=== PATIENT | male | born 1945 | race Caucasian/White ===

== ENCOUNTER 2022-04-06 08:29 | Outpatient (REF) | payer MEDICARE, SELFPAY ==
[2022-04-06 08:47] LABS: MANUAL DIFF FLAG NO
[2022-04-06 08:58] LABS: Basophils Percent Auto 0.5 % (0-2); Eosinophils Absolute Auto 0.3 X10*3/uL (0.0-0.4); Eosinophils Percent Auto 4.5 % (0-4); Hematocrit 38.8 % (42.0-52.0); Hemoglobin 13.5 g/dl (14.0-18.0); Imm Gran Abs Auto 0.04 X10*3/uL (0.00-0.03); Imm Gran Pct Auto 0.6 % (0.0-0.4); Lymphocytes Absolute Auto 1.2 X10*3/uL (1.2-4.9); Lymphocytes Percent Auto 20.1 % (20-40); Mean Corpuscular HGB Conc 34.8 g/dl (31.0-36.0); Mean Corpuscular Hemoglobin 28.8 pg (27.0-33.0); Mean Corpuscular Volume 82.7 fL (80.0-98.0); Mean Platelet Volume 9.2 fL (9.4-12.4); Monocytes Absolute Auto 0.6 X10*3/uL (0.1-1.2); Monocytes Percent Auto 9.2 % (2-11); Neutrophils Percent Auto 65.1 % (45-73); Platelet Count 301 X10*3/uL (160-400); Red Blood Count 4.69 X10*6/uL (4.60-5.80); Red Cell Distribution Width 12.5 % (11.0-16.0); White Blood Count 6.2 X10*3/uL (4.8-10.8)
[2022-04-06 09:22] LABS: Alanine Aminotransferase 13 U/L (0-40); Albumin Level 3.9 g/dL (3.5-5.0); Alkaline Phosphatase 85 U/L (39-117); Anion Gap 15 (12-20); Aspartate Amino Transferase 11 U/L (5-37); Bilirubin Total 0.5 mg/dL (0.0-1.0); Blood Urea Nitrogen 28 mg/dL (9-16); Calcium 9.4 mg/dL (8.4-10.2); Carbon Dioxide 25 mmol/L (22-29); Chloride 104 mmol/L (96-108); Cholesterol 170 mg/dL; Estimated Glomerular Filt Rate 39; Glucose Random 323 mg/dL (60-115); HDL Cholesterol 28 mg/dL; LDL Cholesterol Calculated 82 mg/dl; Potassium 5.9 mmol/L (3.3-5.1); Sodium 138 mmol/L (135-145); Total Protein 7.3 g/dL (6.5-8.0); Triglycerides 301 mg/dL
[2022-04-06 09:42] LABS: Thyroid Stimulating Hormone 2.57 uIU/mL (0.32-4.0)
[2022-04-06 09:53] LABS: Folate 4.9 ng/mL (> or = 4.0); Vitamin B12 316 pg/mL (200-900)
== END 2022-04-06 08:30 | disposition home or self-care (01) ==
LOC: HO.LAB 08:29
PROVIDERS: PCP Internal Medicine; Visit Provider Internal Medicine
DX: E11.65 Type 2 diabetes mellitus with hyperglycemia (principal); E78.00 Pure hypercholesterolemia, unspecified; E87.5 Hyperkalemia
CPT/HCPCS: 36415; 80053; 80061; 82607; 82746; 84439; 84443; 85025

== ENCOUNTER 2022-04-07 16:20 | Outpatient (REF) | payer MEDICARE, SELFPAY ==
[2022-04-07 17:30] LABS: Creatinine Urine 66.04 mg/dL
[2022-04-07 17:32] LABS: Creatinine Urine 65.97 mg/dL; Microalbum/Creatinine Ratio Ur 37.8 ug/mg cr
== END 2022-04-07 16:21 | disposition home or self-care (01) ==
LOC: HO.LNP 16:20
PROVIDERS: Visit Provider Internal Medicine
DX: E11.65 Type 2 diabetes mellitus with hyperglycemia (principal)
CPT/HCPCS: 82043

== ENCOUNTER → 2022-04-14 12:59 | Outpatient (BNVA) | payer MEDICARE, SELFPAY | PROVIDERS: PCP Internal Medicine; Visit Provider Internal Medicine Endocrinology, Diabetes & Metabolism | DX: E11.65 Type 2 diabetes mellitus with hyperglycemia (principal) | CPT/HCPCS: 82947; 83036; 99202 ==

== ENCOUNTER 2022-04-21 14:56 | Outpatient (REF) | payer MEDICARE, SELFPAY ==
[2022-04-21 15:36] LABS: Anion Gap 13 (12-20); Blood Urea Nitrogen 32 mg/dL (9-16); Calcium 9.9 mg/dL (8.4-10.2); Carbon Dioxide 27 mmol/L (22-29); Chloride 103 mmol/L (96-108); Estimated Glomerular Filt Rate 40; Glucose Random 191 mg/dL (60-115); Potassium 4.7 mmol/L (3.3-5.1); Sodium 138 mmol/L (135-145)
== END 2022-04-21 14:57 | disposition home or self-care (01) ==
LOC: HO.LAB 14:56
PROVIDERS: PCP Internal Medicine; Visit Provider Internal Medicine
DX: E87.5 Hyperkalemia (principal)
CPT/HCPCS: 36415; 80048

== ENCOUNTER → 2022-05-05 10:49 | Outpatient (BNVA) | payer MEDICARE, SELFPAY | PROVIDERS: PCP Internal Medicine; Visit Provider Registered Nurse Diabetes Educator | DX: E11.65 Type 2 diabetes mellitus with hyperglycemia (principal) | CPT/HCPCS: 99211 ==

== ENCOUNTER → 2022-06-16 10:28 | Outpatient (BNVA) | payer MEDICARE, SELFPAY | PROVIDERS: PCP Internal Medicine; Visit Provider Dietitian, Registered | DX: E11.65 Type 2 diabetes mellitus with hyperglycemia (principal); Z71.3 Dietary counseling and surveillance | CPT/HCPCS: 97802 ==

== ENCOUNTER → 2022-07-21 15:55 | Outpatient (BNVA) | payer MEDICARE, SELFPAY | PROVIDERS: PCP Internal Medicine; Visit Provider Internal Medicine Endocrinology, Diabetes & Metabolism | DX: E11.65 Type 2 diabetes mellitus with hyperglycemia (principal); Z79.4 Long term (current) use of insulin | CPT/HCPCS: 82947; 83036; 99212 ==

== ENCOUNTER → 2022-10-01 09:56 | Outpatient (BNVA) | payer MEDICARE, SELFPAY | PROVIDERS: PCP Internal Medicine; Visit Provider Dietitian, Registered | DX: E11.65 Type 2 diabetes mellitus with hyperglycemia (principal); E11.22 Type 2 diabetes mellitus with diabetic chronic kidney disease; N18.9 Chronic kidney disease, unspecified | CPT/HCPCS: 97803 ==

== ENCOUNTER → 2022-11-10 15:07 | Outpatient (BNVA) | payer MEDICARE, SELFPAY | PROVIDERS: PCP Internal Medicine; Visit Provider Internal Medicine Endocrinology, Diabetes & Metabolism | DX: E11.65 Type 2 diabetes mellitus with hyperglycemia (principal) | CPT/HCPCS: 82947; 83036; 99212 ==

== ENCOUNTER 2023-04-21 07:56 | Outpatient (AMB) | payer MEDICARE, SELFPAY ==
[2023-04-21 07:58] VITALS: BP 114/52; PULSE 80; BMI 37.4
--- NOTE | 2023-04-21 07:58 | MHC.OFFVIS ---
Intake Vital Signs 04/21/23 07:58 Height 5 ft 10 in Weight 260 lb 5.855 oz BMI 37.4 BP 114/52 L Blood Pressure Location Lt brachial Position Sitting Pulse 80 Pulse Source Pulse Oximeter Intake Visit Reasons: f/u Type 2 DM/CONFIRM Intake Note: Patient present today to follow up on Type 2 Diabetes Mellitus. Patient receives DME supplies through: Last Diabetic Eye exam: November 06, 2022 Last Podiatry Visit: 04/13/2023 Random Glucose: 268mg/dl HgA1C: 9.4% Visual Design Lead Required: No Accompanied by: Self / Same As Patient Allergies metformin Adverse Reaction (Severe, Verified 04/21/23 08:04) Diarrhea Medication List - Last Reconciled 04/21/23 by Kalen Hernandez MD flash glucose scanning reader ([employer] Oscar 2 [place]) As directed checked the blood sugar 3 times a day, patient is on 4 shots a day of insulin flash glucose sensor (FreeStyle Oscar 2 Sensor kit) As directed check the blood sugars 4 times a day, patient is on insulin and is on for shots today furosemide 20 mg PO DAILY insulin aspart U-100 (Novolog FlexPen U-100 Insulin aspart) 1 sliding scale dose subcut TID insulin glargine (Lantus Solostar U-100 Insulin) 40 units (0.4 mL) subcut QPM losartan 100 mg PO DAILY 90 days lovastatin 20 mg PO DAILY 90 days HPI HPI Comments History of Present Illness Details 77 YO M who is seen in consultation for T2DM at the request of PCP. Initially diagnosed with T2DM in 2003 . Was initially started on treatment with metformin . Had diarrhea Current regimen 40 units Lantus Novolog <150 0 units 151-200 4-12 units Never took Trulicity . download of Oscar shows average glucose to be 237 with GMI of 9% 13 % range with 53% hyperglycemic and 34 % very hyperglycemic and no hypoglycemia. Pattern shows persistent hyperglycemia throughout the day with increased post-breakfast and post-lunch hyperglycemia Reports low sugars rare . Family history of T2DM in Father Type 2 DM . Brother had Type 2 DM Has eyes checked yearly, last eye exam last wk , Has retinopathy.Laser surgery in R eye but has both eyes Denies neuropathy, l, Does not sees podiatry. Has nephropathy, on TIFFANY/ARB. . Has HLD, on statin. Denies CAD. Had diabetes education.[facility] Medical History (Updated 10/01/22 @ 10:[address], LDN) Hypercholesterolemia Hypertension Type 2 diabetes mellitus with hyperglycemia Surgical History Hx of cataract surgery Family History Mother Ovarian cancer Father Diabetes Brother No problems noted. Brother Diabetes Sister No problems noted. Daughter No problems noted. Social History Housing: Other (Staying with brother) Alcohol intake: current Patient Tobacco Use Status: Former Tobacco user Tobacco use type: Cigarette Years Smoked: quit 1979 e-Cigarette/Vaping Use: Never Used Second Hand Smoke Exposure: No Current occupational status: retired Cognitive needs: No Hearing needs: No Vision needs: Yes Physical Exam Vital Signs: Last Vital Signs Pulse 80 04/21/23 07:58 BP 114/52 L 04/21/23 07:58 BMI result Body Mass Index 37.4 Absence of Cushingoid features. Absence of acromegalic features. Neck exam reveals nl size thyroid about 15 gms. No thyroid nodules palpable. No carotid bruits present. Lungs CTA. Heart S1 S2, Reg R/R. No M/R/ G. Skin exam reveals absence of vitiligo or acanthosis nigricans. Abdominal exam reveals Soft NT/ND with NA BS. No organomegaly present. Neck Other: . Extrem Other: Visual exam of foot performed. No ulcerations or open lesions. No onchomycosis, no callouses.Pulses 2 + distally Sensation intact to monofilament exam. Vibratory sensation sensed is decreased with 128 Hz tuning fork. There is onchymosis in several toenails on both LE. There is 2+ edema around both the ankles Results AMB Hemoglobin A1c AMB Hemoglobin A1c 9.4 % Last Edit by Nidia Nogueira on 04/21/23 08:23 Results Reviewed Results Reviewed: 04/21/23 08:11 Glucose, Whole Blood Routine Laboratory Last Values Glucose (Clinic) 268 mg/dL (60-115) H 04/21/23 08:11 Hgb A1c (Clinic) 9.4 % (4.0-6.0) H 04/21/23 08:13 Assessment & Plan Assessment & Plan (1) Type 2 diabetes mellitus with hyperglycemia: Code(s): E11.65 - Type 2 diabetes mellitus with hyperglycemia Plan: This is a 77-year-old white male with a history of type 2 diabetes in the setting of CKD stage 3 being managed with basal-bolus insulin with glycemic control and known microvascular complications namely CKD and retinopathy. Plan is to have the patient start the Trulicity 0.75 mg samples and titrate as tolerated. Patient agreed to try Trulicity. . Will also have patient follow up with public health educator. Will recheck basic metabolic panel, lipid profile microalbumin to creatinine ratio. If GFR is stable, will initiate Farxiga 10 mg q.d. for additional glycemic control and renal protection in future . Once again, went over the correlation of poor glycemic control to development of progression complications from diabetes Orders: Orders Basic Metabolic Panel Today E11.65 - Type 2 diabetes mellitus with hyperglycemia Lipid Panel Today E11.65 - Type 2 diabetes mellitus with hyperglycemia Microalbumin, Random (w Creat) Today E11.65 - Type 2 diabetes mellitus with hyperglycemia AMB Hemoglobin A1c Today E11.65 - Type 2 diabetes mellitus with hyperglycemia Coding Level of Care Code Est Pt Level 4 (99966) Diagnoses Type 2 diabetes mellitus with hyperglycemia E11.65
[2023-04-21 08:15] LABS: Glucose, Whole Blood 268 mg/dL (60-115)
== END 2023-04-21 08:34 | disposition home or self-care (01) ==
PROVIDERS: PCP Internal Medicine; Visit Provider Internal Medicine Endocrinology, Diabetes & Metabolism
DX: E11.65 Type 2 diabetes mellitus with hyperglycemia (principal)
CPT/HCPCS: 99214

== ENCOUNTER → 2023-04-21 07:56 | Outpatient (BNVA) | payer MEDICARE, SELFPAY | PROVIDERS: Visit Provider Internal Medicine Endocrinology, Diabetes & Metabolism | DX: E11.65 Type 2 diabetes mellitus with hyperglycemia (principal); E11.22 Type 2 diabetes mellitus with diabetic chronic kidney disease; N18.30 Chronic kidney disease, stage 3 unspecified; E11.319 Type 2 diabetes mellitus with unspecified diabetic retinopathy without macular edema; Z79.4 Long term (current) use of insulin | CPT/HCPCS: 82947; 83036; 99212 ==

== ENCOUNTER 2023-05-04 08:46 | Outpatient (AMB) | payer MEDICARE, SELFPAY ==
--- NOTE | 2023-05-04 09:06 | A.OFFPC_ITS ---
Vital Signs 05/04/23 09:07 Height 5 ft 10 in Weight 255 lb BMI 36.6 BP 130/62 Blood Pressure Location Lt brachial Position Sitting Pulse 57 Pulse Source Pulse Oximeter Pulse Oximetry (%) 97 Oxygen Delivery Method Room Air Intake Visit Reasons: PE Allergies metformin Adverse Reaction (Severe, Verified 05/04/23 09:08) Diarrhea Medication List - Last Reconciled 05/04/23 by Brandt Vickers MD dulaglutide (Trulicity) 0.75 mg subcut QWEEK flash glucose scanning reader ([employer] Oscar 2 [place]) As directed checked the blood sugar 3 times a day, patient is on 4 shots a day of insulin flash glucose sensor (FreeStyle Oscar 2 Sensor kit) As directed check the blood sugars 4 times a day, patient is on insulin and is on for shots today furosemide 20 mg PO DAILY insulin aspart U-100 (Novolog FlexPen U-100 Insulin aspart) 1 sliding scale dose subcut TID insulin glargine (Lantus Solostar U-100 Insulin) 40 units subcut QPM losartan 100 mg PO DAILY 90 days lovastatin 20 mg PO DAILY 90 days Tobacco use date assessed: 05/04/23 Fall risk assessment: 1 Fall in past year Last assessed Fall Risk: 05/04/23 Dental Screening Dental Screen Date: 05/04/23 Did you have a dental visit in the last 12 months?: No Did you have a dental problem in the last 6 months where you did not have access to dental care?: No Was dental information given to patient?: No HPI PE HPI Details 77-year-old obese male with uncontrolled diabetes mellitus hypercholesterolemia hypertension chronic kidney disease coming in for physical exam. Last seen in July 2022 patient is here for physical exam. Patient has met with endocrinology never started the Trulicity and was advised to start and if renal function is stable additional medication Farxiga. Patient also has met with Nephrology diagnosis of chronic kidney disease 3B diabetes/hypertension nephropathy Lasix 20 mg once a day advised for LDL to be less than 70. Patient also has seen Ophthalmology August 2022 stable proliferative diabetic retinopathy right eye left eye has active proliferative diabetic retinopathy with recent vitreous hemorrhage had intravitreal Avastin seeing Dr. Stephens [facility] Medical History (Updated 05/04/23 @ 09:42 by Brandt Vickers MD) Hypercholesterolemia Hypertension Type 2 diabetes mellitus with hyperglycemia Surgical History Hx of cataract surgery Family History (Updated 05/04/23 @ 09:09 by Taylor Castro CMA) Mother Ovarian cancer Father Diabetes Brother No problems noted. Brother Diabetes Sister No problems noted. Daughter No problems noted. Social History (Updated 05/04/23 @ 09:29 by Brandt Vickers MD) Housing: Other (Staying with brother) Alcohol intake: current Patient Tobacco Use Status: Former Tobacco user Tobacco use type: Cigarette Years Smoked: quit 1979 e-Cigarette/Vaping Use: Never Used Second Hand Smoke Exposure: No Current occupational status: retired Cognitive needs: No Hearing needs: No Vision needs: Yes Questionnaire PHQ-9 Over the last 2 weeks, how often have you been bothered by any of the following problems? 1. Little interest or pleasure in doing things: several days 2. Feeling down, depressed, or hopeless: not at all 3. Trouble falling or staying asleep, or sleeping too much: not at all 4. Feeling tired or having little energy: not at all 5. Poor appetite or overeating: not at all 6. Feeling bad about yourself - or that you are a failure or have let yourself or your family down: not at all 7. Trouble concentrating on things, such as reading the newspaper or watching television: not at all 8. Moving or speaking so slowly that other people could have noticed. Or the opposite - being so fidgety or restless that you have been moving around a lot more than usual: not at all 9. Thoughts that you would be better off or of hurting yourself in some way: not at all Total score: 1 Depression Screening Interpretation: Negative Source: Developed by Drs. Kalen Laguerre, Meg Charles, Alfonso Gan and colleagues, with an educational nadia from [employer]. Thrive Questionnaire Date Thrive assessed: 05/04/23 I am a: Patient What is your living situation today?: I have a steady place to live Within the past 12 months, did the food you bought not last and you didn't have the money to get more?: Never true Within the past 12 months, did you worry whether your food would run out before you got money to buy more?: Never true Do you have trouble paying for medicines?: No Do you have trouble getting transportation to medical appointments?: No Do you have trouble paying your heating and electricity bill?: No Do you have trouble taking care of your child, family member or friend?: No Do you have trouble with day-to-day activities such as bathing, preparing meals, shopping, managing finances, etc.?: No Are you currently unemployed and looking for a job?: No Are you interested in more education?: No Currently or been in a relationship where the following occur: no concerns reported AUDIT C Alcohol Use Questionnaire (AUDIT-C) 1. How often do you have a drink containing alcohol?: Monthly or less 2. How many drinks containing alcohol do you have on a typical day when you are drinking?: 1 or 2 3. How often do you have six or more drinks on one occasion?: Never Total Score: 1 PAZ-7 AMB Questionnaire PAZ-7 Date PAZ - 7 assessed: 05/04/23 Feeling nervous, anxious, or on edge: 0 = Not at all Not being able to stop or control worryin = Not at all Worrying too much about different things: 0 = Not at all Trouble relaxin = Not at all Being so restless that it is hard to sit still: 0 = Not at all Becoming easily annoyed or irritable: 0 = Not at all Feeling afraid as if something awful might happen: 0 = Not at all Total PAZ-7 score (0-4 normal; 5-9 mild; 10-14 moderate; 15-21 severe): 0 Source: Developed by Drs. Kalen Laguerre, Meg Charles, Alfonso Gan and colleagues, with an educational nadia from [employer]. Review of Systems Const Denies poor appetite and Denies weakness Eyes Denies no additional complaints ENT Reports Normal hearing present, Denies dizziness, Denies nasal congestion, Denies tinnitus and Denies sore throat Card Denies chest pain, Denies syncope, Denies rapid heart rate and Denies dyspnea Resp Denies cough and Denies dyspnea GI Denies change in stool character, Reports constipation, Denies diarrhea, Denies nausea and Denies vomiting Denies dysuria and Denies urinary frequency Neuro Reports Normal hearing present, Denies confusion, Denies dizziness, Denies syncope and Denies weakness Psych Denies confusion Physical exam (Primary Care) Vital Signs: Last Vital Signs Pulse 57 05/04/23 09:07 BP 130/62 05/04/23 09:07 Pulse Ox 97 05/04/23 09:07 Oxygen Delivery Method Room Air 05/04/23 09:07 Next steps: decline rectal exam , decline taking off shoes and pants BMI result Body Mass Index 36.6 Tobacco/Smoking Status: Tobacco use Status Tobacco use date assessed 05/04/23 05/04/23 09:15 Patient Tobacco Use Status Former Tobacco user 05/04/23 09:15 Tobacco use type Cigarette 05/04/23 09:15 e-Cigarette/Vaping Use Never Used 05/04/23 09:15 PHQ-9: PHQ-9 Score PHQ-9: Total score 1 05/04/23 09:15 Depression Screening Interpretation: Negative Thrive Assessment: Date of Thrive Assessment Date Thrive assessed 05/04/23 05/04/23 09:15 Currently or been in a relationship where the following occur: no concerns reported Const General: No confusion Orientation/consciousness: No confusion HENMT Other: impacted cerumen bilateral Head: Yes normocephalic Ears: external ears normal Face and sinus: Yes normal facial exam Mouth: moist mucous membranes Throat: Yes tonsils normal Eyes Other: R eye opaque corneal lens Conjunctivae: conjunctivae normal Pupils: Equal, round and reactive pupils present and Pupil accommodation reflex normal Direct Ophthalmoscopy: normal light reflex Neck Neck: No lymphadenopathy Thyroid: Thyroid normal Chest Chest palpation & inspection: normal inspection of the chest Resp Effort & Inspection: normal respiratory effort and no audible wheezes Auscultation: clear to auscultation bilaterally, no crackles, no wheezes and lung sounds not diminished Cardio Rate: regular rate Rhythm: regular rhythm Peripheral pulses: radial pulses present and dorsalis pedis present GI Palpation (GI): no masses Auscultation: normal bowel sounds and normoactive bowel sounds Rectal Exam - Male: Yes deferred Other: decline exam Skin General skin exam: no rashes or lesions noted Rashes: no rashes Neuro General: No confusion Cranial nerves: Yes Equal, round and reactive pupils present and Yes Normal hearing present Cognition (Neuro): normal cognition Gait exam (Neuro): Normal gait present Motor exam (neuro): 5/5 motor strength present throughout Deep tendon reflexes (DTR's): Right brachioradialis reflex intensity grade: 2+, Left brachioradialis reflex intensity grade: 2+, Right patellar reflex intensity grade: 2+ and Left patellar reflex intensity grade: 2+ Extrem Other: 2 + edema bilateral General: Yes edema Assessment and Plan Assessment & Plan (1) Annual physical exam: Code(s): Z00.00 - Encounter for general adult medical examination without abnormal findings (2) Type 2 diabetes mellitus with hyperglycemia: Code(s): E11.65 - Type 2 diabetes mellitus with hyperglycemia Plan: Decrease the amount of carbohydrate intake, pasta, bread, rice and potatoes are all sugar and that is aside from all the sweet stuff, remember that fruits are good but they are Sweet also. Hemoglobin A1c goal of less than 7.0 patient is being followed up by Endocrinology started on Chad and following with [facility] (3) Hypercholesterolemia: Code(s): E78.00 - Pure hypercholesterolemia, unspecified Plan: Avoid fried foods, chicken skin, eggs, butter margarine, pastries and meat. Be it pork or beef they have a lot of cholesterol LDL goal of less than 70 and triglyceride of less than 150 patient is on lovastatin 20 mg once a day (4) Hypertension: Code(s): I10 - Essential (primary) hypertension Plan: Continue with blood pressure medication. Decrease salt intake and exercise patient is on losartan 100 mg once a day (5) Obesity (BMI 30-39.9): Code(s): E66.9 - Obesity, unspecified Plan: Diet and exercise (6) CKD (chronic kidney disease): Comment: Stage IIIB nephrology Code(s): N18.9 - Chronic kidney disease, unspecified Plan: Patient follows up with Nephrology avoid NSAIDs keep diabetes under control (7) Colonoscopy refused: Code(s): Z53.20 - Procedure and treatment not carried out because of patient's decision for unspecified reasons (8) Proliferative retinopathy due to DM: Comment: Dr. Stephens left active proliferative, right stable proliferative retinopathy 08/2022 Code(s): E11.3599 - Type 2 diabetes mellitus with proliferative diabetic retinopathy without macular edema, unspecified eye Plan: Patient follows up with Ophthalmology (9) GERD (gastroesophageal reflux disease): Code(s): K21.9 - Gastro-esophageal reflux disease without esophagitis (10) Impacted cerumen of both ears: Code(s): H61.23 - Impacted cerumen, bilateral Orders: Orders Thyroid Stimulating Hormone Today E11.65 - Type 2 diabetes mellitus with hyperglycemia Microalbumin, Random (w Creat) Today E11.65 - Type 2 diabetes mellitus with hyperglycemia Creatinine Urine Today E11.65 - Type 2 diabetes mellitus with hyperglycemia Complete Blood Count Auto Diff Today E11.65 - Type 2 diabetes mellitus with hyperglycemia Comprehensive Met. Panel Today E11.65 - Type 2 diabetes mellitus with hyperglycemia Free T4 (Free Thyroxine) Today E11.65 - Type 2 diabetes mellitus with hyperglycemia Lipid Panel Today E11.65 - Type 2 diabetes mellitus with hyperglycemia, E78.00 - Pure hypercholesterolemia, unspecified Vitamin B12 and Folate Today E11.65 - Type 2 diabetes mellitus with hyperglycemia Coding Level of Care Code Est Pt Prev Care >65y(65600) Diagnoses Annual physical exam Z00.00 Type 2 diabetes mellitus with hyperglycemia E11.65 Hypercholesterolemia E78.00 Hypertension I10 Obesity (BMI 30-39.9) E66.9 CKD (chronic kidney disease) N18.9 Colonoscopy refused Z53.20 Proliferative retinopathy due to DM E11.3599 GERD (gastroesophageal reflux disease) K21.9 Impacted cerumen of both ears H61.23
[2023-05-04 09:07] VITALS: BP 130/62; PULSE 57; O2SAT 97; BMI 36.6
== END 2023-05-04 09:51 | disposition home or self-care (01) ==
PROVIDERS: Visit Provider Internal Medicine
DX: Z00.00 Encounter for general adult medical examination without abnormal findings (principal); I12.9 Hypertensive chronic kidney disease with stage 1 through stage 4 chronic kidney disease, or unspecified chronic kidney disease; E11.65 Type 2 diabetes mellitus with hyperglycemia; N18.9 Chronic kidney disease, unspecified; E11.3599 Type 2 diabetes mellitus with proliferative diabetic retinopathy without macular edema, unspecified eye; K21.9 Gastro-esophageal reflux disease without esophagitis; E78.00 Pure hypercholesterolemia, unspecified; E66.9 Obesity, unspecified; Z53.20 Procedure and treatment not carried out because of patient's decision for unspecified reasons; H61.23 Impacted cerumen, bilateral
CPT/HCPCS: 99397

== ENCOUNTER 2023-07-30 09:10 | Outpatient (REF) | payer MEDICARE, SELFPAY ==
[2023-07-30 09:32] LABS: MANUAL DIFF FLAG NO
[2023-07-30 10:00] LABS: Basophils Percent Auto 0.5 % (0-2); Eosinophils Absolute Auto 0.2 X10*3/uL (0.0-0.4); Eosinophils Percent Auto 3.3 % (0-4); Hematocrit 37.9 % (42.0-52.0); Hemoglobin 13.3 g/dl (14.0-18.0); Imm Gran Abs Auto 0.07 X10*3/uL (0.00-0.03); Imm Gran Pct Auto 0.9 % (0.0-0.4); Lymphocytes Absolute Auto 1.7 X10*3/uL (1.2-4.9); Lymphocytes Percent Auto 23.5 % (20-40); Mean Corpuscular HGB Conc 35.1 g/dl (31.0-36.0); Mean Corpuscular Hemoglobin 29.9 pg (27.0-33.0); Mean Corpuscular Volume 85.2 fL (80.0-98.0); Mean Platelet Volume 9.7 fL (9.4-12.4); Monocytes Absolute Auto 0.8 X10*3/uL (0.1-1.2); Monocytes Percent Auto 11.1 % (2-11); Neutrophils Absolute Auto 4.5 x10*3/uL (2.0-8.3); Neutrophils Percent Auto 60.7 % (45-73); Platelet Count 310 X10*3/uL (160-400); Red Blood Count 4.45 X10*6/uL (4.60-5.80); Red Cell Distribution Width 12.7 % (11.0-16.0); White Blood Count 7.4 X10*3/uL (4.8-10.8)
[2023-07-30 10:55] LABS: Alanine Aminotransferase 15 U/L (0-40); Albumin Level 3.9 g/dL (3.5-5.0); Alkaline Phosphatase 68 U/L (39-117); Anion Gap 14 (12-20); Aspartate Amino Transferase 16 U/L (5-37); Bilirubin Total 0.5 mg/dL (0.0-1.0); Blood Urea Nitrogen 35 mg/dL (9-16); Calcium 9.9 mg/dL (8.4-10.2); Carbon Dioxide 26 mmol/L (22-29); Chloride 107 mmol/L (96-108); Cholesterol 149 mg/dL (<200); Estimated Glomerular Filt Rate 37; Glucose Random 212 mg/dL (60-115); HDL Cholesterol 27 mg/dL (>40); LDL Cholesterol Calculated 77 mg/dL (<100); Potassium 5.6 mmol/L (3.3-5.1); Sodium 141 mmol/L (135-145); Total Protein 7.8 g/dL (6.5-8.0); Triglycerides 226 mg/dL (<150)
[2023-07-30 11:20] LABS: Folate 3.8 ng/mL (> or = 4.0); Vitamin B12 387 pg/mL (200-900)
[2023-07-30 11:27] LABS: Free T4 (Free Thyroxine) 0.82 ng/dL (0.71-1.85)
[2023-07-30 11:42] LABS: Creatinine Urine 107.96 mg/dL; Microalbum/Creatinine Ratio Ur 42.6 ug/mg cr (<30)
== END 2023-07-30 09:11 | disposition home or self-care (01) ==
LOC: HO.LAB 09:10
PROVIDERS: PCP Internal Medicine; Visit Provider Internal Medicine Endocrinology, Diabetes & Metabolism
DX: E11.65 Type 2 diabetes mellitus with hyperglycemia (principal); E78.00 Pure hypercholesterolemia, unspecified
CPT/HCPCS: 36415; 80053; 80061; 82043; 82570; 82607; 82746; 84439; 84443; 85025

== ENCOUNTER 2023-08-04 09:13 | Outpatient (AMB) | payer MEDICARE, SELFPAY ==
--- NOTE | 2023-08-04 09:32 | MHC.OFFVIS ---
Intake Vital Signs 08/04/23 09:33 Height 5 ft 10 in Weight 263 lb 3.711 oz BMI 37.8 BP 136/66 Blood Pressure Location Lt brachial Position Sitting Pulse 59 Pulse Source Pulse Oximeter Intake Visit Reasons: f/u Type 2 DM-CONFIRMED Intake Note: Patient presents today to follow up on DMT2. Last Diabetic Eye exam: 07/2023 Last Podiatry Visit: 06/2023 Random Glucose: 238 mg/dl HgA1C:9.5% Computed Tomography Technician Required: No Accompanied by: Self / Same As Patient Allergies metformin Adverse Reaction (Severe, Verified 08/04/23 09:39) Diarrhea HPI HPI Comments History of Present Illness Details 78 YO M who is seen in consultation for T2DM at the request of PCP. Initially diagnosed with T2DM in 2003 . Was initially started on treatment with metformin . Had diarrhea Current regimen 40 units Lantus Novolog <150 0 units 151-200 4-12 units Took Trulicity but could not afford it . download of Oscar shows average glucose to be 241 with GMI of 9.1% 17 % range with 41% hyperglycemic and 42 % very hyperglycemic and no hypoglycemia. Pattern shows persistent hyperglycemia throughout the day with increased post-breakfast and post-dinner hyperglycemia. Trend is downward overnight Reports low sugars rare . Family history of T2DM in Father Type 2 DM . Brother had Type 2 DM Has eyes checked yearly, last eye exam 2 wks ago , Has retinopathy.Laser surgery in R eye but has both eyes Denies neuropathy, l, Does not sees podiatry. Has nephropathy, on TIFFANY/ARB. . Has HLD, on statin. Denies CAD. Had diabetes education.Not recently [facility] Medical History (Updated 05/04/23 @ 09:42 by Brandt Vickers MD) Hypercholesterolemia Hypertension Type 2 diabetes mellitus with hyperglycemia Surgical History Hx of cataract surgery Family History Mother Ovarian cancer Father Diabetes Brother No problems noted. Brother Diabetes Sister No problems noted. Daughter No problems noted. Social History Housing: Other (Staying with brother) Alcohol intake: current Patient Tobacco Use Status: Former Tobacco user Tobacco use type: Cigarette Years Smoked: quit 1979 e-Cigarette/Vaping Use: Never Used Second Hand Smoke Exposure: No Current occupational status: retired Cognitive needs: No Hearing needs: No Vision needs: Yes Physical Exam Vital Signs: Last Vital Signs Pulse 59 08/04/23 09:33 BP 136/66 08/04/23 09:33 BMI result Body Mass Index 37.8 Absence of Cushingoid features. Absence of acromegalic features. Neck exam reveals nl size thyroid about 15 gms. No thyroid nodules palpable. No carotid bruits present. Lungs CTA. Heart S1 S2, Reg R/R. No M/R/ G. Skin exam reveals absence of vitiligo or acanthosis nigricans. Abdominal exam reveals Soft NT/ND with NA BS. No organomegaly present. Neck Other: . Extrem Other: Visual exam of foot performed. No ulcerations or open lesions. No onchomycosis, no callouses.Pulses 2 + distally Sensation intact to monofilament exam. Vibratory sensation sensed is decreased with 128 Hz tuning fork. There is onchymosis in several toenails on both LE. There is 2+ edema around both the ankles Results Reviewed Results Reviewed: Laboratory Last Values Glucose (Clinic) 238 mg/dL (60-115) H 08/04/23 09:41 Assessment & Plan Assessment & Plan (1) Type 2 diabetes mellitus with hyperglycemia: Code(s): E11.65 - Type 2 diabetes mellitus with hyperglycemia Plan: This is a 77-year-old white male with a history of type 2 diabetes in the setting of CKD stage 3 being managed with basal-bolus insulin with poor glycemic control and known microvascular complications namely CKD and retinopathy. Plan is to have the patient have patient follow up with certified breastfeeding educator. Patient is not sure of the scale NovoLog and cannot adjust at this appointment. When he meets with the educator, we could then adjust the NovoLog scale. Will also try to reinitiate Trulicity and try to get financial assistance from [employer]. If GFR is stable, will initiate Farxiga 10 mg q.d. for additional glycemic control and renal protection in future . Once again, went over the correlation of poor glycemic control to development of progression complications from diabetes Medications: New dulaglutide (Trulicity) 0.75 mg (0.5 mL) subcut QWEEK 2 mL 4RF Coding Level of Care Code Est Pt Level 4 (50539) Diagnoses Type 2 diabetes mellitus with hyperglycemia E11.65
[2023-08-04 09:33] VITALS: BP 136/66; PULSE 59; BMI 37.8
[2023-08-04 09:45] LABS: Glucose, Whole Blood 238 mg/dL (60-115)
== END 2023-08-04 10:18 | disposition home or self-care (01) ==
PROVIDERS: PCP Internal Medicine; Visit Provider Internal Medicine Endocrinology, Diabetes & Metabolism
DX: E11.65 Type 2 diabetes mellitus with hyperglycemia (principal)
CPT/HCPCS: 99214

== ENCOUNTER → 2023-08-04 09:13 | Outpatient (BNVA) | payer MEDICARE, SELFPAY | PROVIDERS: PCP Internal Medicine; Visit Provider Internal Medicine Endocrinology, Diabetes & Metabolism | DX: E11.65 Type 2 diabetes mellitus with hyperglycemia (principal) | CPT/HCPCS: 82947; 83036; 99212 ==

== ENCOUNTER 2023-08-25 08:52 | Outpatient (AMB) | payer MEDICARE, SELFPAY ==
--- NOTE | 2023-08-25 09:37 | MHC.AMDMED ---
Intake Intake Visit Reasons: f/u Type 2 DM Quality Assurance Technician Required: No Accompanied by: Self / Same As Patient Allergies metformin Adverse Reaction (Severe, Verified 08/04/23 09:39) Diarrhea HPI Comprehensive Diabetes Asmnt Most Recent Diabetes Results: Microalb/Creat Ratio 42.6 ug/mg cr (<30) H 07/30/23 Cholesterol 149 mg/dL (<200) 07/30/23 HDL Cholesterol 27 mg/dL (>40) L 07/30/23 Triglycerides 226 mg/dL (<150) H 07/30/23 Creatinine 1.78 mg/dL (0.5-1.4) H 07/30/23 Blood Urea Nitrogen 35 mg/dL (9-16) H 07/30/23 Sodium 141 mmol/L (135-145) 07/30/23 Potassium 5.6 mmol/L (3.3-5.1) H 07/30/23 Chloride 107 mmol/L (96-108) 07/30/23 Carbon Dioxide 26 mmol/L (22-29) 07/30/23 Calcium 9.9 mg/dL (8.4-10.2) 07/30/23 AST 16 U/L (5-37) 07/30/23 ALT 15 U/L (0-40) 07/30/23 Total Protein 7.8 g/dL (6.5-8.0) 07/30/23 Albumin 3.9 g/dL (3.5-5.0) 07/30/23 [facility] Medical History (Updated 05/04/23 @ 09:42 by Brandt Vickers MD) Hypercholesterolemia Hypertension Type 2 diabetes mellitus with hyperglycemia Surgical History Hx of cataract surgery Family History Mother Ovarian cancer Father Diabetes Brother No problems noted. Brother Diabetes Sister No problems noted. Daughter No problems noted. Social History Housing: Other (Staying with brother) Alcohol intake: current Patient Tobacco Use Status: Former Tobacco user Tobacco use type: Cigarette Years Smoked: quit 1979 e-Cigarette/Vaping Use: Never Used Second Hand Smoke Exposure: No Current occupational status: retired Cognitive needs: No Hearing needs: No Vision needs: Yes Assessment & Plan Assessment & Plan (1) Type 2 diabetes mellitus with hyperglycemia: Code(s): E11.65 - Type 2 diabetes mellitus with hyperglycemia Plan: Learning objectives: The patient was provided with verbal and written education on the following topics as outlined below. Assess patient education level/literacy/barriers Patient questions/concerns, patient's last A1c in July 2023 9.5%. Patient uses Oscar 2 to monitor glucose Patient above target 72% At target 28% Below target 0% Average glucose for the past 2 weeks 211 mg/dL Patient has restarted Trulicity 0.75 mg, however reports that will not be able to continue due to high co-pay. Message sent to nurse to find out if [facility] is now accepting new applications for 2023. Patient reports he also takes Lantus daily, however he changes dose based on what evening glucose level is said he takes anywhere from 30-40 units. after review of glucose data it does appear that patient trend down overnight. Discussed with patient the importance of taking consistent dose of Lantus. Patient is also on Humalog sliding scale. Patient did not bring copy of sliding scale to today's visit. Patient is experiencing hyperglycemia throughout most of the day. The patient met all learning objectives and was able to verbalize understanding and provide teach back of education topics discussed . The patient was provided with the opportunity to ask questions and all questions were answered. Topics covered in today?s session included: Medications (If applicable) Name of medication? Dosing/administration instructions? Mechanism of action? Potential side effects? Potential adverse reaction and appropriate treatment? Review onset, peak, duration Assess for concerns re: insurance coverage, cost, barriers to compliance Insulin/Injectables (If applicable) Storage/care of insulin?? Injection sites? Site rotation? Onset, peak, duration Drawing up insulin? Injecting insulin/other injectables? Sharps disposal Continuous blood glucose monitoring (if applicable) Hypoglycemia and Hyperglycemia Signs and symptoms? Causes?? Treatment? Preventing hypoglycemia? When to seek medical attention Blood glucose targets and how you feel when your blood glucose is in and out of your target ranges. Monitoring and knowing your A1C. What can make blood glucose go up and down and preventing high and low blood glucose. Review of blood sugar targets in expected goal range and outside of expected goal range. Problem solving and preventing hyper/hypoglycemia. Sick day management of diabetes. Using blood sugar results in decision making process in managing diabetes. ?Patient was receptive to information provided and participated in the discussion. Asked?appropriate questions and demonstrated good understanding of the topics discussed.? ? Educational Materials: The patient was provided with the following written educational materials: Target Goal handout Patient Response to instructions: Comprehension of Instructions: fair Readiness to make changes:? Pre contemplation How confident they feel about making changes: fair Patient Instructions: Pump certified adaptive physical educator in 2 weeks Bring copy of sliding scale to visit If patient can apply to [facility] we will request prescription for higher dose of Trulicity Coding Level of Care Code Est Pt Level 1 (78254) Diagnoses Type 2 diabetes mellitus with hyperglycemia E11.65
== END 2023-08-25 09:39 | disposition home or self-care (01) ==
PROVIDERS: PCP Internal Medicine; Visit Provider Registered Nurse Diabetes Educator
DX: E11.65 Type 2 diabetes mellitus with hyperglycemia (principal)

== ENCOUNTER → 2023-08-25 08:52 | Outpatient (BNVA) | payer MEDICARE, SELFPAY | PROVIDERS: PCP Internal Medicine; Visit Provider Registered Nurse Diabetes Educator | DX: E11.65 Type 2 diabetes mellitus with hyperglycemia (principal); Z79.4 Long term (current) use of insulin | CPT/HCPCS: 99211 ==

== ENCOUNTER 2023-09-14 09:05 | Outpatient (AMB) | payer MEDICARE, SELFPAY ==
--- NOTE | 2023-09-14 09:44 | MHC.AMDMED ---
Intake Intake Visit Reasons: 60 min Hand Clerical Verifier Required: No Accompanied by: Self / Same As Patient Allergies metformin Adverse Reaction (Severe, Verified 08/04/23 09:39) Diarrhea HPI Comprehensive Diabetes Asmnt Most Recent Diabetes Results: Microalb/Creat Ratio 42.6 ug/mg cr (<30) H 07/30/23 Cholesterol 149 mg/dL (<200) 07/30/23 HDL Cholesterol 27 mg/dL (>40) L 07/30/23 Triglycerides 226 mg/dL (<150) H 07/30/23 Creatinine 1.78 mg/dL (0.5-1.4) H 07/30/23 Blood Urea Nitrogen 35 mg/dL (9-16) H 07/30/23 Sodium 141 mmol/L (135-145) 07/30/23 Potassium 5.6 mmol/L (3.3-5.1) H 07/30/23 Chloride 107 mmol/L (96-108) 07/30/23 Carbon Dioxide 26 mmol/L (22-29) 07/30/23 Calcium 9.9 mg/dL (8.4-10.2) 07/30/23 AST 16 U/L (5-37) 07/30/23 ALT 15 U/L (0-40) 07/30/23 Total Protein 7.8 g/dL (6.5-8.0) 07/30/23 Albumin 3.9 g/dL (3.5-5.0) 07/30/23 [facility] Medical History (Updated 05/04/23 @ 09:42 by Brandt Vickers MD) Hypercholesterolemia Hypertension Type 2 diabetes mellitus with hyperglycemia Surgical History Hx of cataract surgery Family History Mother Ovarian cancer Father Diabetes Brother No problems noted. Brother Diabetes Sister No problems noted. Daughter No problems noted. Social History Housing: Other (Staying with brother) Alcohol intake: current Patient Tobacco Use Status: Former Tobacco user Tobacco use type: Cigarette Years Smoked: quit 1979 e-Cigarette/Vaping Use: Never Used Second Hand Smoke Exposure: No Current occupational status: retired Cognitive needs: No Hearing needs: No Vision needs: Yes Assessment & Plan Assessment & Plan (1) Type 2 diabetes mellitus with hyperglycemia: Code(s): E11.65 - Type 2 diabetes mellitus with hyperglycemia Plan: Personal Continuous Glucose Monitor: Patients CGM information reviewed Reviewed patient's sensor data: Hypoglycemia: ? 0% Hyperglycemia:? 80% Time in Range:? 20% Average glucose for the last 2 weeks?230 mg/dL Patient reports he currently frequent leave forgets to take NovoLog prior to meals Reviewed how to interpret trend arrows Patient able to insert sensor independently at home without issue.? Learning objectives: The patient was provided with verbal and written education on the following topics as outlined below. The patient met all learning objectives and was able to verbalize understanding and provide teach back of education topics discussed . The patient was provided with the opportunity to ask questions and all questions were answered. Topics covered in today?s session included: Insulin/Injectables (If applicable) Storage/care of insulin?? Injection sites? Site rotation? Onset, peak, duration Drawing up insulin? Injecting insulin/other injectables? Sharps disposal Continuous blood glucose monitoring (if applicable) Assess for concerns re: insurance coverage, cost, barriers to compliance Patient reports he is unable to afford co-pay for Trulicity so he is no longer taking. Encourage patient to get kidney function labs completed before next visit with Dr. Hernandez to discuss alternative medications Blood glucose targets and how you feel when your blood glucose is in and out of your target ranges. Monitoring and knowing your A1C. What can make blood glucose go up and down and preventing high and low blood glucose. Review of blood sugar targets in expected goal range and outside of expected goal range. Problem solving and preventing hyper/hypoglycemia. ?Patient was receptive to information provided and participated in the discussion. Asked?appropriate questions and demonstrated good understanding of the topics discussed.? ? Patient's current NovoLog sliding scale: 150-to 200 mg/dL take 4 units 201 to 250 mg/dL take 8 units 251 to 300 mg/dL take 12 units 301 to 400 mg/dL take 16 units Smart Goal Assessment:? Patient brought sliding scale to today's visit Pt met goal more than 100% New Smart Goal: Patient will take NovoLog 15 minutes before meals Patient Response to instructions: Comprehension of Instructions: fair Readiness to make changes:? contemplation How confident they feel about making changes:fair Patient Instructions: Take NovoLog 15 minutes prior to meals Complete kidney function labs before next visit with Dr. Hernandez in October 2023 Follow-up with Diabetes Education nurse in 3 months Coding Level of Care Code Est Pt Level 1 (01700) Diagnoses Type 2 diabetes mellitus with hyperglycemia E11.65
== END 2023-09-14 09:46 | disposition home or self-care (01) ==
PROVIDERS: PCP Internal Medicine; Visit Provider Registered Nurse Diabetes Educator
DX: E11.65 Type 2 diabetes mellitus with hyperglycemia (principal)

== ENCOUNTER → 2023-09-14 09:05 | Outpatient (BNVA) | payer MEDICARE, SELFPAY | PROVIDERS: PCP Internal Medicine; Visit Provider Registered Nurse Diabetes Educator | DX: E11.65 Type 2 diabetes mellitus with hyperglycemia (principal) | CPT/HCPCS: 99211 ==

== ENCOUNTER 2023-11-03 09:58 | Outpatient (REF) | payer MEDICARE, SELFPAY ==
[2023-11-03 12:38] LABS: Creatinine Urine 97.07 mg/dL; Microalbum/Creatinine Ratio Ur 39.1 ug/mg cr (<30)
[2023-11-03 12:49] LABS: Anion Gap 12 (12-20); Blood Urea Nitrogen 35 mg/dL (9-16); Calcium 9.6 mg/dL (8.4-10.2); Carbon Dioxide 25 mmol/L (22-29); Chloride 108 mmol/L (96-108); Cholesterol 155 mg/dL (<200); Estimated Glomerular Filt Rate 36; Glucose Random 145 mg/dL (60-115); HDL Cholesterol 26 mg/dL (>40); LDL Cholesterol Calculated 89 mg/dL (<100); Potassium 5.3 mmol/L (3.3-5.1); Sodium 140 mmol/L (135-145); Triglycerides 203 mg/dL (<150)
== END 2023-11-03 09:59 | disposition home or self-care (01) ==
LOC: HO.LAB 09:58
PROVIDERS: Absent Provider Internal Medicine; PCP Internal Medicine; Visit Provider Internal Medicine Endocrinology, Diabetes & Metabolism
DX: E11.65 Type 2 diabetes mellitus with hyperglycemia (principal)
CPT/HCPCS: 36415; 80048; 80061; 82043; 82570

== ENCOUNTER 2023-11-16 08:47 | Outpatient (AMB) | payer MEDICARE, SELFPAY ==
--- NOTE | 2023-11-16 08:49 | MHC.OFFVIS ---
Intake Vital Signs 11/16/23 08:50 Height 5 ft 10 in Weight 261 lb 3.964 oz BMI 37.5 BP 110/46 L Blood Pressure Location Rt brachial Position Sitting Pulse 59 Pulse Source Pulse Oximeter Intake Visit Reasons: f/u Type 2 DM Intake Note: Patient present today to follow up on Type 2 Diabetes Mellitus. Last Diabetic Eye exam: 10/2023 [facility] Random Glucose: 181 mg/dl HgA1C: 9.9% Agricultural Equipment Sales Engineer Required: No Accompanied by: Self / Same As Patient Allergies metformin Adverse Reaction (Severe, Verified 11/16/23 08:53) Diarrhea HPI HPI Comments History of Present Illness Details 78 YO M who is seen in consultation for T2DM at the request of PCP. Initially diagnosed with T2DM in 2003 . Was initially started on treatment with metformin . Had diarrhea Current regimen 40 units Lantus Novolog <150 4 units 151-200 8 units 251-300 12 Took Trulicity but could not afford it . download of Oscar shows average glucose to be 249 with GMI of 9.3% 21 % range with 31% hyperglycemic and 48 % very hyperglycemic and no hypoglycemia. Pattern shows persistent hyperglycemia throughout the day with increased post-breakfast . Trend is downward overnight Reports low sugars rare . Family history of T2DM in Father Type 2 DM . Brother had Type 2 DM Has eyes checked yearly, last eye exam 3 wks ago , Has retinopathy.Laser surgery in R eye but has both eyes Denies neuropathy, l, Does not sees podiatry. Has nephropathy, on TIFFANY/ARB. . Has HLD, on statin. Denies CAD. Had diabetes education.Not recently . Saw nephrology few days ago [facility] Medical History (Updated 05/04/23 @ 09:42 by Brandt Vickers MD) Hypercholesterolemia Hypertension Type 2 diabetes mellitus with hyperglycemia Surgical History Hx of cataract surgery Family History Mother Ovarian cancer Father Diabetes Brother No problems noted. Brother Diabetes Sister No problems noted. Daughter No problems noted. Social History Housing: Other (Staying with brother) Alcohol intake: current Patient Tobacco Use Status: Former Tobacco user Tobacco use type: Cigarette Years Smoked: quit 1979 e-Cigarette/Vaping Use: Never Used Second Hand Smoke Exposure: No Current occupational status: retired Cognitive needs: No Hearing needs: No Vision needs: Yes Physical Exam Vital Signs: Last Vital Signs Pulse 59 11/16/23 08:50 BP 110/46 L 11/16/23 08:50 BMI result Body Mass Index 37.5 Absence of Cushingoid features. Absence of acromegalic features. Neck exam reveals nl size thyroid about 15 gms. No thyroid nodules palpable. No carotid bruits present. Lungs CTA. Heart S1 S2, Reg R/R. No M/R/ G. Skin exam reveals absence of vitiligo or acanthosis nigricans. Abdominal exam reveals Soft NT/ND with NA BS. No organomegaly present. Neck Other: . Extrem Other: Visual exam of foot performed. No ulcerations or open lesions. No onchomycosis, no callouses.Pulses 2 + distally Sensation intact to monofilament exam. Vibratory sensation sensed is decreased with 128 Hz tuning fork. There is onchymosis in several toenails on both LE. There is 2+ edema around both the ankles Results AMB Hemoglobin A1c AMB Hemoglobin A1c 9.9 % Last Edit by STACI Thompson on 11/16/23 09:21 Results Reviewed Results Reviewed: Laboratory Last Values Glucose (Clinic) 181 mg/dL (60-115) H 11/16/23 08:59 Hgb A1c (Clinic) 9.9 % (4.0-6.0) H 11/16/23 09:02 Assessment & Plan Assessment & Plan (1) Type 2 diabetes mellitus with hyperglycemia: Code(s): E11.65 - Type 2 diabetes mellitus with hyperglycemia Plan: This is a 77-year-old white male with a history of type 2 diabetes in the setting of CKD stage 3 being managed with basal-bolus insulin with poor glycemic control and known microvascular complications namely CKD and retinopathy. Plan is to increase the Lantus to 50 units . Will also increase the Novolog pre-breakfast to 81-150 6 units, 151-200 10 units and >200 14 units . Patient should follow-up with the nurse informatics educator. Patient might benefit from an SGLT 2 inhibitor for renal protection but will defer this to Nephrology follow-up. Would like to use a G LP 1 agonist but patient is not able to afford this Orders: Orders AMB Hemoglobin A1c Today E11.65 - Type 2 diabetes mellitus with hyperglycemia, Z13.9 - Encounter for screening, unspecified Coding Level of Care Code Est Pt Level 4 (29879) Diagnoses Type 2 diabetes mellitus with hyperglycemia E11.65
[2023-11-16 08:50] VITALS: BP 110/46; PULSE 59; BMI 37.5
[2023-11-16 09:03] LABS: Glucose, Whole Blood 181 mg/dL (60-115)
== END 2023-11-16 09:16 | disposition home or self-care (01) ==
PROVIDERS: PCP Internal Medicine; Visit Provider Internal Medicine Endocrinology, Diabetes & Metabolism
DX: Z13.9 Encounter for screening, unspecified (principal); E11.65 Type 2 diabetes mellitus with hyperglycemia
CPT/HCPCS: 99214

== ENCOUNTER → 2023-11-16 08:47 | Outpatient (BNVA) | payer MEDICARE, SELFPAY | PROVIDERS: PCP Internal Medicine; Visit Provider Internal Medicine Endocrinology, Diabetes & Metabolism | DX: E11.65 Type 2 diabetes mellitus with hyperglycemia (principal); E78.5 Hyperlipidemia, unspecified; Z79.4 Long term (current) use of insulin; Z79.899 Other long term (current) drug therapy | CPT/HCPCS: 82947; 83036; 99212 ==

== ENCOUNTER 2024-04-04 09:53 | Outpatient (AMB) | payer MEDICARE, SELFPAY ==
--- NOTE | 2024-04-04 10:03 | A.OFFVIS_ITS ---
Vital Signs 04/04/24 10:04 Height 5 ft 10 in Weight 262 lb 5.601 oz BMI 37.6 BP 112/68 Blood Pressure Location Rt brachial Position Sitting Pulse 60 Pulse Source Pulse Oximeter Intake Visit Reasons: T2DM/CONFIRMED Intake Note: Patient presents today to re-establish treatment for Type 2 Diabetes Mellitus: Last Diabetic eye exam was on: DUE Last Podiatry exam was on: Jayce Grey Washer, 03/17/2024 Most recent HbA1c: 9.7%, 04/04/2024 Random Glucose- 230mg/dL, Today Gaming Manager Required: No Accompanied by: Self / Same As Patient Allergies metformin Adverse Reaction (Severe, Verified 04/04/24 10:11) Diarrhea HPI Comments Details: This is a 78 year old male with a pmhx of Type II D with proliferative retinopathy, HLD, HTN, CKD stage IIIb and obesity presenting for diabetic management. He was last seen by Dr. Hernandez 11/16/2023. I reviewed today's CGM download: CGM in use: 89 % of the time Blood glucose in target range (70-180) 19% of the time Blood glucose high (181-250) 34% of the time Blood glucose very high (>250) 47% of the time Blood glucose low (55-69) 0% of the time Blood glucose very low (less than 55) 0% of the time Hemoglobin a1c 9.7% today. Current medication regimen: Lantus 40 units at bedtime and NovoLog sliding scale: 150-to 200 mg/dL take 4 units 201 to 250 mg/dL take 8 units 251 to 300 mg/dL take 12 units 301 to 400 mg/dL take 16 units Barriers to Treatment: financial barrier to treatment. 2 boxes of lantus pens monthly is $105. Same cost for aspart. Due to cost he reverted to prior insulin dosages rather than continuing increased dosages recommended by Dr. Hernandez. He could not afford co-pay with [facility]. Patient is legally blind and reports difficulty reading labels which limits his ability to manage his diet. Lives alone. Diet: Breakfast-Neil david breakfast bowl with cheese with sausage and eggs. Lunch-sometimes nothing, sometimes a sandwich. Dinner-frozen meals, includes a protein most of the time Snacks/desserts: no snacks, has ice cream twice per week if that Hypoglycemia symptoms: none Hyperglycemia symptoms: none Eye exam: UTD and receives intravitreal injections every 8 weeks Podiatry visit: 03/17/2024 Microvascular complications: neuropathy, nephropathy, retinopathy Macrovascular complications: No known. Hypertension: treated with losartan 100 mg. He is also on furosemide 20 mg. He is followed by Nephrology in [place]. Hyperlipidemia: treated with lovastatin 20 mg. LDL at goal <100. ROS: Constitutional: No unexplained weight loss, fever, chills, fatigue or night sweats. Eyes: No vision changes, blurry vision, double vision, eye pain, eye redness, eye discharge. ENT: No hearing loss, sneezing, congestion, runny nose or sore throat. Respiratory: No shortness of breath, cough or sputum production. Cardiovascular: No chest pain, chest pressure or chest discomfort. No palpitations or pedal edema. Gastrointestinal: No anorexia, nausea, vomiting or diarrhea. No abdominal pain or blood in stool. Genitourinary: No dysuria, hematuria, urinary frequency. Neurologic: No headache, dizziness, syncope, unilateral weakness, ataxia, numbness or tingling in the extremities. Musculoskeletal: No muscle pain, back pain, joint pain or swelling. Hematologic/Lymphatics: No bleeding or bruising. No painful lymph nodes. Skin: No rash or itching. Endocrine: No cold or heat intolerance. No polyuria or polydipsia. Psychiatric: No depression or anxiety. No SI/HI. Physical exam: Constitutional: Alert, in no distress. Neck: Supple, Full range of motion. No lymphadenopathy. No palpable thyroid masses. Respiratory: Clear to auscultation. Cardiovascular: S1 S2 regular. No murmurs. Feet: No ulcerations or open lesions. Pulses 2 +. Sensation intact to monofilament exam. Vibratory sensation sensed is decreased bilaterally. There is onchymosis in several toenails. [facility] Medical History (Updated 04/04/24 @ 16:56 by ANTONIETTA Rodas) CKD stage 3b, GFR 30-44 ml/min Hypercholesterolemia Hypertension Type 2 diabetes mellitus with hyperglycemia Surgical History Hx of cataract surgery Family History Mother Ovarian cancer Father Diabetes Brother No problems noted. Brother Diabetes Sister No problems noted. Daughter No problems noted. Social History Housing: Other Alcohol intake: current Patient Tobacco Use Status: Former Tobacco user Tobacco use type: Cigarette Years Smoked: quit 1979 e-Cigarette/Vaping Use: Never Used Second Hand Smoke Exposure: No Current occupational status: retired Cognitive needs: No Hearing needs: No Vision needs: Yes Physical Exam Vital Signs: Last Vital Signs Pulse 60 04/04/24 10:04 BP 112/68 04/04/24 10:04 BMI result Body Mass Index 37.6 Results AMB Hemoglobin A1c AMB Hemoglobin A1c 9.7 % Last Edit by STACI Webb on 04/04/24 10:20 Results Reviewed Results Reviewed: Laboratory Last Values Glucose (Clinic) 230 mg/dL (60-115) H 04/04/24 10:10 Hgb A1c (Clinic) 9.7 % (4.0-6.0) H 04/04/24 10:13 Laboratory Tests 11/03/23 11/03/23 11/16/23 10:10 10:24 09:02 Creatinine 1.82 H Estimated GFR 36 Glucose (Clinic) Hgb A1c (Clinic) 9.9 H Triglycerides 203 H Cholesterol 155 LDL Cholesterol, Calc 89 HDL Cholesterol 26 L Microalb/Creat Ratio 39.1 H 04/04/24 04/04/24 10:10 10:13 Creatinine Estimated GFR Glucose (Clinic) 230 H Hgb A1c (Clinic) 9.7 H Triglycerides Cholesterol LDL Cholesterol, Calc HDL Cholesterol Microalb/Creat Ratio Assessment & Plan Assessment & Plan (1) Type 2 diabetes mellitus with hyperglycemia: Code(s): E11.65 - Type 2 diabetes mellitus with hyperglycemia Category: Medical Qualifiers: Diabetes mellitus intermodal dispatcher insulin use: with intermodal dispatcher use Qualified Code(s): E11.65 - Type 2 diabetes mellitus with hyperglycemia; Z79.4 - [facility] (current) use of insulin (2) CKD stage 3b, GFR 30-44 ml/min: Code(s): N18.32 - Chronic kidney disease, stage 3b Category: Medical (3) Proliferative retinopathy due to DM: Code(s): E11.3599 - Type 2 diabetes mellitus with proliferative diabetic retinopathy without macular edema, unspecified eye Category: Medical Qualifiers: Diabetes mellitus type: type 2 Proliferative retinopathy type: stable Laterality: bilateral Qualified Code(s): E11.3553 - Type 2 diabetes mellitus with stable proliferative diabetic retinopathy, bilateral Plan In summary this is a 78-year-old male with type 2 diabetes with poor control AC control. Financial barriers are significant. I am going to follow up with his insurance/pharmacy regarding his [id number] cost for Lantus and aspart. He is being charged 70 dollars for his 2nd box of Lantus and for aspart which is above the cap in [place] from my understanding. He has CCA so does not qualify for many of the prescription savings cards unfortunately. Will check creatinine. Consider addition of SGLT2 but cost may be prohibitive. Hypertension is well controlled. Unwilling to increase insulin at present due to cost. Followed by Nephrology for CKD 3B. I gave him information for the [facility] where he resides to see if there are additional food resources he would qualify for in that area. I also recommended he check with his insurance regarding coverage for a MINE SAFETY DIRECTOR due to legal blindness which is interfering with his ability to make healthy food choices. He declined referral back to asthma educator and dietitian. Follow-up in 3 months for diabetes. Orders: Orders AMB Hemoglobin A1c Today E11.65 - Type 2 diabetes mellitus with hyperglycemia Creatinine Today N18.9 - Chronic kidney disease, unspecified Patient Instructions: [facility] To check for other meal resources in [place] Coding Level of Care Code Est Pt Level 4 (05304) Complex EM visit Add On G2211 Diagnoses Type 2 diabetes mellitus with hyperglycemia, with long-term current use of insulin E11.65; Z79.4 Diabetes mellitus care home insulin use: with intermodal dispatcher use CKD stage 3b, GFR 30-44 ml/min N18.32 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 associated with type 2 diabetes mellitus E11.3553 Diabetes mellitus type: type 2 Proliferative retinopathy type: stable Laterality: bilateral
[2024-04-04 10:04] VITALS: BP 112/68; PULSE 60; BMI 37.6
[2024-04-04 10:16] LABS: Glucose, Whole Blood 230 mg/dL (60-115)
== END 2024-04-04 11:00 | disposition home or self-care (01) ==
PROVIDERS: PCP Internal Medicine; Visit Provider Physician Assistant Medical
DX: E11.65 Type 2 diabetes mellitus with hyperglycemia (principal); Z79.4 Long term (current) use of insulin; N18.32 Chronic kidney disease, stage 3b; E11.3553 Type 2 diabetes mellitus with stable proliferative diabetic retinopathy, bilateral
CPT/HCPCS: 99214; G2211

== ENCOUNTER → 2024-04-04 09:53 | Outpatient (BNVA) | payer MEDICARE, SELFPAY | PROVIDERS: PCP Internal Medicine; Visit Provider Physician Assistant Medical | DX: E11.65 Type 2 diabetes mellitus with hyperglycemia (principal); E11.3553 Type 2 diabetes mellitus with stable proliferative diabetic retinopathy, bilateral; N18.32 Chronic kidney disease, stage 3b; Z79.4 Long term (current) use of insulin; Z59.7 Insufficient social insurance and welfare support | CPT/HCPCS: 82947; 83036; 99212 ==

== ENCOUNTER 2024-07-07 09:56 | Outpatient (AMB) | payer MEDICARE, SELFPAY ==
--- NOTE | 2024-07-07 09:58 | A.OFFVIS_ITS ---
Vital Signs 07/07/24 10:07 Height 5 ft 10 in Weight 265 lb 6.985 oz BMI 38.1 BP 124/54 L Blood Pressure Location Lt brachial Position Sitting Pulse 54 Pulse Source Pulse Oximeter Intake Visit Reasons: T2DM Intake Note: Patient present today to follow up on Type 2 Diabetes Mellitus. Last Diabetic Eye exam: 03/17/2024 Last Podiatry Visit: 06/23/2024 Random Glucose: 196 mg/dl HgA1C: 10.9% 07/07/24 Teacher Visually Impaired Required: No Accompanied by: Self / Same As Patient Allergies metformin Adverse Reaction (Severe, Verified 07/07/24 10:07) Diarrhea Medication List - Last Reconciled 07/07/24 by ANTONIETTA Rodas flash glucose scanning reader ([employer] Oscar 2 [place]) As directed checked the blood sugar 3 times a day, patient is on 4 shots a day of insulin flash glucose sensor (FreeStyle Oscar 2 Sensor kit) As directed check the blood sugars 4 times a day, patient is on insulin and is on for shots today folic acid 1 mg PO DAILY furosemide 20 mg PO DAILY insulin aspart U-100 (Novolog FlexPen U-100 Insulin aspart) 4 - 14 units (0.04 - 0.14 mL) subcut TID insulin glargine (Lantus Solostar U-100 Insulin) 48 units subcut QPM losartan 100 mg PO DAILY 90 days lovastatin 20 mg PO DAILY 90 days HPI Comments Details: This is a 78 year old male with a pmhx of Type II D with proliferative retinopathy, HLD, HTN, CKD stage IIIb and obesity presenting for diabetic management. CGM download: CGM active 89% Average glucose 232 G CO 8.9% Glucose variability 30.9% Hyperglycemia 74% Target range 26% Hypoglycemia 0%. Hyperglycemia increases after he has breakfast and persists the rest of the day with spikes after meals. Hemoglobin a1c 10.9% today. Current medication regimen: Lantus 40 units at bedtime and NovoLog. Metformin discontinued due to diarrhea. [facility] Compliance: He is not sure how much NovoLog he has administering before meals. He is not keeping track. He is not following a sliding scale. Patient says he does administer at 5-10 minutes before his meals. Barriers to Treatment: Patient is legally blind and has financial constraints. Hypoglycemia symptoms: rare, 3 within the past few months. Treated with [employer] candy. Hyperglycemia symptoms: polydipsia He is exercising up and down his stairs daily. Eye exam: UTD and receives intravitreal injections every 8 weeks Podiatry visit: 03/17/2024 Microvascular complications: neuropathy, nephropathy (Dr. Harris), retinopathy Macrovascular complications: No known. Hypertension: treated with losartan 100 mg. He is also on furosemide 20 mg. Hyperlipidemia: treated with lovastatin 20 mg. LDL at goal <100. ROS: Constitutional: No fevers or chills. Eyes: No vision changes, blurry vision, double vision Respiratory: No shortness of breath Cardiovascular: No chest pain Gastrointestinal: No anorexia, nausea, vomiting or diarrhea. No abdominal pain Skin: No rash Endocrine: No cold or heat intolerance. No polyuria Physical exam: Constitutional: Alert, in no distress. Neck: Supple, Full range of motion. No lymphadenopathy. No palpable thyroid masses. Respiratory: Clear to auscultation. Cardiovascular: S1 S2 regular. No murmurs. [facility] Medical History (Updated 04/04/24 @ 16:56 by ANTONIETTA Rodas) CKD stage 3b, GFR 30-44 ml/min Hypercholesterolemia Hypertension Type 2 diabetes mellitus with hyperglycemia Surgical History Hx of cataract surgery Family History Mother Ovarian cancer Father Diabetes Brother No problems noted. Brother Diabetes Sister No problems noted. Daughter No problems noted. Social History Housing: Other Alcohol intake: current Patient Tobacco Use Status: Former Tobacco user Tobacco use type: Cigarette Years Smoked: quit 1979 e-Cigarette/Vaping Use: Never Used Second Hand Smoke Exposure: No Current occupational status: retired Cognitive needs: No Hearing needs: No Vision needs: Yes Physical Exam Vital Signs: Last Vital Signs Pulse 54 07/07/24 10:07 BP 124/54 L 07/07/24 10:07 BMI result Body Mass Index 38.1 Results AMB Hemoglobin A1c AMB Hemoglobin A1c 10.9 % Last Edit by STACI Palma on 07/07/24 10:22 Results Reviewed Results Reviewed: Laboratory Last Values Glucose (Clinic) 196 mg/dL (60-115) H 07/07/24 10:13 Assessment & Plan Assessment & Plan (1) Type 2 diabetes mellitus with hyperglycemia: Code(s): E11.65 - Type 2 diabetes mellitus with hyperglycemia Category: Medical Qualifiers: Diabetes mellitus terminal clerk insulin use: with fdc use Qualified Code(s): E11.65 - Type 2 diabetes mellitus with hyperglycemia; Z79.4 - retirement (current) use of insulin (2) CKD stage 3b, GFR 30-44 ml/min: Code(s): N18.32 - Chronic kidney disease, stage 3b Category: Medical (3) Proliferative retinopathy due to DM: Code(s): E11.3599 - Type 2 diabetes mellitus with proliferative diabetic retinopathy without macular edema, unspecified eye Category: Medical Qualifiers: Diabetes mellitus type: type 2 Proliferative retinopathy type: stable Laterality: bilateral Qualified Code(s): E11.3553 - Type 2 diabetes mellitus with stable proliferative diabetic retinopathy, bilateral Plan In summary this is a 79-year-old male with uncontrolled type 2 diabetes. Increase Lantus to 48 units nightly. Patient asked to keep a log of how much NovoLog he is administering before meals so that I can make adjustments further to his regimen. He would like to try Ozempic because he has done some research on it, and he is meeting with someone to help with his medical insurance coverage next week. Denies contraindications to this. We reviewed adverse events and side effects including worsening of retinopathy. He is followed closely by Ophthalmology and his retinal specialist. We reviewed treatment of hypo and hyperglycemia. Glucose tablets sent to pharmacy. Patient declines referral to hat body inspector and dietitian. Follow-up in 4 weeks for diabetes. Orders: Orders AMB Hemoglobin A1c Today E11.65 - Type 2 diabetes mellitus with hyperglycemia, Z79.4 - continuous churn buttermaker (current) use of insulin Medications: New semaglutide (Ozempic) for 4 weeks 0.25 mg (0.368 mL) subcut QWEEK 3 mL 0RF glucose (Dex4 Glucose) until symptoms of low blood sugar are controlled 16 grams (4 x 4 gram) PO Q15M PRN 10 tabs 3RF hypoglycemia Patient Instructions: Increase Lantus from 40 to 48 units in the evening. I want you to start tracking how much Novolog you take before meals. Start Ozempic 0.25 mg weekly. This will require a prior authorization. Coding Level of Care Code Est Pt Level 4 (82329) Complex EM visit Add On G2211 Diagnoses Type 2 diabetes mellitus with hyperglycemia, with long-term current use of insulin E11.65; Z79.4 Diabetes mellitus terminal clerk insulin use: with terminal clerk use CKD stage 3b, GFR 30-44 ml/min N18.32 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 associated with type 2 diabetes mellitus E11.3553 Diabetes mellitus type: type 2 Proliferative retinopathy type: stable Laterality: bilateral
[2024-07-07 10:07] VITALS: BP 124/54; PULSE 54; BMI 38.1
[2024-07-07 10:17] LABS: Glucose, Whole Blood 196 mg/dL (60-115)
== END 2024-07-07 10:42 | disposition home or self-care (01) ==
PROVIDERS: PCP Internal Medicine; Visit Provider Physician Assistant Medical
DX: E11.65 Type 2 diabetes mellitus with hyperglycemia (principal); Z79.4 Long term (current) use of insulin; N18.32 Chronic kidney disease, stage 3b; E11.3553 Type 2 diabetes mellitus with stable proliferative diabetic retinopathy, bilateral

== ENCOUNTER → 2024-07-07 09:56 | Outpatient (BNVA) | payer MEDICARE, SELFPAY | PROVIDERS: PCP Internal Medicine; Visit Provider Physician Assistant Medical | DX: E11.65 Type 2 diabetes mellitus with hyperglycemia (principal); E11.22 Type 2 diabetes mellitus with diabetic chronic kidney disease; N18.32 Chronic kidney disease, stage 3b; E11.3553 Type 2 diabetes mellitus with stable proliferative diabetic retinopathy, bilateral; Z79.4 Long term (current) use of insulin | CPT/HCPCS: 82947; 83036; 99212 ==

== ENCOUNTER 2024-07-11 08:51 | Outpatient (AMB) | payer MEDICARE, SELFPAY ==
[2024-07-11 08:57] VITALS: BP 132/58; PULSE 59; O2SAT 97; BMI 38.3
--- NOTE | 2024-07-11 08:57 | MHC.PC.OV ---
Vital Signs 07/11/24 08:57 Height 5 ft 10 in Weight 267 lb 3.204 oz BMI 38.3 BP 132/58 L Blood Pressure Location Lt brachial Position Sitting Pulse 59 Pulse Source Pulse Oximeter Pulse Oximetry (%) 97 Oxygen Delivery Method Room Air Intake Visit Reasons: annual exam Allergies metformin Adverse Reaction (Severe, Verified 07/11/24 09:10) Diarrhea Medication List - Last Reconciled 07/11/24 by Keysha Lincoln PA-C flash glucose scanning reader ([employer] Oscar 2 [place]) As directed checked the blood sugar 3 times a day, patient is on 4 shots a day of insulin flash glucose sensor (FreeStyle Oscar 2 Sensor kit) As directed check the blood sugars 4 times a day, patient is on insulin and is on for shots today folic acid 1 mg PO DAILY furosemide 20 mg PO DAILY glucose (Dex4 Glucose) 16 grams (4 x 4 gram) PO Q15M PRN insulin aspart U-100 (Novolog FlexPen U-100 Insulin aspart) 4 - 14 units (0.04 - 0.14 mL) subcut TID insulin glargine (Lantus Solostar U-100 Insulin) 48 units subcut QPM losartan 100 mg PO DAILY 90 days lovastatin 20 mg PO DAILY 90 days semaglutide (Ozempic) 0.25 mg (0.368 mL) subcut QWEEK Tobacco use date assessed: 07/11/24 Fall risk assessment: No Falls in past year Last assessed Fall Risk: 07/11/24 Dental Screening Dental Screen Date: 07/11/24 Did you have a dental visit in the last 12 months?: No Did you have a dental problem in the last 6 months where you did not have access to dental care?: No HPI annual exam HPI Details 79-year-old obese male with uncontrolled diabetes mellitus hypercholesterolemia hypertension chronic kidney disease coming in for physical exam last seen by Dr. Vickers 05/04/2023. In review of the notes, patient was [place] [facility] [place] 07/07/2024 advised to increase Lantus to 40 units nightly and started on Ozempic. Patient states he has not picked up the Ozempic yet and we will have us 1st dose today. He has been following with eye doctor and veterinary dentist. He saw the veterinary dentist last week. He has never had a colonoscopy and declines colonoscopy at this time. He does have chronic lower extremity edema and takes furosemide but is unsure who is prescribing this for him. [facility] Medical History CKD stage 3b, GFR 30-44 ml/min Hypercholesterolemia Hypertension Type 2 diabetes mellitus with hyperglycemia Surgical History Hx of cataract surgery Family History Mother Ovarian cancer Father Diabetes Brother No problems noted. Brother Diabetes Sister No problems noted. Daughter No problems noted. Social History Housing: Other Alcohol intake: current Patient Tobacco Use Status: Former Tobacco user Tobacco use type: Cigarette Years Smoked: quit 1979 e-Cigarette/Vaping Use: Never Used Second Hand Smoke Exposure: No Current occupational status: retired Cognitive needs: No Hearing needs: No Vision needs: Yes Questionnaire PHQ-9 Over the last 2 weeks, how often have you been bothered by any of the following problems? 1. Little interest or pleasure in doing things: not at all 2. Feeling down, depressed, or hopeless: not at all 3. Trouble falling or staying asleep, or sleeping too much: not at all 4. Feeling tired or having little energy: not at all 5. Poor appetite or overeating: not at all 6. Feeling bad about yourself - or that you are a failure or have let yourself or your family down: not at all 7. Trouble concentrating on things, such as reading the newspaper or watching television: not at all 8. Moving or speaking so slowly that other people could have noticed. Or the opposite - being so fidgety or restless that you have been moving around a lot more than usual: not at all 9. Thoughts that you would be better off or of hurting yourself in some way: not at all Total score: 0 Depression Screening Interpretation: Negative Depression Screening Done: Yes 03273 - PHQ-9 Billing: Yes Source: Developed by Drs. Kalen Laguerre, Meg Charles, Alfonso Gan and colleagues, with an educational nadia from [employer]. Thrive Questionnaire Date Thrive assessed: 07/11/24 I am a: Patient What is your living situation today?: I have a steady place to live Within the past 12 months, did the food you bought not last and you didn't have the money to get more?: Never true Within the past 12 months, did you worry whether your food would run out before you got money to buy more?: I choose not to answer this question Do you have trouble paying for medicines?: No Do you have trouble getting transportation to medical appointments?: No Do you have trouble paying your heating and electricity bill?: No Do you have trouble taking care of your child, family member or friend?: No Do you have trouble with day-to-day activities such as bathing, preparing meals, shopping, managing finances, etc.?: No Are you currently unemployed and looking for a job?: I choose not to answer this question Are you interested in more education?: No Please select the resources that you would like help with: None Currently or been in a relationship where the following occur: I choose not to answer THRIVE Score: 0 AUDIT C Alcohol Use Questionnaire (AUDIT-C) 1. How often do you have a drink containing alcohol?: Never 3. How often do you have six or more drinks on one occasion?: Never Total Score: 0 PAZ-7 AMB Questionnaire PAZ-7 Date PAZ - 7 assessed: 07/11/24 Feeling nervous, anxious, or on edge: 0 = Not at all Not being able to stop or control worryin = Not at all Worrying too much about different things: 0 = Not at all Trouble relaxin = Not at all Being so restless that it is hard to sit still: 0 = Not at all Becoming easily annoyed or irritable: 0 = Not at all Feeling afraid as if something awful might happen: 0 = Not at all Total PAZ-7 score (0-4 normal; 5-9 mild; 10-14 moderate; 15-21 severe): 0 Source: Developed by Drs. Kalen Laguerre, Meg Charles, Alfonso Gan and colleagues, with an educational nadia from [employer]. PAZ-7 Assessment Billing PAZ-7 Assessment Tool: PAZ-7 Assessment 77521 Review of Systems Const Denies body aches, Denies fatigue, Denies fever(s), Denies frequent falls, Denies headache(s) and Denies weakness Eyes Reports no additional complaints and Denies change in vision ENT Denies dysphagia, Denies dizziness, Denies facial pain, Denies headache(s), Denies nasal congestion and Denies odynophagia Card Denies chest pain, Denies syncope, Denies irregular heart rhythm, Denies leg edema, Denies lightheadedness and Denies dyspnea Resp Denies cough and Denies dyspnea GI Denies constipation, Denies dysphagia, Denies dyspepsia, Denies diarrhea, Denies nausea, Denies odynophagia and Denies vomiting Denies dysuria, Denies urinary frequency, Denies urinary hesitancy and Denies urinary urgency Musc Denies back pain and Denies myalgias Skin/Breast Reports system reviewed and no additional complaints, except as documented Neuro Denies dizziness, Denies syncope, Denies frequent falls, Denies headache(s) and Denies weakness Psych Details: occasional depression Reports no additional complaints Endo Denies fatigue Physical exam (Primary Care) Vital Signs: Last Vital Signs Pulse 59 07/11/24 08:57 BP 132/58 L 07/11/24 08:57 Pulse Ox 97 07/11/24 08:57 Oxygen Delivery Method Room Air 07/11/24 08:57 BMI result Body Mass Index 38.3 Tobacco/Smoking Status: Tobacco use Status Tobacco use date assessed 07/11/24 07/11/24 08:58 Patient Tobacco Use Status Former Tobacco user 07/11/24 08:58 Tobacco use type Cigarette 07/11/24 08:58 e-Cigarette/Vaping Use Never Used 07/11/24 08:58 PHQ-9: PHQ-9 Score PHQ-9: Total score 0 07/11/24 09:35 Depression Screening Interpretation: Negative Thrive Assessment: Date of Thrive Assessment Date Thrive assessed 07/11/24 07/11/24 08:58 Currently or been in a relationship where the following occur: I choose not to answer Const General: cooperative, healthy appearing, comfortable and no acute distress Orientation/consciousness: patient oriented x3 HENMT Head: Yes normocephalic Ears: hearing grossly normal bilaterally, external ears normal, TM's normal bilaterally and EAC's normal General nose exam: Normal external nose present Face and sinus: Yes normal facial exam and Yes sinuses nontender Mouth: Normal oral and palatal mucosa present and tongue normal Throat: Yes posterior oropharynx normal Eyes General: appearance normal, both eyes and all related structures Conjunctivae: conjunctivae normal Pupils: Equal, round and reactive pupils present EOM: EOMs intact bilaterally and No Nystagmus present Neck Neck: Yes normal visual inspection, Yes full ROM and Yes no lymphadenopathy Chest Chest palpation & inspection: normal inspection of the chest Resp Effort & Inspection: normal respiratory effort Auscultation: clear to auscultation bilaterally, no crackles, no rales, no rhonchi, no wheezes and breath sounds present Cardio Rate: regular rate Rhythm: regular rhythm Peripheral pulses: radial pulses present and dorsalis pedis present GI Inspection: Yes normal to inspection and No Abdominal wall edema Palpation (GI): Soft to palpation, not firm and nontender Auscultation: normal bowel sounds Rectal Exam - Male: Yes deferred General: Yes no CVA tenderness Back/Spine/Pelvis Back: no CVA tenderness Skin General skin exam: no rashes or lesions noted Neuro General: patient oriented x3 Cranial nerves: Yes Equal, round and reactive pupils present, Yes Midline tongue present, Yes Ability to bilaterally elevate shoulders present and No Nystagmus present Gait exam (Neuro): Normal gait present Extrem Other: No erythema, warmth or swelling of bilateral lower extremities General: Yes normal to inspection, Yes full ROM, No no pedal edema and Yes edema (Bilateral 1+) Psych Speech and movement: Normal speech and movement present Affect: normal affect Insight: Good insight present (Psych) Judgement: Good judgement present (Psych) Office Procedures Flu Questionnaire Does the patient have a severe egg allergy?: No Does the patient have severe life threatening allergies?: No Does the patient have a fever or illness today?: No Has the patient ever had Guillain-[place] Syndrome?: No Has the patient ever had any past reaction to a flu shot?: No Immunizations Fluarix Triv [id number] (PF) 45 mcg (15 mcg x 3)/0.5 mL IM syringe Performing Provider: Keysha Lincoln PA-C [place] [facility] Administered by: STACI De Oliveira on 07/11/24 09:35 Dose Route Admin Location Dispensed Lot Number Expiration Date [facility] Director International 0.5 mL IM Left Deltoid 0.5 mL [id number] 02/19/25 [id number] [employer] VIS Given Date VIS Provided VIS Publication Date 07/11/24 Single Vaccine 21 Eligibility Eligibility Date Funding Source Not VFC Eligible 07/11/24 Private Coding Level of Care Code Est Pt Prev Care >65y(01370) Diagnoses CKD stage 3b, GFR 30-44 ml/min N18.32 GERD (gastroesophageal reflux disease) K21.9 Annual physical exam Z00.00 Type 2 diabetes mellitus with hyperglycemia, with long-term current use of insulin E11.65; Z79.4 Diabetes mellitus continuous churn buttermaker insulin use: with long-term use Hypercholesterolemia E78.00 Hypertension I10 Obesity (BMI 30-39.9) E66.9 Hypersomnia G47.10 Additional Codes PAZ-7 Assessment Billing - PAZ-7 Assessment Tool: PAZ-7 Assessment 79728 ([id number]) PHQ-9 - 24338 - PHQ-9 Billing: Yes ([id number]) Assessment & Plan Assessment & Plan (1) CKD stage 3b, GFR 30-44 ml/min: Code(s): N18.32 - Chronic kidney disease, stage 3b Category: Medical Plan: Continue to avoid kidney irritants and stay well hydrated. Continue to monitor kidney funtion on labs. (2) GERD (gastroesophageal reflux disease): Code(s): K21.9 - Gastro-esophageal reflux disease without esophagitis Category: Medical Plan: Avoid trigger foods such as citrus, tomato products, soda, caffeine, spicy foods and other foods that may be irritating to your stomach. Avoid laying flat 3-4 hours after eating and elevate the head of the bed 30 degrees to prevent acid from moving into the esophagus. (3) Annual physical exam: Code(s): Z00.00 - Encounter for general adult medical examination without abnormal findings Category: Medical Plan: Patient is up-to-date on all recommended vaccinations for his age. He declines colonoscopy screening and discussed the importance of the screening and risk for not performing the screening. Patient understands the risks and continues to decline. Ordered for updated blood work and we will follow up in 3 months to review blood work. (4) Type 2 diabetes mellitus with hyperglycemia: Code(s): E11.65 - Type 2 diabetes mellitus with hyperglycemia Category: Medical Qualifiers: Diabetes mellitus continuous churn buttermaker insulin use: with continuous churn buttermaker use Qualified Code(s): E11.65 - Type 2 diabetes mellitus with hyperglycemia; Z79.4 - intermediate frame tender (current) use of insulin Plan: Decrease the amount of carbohydrates such as pasta, bread, rice, and potatoes and limit the amount of sweets. Although fruits are generally healthy they should be eaten in moderation as they are still high in sugar. Hemoglobin A1c goal of less than 7%. Following with endocrinology and recently started on Ozempic. (5) Hypercholesterolemia: Code(s): E78.00 - Pure hypercholesterolemia, unspecified Category: Medical Plan: Avoid foods that are high in cholesterol such as red meat, fried foods, eggs and baked goods. Triglyceride goal of less than 150 and LDL goal of less than 100. Continue on lovastatin 20 mg (6) Hypertension: Code(s): I10 - Essential (primary) hypertension Category: Medical Plan: Continue on current blood pressure medication. Avoid salt intake and encourage healthy diet and regular exercise. (7) Obesity (BMI 30-39.9): Code(s): E66.9 - Obesity, unspecified Category: Medical Plan: Healthy diet and regular exercise is encouraged. (8) Hypersomnia: Code(s): G47.10 - Hypersomnia, unspecified Category: Medical Plan: Patient is declining sleep study at this time. We will order for testosterone labs. Plan This note was constructed using voice recognition software. While every effort has been made to ensure accuracy and mechanical engineering intern, still areas may have been included sometimes these areas may affect the content or meeting of the given symptoms. Total time spent caring for the patient today was thirty minutes. This includes time spent before the visit reviewing the chart, time spent during the visit, and time spent after the visit and documentation. Orders: Orders Complete Blood Count Auto Diff Today Z00.00 - Encounter for general adult medical examination without abnormal findings Lipid Panel Today Z00.00 - Encounter for general adult medical examination without abnormal findings Free T4 (Free Thyroxine) Today Z00.00 - Encounter for general adult medical examination without abnormal findings TSH reflex Free T4 Today Z00.00 - Encounter for general adult medical examination without abnormal findings Vitamin D 25-OH (D2 and D3) Today Z00.00 - Encounter for general adult medical examination without abnormal findings Testosterone, Free/Total Today G47.10 - Hypersomnia, unspecified Influenza [id number] Immunization Today Z23 - Encounter for immunization Comprehensive Met. Panel Today Z00.00 - Encounter for general adult medical examination without abnormal findings Vitamin B12 and Folate Today Z00.00 - Encounter for general adult medical examination without abnormal findings Microalbumin, Random (w Creat) Today E11.9 - Type 2 diabetes mellitus without complications
== END 2024-07-11 09:37 | disposition home or self-care (01) ==
PROVIDERS: PCP Internal Medicine
DX: Z00.00 Encounter for general adult medical examination without abnormal findings (principal); I12.9 Hypertensive chronic kidney disease with stage 1 through stage 4 chronic kidney disease, or unspecified chronic kidney disease; N18.32 Chronic kidney disease, stage 3b; E11.65 Type 2 diabetes mellitus with hyperglycemia; Z79.4 Long term (current) use of insulin; K21.9 Gastro-esophageal reflux disease without esophagitis; E78.00 Pure hypercholesterolemia, unspecified; E66.9 Obesity, unspecified; G47.10 Hypersomnia, unspecified

== ENCOUNTER → 2024-07-11 08:51 | Outpatient (BNVA) | payer MEDICARE, SELFPAY | PROVIDERS: PCP Internal Medicine | DX: Z00.00 Encounter for general adult medical examination without abnormal findings (principal); Z23 Encounter for immunization; I12.9 Hypertensive chronic kidney disease with stage 1 through stage 4 chronic kidney disease, or unspecified chronic kidney disease; E11.22 Type 2 diabetes mellitus with diabetic chronic kidney disease; N18.32 Chronic kidney disease, stage 3b; K21.9 Gastro-esophageal reflux disease without esophagitis; E11.65 Type 2 diabetes mellitus with hyperglycemia; Z79.4 Long term (current) use of insulin; E78.00 Pure hypercholesterolemia, unspecified; E66.9 Obesity, unspecified; Z68.38 Body mass index [BMI] 38.0-38.9, adult; G47.10 Hypersomnia, unspecified; Z71.3 Dietary counseling and surveillance | CPT/HCPCS: 90471; 90656; 96127; 99397 ==

== ENCOUNTER 2024-08-11 08:14 | Outpatient (AMB) | payer MEDICARE, SELFPAY ==
--- OUTSIDE RECORDS SUMMARY | 2024-08-11 08:17 | XMS_ITS ---
Author Organization [facility] enrique [place] Address [address] [place] [address] Care Team Providers Care Fabric Separator Operator Name Role Phone Brandt Vickers Primary Care Provider Jamel Lundy Unavailable [phone] Allergies Allergen (clinical drug ingredient) Drug/Non Drug Allergy documented on EMR Reaction Allergy Type Onset Date Status metformin Metformin hallucinations Drug Allergy Ac tive REASON FOR VISIT At Risk Footcare, Skin problem(s) Medications Medication SIG (Take, Route, Frequency, Duration) Notes Start Date End Date Status Ammonium Lactate 12 % 1 application Exte rnally Twice a day for 30 days Active Lovastatin 20 MG 1 tablet with the ev ening meal Orally Once a day for 30 day(s) Active NovoLOG 100 UNIT/ML as directed Injection Active Losartan Potassium 100 MG 1 tablet Orall y Once a day for 30 day(s) Active Extra Depth Orthopedic Shoes (1 Pair) with Customized Heat Molded Multidensity Innersoles (3 Pair) as directed Dx: NIDDM/Polyneuropathy (E11.42), Hammertoe Foot Deformity (M20.41,M20.42), Preulcerative Skin Lesion(s) (L85.1 10/15/2023 Active Furosemide 20 MG Oral for 30 A ctive Lantus 100 UNIT/ML as directed Subcutaneous Active Social History Tobacco Use: Social History Observation Description Date Details (start date - stop date) Never Smoker NA - NA Tobacco Use/Smoking Question Answer Notes Are you a: nonsmoker Additional Findings: Tobacco Non-User Current no n-smoker Alcohol Screen Question Answer Notes Did you have a drink containing alcohol in the p ast year? No Points 0 Interpretation Negative Tobacco use other than smoking: Question Answer Notes Are you an other tobacco user? No Vital Signs Height 5 ft 10.5 in in 03/17/2024 Weight 237 lbs 03/17/2024 BMI 33.52 kg/m2 03/17/2024 Blood pressure systolic 122 mm Hg 03/17/20 24 Blood pressure diastolic 60 mm Hg 024 Procedures Procedure Date Ordered Date Performed Result Body Sit e 96984-SKFPDDX NAIL, 6 OR MORE 03/17/2024 N/A 17532-UNWE SKIN LESIONS, OVER 4 03/17/2024 N/A Encounters Encounter Location Date Provider Diagnosis [facility] [place] [address] [place] [address] 03/17/2024 Jamel Briseno Type 2 diabetes mellitus with diabetic polyneuropathy E11.42 ; Tinea unguium B35.1 and Xerosis of skin L85.3 Assessments Encounter Date Diagnosis (ICD Code) Assessment Notes Treatment Notes Treatment Clinical Notes Section Notes 03/17/2024 Type 2 diabetes mellitus with diabetic polyneuropathy (ICD-10 - E11.42) 03/17/2024 Tinea unguium (ICD-10 - B35.1) 03/17/2024 Xerosis of skin (ICD-10 - L85.3) Plan Of Treatment Medication Medication Name Sig Start Date Stop Date Notes Ammonium Lactate 12 % 1 application Exte rnally Twice a day for 30 days Pending Test Test Name Order Date 28659-NATQTUA NAIL, 6 OR MORE 03/17/2024 62542-DFEG SKIN LESIONS, OVER 4 03/17/20 24 Next Appt Details Follow Up: 3 Months, Reason: Provider Name:Jamel Briseno , 09/22/2024 09:15:00 AM, [address] [place], [address], Procedure Notes * Category Sub-Category Detail Notes Debride Nail 6-10 Nail debridement Nail debridem ent performed extensively to reduce/remove overall nail length, girth, thickness, subungual debris, and necrotic tissue, by manual and electrical means through the use of a nail nipper and/or dremel, to more viable healthy nail plate or bed tissue 1-5. Silver nitrate used for any petechial bleeding as necessary. Patient chooses, no pharmaceutical tx (04748) Keratoma Treatment Parring or Cutting o f Benign Hyperkeratotic Lesion(s) 50695 ( >4 Lesions) - The Benign hyperkeratotic lesions, as described above were pared, and/or cut utilizing a sterile #15 blade, tissue nippers, and/or dremel Progress Notes * Sammy GHOSHDOB:1945 ([age] yo M)Acc No.[id number]:03/17/2024 Progress Note Patient:?Sammy Ghosh Provider:?Jamel Briseno DPM :1945???Age:78 Y???Sex:Male Hemal e:03/17/2024 Address: [address] [id number] Pcp:Brandt Vickers Subjective: * Chief Complaints: * ???At Risk FootcareSkin prob sulma(s) * HPI: ???At Risk footcare:?Pt States Last PCP Visit:?Date?12/27/2023 ???Skin problems:?Nature:?dryness , scaling.?Location:?B/L .?Duration:?several days.?Course:?worse.? * ROS:?General/Constitutional:?Nausea?denies.?Vomiting?denies.?Hunger Thirst?denies.?Loss appetite?denies.?Chills?denies.?Fatigue?denies.?Fever?denies.?Night Sweats?denies.?Unexplained weight loss?denies.?Unexplained weight gain?denies.?HEENTM:?Dentures?admits.?Dizziness?denies.?Glasses/contacts?denies.?Retinopathy?ad mits.?Blurred/double vision?denies.?TMJ?denies.?Discharge/drainage?denies.?Implants?denies.?Sore throat?denies.?Dental implants?denies.?Hard of hearing ?admits.?Difficulty chewing/swallowing/speaking?denies.?Nose bleeds?denies.?Sore mouth?denies.?Respiratory:?On Oxygen?denies.?Pneumonia/pleurisy?denies.?Bronchitis?denies.?Emphysema?denies.?C oughing?denies.?Cough blood?denies.?Shortness of breath?denies.?Wheezing?denies.?Cardiovascular:?Pacemaker?denies.?MVP?denies.?WPW?denies.?CHF?denies.?Heart attack?denies.?Septal defect?denies.?Rapid beat?denies.?Chest pain ?denies.?Atrial Fib.?denies.?Murmur/Palpitations?denies.?Gastrointestinal:?Hemorrhoids?denies.?Stomach/Abdominal pain?denies.?Dark blood stool?denies.?Irritable bowel ?denies.?Constipation?denies.?Diarrhea?denies.?Hematology:?Swelling?admits.?Clots?denies.?Varicose Veins?admits.?Bruising?denies.?Bleeding problem?denies.?Genitourinary:?Blood urine?denies.?Frequent/Painfu/urination/bladder control?denies.?Kidney stones?denies.?Infection (UTI)?denies.?Nephropathy?denies.?sex trans dis (STD)?denies.?Prostate?denies.?Musculoskeletal:?Hammertoes?admits.?Bunions?denies.?Back Pain?denies.?Muscle Cramps/ Resting?admits.?Muscle cramps / walking?denies.?Generalized aches and pains?denies.?Weakness?denies.?Integ.:?Bae?denies.?Scars?denies.?Corns/calluses?admits.?Ingrown nails?admits.?Painful nails?denies.?Open Sores?denies.?Rashes?denies.?Neurologic:?Difficulty sleeping?denies.?Brain disorder?denies.?Numbness?admits.?Balance trouble?admits.?Confusion?denies.?Fainting/blackouts?denies.?Tingling?admits.?Tr emors?denies.? * Medical History:? * Surgical History:?cataract s urgery L eye Lazer 06/2022 * Hospitalization/Major Diagno stic Procedure:?Denies Past Hospitalization * Family History:?Mother: dece ased, diagnosed with Other malignant neoplasm of unspecified site.?Father: , diagnosed with Diabetic - NIDDM.?Siblings: diagnosed with Diabetic - NIDDM.? * Social History:?Tobacco Use:?Tobacco Use/Smoking?Are you a:?nonsmoker ?Additional Findings: Tobacco Non-User?Current non-smoker ?Tobacco use other than smoking?Are you an other tobacco user??No ???Drugs/Alcohol:?Drugs?Have you used drugs other than those for medical reasons in the past 12 months??No ?Alcohol Screen?Did you have a drink containing alcohol in the past year??No ?Points?0 ?Interpretation?Negative ???Miscellaneous:?Caffeine: yes, frequency:, 1 cups per day. ?Children: yes, 1. ?Exercise: yes, walking, occasional/ Vision Problem. ?Marital status: single. ?Occupation: Retired-Multiple Jobs Works [employer]. * Medications:?TakingFurosemid e 20 MG Tablet Oral Lantus 100 UNIT/ML Solution as directed Subcutaneous Losartan Potassium 100 MG Tablet 1 tablet Orally Once a dayLovastatin 20 MG Tablet 1 tablet with the evening meal Orally Once a dayNovoLOG 100 UNIT/ML Solution as directed Injection Extra Depth Orthopedic Shoes (1 Pair) with Customized Heat Molded Multidensity Innersoles (3 Pair) as directed Dx: NIDDM/Polyneuropathy (E11.42), Hammertoe Foot Deformity (M20.41,M20.42), Preulcerative Skin Lesion(s) (L85.1Medication List reviewed and reconciled with the patientTaking Furosemide 20 MG Tablet Oral Taking Lantus 100 UNIT/ML Solution as directed Subcutaneous Taking Losartan Potassium 100 MG Tablet 1 tablet Orally Once a dayTaking Lovastatin 20 MG Tablet 1 tablet with the evening meal Orally Once a dayTaking NovoLOG 100 UNIT/ML Solution as directed Injection Taking Extra Depth Orthopedic Shoes (1 Pair) with Customized Heat Molded Multidensity Innersoles (3 Pair) as directed Dx: NIDDM/Polyneuropathy (E11.42), Hammertoe Foot Deformity (M20.41,M20.42), Preulcerative Skin Lesion(s) (L85.1Medication List reviewed and reconciled with the patient * Allergies:?Metformin: halluc inations - Allergyyes[Allergies Verified] Objective: * Vitals:?Ht: 5 ft 10.5 in, Wt :237, BMI:33.52, Shoe size:11, BP:122/60 mm Hg, BS:206. * ???Past Orders: ???Lab:HEMOGLOBIN A1C (GLYCO HEMOGLOBIN) (Order Date - 08/04/2022) (Collection Date - 04/21/2022) ? Value Reference Range ?HEMOGLOBIN A1C (HH) 7.0 * Examination: ???Neurological: ?SENSORY:? Neurological exam demonstrates, reduced light touch sensation, reduced sharp/dull pin prick discrimination , at Forefoot, B/L, 5.07 monofilament test performed at plantar aspects of 5 varied sites per foot shows sensation, reduced , at Forefoot, B/L.?Nails: ?NAILS are:?Elongated, overgrown, dystrophic, lytic, greater than 3mm thick, discolored and friable with crumbly malodorous subungual debris, 1-5 B/L.?Dermatologic: ?SKIN FINDINGS:?Skin exam reveals Keratotic lesion(s) located at, Medial, IPJ, TA, Medial, IPJ, T5, SUB MTH (s), 1, B/L , SUB MTH (s), 2, B/L , SUB MTH (s), 5, B/L , Heel(s), B/L , Skin shows sign(s) of, dryness, scaling, in a stocking fashion, no fissure(s) present, B/L.? Assessment: * Assessment: 1.?Type 2 diabetes mellitus with diabetic polyneuropathy - E11.42 (Primary)?2.?Tinea unguium - B35.1?3.?Xerosis of skin - L85.3, Acute problem, Uncomplicated (3),Rx Management (4)? Plan: * Treatment: 2.?Xerosis of skin? Start Ammonium Lactate Cream, 12 %, 1 application, Externally, Twice a day, 30 days, 60, Refills 2.?? * Procedures:?Debride Nail 6-10:?Nail debridement?Nail debridement performed extensively to reduce/remove overall nail length, girth, thickness, subungual debris, and necrotic tissue, by manual and electrical means through the use of a nail nipper and/or dremel, to more viable healthy nail plate or bed tissue 1-5. Silver nitrate used for any petechial bleeding as necessary. Patient chooses, no pharmaceutical tx (70787).?Keratoma Treatment:?Parring or Cutting of Benign Hyperkeratotic Lesion(s)?63642 ( >4 Lesions) - The Benign hyperkeratotic lesions, as described above were pared, and/or cut utilizing a sterile #15 blade, tissue nippers, and/or dremel.? * Procedure Codes:?27207 DEBRI DE NAIL, 6 OR MORE, Modifiers: XS 22519 TRIM SKIN LESIONS, OVER 4, Modifiers: XS * Preventive Medicine:? ??Counseling:?Discussion:?-13: Office or other outpatient visit for the evaluation and management of an established patient, which required a medically appropriate history and/or examination and LOW level of DECISION MAKING for: 1 STABLE ACUTE UNCOMPLICATED PROBLEM, 2 OR MORE MINOR PROBLEMS, OR 1 STABLE CHRONIC PROBLEM, THAT POSE(S) A LOW RISK FOR MORBIDITY/MORTALITY. The visit on the day of the encounter encompassed interpreting the data and educating the patient as to the nature of their condition, treatment options available according to their individual PMH, meds, allergies, and overall health/living conditions, as well as any potential risks or complications that may occur from a failure to adhere to, and participate in, the recommended course of therapy. The discussion included a complete verbal, and/or written explanation of the examination results, any x-rays taken, the proposed diagnosis, and outline of the treatment plan. A schedule for future care needs was also explained. The patient verbalized an understanding of the instructions at this time and agreed to be an active participant in their treatment. If the patient should think of any questions or concerns after the visit, I have encouraged the patient to call the office.?Xerosis:?The patient was counseled on the diagnosis, potential etiologies, and treatment options for their skin condition. We discussed the risks and benefits of each option from performing no treatment, to utilizing OTC topical skin creams/ointments, to utilizing prescription topical creams/ointments, to utilizing customized compounded topical medications and use of nocturnal occlusion with any/all previously detailed therapies. We discussed the advantages and disadvantages of each possible treatment and importance for adherence to all the recommended therapies for optimum success and avoid potential complications such as open sore/infection/possible hospitalization. We discussed the potential effectiveness of each topical preparation as well as each ones possible side effects and/or patient medication interactions. Patient questions re: use, dosage, successful outcomes, and application consistency were reviewed and the patient verbalized that all answers were clearly understood. The patient has decided to apply Rx skin creams to their feet save the interspaces while paying special attention to the heels. Such was sent to their pharmacy at the time of visit.? * Follow Up:?3 Months * Images: * Sign off status: Completed Addendum: * ? true * Provider:?Jamel Briseno DPM Date:?2023 Generated for Natty hdz/Faxing/eTransmitting on:?08/11/2024 08:16 AM EST History and Physical Notes * HPI (History of Present Illness) Category Sub-Category Detail Notes Category Not es Skin problems Nature: dryness , scaling Location: B/L Duration: several days Course: worse At Risk footcare Pt States Last PCP Visit: Date: 4 Examination Category Sub-Category Detail Notes Category Not es Neurological SENSORY: Neurological exa m demonstrates, reduced light touch sensation, reduced sharp/dull pin prick discrimination , at Forefoot, B/L, 5.07 monofilament test performed at plantar aspects of 5 varied sites per foot shows sensation, reduced , at Forefoot, B/L Dermatologic SKIN FINDINGS: Skin exam reveal s Keratotic lesion(s) located at, Medial, IPJ, TA, Medial, IPJ, T5, SUB MTH (s), 1, B/L , SUB MTH (s), 2, B/L , SUB MTH (s), 5, B/L , Heel(s), B/L , Skin shows sign(s) of, dryness, scaling, in a stocking fashion, no fissure(s) present, B/L Nails NAILS are: Elongated, overg rown, dystrophic, lytic, greater than 3mm thick, discolored and friable with crumbly malodorous subungual debris, 1-5 B/L
--- OUTSIDE RECORDS SUMMARY | 2024-08-11 08:17 | XMS_ITS ---
Author Organization [facility] Address [address] [place] [address] Care Team Providers Care Wire Preparation Machine Tender Name Role Phone Brandt Vickers Primary Care Provider Jamel Lundy Unavailable [phone] Encounters Encounter Location Date Provider Diagnosis [address] [address] 12/31/2023 Jamel Briseno Plan Of Treatment Next Appt Details Provider Name:Jamel Briseno , 09/22/2024 09:15:00 AM, [address] [place], [address], Progress Notes * Sammy GHOSHDOB:1945 ([age] yo M)Acc No.[id number]:12/31/2023 Progress Note Patient:?Sammy GHOSH Provider:?Jamel Briseno DPM :1945???Age:78 Y???Sex:Male Hemal e:12/31/2023 Address[address] [id number] Pcp:Brandt Vickers Subjective: * Chief Complaints: * ??? * Medical History:? Objective: * Vitals:? Assessment: Plan: * Treatment: * Images: * The named appointment provid er may or may not be the originator of this progress note, and it is not deemed complete until electronically signed by the appointment provider. Sign off status: Pending * Provider:?Jamel Briseno DPM Date:?2023 Generated for Printi ng/Gisele/Annikaitting on:?08/11/2024 08:16 AM EST
--- OUTSIDE RECORDS SUMMARY | 2024-08-11 08:17 | XMS_ITS | Patient Health Record ---
Author Organization [facility] [place] Address [address] [facility] [place] [address] Care Team Providers Care Food Specialist Name Role Phone Brandt Vickers Primary Care Provider Jamel Lundy Unavailable [phone] Allergies Allergen (clinical drug ingredient) Drug/Non Drug Allergy documented on EMR Reaction Allergy Type Onset Date Status metformin Metformin hallucinations Drug Allergy Ac tive Reason For Referral No Information Medications Medication SIG (Take, Route, Frequency, Duration) Notes Start Date End Date Status Ammonium Lactate 12 % 1 application Exte rnally Twice a day for 30 days Active Lovastatin 20 MG 1 tablet with the ev ening meal Orally Once a day for 30 day(s) Active Losartan Potassium 100 MG 1 tablet Orall y Once a day for 30 day(s) Active Extra Depth Orthopedic Shoes (1 Pair) with Customized Heat Molded Multidensity Innersoles (3 Pair) as directed Dx: NIDDM/Polyneuropathy (E11.42), Hammertoe Foot Deformity (M20.41,M20.42), Preulcerative Skin Lesion(s) (L85.1 10/15/2023 Active NovoLOG 100 UNIT/ML as directed Injection Active Lantus 100 UNIT/ML as directed Subcutaneous Active Furosemide 20 MG Oral for 30 A ctive Immunizations Vaccine Route Administration Date Status Comme nts COVID-19 Moderna Vaccine Unknown 03/23/2022 Administered 2020 Unsure Dates Influenza Unknown 05/25/2022 Administered Social History Tobacco Use: Social History Observation [...] Are you an other tobacco user? No Problems Problem Type SNOMED Code ICD Code Onset Dates Problem Status W/U Status Risk Notes Problem Acquired hammer toe of right foot (5246307889160788 ) Other hammer toe(s) (acquired), right foot (M20.41) Active confirmed Problem Acquired hammer toe of left foot (2406435852065229 ) Other hammer toe(s) (acquired), left foot (M20.42) Active confirmed Problem Polyneuropathy due to type 2 diabetes mellitus (056066634) Type 2 diabetes mellitus with diabetic polyneuropathy (E11.42) Active confirmed Vital Signs Blood pressure diastolic 60 mm Hg 06/23/2024 Height 5 ft 10.5 in in 06/23/2024 Blood pressure systolic 122 mm Hg 06/23/2024 Weight 237 lbs 06/23/2024 BMI 33.52 kg/m2 06/23/2024 Procedures Procedure Date Ordered Date Performed Result Body Sit e 94043-VQZVLEH NAIL, 6 OR MORE 10/15/2023 N/A 96459-LCQR SKIN LESIONS, OVER 4 10/15/2023 N/A 42818-SBIEBQQ NAIL, 6 OR MORE 03/17/2024 N/A 95989-PLIW SKIN LESIONS, OVER 4 03/17/2024 N/A 03262-WVSRUVR NAIL, 6 OR MORE 06/23/2024 N/A 04911-IVQU SKIN LESIONS, OVER 4 06/23/2024 N/A Encounters Encounter Location Date Provider Diagnosis [facility] [address] [address] 10/15/2023 Jamel Briseno Type 2 diabetes mellitus with diabetic polyneuropathy E11.42 ; Onychomycosis B35.1 ; Other hammer toe(s) (acquired), right foot M20.41 and Other hammer toe(s) (acquired), left foot M20.[facility] [address] 03/17/2024 Jamel Briseno Type 2 diabetes mellitus with diabetic polyneuropathy E11.42 ; Tinea unguium B35.1 and Xerosis of skin L85.[address] [address] 06/23/2024 Jamel Briseno Type 2 diabetes mellitus with diabetic polyneuropathy E11.42 ; Tinea unguium B35.1 and Xerosis of skin L85.3 [facility] [address] [facility] [address] [place] [address] 09/07/2023 Jamel Briseno [address] [address] 12/30/2023 Jamel Briseno Assessments Encounter Date Diagnosis (ICD Code) Assessment Notes Treatment Notes Treatment Clinical Notes Section Notes 10/15/2023 Type 2 diabetes mellitus with diabetic polyneuropathy (ICD-10 - E11.42) 10/15/2023 Onychomycosis (ICD-10 - B35.1) 03/17/2024 Type 2 diabetes mellitus with diabetic polyneuropathy (ICD-10 - E11.42) 03/17/2024 Tinea unguium (ICD-10 - B35.1) 06/23/2024 Type 2 diabetes mellitus with diabetic polyneuropathy (ICD-10 - E11.42) 06/23/2024 Tinea unguium (ICD-10 - B35.1) 06/23/2024 Xerosis of skin (ICD-10 - L85.3) 10/15/2023 Other hammer toe(s) (acquired), right foot (ICD-10 - M20.41) Patient Educated with: DIABETIC FOOT CARE INSTRUCTIONS. pdf (DIABETIC FOOT CARE INSTRUCTIONS. pdf) 03/17/2024 Xerosis of skin (ICD-10 - L85.3) 10/15/2023 Other hammer toe(s) (acquired), left foot (ICD-10 - M20.42) Plan Of Treatment Pending Test Test Name Order Date 93173-OBQDLHE NAIL, 6 OR MORE 05/05/2022 48812-ANCRRGQ NAIL, 6 OR MORE 08/04/2022 07498-LQLRXWW NAIL, 6 OR MORE 12/22/2022 85072-IATRYOG NAIL, 6 OR MORE 03/30/2023 12477-ZYFICMR NAIL, 6 OR MORE 10/15/2023 56801-MZAUWUK NAIL, 6 OR MORE 03/17/2024 75303-WTMMYWP NAIL, 6 OR MORE 06/23/2024 32648-Wzdqxplr Plate 05/05/2022 19625-RMVT SKIN LESIONS, OVER 4 05/05/20 56103-CGNB SKIN LESIONS, OVER 4 08/04/20 70322-LFLA SKIN LESIONS, OVER 4 03/30/20 08862-RMAZ SKIN LESIONS, OVER 4 12/23/19 29162-PJCX SKIN LESIONS, OVER 4 06/23/20 12747-LBHE SKIN LESIONS, OVER 4 03/17/20 24 69963-HBEB SKIN LESIONS, OVER 4 10/15/19 Next Appt Details Provider Name:Jamel Briseno , 09/22/2024 09:15:00 AM, [address] [place] [address], [address], Insurance Providers Payer Name Payer Address Payer Phone Subscriber Number Group Number Insured Name Patient Relationship to Insured Coverage Start Date Coverage End Date [facility] [employer] Claims [address] [place] [id number] Sammy Ghosh Self - patient is the insured Medical (General) History Medical History History ICD Code Cataracts covid-19 type II diabetes Glaucoma High blood pressure Kidney disease Numbness Measles Chicken pox Retinopathy CAD Surgical History Surgery Date(Month/Year) cataract surgery L eye Lazer 06/2022
--- NOTE | 2024-08-11 08:19 | MHC.OFFVIS ---
Vital Signs 08/11/24 08:29 Height 5 ft 10 in Weight 266 lb 15.677 oz BMI 38.3 BP 130/68 Blood Pressure Location Lt brachial Position Sitting Pulse 59 Pulse Source Pulse Oximeter Intake Visit Reasons: T2DM/LVM Intake Note: Patient present today to follow up on Type 2 Diabetes Mellitus. Last Diabetic Eye exam: 03/17/24 Last Podiatry Visit: 06/23/24 Random Glucose: 285 mg/dl HgA1C: 10.9% 07/07/24 Bd Special Education Teacher Required: No Accompanied by: Self / Same As Patient Allergies metformin Adverse Reaction (Severe, Verified 08/11/24 08:29) Diarrhea HPI Comments Details: This is a 78 year old male with a pmhx of Type II D with proliferative retinopathy, HLD, HTN, CKD stage IIIb and obesity presenting for diabetic management. Reviewed CGM download CGM active 90% Average glucose 282 GMI and 10.1% Glucose variability 27% 10% target range 90% hypoglycemia 0% hypoglycemia Hyperglycemia increases after he has breakfast and persists the rest of the day with spikes after meals. Data shows worsening hyperglycemia despite addition of Ozempic and increasing Lantus by 8 units since his last visit so we had a conversation about this today. Patient is not sure how much NovoLog he has administering before meals. Patient says he also does not know how much Lantus he is taking due to his poor vision. He tried administering Ozempic once with a family member, and he does not think they injected it correctly. Patient says he can read pill bottles if he uses a magnifying glass. He sees Dr. Harris. Last visit notes indicates they were thinking of adding Farxiga, but the patient did not want to add additional medications due to financial constraints. Patient also tells me today his social security was just cut by 100 dollars. His [id number] is investigating this issue. Hemoglobin a1c 10.9% 07/07/24. Current medication regimen: Lantus 48 units at bedtime, Ozempic 0.25 mg weekly and NovoLog. Metformin discontinued due to diarrhea. Co-pay was too high with [employer]. Barriers to Treatment: Patient is legally blind and has financial constraints. Hypoglycemia symptoms: None Hyperglycemia symptoms: polydipsia He is exercising up and down his stairs daily. Eye exam: UTD and receives intravitreal injections every 8 weeks Podiatry visit: 06/25/2024. Microvascular complications: neuropathy, nephropathy (Dr. Harris), retinopathy Macrovascular complications: No known. Hypertension: treated with losartan 100 mg. He is also on furosemide 20 mg. Hyperlipidemia: treated with lovastatin 20 mg. LDL at goal <100. Patient reports he had blood work done at an external labs and [place] a few days ago, and the results are pending. ROS: Constitutional: No fevers or chills. Respiratory: No shortness of breath Cardiovascular: No chest pain Gastrointestinal: No anorexia, nausea, vomiting or diarrhea. No abdominal pain Skin: No open wounds Endocrine: No cold or heat intolerance. No polyuria Physical exam: Constitutional: Alert, in no distress. Neck: Supple, Full range of motion. No lymphadenopathy. No palpable thyroid masses. Respiratory: Clear to auscultation. Cardiovascular: S1 S2 regular. No murmurs. Feet: Dry skin bilaterally. No open wounds. Onychomycosis present. [facility] Medical History CKD stage 3b, GFR 30-44 ml/min Hypercholesterolemia Hypertension Type 2 diabetes mellitus with hyperglycemia Surgical History Hx of cataract surgery Family History Mother Ovarian cancer Father Diabetes Brother No problems noted. Brother Diabetes Sister No problems noted. Daughter No problems noted. Social History Housing: Other Alcohol intake: current Patient Tobacco Use Status: Former Tobacco user Tobacco use type: Cigarette Years Smoked: quit 1979 e-Cigarette/Vaping Use: Never Used Second Hand Smoke Exposure: No Current occupational status: retired Cognitive needs: No Hearing needs: No Vision needs: Yes Physical Exam Vital Signs: Last Vital Signs Pulse 59 08/11/24 08:29 BP 130/68 08/11/24 08:29 BMI result Body Mass Index 38.3 Results Reviewed Results Reviewed: Laboratory Last Values Glucose (Clinic) 285 mg/dL (60-115) H 08/11/24 08:34 Assessment & Plan Assessment & Plan (1) Type 2 diabetes mellitus with hyperglycemia: Code(s): E11.65 - Type 2 diabetes mellitus with hyperglycemia Category: Medical Qualifiers: Diabetes mellitus nursing home insulin use: with nursing home use Qualified Code(s): E11.65 - Type 2 diabetes mellitus with hyperglycemia; Z79.4 - [facility] (current) use of insulin (2) CKD stage 3b, GFR 30-44 ml/min: Code(s): N18.32 - Chronic kidney disease, stage 3b Category: Medical (3) Proliferative retinopathy due to DM: Code(s): E11.3599 - Type 2 diabetes mellitus with proliferative diabetic retinopathy without macular edema, unspecified eye Category: Medical Qualifiers: Diabetes mellitus type: type 2 Proliferative retinopathy type: stable Laterality: bilateral Qualified Code(s): E11.3553 - Type 2 diabetes mellitus with stable proliferative diabetic retinopathy, bilateral Plan In summary this is a 79-year-old male with uncontrolled type 2 diabetes with noncompliance secondary to legal blindness. He lives alone. He has a daughter, but patient says she is busy with the life of her own and can not assist him. [facility] to [facility] for [facility]. Explained to patient it is unsafe to continue on this way, and he needs [facility] to administer medications. Advised patient to hold off on further administration of Ozempic until [facility] is in place. We will adjust medications once [facility] is in place as I can not advised patient to increase medications further without knowing how much he is taking. We discussed addition of SGLT2, but patient says he does not want to add additional medications until the issue with social security is figured out due to his financial constraints. Discussed Actos, but he has concerned about the potential side effects including weight gain. We reviewed treatment of hypo and hyperglycemia. He has glucose tablets. Patient declines referral to clinical systems educator and dietitian. Follow-up in 4 weeks for diabetes. Orders: Referrals [facility]osp[facility] Referral E11.3553 - Type 2 diabetes mellitus with stable proliferative diabetic retinopathy, bilateral, E11.65 - Type 2 diabetes mellitus with hyperglycemia, H54.8 - Legal blindness, as defined in [place], Z79.4 - termite exterminator helper (current) use of insulin Coding Level of Care Code Est Pt Level 5 (15136) Complex EM visit Add On G2211 Diagnoses Type 2 diabetes mellitus with hyperglycemia, with long-term current use of insulin E11.65; Z79.4 Diabetes mellitus nursing home insulin use: with nursing home use CKD stage 3b, GFR 30-44 ml/min N18.32 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 associated with type 2 diabetes mellitus E11.3553 Diabetes mellitus type: type 2 Proliferative retinopathy type: stable Laterality: bilateral Time Spent (min) 45 Comment Direct patient care and completing documentation and employee placement specialist note
[2024-08-11 08:29] VITALS: BP 130/68; PULSE 59; BMI 38.3
[2024-08-11 08:39] LABS: Glucose, Whole Blood 285 mg/dL (60-115)
== END 2024-08-11 09:18 | disposition home or self-care (01) ==
PROVIDERS: PCP Internal Medicine; Visit Provider Physician Assistant Medical
DX: E11.65 Type 2 diabetes mellitus with hyperglycemia (principal); Z79.4 Long term (current) use of insulin; N18.32 Chronic kidney disease, stage 3b; E11.3553 Type 2 diabetes mellitus with stable proliferative diabetic retinopathy, bilateral

== ENCOUNTER → 2024-08-11 08:14 | Outpatient (BNVA) | payer MEDICARE, SELFPAY | PROVIDERS: PCP Internal Medicine; Visit Provider Physician Assistant Medical | DX: E11.65 Type 2 diabetes mellitus with hyperglycemia (principal); E78.5 Hyperlipidemia, unspecified; E11.3553 Type 2 diabetes mellitus with stable proliferative diabetic retinopathy, bilateral; E11.22 Type 2 diabetes mellitus with diabetic chronic kidney disease; I12.9 Hypertensive chronic kidney disease with stage 1 through stage 4 chronic kidney disease, or unspecified chronic kidney disease; N18.32 Chronic kidney disease, stage 3b; E66.9 Obesity, unspecified; H54.8 Legal blindness, as defined in USA; Z68.38 Body mass index [BMI] 38.0-38.9, adult; Z79.4 Long term (current) use of insulin | CPT/HCPCS: 82947; 99212 ==

== ENCOUNTER 2024-09-12 08:21 | Outpatient (AMB) | payer MEDICARE, SELFPAY ==
--- NOTE | 2024-09-12 08:22 | A.OFFVIS_ITS ---
Vital Signs 09/12/24 08:26 Height 5 ft 10 in Weight 261 lb 0.437 oz BMI 37.4 BP 100/54 L Blood Pressure Location Rt brachial Position Sitting Pulse 65 Pulse Source Pulse Oximeter Intake Visit Reasons: Type II diabetes Intake Note: Patient present today to follow up on Type 2 Diabetes Mellitus. Last Diabetic Eye exam: 03/17/2024 Last Podiatry Visit: 06/23/2024 Random Glucose: 184 mg/dl HgA1C: 10.9% 07/07/2024 Human Service Coordinator Required: No Accompanied by: Self / Same As Patient Allergies metformin Adverse Reaction (Severe, Verified 09/12/24 08:26) Diarrhea HPI Comments Details: This is a 78 year old male with a pmhx of Type II D with proliferative retinopathy, HLD, HTN, CKD stage IIIb and obesity presenting for diabetic management. Oscar 2 download reviewed dated August 24 through 09/06/2024 CGM active 80% Average glucose 296 GMI 9.4% Glucose variability 25% Very high 71% High 22% Target range 7% Low 0% Pattern of hyperglycemia throughout 24 hours. Hemoglobin a1c 10.9% 07/07/24. He has had insurance difficulties. His sister is working on getting him onto [employer]. He has not been able to get his Oscar 2 sensor due to insurance. New glucometer supplies were sent to the pharmacy last week after I spoke to Luly from [facility]. Patient says another nurse is coming to the house today, but they have not been there regularly yet to administer medications. He did not receive Ozempic yet due to insurance changes. [facility] is also setting up a web content & social media manager for him. He sees Dr. Harris. Last visit notes indicates they were thinking of adding Farxiga, but the patient did not want to add additional medications due to financial constraints. [facility] [place] [facility]. We are requesting the results. Current medication regimen: Lantus 48 units at bedtime, Ozempic 0.25 mg weekly and NovoLog. Luly was provided a sliding scale for Novolog before meals: If blood sugars under 100 they will not inject NovoLog. 100-149 inject 4 units 150-199 8 units 200-249 10 units 250-299 12 units 300-349 14 units 350-399 16 units >400 call office and administer 18 units Metformin discontinued due to diarrhea. Co-pay was too high with [facility]. Barriers to Treatment: Patient is legally blind and has financial constraints. Hypoglycemia symptoms: None Hyperglycemia symptoms: polydipsia He is exercising up and down his stairs daily. Eye exam: UTD and receives intravitreal injections every 8 weeks Podiatry visit: 06/25/2024. Microvascular complications: neuropathy, nephropathy (Dr. Harris), retinopathy Macrovascular complications: No known. Hypertension: treated with losartan 100 mg. He is also on furosemide 20 mg. His blood pressure is soft today, but he denies dizziness or syncope. We will recheck this at his next visit. Hyperlipidemia: treated with lovastatin 20 mg. LDL at goal <100. Patient reports he had blood work done at an external labs and [place] a few days ago, and the results are pending. ROS: Constitutional: No fevers or chills. Respiratory: No shortness of breath Cardiovascular: No chest pain Gastrointestinal: No anorexia, nausea, vomiting or diarrhea. No abdominal pain Skin: No open wounds Endocrine: No cold or heat intolerance. No polyuria Physical exam: Constitutional: Alert, in no distress. Neck: Supple, Full range of motion. No lymphadenopathy. No palpable thyroid masses. Respiratory: Clear to auscultation. Cardiovascular: S1 S2 regular. No murmurs. [facility] Medical History (Updated 09/05/24 @ 13:17 by ANTONIETTA Rodas) 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 Brother Diabetes Sister No problems noted. Daughter No problems noted. Social History Housing: Other Alcohol intake: current Patient Tobacco Use Status: Former Tobacco user Tobacco use type: Cigarette Years Smoked: quit 1979 e-Cigarette/Vaping Use: Never Used Second Hand Smoke Exposure: No Current occupational status: retired Cognitive needs: No Hearing needs: No Vision needs: Yes Physical Exam Vital Signs: Last Vital Signs Pulse 65 01/21/25 08:26 BP 100/54 L 09/12/24 08:26 BMI result Body Mass Index 37.4 Results Reviewed Results Reviewed: Laboratory Last Values Glucose (Clinic) 184 mg/dL (60-115) H 09/12/24 08:33 Laboratory Tests 11/03/23 11/03/23 11/16/23 10:10 10:24 09:02 Creatinine 1.82 H Estimated GFR 36 Glucose (Clinic) Hgb A1c (Clinic) 9.9 H Triglycerides 203 H Cholesterol 155 LDL Cholesterol, Calc 89 HDL Cholesterol 26 L Microalb/Creat Ratio 39.1 H 04/04/24 04/04/24 10:10 10:13 Creatinine Estimated GFR Glucose (Clinic) 230 H Hgb A1c (Clinic) 9.7 H Triglycerides Cholesterol LDL Cholesterol, Calc HDL Cholesterol Microalb/Creat Ratio Assessment & Plan Assessment & Plan (1) Type 2 diabetes mellitus with hyperglycemia: Code(s): E11.65 - Type 2 diabetes mellitus with hyperglycemia Category: Medical Qualifiers: Diabetes mellitus regional intermodal truck driver insulin use: with fci use Qualified Code(s): E11.65 - Type 2 diabetes mellitus with hyperglycemia; Z79.4 - termite helper (current) use of insulin (2) CKD stage 3b, GFR 30-44 ml/min: Code(s): N18.32 - Chronic kidney disease, stage 3b Category: Medical (3) Proliferative retinopathy due to DM: Code(s): E11.3599 - Type 2 diabetes mellitus with proliferative diabetic retinopathy without macular edema, unspecified eye Category: Medical Qualifiers: Diabetes mellitus type: type 2 Laterality: bilateral Proliferative retinopathy type: stable Qualified Code(s): E11.3553 - Type 2 diabetes mellitus with stable proliferative diabetic retinopathy, bilateral Plan In summary this is a 79-year-old male with uncontrolled type 2 diabetes with noncompliance secondary to legal blindness and financial barriers. He lives alone. We will contact [facility] to confirm how often they will be able to assist patient with medication administration. When we spoke last week the plan was to have [facility] there twice daily. They also agreed to start his Ozempic. If patient in his administering his medications he needs to use his magnifiers to do this properly. Medications were not adjusted today since [facility] is not in place yet to administer and patient has not been administering insulin as prescribed. Inject Novolog three times daily 5-10 minutes before meals. If blood sugar is under 100 do not inject any NovoLog. Blood sugar 100-149 inject 4 units Blood sugar 150-199 inject 8 units Blood sugar 200-249 inject 10 units Blood sugar 250-299 inject 12 units Blood sugar 300-349 inject 14 units Blood sugar 350-399 inject 16 units Blood sugar >400 call office and administer 18 units Continue Lantus 48 units every evening. Visiting nurse will start administration of Ozempic 0.25 mg once weekly. We reviewed treatment of hypo and hyperglycemia. He has glucose tablets. Patient declines referral to chemical educator and dietitian. Follow-up in 4 weeks for diabetes. Patient Instructions: Inject Novolog three times daily 5-10 minutes before meals. If blood sugar is under 100 do not inject any NovoLog. Blood sugar 100-149 inject 4 units Blood sugar 150-199 inject 8 units Blood sugar 200-249 inject 10 units Blood sugar 250-299 inject 12 units Blood sugar 300-349 inject 14 units Blood sugar 350-399 inject 16 units Blood sugar >400 call office and administer 18 units Continue Lantus 48 units every evening. Visiting nurse will start Ozempic 0.25 mg once weekly. Coding Level of Care Code Est Pt Level 5 (18762) Complex EM visit Add On G2211 Diagnoses Type 2 diabetes mellitus with hyperglycemia, with long-term current use of insulin E11.65; Z79.4 Diabetes mellitus fci insulin use: with regional intermodal truck driver use CKD stage 3b, GFR 30-44 ml/min N18.32 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 associated with type 2 diabetes mellitus E11.3553 Diabetes mellitus type: type 2 Laterality: bilateral Proliferative retinopathy type: stable Time Spent (min) 45 Comment Direct patient care, care coordination, completing documentation
[2024-09-12 08:26] VITALS: BP 100/54; PULSE 65; BMI 37.4
[2024-09-12 08:37] LABS: Glucose, Whole Blood 184 mg/dL (60-115)
== END 2024-09-12 09:09 | disposition home or self-care (01) ==
PROVIDERS: PCP Internal Medicine; Visit Provider Physician Assistant Medical
DX: E11.65 Type 2 diabetes mellitus with hyperglycemia (principal); Z79.4 Long term (current) use of insulin; N18.32 Chronic kidney disease, stage 3b; E11.3553 Type 2 diabetes mellitus with stable proliferative diabetic retinopathy, bilateral

== ENCOUNTER → 2024-09-12 08:21 | Outpatient (BNVA) | payer MEDICARE, SELFPAY | PROVIDERS: PCP Internal Medicine; Visit Provider Physician Assistant Medical | DX: E11.65 Type 2 diabetes mellitus with hyperglycemia (principal); E11.3553 Type 2 diabetes mellitus with stable proliferative diabetic retinopathy, bilateral; E11.22 Type 2 diabetes mellitus with diabetic chronic kidney disease; N18.32 Chronic kidney disease, stage 3b; Z79.4 Long term (current) use of insulin | CPT/HCPCS: 82947; 99212 ==

== ENCOUNTER 2024-10-10 08:22 | Outpatient (AMB) | payer MEDICARE, SELFPAY ==
--- NOTE | 2024-10-10 08:24 | A.OFFVIS_ITS ---
Vital Signs 10/10/24 08:28 Height 5 ft 10 in Weight 257 lb 0.944 oz BMI 36.9 BP 136/60 Blood Pressure Location Lt brachial Position Sitting Pulse 71 Pulse Source Pulse Oximeter Pulse Oximetry (%) 94 Oxygen Delivery Method Room Air Intake Visit Reasons: T2DM Intake Note: Patient present today to follow up on Type 2 Diabetes Mellitus. Last Diabetic Eye exam: 03/17/2024 Last Podiatry Visit: 09/22/2024 Random Glucose: 339 mg/dl HgA1C: 12.0% 10/10/2024 Filters Assembler Required: No Accompanied by: Self / Same As Patient Allergies metformin Adverse Reaction (Severe, Verified 10/10/24 08:28) Diarrhea Medication List - Last Reconciled 10/10/24 by ANTONIETTA Rodas alcohol swabs (Alcohol Pads) 1 pad topical QID blood sugar diagnostic ([employer] Verio test strips) Use as directed to check blood glucose 3 times daily. blood-glucose meter ([employer] Verio Flex Meter) Use as directed to check blood glucose 3 times daily for Type II diabetes mellitus. flash glucose scanning reader ([facility] Oscar 2 [place]) As directed checked the blood sugar 3 times a day, patient is on 4 shots a day of insulin flash glucose sensor ([employer]Style Oscar 2 Sensor kit) As directed check the blood sugars 4 times a day folic acid 1 mg PO DAILY furosemide 20 mg PO DAILY glucose (Dex4 Glucose) 16 grams (4 x 4 gram) PO Q15M PRN insulin aspart U-100 (Novolog FlexPen U-100 Insulin aspart) 4 - 14 units (0.04 - 0.14 mL) subcut TID insulin glargine (Lantus Solostar U-100 Insulin) 58 units subcut QPM lancets ([employer] PubTouch Delica Plus Lancet) Use as directed to check blood glucose 3 times daily losartan 100 mg PO DAILY 90 days lovastatin 20 mg PO DAILY 90 days semaglutide (Ozempic) 0.25 mg (0.368 mL) subcut QWEEK HPI Comments Details: This is a 79 year old male with a pmhx of Type II D with proliferative retinopathy, HLD, HTN, CKD stage IIIb and obesity presenting for diabetic management. Oscar 2 download reviewed CGM active 89% Average glucose 260 Glucose management indicator 9.5% Glucose variability 27.9% Very high 51% down from 71% High 36% up from 22% Target 13% up from 7% Low 0% There is hyperglycemia throughout the 24 hour period with postprandial spikes. Hemoglobin A1c today is 12%. Hemoglobin a1c 10.9% 07/07/24. His insurance difficulties have recently been resolved. We set up VNA services and they were getting him a psychiatric social worker. Patient will be due to see Dr. Harris. Referral placed note Nephrology today. Patient [facility]. Today requested the results again. Current medication regimen: Lantus 50 units at bedtime, Ozempic 0.25 mg weekly and NovoLog. If blood sugars under 100 no NovoLog 100-149 inject 4 units 150-199 8 units 200-249 10 units 250-299 12 units 300-349 14 units 350-399 16 units >400 call office and administer 18 units Metformin discontinued due to diarrhea. Co-pay was too high with [employer]. Barriers to Treatment: Patient is legally blind and has financial constraints. Hypoglycemia symptoms: None. He keeps orange juice and glucose tablets on hand to treat hypoglycemia. Hyperglycemia symptoms: polydipsia He is exercising up and down his stairs daily. Eye exam: UTD and receives intravitreal injections every 8 weeks Podiatry visit: 09/11/2024. [facility]. Microvascular complications: neuropathy, nephropathy (Dr. Harris), retinopathy Macrovascular complications: No known. Hypertension: treated with losartan 100 mg. He is also on furosemide 20 mg. Systolic BP was mildly elevated today, but this fluctuates. Hyperlipidemia: treated with lovastatin 20 mg. LDL at goal <100. ROS: Constitutional: No fevers or chills. Respiratory: No shortness of breath Cardiovascular: No chest pain Gastrointestinal: No anorexia, nausea, vomiting or diarrhea. No abdominal pain Skin: No open wounds Endocrine: No cold or heat intolerance. No polyuria Physical exam: Constitutional: Alert, in no distress. Neck: Supple, Full range of motion. No lymphadenopathy. No palpable thyroid masses. Respiratory: Clear to auscultation. Cardiovascular: S1 S2 regular. No murmurs. [facility] Medical History (Updated 09/05/24 @ 13:17 by ANTONIETTA Rodas) 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 Brother Diabetes Sister No problems noted. Daughter No problems noted. Social History Housing: Other Alcohol intake: current Patient Tobacco Use Status: Former Tobacco user Tobacco use type: Cigarette Years Smoked: quit 1979 e-Cigarette/Vaping Use: Never Used Second Hand Smoke Exposure: No Current occupational status: retired Cognitive needs: No Hearing needs: No Vision needs: Yes Physical Exam Vital Signs: Last Vital Signs Pulse 71 10/10/24 08:28 BP 136/60 10/10/24 08:28 Pulse Ox 94 10/10/24 08:28 Oxygen Delivery Method Room Air 10/10/24 08:28 BMI result Body Mass Index 36.9 Results AMB Hemoglobin A1c AMB Hemoglobin A1c 12.0 % Last Edit by STACI Palma on 0 10/10/24 08:47 Results Reviewed Results Reviewed: Laboratory Last Values Glucose (Clinic) 339 mg/dL (60-115) H 10/10/24 08:33 Laboratory Tests 11/03/23 11/03/23 11/16/23 10:10 10:24 09:02 Creatinine 1.82 H Estimated GFR 36 Glucose (Clinic) Hgb A1c (Clinic) 9.9 H Triglycerides 203 H Cholesterol 155 LDL Cholesterol, Calc 89 HDL Cholesterol 26 L Microalb/Creat Ratio 39.1 H 04/04/24 04/04/24 10:10 10:13 Creatinine Estimated GFR Glucose (Clinic) 230 H Hgb A1c (Clinic) 9.7 H Triglycerides Cholesterol LDL Cholesterol, Calc HDL Cholesterol Microalb/Creat Ratio Assessment & Plan Assessment & Plan (1) Type 2 diabetes mellitus with hyperglycemia: Code(s): E11.65 - Type 2 diabetes mellitus with hyperglycemia Category: Medical Qualifiers: Diabetes mellitus group home insulin use: with group home use Qualified Code(s): E11.65 - Type 2 diabetes mellitus with hyperglycemia; Z79.4 - long term (current) use of insulin (2) CKD stage 3b, GFR 30-44 ml/min: Code(s): N18.32 - Chronic kidney disease, stage 3b Category: Medical (3) Proliferative retinopathy due to DM: Code(s): E11.3599 - Type 2 diabetes mellitus with proliferative diabetic retinopathy without macular edema, unspecified eye Category: Medical Qualifiers: Diabetes mellitus type: type 2 Proliferative retinopathy type: stable Laterality: bilateral Qualified Code(s): E11.3553 - Type 2 diabetes mellitus with stable proliferative diabetic retinopathy, bilateral Plan In summary this is a 79-year-old male with uncontrolled type 2 diabetes with noncompliance secondary to legal blindness and financial barriers. His hemoglobin A1c is quite high, but CGM data is shows 20% decrease in glucose greater than 250 since his last visit. Compliance has improved. Patient reports he is using magnifiers now to administer medications. Increase Lantus from 50 units to 58 units daily. Increase Novolog sliding scale: 100-149 inject 4 units 150-199 8 units 200-249 12 units 250-299 14 units 300-349 16 units 350-399 18 units >400 call office and administer 20 units I called the pharmacy, and Ozempic is approved. Increase to 0.5 mg weekly. I enlarged medication instructions and printed them for the patient. We reviewed treatment of hypo and hyperglycemia. He has glucose tablets. Patient declines referral to clinical systems educator and dietitian. Follow-up in 4 weeks for diabetes. Orders: Orders AMB Hemoglobin A1c Today E11.3553 - Type 2 diabetes mellitus with stable p roliferative diabetic retinopathy, bilateral Referrals Nephrology Referral N18.32 - Chronic kidney disease, stage 3b Medications: New semaglutide (Ozempic) 0.5 mg (0.736 mL) subcut QWEEK 3 mL 0RF insulin glargine (Lantus Solostar U-100 Insulin) 58 units (0.58 mL) subcut QPM 15 mL 5RF Changed From insulin aspart U-100 (Novolog FlexPen U-100 Insulin aspart) per sliding scale 4 - 14 units (0.04 - 0.14 mL) subcut TID 45 mL 5RF To insulin aspart U-100 (Novolog FlexPen U-100 Insulin aspart) administered subcutaneously 10 minutes before meals per sliding scale 4 - 20 units (0.04 - 0.2 mL) subcut TID 45 mL 5RF Discontinued semaglutide (Ozempic) Discontinued Reason: Doctor's Order 0.25 mg (0.368 mL) subcut QWEEK 3 mL 0RF Coding Level of Care Code Est Pt Level 4 (76328) Complex EM visit Add On G2211 Diagnoses Type 2 diabetes mellitus with hyperglycemia, with long-term current use of insulin E11.65; Z79.4 Diabetes mellitus group home insulin use: with group home use CKD stage 3b, GFR 30-44 ml/min N18.32 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 associated with type 2 diabetes mellitus E11.3553 Diabetes mellitus type: type 2 Proliferative retinopathy type: stable Laterality: bilateral
[2024-10-10 08:28] VITALS: BP 136/60; PULSE 71; O2SAT 94; BMI 36.9
--- OUTSIDE RECORDS SUMMARY | 2024-10-10 08:36 | XMS_ITS | Patient Health Record ---
[facility] Address [address] [place] [address] Care Team Providers Care Distribution System Operator Name Role Phone Brandt Vickers Primary Care Provider Jamel Lundy Unavailable [phone] Allergies Allergen (clinical drug ingredient) Drug/Non Drug Allergy documented on EMR Reaction Allergy Type Onset Date Status metformin Metformin hallucinations Drug Allergy Ac tive Results Component Value Reference Range Notes HEMOGLOBIN A1C (GLYCOHEMOGLO BIN) Reviewed date:09/22/2024 09:33:41 AM Interpretation: Performing Lab: Notes/Report: HEMOGLOBIN A1C % (HH) 7.2 Reason For Referral No Information Medications Medication SIG (Take, Route, Frequency, Duration) Notes Start Date End Date Status Ammonium Lactate 12 % 1 application Exte rnally Twice a day for 30 days Active Extra Depth Orthopedic Shoes (1 Pair) with Customized Heat Molded Multidensity Innersoles (3 Pair) as directed Dx: NIDDM/Polyneuropathy (E11.42), Hammertoe Foot Deformity (M20.41,M20.42), Preulcerative Skin Lesion(s) (L85.1 10/15/2023 Active NovoLOG 100 UNIT/ML as directed Injection Active Lovastatin 20 MG 1 tablet with the ev ening meal Orally Once a day for 30 day(s) Active Losartan Potassium 100 MG 1 tablet Orall y Once a day for 30 day(s) Active Lantus 100 UNIT/ML as directed Subcutaneous Active Furosemide 20 MG Oral for 30 A ctive Ozempic Active Immunizations Vaccine Route Administration Date Status Comme nts COVID-19 Moderna Vaccine Unknown 03/23/2022 Administered 2020 Unsure Dates Influenza Unknown 05/25/2022 Administered Social History Tobacco Use: Social History Observation Description Date Details (start date - stop date) Never Smoker NA - NA Tobacco use other than smoking: Question Answer Notes Are you an other tobacco user? No Tobacco Control (Standard) Question Answer Notes Tobacco use: Nonsmoker Additional Findings: Tobacco non-user Current no nsmoker AUDIT-C (Standard) Question Answer Notes Did you have a drink containing alcohol in the p ast year? No Points 0 Interpretation Negative Problems Problem Type SNOMED Code ICD Code Onset Dates Problem Status W/U Status Risk Notes Problem Acquired hammer toe of right foot (9370184099216024 ) Other hammer toe(s) (acquired), right foot (M20.41) Active confirmed Problem Acquired hammer toe of left foot ([id number] ) Other hammer toe(s) (acquired), left foot (M20.42) Active confirmed Problem Polyneuropathy due to type 2 diabetes mellitus (146133948) Type 2 diabetes mellitus with diabetic polyneuropathy (E11.42) Active confirmed Vital Signs Blood pressure diastolic 60 mm Hg 09/22/2024 Height 5 ft 10.5 in in 09/22/2024 Blood pressure systolic 120 mm Hg 09/22/2024 Weight 237 lbs 09/22/2024 BMI 33.52 kg/m2 09/22/2024 Procedures Procedure Date Ordered Date Performed Result Body Sit e 93721-LYEHAYQ NAIL, 6 OR MORE 10/15/2023 N/A 86215-OINV SKIN LESIONS, OVER 4 10/15/2023 N/A 27052-KECQWQB NAIL, 6 OR MORE 03/17/2024 N/A 49735-WQMV SKIN LESIONS, OVER 4 03/17/2024 N/A 56702-GEISWUK NAIL, 6 OR MORE 06/23/2024 N/A 54420-IISW SKIN LESIONS, OVER 4 06/23/2024 N/A 43378-HXRSVDN NAIL, 6 OR MORE 09/22/2024 N/A 33164-YFFW SKIN LESIONS, OVER 4 09/22/2024 N/A Encounters Encounter Location Date Provider Diagnosis [facility] [place] [address] [place] [address] 10/15/2023 Jamel Briseno Type 2 diabetes mellitus with diabetic polyneuropathy E11.42 ; Onychomycosis B35.1 ; Other hammer toe(s) (acquired), right foot M20.41 and Other hammer toe(s) (acquired), left foot M20.[address] [address] 03/17/2024 Jamel Briseno Type 2 diabetes mellitus with diabetic polyneuropathy E11.42 ; Tinea unguium B35.1 and Xerosis of skin L85.[address] [address] 06/23/2024 Jamel Briseno Type 2 diabetes mellitus with diabetic polyneuropathy E11.42 ; Tinea unguium B35.1 and Xerosis of skin L85.[address] [address] 09/22/2024 Jamel Briseno Type 2 diabetes mellitus with diabetic polyneuropathy E11.42 ; Tinea unguium B35.1 ; Other hammer toe(s) (acquired), right foot M20.41 and Other hammer toe(s) (acquired), left foot M20.[address] [address] 12/30/2023 Jamel Briseno [address] [address] 09/22/2024 Jamel Briseno Assessments Encounter Date Diagnosis (ICD [...] E11.42) 06/23/2024 Tinea unguium (ICD-10 - B35.1) 09/22/2024 Type 2 diabetes mellitus with diabetic polyneuropathy (ICD-10 - E11.42) 09/22/2024 Tinea unguium (ICD-10 - B35.1) 06/23/2024 Xerosis of skin (ICD-10 - L85.3) 09/22/2024 Other hammer toe(s) (acquired), right foot (ICD-10 - M20.41) Patient Educated with: DIABETIC FOOT CARE INSTRUCTIONS. pdf (DIABETIC FOOT CARE INSTRUCTIONS. pdf) 10/15/2023 Other hammer toe(s) (acquired), right foot (ICD-10 - M20.41) Patient Educated with: DIABETIC FOOT CARE INSTRUCTIONS. pdf (DIABETIC FOOT CARE INSTRUCTIONS. pdf) 09/22/2024 Other hammer toe(s) (acquired), left foot (ICD-10 - M20.42) 03/17/2024 Xerosis of skin (ICD-10 - L85.3) 10/15/2023 Other hammer toe(s) (acquired), left foot (ICD-10 - M20.42) Plan Of Treatment Pending Test Test Name Order Date 73644-EMERVHZ NAIL, 6 OR MORE 05/05/2022 38381-JAAESMJ NAIL, 6 OR MORE 08/04/2022 05062-MBYDEKV NAIL, 6 OR MORE 12/22/2022 46978-PFFDLYT NAIL, 6 OR MORE 03/30/2023 86657-WENUBID NAIL, 6 OR MORE 10/15/2023 73701-HLWUITH NAIL, 6 OR MORE 03/17/2024 99278-XSWPWIK NAIL, 6 OR MORE 06/23/2024 30200-XLPRHBZ NAIL, 6 OR MORE 09/22/2024 55044-Tqxnwdom Plate 05/05/2022 31824-WSFL SKIN LESIONS, OVER 4 05/05/20 22 73152-LANA SKIN LESIONS, OVER 4 08/04/20 22 26392-BTAQ SKIN LESIONS, OVER 4 03/30/20 23 79149-JNWU SKIN LESIONS, OVER 4 12/23/19 23 43317-YKPU SKIN LESIONS, OVER 4 09/22/19 25 81870-YLBV SKIN LESIONS, OVER 4 06/23/20 24 42206-ZYEK SKIN LESIONS, OVER 4 03/17/20 24 97655-PDXK SKIN LESIONS, OVER 4 10/15/19 24 Next Appt Details Provider Name:Jamel Briseno , 12/26/2024 09:00:00 AM, [address] [facility], [place], [address], Insurance Providers Payer Name Payer Address Payer Phone Subscriber Number Group Number Insured Name Patient Relationship to Insured Coverage Start Date Coverage End Date Medicare National [employer] [address] [place] [address] [id number] Sammy Ghosh Self - patient is the insured 2 Medical (General) History Medical History History ICD Code Cataracts covid-19 type II diabetes Glaucoma High blood pressure Kidney disease Numbness Measles Chicken pox Retinopathy CAD Surgical History Surgery Date(Month/Year) cataract surgery L eye [place] 06/2022
--- OUTSIDE RECORDS SUMMARY | 2024-10-10 08:36 | XMS_ITS ---
Author Organization [facility] en[place] Address [address] [place] [address] Care Team Providers Care Shift Leader Name Role Phone Brandt Vickers Primary Care Provider Jamel Lundy Unavailable [phone] Allergies Allergen (clinical drug ingredient) Drug/Non Drug Allergy documented on EMR Reaction Allergy Type Onset Date Status metformin Metformin hallucinations Drug Allergy Ac tive REASON FOR VISIT At Risk Footcare, Toe Irritation Medications Medication SIG (Take, Route, Frequency, Duration) [...] Once a day for 30 day(s) Active Ozempic Active Losartan Potassium 100 MG 1 tablet Orall y Once a day for 30 day(s) Active Lantus 100 UNIT/ML as directed Subcutaneous Active Furosemide 20 MG Oral for 30 A ctive Social History Tobacco Use: Social History Observation [...] ast year? No Points 0 Interpretation Negative Vital Signs Height 5 ft 10.5 in in 09/22/2024 Weight 237 lbs 09/22/2024 BMI 33.52 kg/m2 09/22/2024 Blood pressure systolic 120 mm Hg 09/22/19 Blood pressure diastolic 60 mm Hg 025 Procedures Procedure Date Ordered Date Performed Result Body Sit e 17882-YHKVDOU NAIL, 6 OR MORE 09/22/2024 N/A 87767-MOJV SKIN LESIONS, OVER 4 09/22/2024 N/A Encounters Encounter Location Date Provider Diagnosis [facility] [place] [address] [place] [address] 09/22/2024 Jamel Briseno Type 2 diabetes mellitus with diabetic polyneuropathy E11.42 ; Tinea unguium B35.1 ; Other hammer toe(s) (acquired), right foot M20.41 and Other hammer toe(s) (acquired), left foot M20.42 Assessments Encounter Date Diagnosis (ICD Code) Assessment Notes Treatment Notes Treatment Clinical Notes Section Notes 09/22/2024 Type 2 diabetes mellitus with diabetic polyneuropathy (ICD-10 - E11.42) 09/22/2024 Tinea unguium (ICD-10 - B35.1) 09/22/2024 Other hammer toe(s) (acquired), right foot (ICD-10 - M20.41) Patient Educated with: DIABETIC FOOT CARE INSTRUCTIONS. pdf (DIABETIC FOOT CARE INSTRUCTIONS. pdf) 09/22/2024 Other hammer toe(s) (acquired), left foot (ICD-10 - M20.42) Plan Of Treatment Treatment Notes Assessment Notes Other hammer toe(s) (acquired), right fo ot Patient Educated with: DIABETIC FOOT CARE INSTRUCTIONS.pdf (DIABETIC FOOT CARE INSTRUCTIONS.pdf) Pending Test Test Name Order Date [id number] NAIL, 6 OR MORE 09/22/2024 17095-GNTG SKIN LESIONS, OVER 4 09/22/19 25 Next Appt Details Follow Up: prn, Reason: Provider Name:Jamel Briseno , 12/26/2024 09:00:00 AM, [address] [place], [address], Procedure Notes * Category Sub-Category Detail Notes Debride Nail 6-10 Nail debridement Due to the cl inical pathology outlined in the exam findings, performance of this nail treatment is medically necessary as its management by an unskilled/untrained nonprofessional would put this patients foot and overall health at risk. Therefore, debridement to affected nail(s), as described in exam ( TA, T1, T2, T3, T4, T5, T6, T7, T8, T9 ), was performed exclusively by the physician of record to reduce/remove overall nail length, girth, thickness, subungual debris, and necrotic tissue, by manual and/or electrical means through the use of a nail nipper and/or dremel-type grinder machine setter, to a more viable healthy nail plate or bed tissue 6-10 nails in total. Silver nitrate was used for any petechial bleeding as necessary. Definitive antifungal treatment options, both pharmaceutical and surgical, have been reviewed and discussed with the patient. The patient solely prefers the use of intermittent/as needed professional debridement services for their nail condition and understands the need for additional periodic treatments to maintain effectiveness in symptomatic relief - 69783 Keratoma Treatment Parring or Cutting o f Benign Hyperkeratotic Lesion(s) (-57) More than 4 Lesions - Due to the at risk nature of the patients medical condition as documented in the exam findings, performance of this keratoderma treatment is medically necessary as its management by an unskilled/untrained nonprofessional would put this patients foot and overall health at risk. Therefore, the benign hyperkeratotic lesions, ( 10 ) in total, locations as stated and described in the exam ( Medial, IPJ, TA, Medial, IPJ, T5, SUB MTH (s), 1, B/L , SUB MTH (s), 2, B/L , SUB MTH (s), 5, B/L , Plantar, Heel(s), B/L ), were pared, and/or cut utilizing a sterile 15 blade, tissue nippers, and/or power dremel instrumentation by the physician of record - 19826 Progress Notes * Sammy GHOSH EDOB:1945 (79 yo M)Acc No.[id number]:09/22/2024 Progress Note Patient:?Sammy GHOSH E Provider:?Jamel Briseno DPM :1945???Age:79 Y???Sex:Male Hemal e:09/22/2024 Address:[address] [id number] Pcp:Brandt Vickers Subjective: * Chief Complaints: * ???At Risk FootcareToe Irrit ation * HPI: ???At Risk footcare:?Pt States Last PCP Visit:?Date?08/10/2024 ???Toe pain:?Location:?B/L feet.?Duration:?several years.?Aggravated by:?shoes, any pressure.?Treatments:?change in shoes.? * ROS:?General/Constitutional:?Nausea?denies.?Vomiting?denies.?Hunger Thirst?denies.?Loss appetite?denies.?Chills?denies.?Fatigue?denies.?Fever?denies.?Night Sweats?denies.?Unexplained weight loss?denies.?Unexplained weight gain?denies.?HEENTM:?Dentures?admits.?Dizziness?denies.?Glasses/contacts?denies.?Retinopathy?adm its.?Blurred/double vision?denies.?TMJ?denies.?Discharge/drainage?denies.?Implants?denies.?Sore throat?denies.?Dental implants?denies.?Hard of hearing ?admits.?Difficulty chewing/swallowing/speaking?denies.?Nose bleeds?denies.?Sore mouth?denies.?Respiratory:?On O xygen?denies.?Pneumonia/pleurisy?denies.?Bronchitis?denies.?Emphysema?denies.?Co ughing?denies.?Cough blood?denies.?Shortness of breath?denies.?Wheezing?denies.?Cardiovascular:?Pacemaker?denies.?MVP?denies.?WPW?denies.?CHF?denies.?Heart attack?denies.?Septal defect?denies.?Rapid beat?denies.?Chest pain ?denies.?Atrial Fib.?denies.?Murmur/Palpitations?denies.?Gastrointestinal:?Hemorrhoids?denies.?Stomach/Abdominal pain?denies.?Dark blood stool?denies.?Irritable bowel ?denies.?Constipation?denies.?Diarrhea?denies.?Hematology:?Swelling?admits.?Clots?denies.?Varicose Veins?admits.?Bruising?denies.?Bleeding problem?denies.?Genitourinary:?Blood urine?denies.?Frequent/Painfu/urination/bladder control?denies.?Kidney stones?denies.?Infection (UTI)?denies.?Nephropathy?denies.?sex trans dis (STD)?denies.?Prostate?denies.?Musculoskeletal:?Hammertoes?admits.?Bunions?denies.?Back Pain?denies.?Muscle Cramps/ Resting?admits.?Muscle cramps / walking?denies.?Generalized aches and pains?denies.?Weakness?denies.?Integ.:?Bae?denies.?Scars?denies.?Corns/calluses?admits.?Ingrown nails?admits.?Painful nails?denies.?Open Sores?denies.?Rashes?denies.?Neurologic:?Difficulty sleeping?denies.?Brain disorder?denies.?Numbness?admits.?Balance t rouble?admits.?Confusion?denies.?Fainting/blackouts?denies.?Tingling?admits.?Aiden mors?denies.? * Medical History:? * Surgical History:?cataract s urgery L eye Luz Maria 06/2022 * Hospitalization/Major Diagno stic Procedure:?Denies Past Hospitalization * Family History:?Mother: dece ased, diagnosed with Other malignant neoplasm of unspecified site.?Father: , diagnosed with Diabetic - NIDDM.?Siblings: diagnosed with Diabetic - NIDDM.? * Social History:?Tobacco Use:?Tobacco use other than smoking?Are you an other tobacco user??No ?Tobacco Control (Standard)?Tobacco use:?Nonsmoker ?Additional Findings: Tobacco non-user?Current nonsmoker ???Drugs/Alcohol:?Drugs?Have you used drugs other than those for medical reasons in the past 12 months??No ???Miscellaneous:?Caffeine: yes, frequency:, 1 cups per day. ?Children: yes, 1. ?Exercise: yes, walking, occasional/ Vision Problem. ?Marital status: single. ?Occupation: Retired-Multiple Jobs Works [employer]. ???Drug/Alcohol:?AUDIT-C (Standard)?Did you have a drink containing alcohol in the past year??No ?Points?0 ?Interpretation?Negative * Medications:?TakingOzempic F urosemide 20 MG Tablet Oral Lantus 100 UNIT/ML Solution as directed Subcutaneous Losartan Potassium 100 MG Tablet 1 tablet Orally Once a day Lovastatin 20 MG Tablet 1 tablet with the evening meal Orally Once a day NovoLOG 100 UNIT/ML Solution as directed Injection Extra Depth Orthopedic Shoes (1 Pair) with Customized Heat Molded Multidensity Innersoles (3 Pair) as directed Dx: NIDDM/Polyneuropathy (E11.42), Hammertoe Foot Deformity (M20.41,M20.42), Preulcerative Skin Lesion(s) (L85.1 Ammonium Lactate 12 % Cream 1 application Externally Twice a day Medication List reviewed and reconciled with the patientTaking Ozempic Taking Furosemide 20 MG Tablet Oral Taking Lantus 100 UNIT/ML Solution as directed Subcutaneous Taking Losartan Potassium 100 MG Tablet 1 tablet Orally Once a day Taking Lovastatin 20 MG Tablet 1 tablet with the evening meal Orally Once a day Taking NovoLOG 100 UNIT/ML Solution as directed Injection Taking Extra Depth Orthopedic Shoes (1 Pair) with Customized Heat Molded Multidensity Innersoles (3 Pair) as directed Dx: NIDDM/Polyneuropathy (E11.42), Hammertoe Foot Deformity (M20.41,M20.42), Preulcerative Skin Lesion(s) (L85.1 Taking Ammonium Lactate 12 % Cream 1 application Externally Twice a day Medication List reviewed and reconciled with the patient * Allergies:?Metformin: halluc inations - Allergyyes[Allergies Verified] Objective: * Vitals:?Ht: 5 ft 10.5 in, Wt :237, BMI: 33.52, Shoe size:11, BP:120/60mm Hg, BS:143, Wt-k.5 kg. * ???Past Orders: Lab:HEMOGLOBIN A1C (GLYCOHEM OGLOBIN) * Collection Date 06/28/2024 04/21/2022 Collection Time 09:33 AM Order Date 06/28/2024 08/04/2022 HEMOGLOBIN A1C % (HH) 7.2 NR HEMOGLOBIN A1C (HH) NR 7.0 * Examination: ???Ophthalmology Referral: ?DIABETES EYE EXAM?Neurological: ?SENSORY:? Neurological exam demonstrates, reduced light touch sensation, reduced sharp/dull pin prick discrimination , at Forefoot, B/L, 5.07 monofilament test performed at plantar aspects of 5 varied sites per foot shows sensation, reduced , at Forefoot, B/L.?Nails: ?NAILS are:?Elongated, overgrown, dystrophic, lytic, greater than 3mm thick, discolored and friable with crumbly malodorous subungual debris, TA, T1, T2, T3, T4, T5, T6, T7, T8, T9.?Dermatologic: ?SKIN FINDINGS:?Skin exam reveals Keratotic lesion(s) located at, Medial, IPJ, TA, Medial, IPJ, T5, SUB MTH (s), 1, B/L , SUB MTH (s), 2, B/L , SUB MTH (s), 5, B/L , Plantar, Heel(s), B/L.?Vascular: ?DP PULSES (B):? 0/4, LEFT, 1/4, RIGHT.?PT PULSES (B):? 0/4, B/L.?CAPILLARY FILL TIME:? delayed, all digits, B/L.?TROPHIC CONDITION-TEXTURE/ELASTICITY/TURGOR/HAIR GROWTH (B):? decreased, B/L.?TEMPERTURE GRADIENT (C):? decreased, cool to cool, proximal to distal, B/L.?PIGMENTATION:?mottled, B/L.?EDEMA (C):? 2/4, non-pitting, without aching pain, B/L, Leg(s), Ankle(s), Feet.?CLAUDICATION (C):?denies, B/L.?REST PAIN:?denies, B/L.?VARICOSITIES:? present, moderate, nonpainful, B/L.?Orthopedic: ?MUSCLE STRENGTH:?5/5 all groups in a symmetrical fashion, B/L.?DIGITAL DEFORMITIES:?Digital contracture, PIPJ, 2-5 B/L, incompl-reducible to push-up test, no over, nor underlapping,?there is?evidence of shoe producing skin irritation.?FOOTWEAR:?worn, non-supportive, shoe gear properties exacerbate patient's foot/toe deformity.?General Examination: ?GENERAL APPEARANCE:?Reveals a pleasant, alert, well nourished, well- developed, well hydrated individual, who demonstrates proper attention to hygiene/body habitus, and is in no acute distress, Pt serves as own historian for office visit today , Reveals a pleasant, alert, well nourished, well-developed, well hydrated individual, who demonstrates proper attention to hygiene/body habitus, and is in no acute distress, Pt serves as own historian for office visit today.?ORIENTED:?person, place, and time , person, place, and time.?FOOT EXAM:?Footwear Evaluation? Assessment: * Assessment: 1.?Type 2 diabetes mellitus with diabetic polyneuropathy - E11.42 (Primary)???2.?Tinea unguium - B35.1???3.?Other hammer toe(s) (acquired), right foot - M20.41???Specify :Chronic problem, Stable (1=3,2=4)???4.?Other hammer toe(s) (acquired), left foot - M20.42???Specify :Chronic problem, Stable (1=3,2=4)??? Plan: * Treatment: 2.?Other hammer toe(s) (acqu ired), right foot? Notes: Patient Educated with: DIABETIC FOOT CARE INSTRUCTIONS.pdf (DIABETIC FOOT CARE INSTRUCTIONS.pdf)?? * Procedures:?Debride Nail 6-10:?Nail debridement?Due to the clinical pathology outlined in the exam findings, performance of this nail treatment is medically necessary as its management by an unskilled/untrained nonprofessional would put this patients foot and overall health at risk. Therefore, debridement to affected nail(s), as described in exam ( TA, T1, T2, T3, T4, T5, T6, T7, T8, T9 ), was performed exclusively by the physician of record to reduce/remove overall nail length, girth, thickness, subungual debris, and necrotic tissue, by manual and/or electrical means through the use of a nail nipper and/or dremel-type grinder machine setter, to a more viable healthy nail plate or bed tissue 6- 10 nails in total. Silver nitrate was used for any petechial bleeding as necessary. Definitive antifungal treatment options, both pharmaceutical and surgical, have been reviewed and discussed with the patient. The patient solely prefers the use of intermittent/as needed professional debridement services for their nail condition and understands the need for additional periodic treatments to maintain effectiveness in symptomatic relief - 80232.?Keratoma Treatment:?Parring or Cutting of Benign Hyperkeratotic Lesion(s)?(-57) More than 4 Lesions - Due to the at risk nature of the patients medical condition as documented in the exam findings, performance of this keratoderma treatment is medically necessary as its management by an unskilled/untrained nonprofessional would put this patients foot and overall health at risk. Therefore, the benign hyperkeratotic lesions, ( 10 ) in total, locations as stated and described in the exam (?Medial,?IPJ,?TA,?Medial,?IPJ,?T5,?SUB MTH (s),?1,?B/L?,?SUB MTH (s),?2,?B/L?,?SUB MTH (s),?5,?B/L?,?Plantar,?Heel(s),?B/L?), were pared, and/or cut utilizing a sterile 15 blade, tissue nippers, and/or power dremel instrumentation by the physician of record - [id number].? * Procedure Codes:?56913 DEBRI DE NAIL, 6 OR MORE, Modifiers: XS 85833 TRIM SKIN LESIONS, OVER 4, Modifiers: XS * Preventive Medicine:? ??Counseling:?Discussion:?-14: Office or other outpatient visit for the evaluation and management of an established patient, which required a medically appropriate history and/or examination and MODERATE level of DECISION MAKING for: 1 OR MORE CHRONIC PROBLEM(S) THATS WORSENING, 2 STABLE CHRONIC PROBLEMS, A NEWLY DIAGNOSED PROBLEM WITH UNCERTAIN PROGNOSIS, AN ACUTE COMPLICATED INJURY WITH MULTIPLE TREATMENT OPTIONS, OR AN ACUTE PROBLEM WITH ACCOMPANYING SYSTEMIC SYMPTOMS, THAT POSE(S) A MODERATE RISK OF MORBIDITY. THIS CONDITION MAY ALSO INCLUDE RX DRUG MANAGEMENT, OR A DECISON FOR MINOR SURGERY. The visit on the day of the [...] have encouraged the patient to call the office.?Digital Surgery:?Digital surgery was discussed with the patient, We elected to try conservative treatment at the present time, due to the patients medical history and increased asssociated post-operative risks.?Digital Treatment:?HT- I explained to the patient the possible etiologies of Hammertoes, including genetics/foot type/shoegear/activity level/exercise routine and the risks/benefits of all the different treatment options for their pain including: No treatment at all, Rest, Ice, New/supportive/wider/deeper Shoegear, Digital Padding/Strapping/Taping/Bracing/Gel protective sleeves, Foot/Ankle AFO Bracing, Stretching exercises, Deep Tissue Massage, Arch support/shoe inserts with splay metatarsal padding, and Custom orthoses. I insisted that any digital devices be removed daily and not worn overnight for safety. The patient is to carefully examine the toes daily for any skin irritation while using any splinting or padding device. The advantages and disadvantages of each option were discussed and the patients questions re: shoegear, padding, custom vs prefabricated inserts, activity level, and consistency in home treatment regimens for optimal success were answered to their verbally confirmed satisfaction.?Shoe Gear Counseling:?SHOE Rx - The patient was counseled in great detail on their muscoloskeletal foot and toe deformities which coincided with the dermatological presentations visualized on exam. We discussed how their deformities put the integrity of their feet at risk for potential pedal complications which makes the accomidative diabetic shoes and cutomizable inserts medically necessary. We discussed the different shoe and insert treatment types and options, as well as the important advantages for adhering to regularly wearing these accomidative devices daily. The patient was made aware of the fact that a failure to abide by these recommedations may be deleterious to their foot health as they are able to prevent many pedal complications such as skin irritation, skin ulceration, infection, and even loss of toe/foot/leg/or life. Time was also spent with the patient dispensing and discussing proper diabetic footcare techniques including daily skin moisturization, daily foot inspection for any interruption in skin integrity including open lesions, or sign of infection such as redness/malodor/drainage/swelling. Also discussed and recommended were procedures regarding daily shoe inspection for the presence of internal foreign bodies as well as any visualized irregular shoe or insert wear. Patient questions re: shoes, inserts, and self foot inspections were answered to their satisfaction as the patient verbally confirmed a full understanding of the above information, Patient DEFERS recommended Extra Depth Orthopedic pressure-accommodative shoes against medical advice.? ??Screening/Special Tests:?Fall Risk?Screening:?No falls in the past year ?FALLS: Screening for Future Fall Risk?Have you had any falls with injury in the past year??No * Follow Up:?prn * Images: * Sign off status: Completed true * Provider:?Jamel Briseno DPM Date:?2024 Generated for Natty hdz/Gisele/Jh on:?10/10/2024 08:36 AM EST History and Physical Notes * HPI (History of Present Illness) Category Sub-Category Detail Notes Category Not es Toe pain Location: B/L feet Duration: several years Aggravated by: shoes, any pressure Treatments: change in shoes At Risk footcare Pt States Last PCP [...] , SUB MTH (s), 5, B/L , Plantar, Heel(s), B/L Orthopedic FOOTWEAR: worn, non-suppor tive, shoe gear properties exacerbate patient's foot/toe deformity DIGITAL DEFORMITIES: Digital contracture , PIPJ, 2-5 B/L, incompl-reducible to push-up test, no over, nor underlapping, there is evidence of shoe producing skin irritation MUSCLE STRENGTH: 5/5 all groups in a symmetrical fashion, B/L General Examination GENERAL APPEARANCE: Reveals a pleasant, alert, well nourished, well-developed, well hydrated individual, who demonstrates proper attention to hygiene/body habitus, and is in no acute distress, Pt serves as own historian for office visit today , Reveals a pleasant, alert, well nourished, well-developed, well hydrated individual, who demonstrates proper attention to hygiene/body habitus, and is in no acute distress, Pt serves as own historian for office visit today FOOT EXAM: Lower Extremity Neurological Exa m performed:: Yes Date Visual exam of foot performed:: Yes Date: 09/22/2024 ORIENTED: person, place, and t geraldine , person, place, and time Footwear Evaluation Footwear Evaluation performe d:: Yes Ophthalmology Referral DIABETES EYE EXAM Procedure Perform ed:: Yes ?Date of Exam Performed: 07/24/2024 Retinal Screening Performed:: Yes Findings of Diabetic Eye Exam:: retinopa thy Vascular DP PULSES (B): 0/4, LEFT, 1/4, RIGHT PT PULSES (B): 0/4, B/L CAPILLARY FILL TIME: delayed, all digits , B/L TEMPERTURE GRADIENT (C): decreased, cool to cool, proximal to distal, B/L TROPHIC CONDITION-TEXTURE/ELASTICITY/TURGOR/HAIR GROWTH (B): decreased, B/L EDEMA (C): 2/4, non-pitting, wi thout aching pain, B/L, Leg(s), Ankle(s), Feet VARICOSITIES: present, moderate, n onpainful, B/L CLAUDICATION (C): denies, B/L REST PAIN: denies, B/L PIGMENTATION: mottled, B/L Nails NAILS are: Elongated, overg rown, dystrophic, lytic, greater than 3mm thick, discolored and friable with crumbly malodorous subungual debris, TA, T1, T2, T3, T4, T5, T6, T7, T8, T9
--- OUTSIDE RECORDS SUMMARY | 2024-10-10 08:36 | XMS_ITS | Encounter Summary ---
Author Organization [facility] Address [address] [facility] [address] [place] [address] Phone Care Team Providers Care Special Procedures Technologist Name Role Phone Brandt Vickers MD Primary Care Provider [phone] Reason for Visit * Reason Comments Med Refill Encounter Details Date Type Department Care Team (Late Contact Info) Description 10/09/2024 Refill [facility] [address] [place] [phone] Nathan Fuentes MD [facility] [address] Social History Tobacco Use Types Packs/Day Years Used Date Smoking Tobacco: Never Smokeless Tobacco: Never Alcohol Use Standard Drinks/Week Comments Never 0 (1 standard drink = 0.6 oz pur e alcohol) Sex and Gender Information Value Date Recorded Sex Assigned at Not on file Legal Sex Male 7:56 AM EDT Gender Identity Not on file Sexual Orientation Not on file documented as of this encounter Plan of Treatment Upcoming Encounters Date Type Department Care Team (Late Contact Info) Description 10/13/2024 Orders Only [facility] [address] [place] [phone] Manuel Harris MD [address] [facility] [address] [place] [address] Stage 3b chronic kidney disease (HCC); Type 2 diabetes mellitus with diabetic chronic kidney disease (HCC); Renal osteodystrophy; Essential (primary) hypertension 01/04/2025 2:15 PM EDT Office Visit [facility] [address] [address] Manuel Harris MD [address] [address] documented as of this encounter Visit Diagnoses Not on filedocumented in this encounter Care Teams Special Procedures Technologist Relationship Specialty Start Date End Date Brandt Vickers MD [facility] [id number] [place], [place] PCP - General Internal Medicine 04/16/22 documented as of this encounter
--- OUTSIDE RECORDS SUMMARY | 2024-10-10 08:36 | XMS_ITS | Clinical Summary ---
Author Organization [facility] Facility Address [address] [place] [address], [place] [address] Care Team Providers Care Laboratory Worker Name Role Phone Brandt Vickers MD Primary Care Provider [phone] Allergies Active Allergy Reactions Criticality Noted Date Comments Metformin Other (see comments) 11/11/2023 Medications lovastatin (MEVACOR) 20 MG tablet Take 20 mg by mouth 1 (one) time each day 04/21/20 22 Active losartan (COZAAR) 100 MG tablet Take 100 mg by mouth 1 (one) time each day 04/21/20 22 Active Lantus SoloStar 100 UNIT/ML injection 34-40 units 06/16/20 22 Active insulin aspart (NovoLOG) 100 UNIT/ML patient supplied pump Inject under the skin continuously Active Dulaglutide (TRULICITY SC) Inject under the skin Active furosemide (LASIX) 20 MG tablet TAKE 1 TABLET (20 MG TOTAL) BY MOUTH ONE TIME EACH DAY 90 tablet 1 10/09/19 25 Active furosemide (LASIX) 20 MG tablet TAKE 1 TABLET (20 MG TOTAL) BY MOUTH ONE TIME EACH DAY 90 tablet 1 05/08/20 24 025 Discontinued Active Problems Problem Noted Date Diagnosed Date Type 2 diabetes mellitus without complication Essential (primary) hypertension 07/09/2022 Hypercholesterolemia 07/09/2022 Stage 3a chronic kidney disease 07/09/2022 Stage 3b chronic kidney disease 07/09/2022 Type 2 diabetes mellitus wit h diabetic chronic kidney disease 07/09/2022 Renal osteodystrophy 07/09/2022 Encounters Date Type Department Care Team Description 10/09/2024 Refill [facility] [address] [place] [address] Nathan Fuentes MD from Last 3 Months Social History Tobacco Use Types Packs/Day Years Used Date Smoking Tobacco: Never Smokeless Tobacco: Never Tobacco Cessation:Counseling Given: Not Answered Alcohol Use Standard Drinks/Week Comments Never 0 (1 standard drink = 0.6 oz pur e alcohol) Sex and Gender Information Value Date Recorded Sex Assigned at Not on file Legal Sex Male 7:56 AM EDT Gender Identity Not on file Sexual Orientation Not on file Last Filed Vital Signs Vital Sign Reading Time Taken Comments Blood Pressure 122/65 11/11/2023 2:22 PM EDT Pulse 58 11/11/2023 2:22 PM EDT Temperature - - Respiratory Rate - - Oxygen Saturation 98% 11/11/2023 2:22 PM EDT Inhaled Oxygen Concentration - - Weight 117 kg (258 lb 12.8 oz) 11/11/2023 2:22 P M EDT Height - - Body Mass Index - - Plan of Treatment Upcoming Encounters Date Type Department Care Team (Late st Contact Info) Description 10/13/2024 Orders Only [facility] [address] [place] [address] Manuel Harris MD [address] [place] [phone] Stage 3b chronic kidney disease (HCC); Type 2 diabetes mellitus with diabetic chronic kidney disease (HCC); Renal osteodystrophy; Essential (primary) hypertension 01/04/2025 2:15 PM EDT Office Visit [facility] [address] [place] [address] Manuel Harris MD [address] [address] Health Maintenance Due Date Last Done Comments Pneumococcal Vaccine: 65+ Ye ars (1 of 2 - PCV) 1951 Diabetes: Hemoglobin A1C 07/09/2022 Diabetes: Ophthalmology Exam 07/09/2022 Diabetes: Pedal Pulse Checked 07/09/2022 Diabetes: Sensory Foot Exam 07/09/2022 Diabetes: Visual Foot Exam 07/09/2022 Influenza Vaccine (#1) 2024 06/02/2022 Hepatitis B Vaccine Aged Out No longe r eligible based on patient's age to complete this topic Insurance [facility] ([id number]) [facility] ([id number]) Care Teams Laboratory Worker Relationship Specialty Start Date End Date Brandt Vickers MD [facility] [id number] [place] REDDY PCP - General Internal Medicine 04/16/22
--- OUTSIDE RECORDS SUMMARY | 2024-10-10 08:37 | XMS_ITS ---
Author Organization [facility] Address [address] [place] [address] Care Team Providers Care Physician Assistant Psychiatry Name Role Phone Brandt Vickers Primary Care Provider Jamel Lundy Unavailable [phone] Allergies Allergen (clinical drug ingredient) Drug/Non Drug [...] Signs Height 5 ft 10.5 in in 06/23/2024 Weight 237 lbs 06/23/2024 BMI 33.52 kg/m2 06/23/2024 Blood pressure systolic 122 mm Hg 06/23/20 24 Blood pressure diastolic 60 mm Hg 024 Procedures Procedure Date Ordered Date Performed Result Body Sit e 29045-QUGOTKN NAIL, 6 OR MORE 06/23/2024 N/A 75291-NRIA SKIN LESIONS, OVER 4 06/23/2024 N/A Encounters Encounter Location Date Provider Diagnosis [facility] [address] [place] [address] 06/23/2024 Jamel Briseno Type 2 diabetes mellitus with diabetic polyneuropathy E11.42 ; Tinea unguium B35.1 and Xerosis of skin L85.3 Assessments Encounter Date Diagnosis (ICD Code) Assessment Notes Treatment Notes Treatment Clinical Notes Section Notes 06/23/2024 Type 2 diabetes mellitus with diabetic polyneuropathy (ICD-10 - E11.42) 06/23/2024 Tinea unguium (ICD-10 - B35.1) 06/23/2024 Xerosis of skin (ICD-10 - L85.3) Plan Of Treatment Pending Test Test Name Order Date 86290-BGPOFUD NAIL, 6 OR MORE 06/23/2024 63512-KCVM SKIN LESIONS, OVER 4 06/23/20 24 Next Appt Details Follow Up: 3 Months, Reason: Provider Name:Jamel Briseno , 12/26/2024 09:00:00 AM, [address] [place] [address], [phone], Procedure Notes * Category Sub-Category Detail Notes Debride Nail 6-10 Nail debridement Performance o f this nail treatment by a nonprofessional would put this patients foot and overall health at risk. Therefore, nail debridement was performed extensively to reduce/remove overall nail length, girth, thickness, subungual debris, and necrotic tissue, by manual and/or electrical means through the use of a nail nipper and/or dremel-type pulp grinder feeder, to a more viable healthy nail plate or bed tissue 6-10. Silver nitrate used for any petechial bleeding as necessary. Definitive antifungal treatment options have been reviewed and discussed with the patient. The patient chooses, no pharmaceutical tx - 52290 Keratoma Treatment Parring or Cutting o f Benign Hyperkeratotic Lesion(s) (-57) More than 4 Lesions - The Benign hyperkeratotic lesions, as described above were pared, and/or cut utilizing a sterile 15 blade, tissue nippers, and/or dremel - 43772 Progress Notes * Sammy GHOSHDOB:1945 ([age] yo M)Acc No.[id number]:06/23/2024 Progress Note Patient:?Sammy Ghosh Provider:?Jamel Briseno DPM :1945???Age:79 Y???Sex:Male Hemal e:06/23/2024 [address] [facility] Pcp:Brandt Vickers Subjective: * Chief Complaints: * ???At Risk FootcareSkin prob sulma(s) * HPI: ???At Risk footcare:?Pt States Last PCP Visit:?Date?12/27/2023 ???Skin problems:?Nature:?dryness , scaling.?Location:?B/L .?Treatments:?medication ( AM Lactin ) , admits nonadherence to recommended application - no reason given.? * ROS:?General/Constitutional:?Nausea?denies.?Vomiting?denies.?Hunger Thirst?denies.?Loss appetite?denies.?Chills?denies.?Fatigue?denies.?Fever?denies.?Night Sweats?denies.?Unexplained weight loss?denies.?Unexplained [...] ?Marital status: single. ?Occupation: Retired-Multiple Jobs Works [employer]. * Medications:?TakingFurosemid e 20 MG Tablet [...] Hammertoe Foot Deformity (M20.41,M20.42), Preulcerative Skin Lesion(s) (L85.1Ammonium Lactate 12 % Cream 1 application Externally Twice a dayMedication List reviewed and reconciled with the patientTaking [...] Hammertoe Foot Deformity (M20.41,M20.42), Preulcerative Skin Lesion(s) (L85.1Taking Ammonium Lactate 12 % Cream 1 application Externally Twice a dayMedication List reviewed and reconciled with the patient * Allergies:?Metformin: halluc inations - Allergyyes[Allergies Verified] Objective: * Vitals:?Ht: 5 ft 10.5 in, Wt :237, BMI: 33.52, Shoe size:11, BP:122/60 mm Hg, BS:188, Wt-k.5 kg. * ???Past Orders: ???Lab:HEMOGLOBIN A1C (GLYCO HEMOGLOBIN) [...] 5, B/L , Heel(s), B/L , Skin STILL, shows sign(s) of, dryness, scaling, in a stocking fashion, no fissure(s) present, B/L.? Assessment: * Assessment: 1.?Type 2 diabetes mellitus with diabetic polyneuropathy - E11.42 (Primary)?2.?Tinea unguium - B35.1?3.?Xerosis of skin - L85.3, Acute problem, Uncomplicated (3),Rx Management (4),Response to treatment - Unchanged,Nonadherent to recommendations? Plan: * Treatment: * Procedures:?Debride Nail 6-10:?Nail debridement?Performance of this nail treatment by a nonprofessional would put this patients foot and overall health at risk. Therefore, nail debridement was performed extensively to reduce/remove overall nail length, girth, thickness, subungual debris, and necrotic tissue, by manual and/or electrical means through the use of a nail nipper and/or dremel-type pulp grinder feeder, to a more viable healthy nail plate or bed tissue 6-10. Silver nitrate used for any petechial bleeding as necessary. Definitive antifungal treatment options have been reviewed and discussed with the patient. The patient chooses, no pharmaceutical tx - 44673.?Keratoma Treatment:?Parring or Cutting of Benign Hyperkeratotic Lesion(s)?(-57) More than 4 Lesions - The Benign hyperkeratotic lesions, as described above were pared, and/or cut utilizing a sterile 15 blade, tissue nippers, and/or dremel - 12350.? * Procedure Codes:?05609 DEBRI DE NAIL, 6 OR MORE, Modifiers: XS 43582 TRIM SKIN LESIONS, OVER 4, Modifiers: XS [...] patient to call the office.?Xerosis:?The patient was again counseled on the diagnosis, potential etiologies, and [...] interspaces while paying special attention to the heels.? * Follow Up:?3 Months * Images: * Sign off status: Completed true * Provider:?Jamel Briseno DPM Date:?2023 Generated for Natty hdz/Gisele/Jh on:?10/10/2024 08:36 AM EST History and Physical Notes * HPI (History of Present Illness) Category Sub-Category Detail Notes Category Not es Skin problems Nature: dryness , scaling Location: B/L Treatments: medication ( AM Lact in ) , admits nonadherence to recommended application - no reason given At Risk footcare Pt States Last PCP [...] 5, B/L , Heel(s), B/L , Skin STILL, shows sign(s) of, dryness, scaling, in a stocking fashion, no fissure(s) present, B/L Nails NAILS are: Elongated, overg rown, dystrophic, lytic, greater than 3mm thick, discolored and friable with crumbly malodorous subungual debris, 1-5 B/L
--- OUTSIDE RECORDS SUMMARY | 2024-10-10 08:37 | XMS_ITS ---
Author Organization [facility] Address [address] [facility] [place] [address] Care Team Providers Care Metal Door Assembler Name Role Phone Brandt Vickers Primary Care Provider Jamel Lundy [phone] REASON FOR VISIT Insurance Encounters Encounter Location Date Provider Diagnosis [address] [address] 09/22/2024 Jamel Briseno Plan Of Treatment Next Appt Details Provider Name:Jamel Briseno , 12/26/2024 09:00:00 AM, [address] [place], [address], Progress Notes * Sammy GHOSH EDOB:1945 (79 yo M)Acc No.[id number]:09/22/2024 Patient:?Sammy GHOSH :1945???Age:79 Y???Sex:Male Address:[address] [place], [address] * true * Date:? Generated for Printi ng/Faxing/eTransmitting on:?10/10/2024 08:36 AM EST
[2024-10-10 08:38] LABS: Glucose, Whole Blood 339 mg/dL (60-115)
== END 2024-10-10 09:06 | disposition home or self-care (01) ==
PROVIDERS: PCP Internal Medicine; Visit Provider Physician Assistant Medical
DX: E11.65 Type 2 diabetes mellitus with hyperglycemia (principal); Z79.4 Long term (current) use of insulin; N18.32 Chronic kidney disease, stage 3b; E11.3553 Type 2 diabetes mellitus with stable proliferative diabetic retinopathy, bilateral

== ENCOUNTER → 2024-10-10 08:22 | Outpatient (BNVA) | payer MEDICARE, SELFPAY | PROVIDERS: PCP Internal Medicine; Visit Provider Physician Assistant Medical | DX: E11.65 Type 2 diabetes mellitus with hyperglycemia (principal); E11.22 Type 2 diabetes mellitus with diabetic chronic kidney disease; E11.3553 Type 2 diabetes mellitus with stable proliferative diabetic retinopathy, bilateral; E78.5 Hyperlipidemia, unspecified; N18.32 Chronic kidney disease, stage 3b; E66.9 Obesity, unspecified; Z68.36 Body mass index [BMI] 36.0-36.9, adult; Z79.4 Long term (current) use of insulin | CPT/HCPCS: 82947; 83036; 99212 ==

== ENCOUNTER 2024-10-27 08:18 | Outpatient (AMB) | payer MEDICARE, SELFPAY ==
--- NOTE | 2024-10-27 08:22 | A.OFFPC_ITS ---
Vital Signs 10/27/24 08:24 Height 5 ft 10 in Weight 256 lb 2.834 oz BMI 36.8 BP 130/72 Blood Pressure Location Lt brachial Position Sitting Pulse 74 Pulse Source Pulse Oximeter Temp 97.3 F Temp Source Temporal Artery Scan Pulse Oximetry (%) 99 Oxygen Delivery Method Room Air Intake Visit Reasons: Follow up on bloodwork, HTN Intake Note: Patient is here to follow up on Lab result, HTN. Auto Radiator Specialist Required: No Invoice Classification Clerk: Not Required per policy Accompanied by: Self / Same As Patient Allergies metformin Adverse Reaction (Severe, Verified 10/27/24 08:23) Diarrhea Medication List - Last Reconciled 10/27/24 by Keysha Lincoln PA-C alcohol swabs (Alcohol Pads) 1 pad topical QID blood sugar diagnostic (MomentCamuch Verio test strips) Use as directed to check blood glucose 3 times daily. blood-glucose meter (MomentCamuch Verio Flex Meter) Use as directed to check blood glucose 3 times daily for Type II diabetes mellitus. flash glucose scanning reader (GamarStyle Oscar 2 [place]) As directed checked the blood sugar 3 times a day, patient is on 4 shots a day of insulin flash glucose sensor (FreeStyle Oscar 2 Sensor kit) As directed check the blood sugars 4 times a day folic acid 1 mg PO DAILY furosemide 20 mg PO DAILY glucose (Dex4 Glucose) 16 grams (4 x 4 gram) PO Q15M PRN insulin aspart U-100 (Novolog FlexPen U-100 Insulin aspart) 4 - 20 units (0.04 - 0.2 mL) subcut TID insulin glargine (Lantus Solostar U-100 Insulin) 58 units (0.58 mL) subcut QPM lancets (MomentCamuch Delica Plus Lancet) Use as directed to check blood glucose 3 times daily losartan 100 mg PO DAILY 90 days lovastatin 20 mg PO DAILY 90 days semaglutide (Ozempic) 0.5 mg (0.736 mL) subcut QWEEK Tobacco use date assessed: 10/27/24 Fall risk assessment: No Falls in past year Last assessed Fall Risk: 10/27/24 Dental Screening Dental Screen Date: 10/27/24 Did you have a dental visit in the last 12 months?: No Did you have a dental problem in the last 6 months where you did not have access to dental care?: No Was dental information given to patient?: No HPI Follow up on bloodwork, HTN HPI Details 79-year-old obese male with uncontrolled diabetes mellitus hypercholesterolemia hypertension chronic kidney disease coming in for follow up last seen 06/2024. In review of the notes, patient was seen by endocrinology 09/2024 his Lantus was increased, Novolog was increased, Ozempic was increased and advised to follow up in 4 weeks. Patient tells us today he had labs [place] He had a phone call from my provider prescribing some kind of powdery substance to treat high potassium. He believes the call was initiated from our office however it was not seen in the reports and we do not have the lab results. [facility] Medical History 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 Brother Diabetes Sister No problems noted. Daughter No problems noted. Social History Housing: Other Alcohol intake: current Patient Tobacco Use Status: Former Tobacco user Tobacco use type: Cigarette Years Smoked: quit 1979 e-Cigarette/Vaping Use: Never Used Second Hand Smoke Exposure: Yes service: No Current occupational status: retired Cognitive needs: No Hearing needs: No Vision needs: Yes Questionnaire PHQ-9 Over the last 2 weeks, how often have you been bothered by any of the following problems? 1. Little interest or pleasure in doing things: not at all 2. Feeling down, depressed, or hopeless: not at all 3. Trouble falling or staying asleep, or sleeping too much: not at all 4. Feeling tired or having little energy: not at all 5. Poor appetite or overeating: not at all 6. Feeling bad about yourself - or that you are a failure or have let yourself or your family down: not at all 7. Trouble concentrating on things, such as reading the newspaper or watching television: not at all 8. Moving or speaking so slowly that other people could have noticed. Or the opposite - being so fidgety or restless that you have been moving around a lot more than usual: not at all 9. Thoughts that you would be better off or of hurting yourself in some way: not at all Total score: 0 Depression Screening Interpretation: Negative Depression Screening Done: Yes Source: Developed by Drs. Kalen Laguerre, Meg Charles, Alfonso Gan and colleagues, with an educational nadia from [employer]. Thrive Questionnaire Date Thrive assessed: 10/27/24 AUDIT C Alcohol Use Questionnaire (AUDIT-C) 1. How often do you have a drink containing alcohol?: Never Total Score: 0 PAZ-7 AMB Questionnaire PAZ-7 Date PAZ - 7 assessed: 10/27/24 Feeling nervous, anxious, or on edge: 0 = Not at all Not being able to stop or control worryin = Not at all Worrying too much about different things: 0 = Not at all Trouble relaxin = Not at all Being so restless that it is hard to sit still: 0 = Not at all Becoming easily annoyed or irritable: 0 = Not at all Feeling afraid as if something awful might happen: 0 = Not at all Total PAZ-7 score (0-4 normal; 5-9 mild; 10-14 moderate; 15-21 severe): 0 Source: Developed by Drs. Kalen Laguerre, Meg Charles, Alfonso Gan and colleagues, with an educational nadia from [employer]. Review of Systems Const Denies body aches, Denies chills, Denies fever(s), Denies headache(s) and Denies poor appetite Eyes Reports no additional complaints ENT Denies dizziness and Denies headache(s) Card Denies chest pain, Denies lightheadedness and Denies dyspnea Resp Denies cough and Denies dyspnea GI Denies abdominal pain, Denies constipation, Denies diarrhea, Denies nausea and Denies vomiting Reports no additional complaints Musc Reports no additional complaints and Denies abnormal gait Skin/Breast Reports system reviewed and no additional complaints, except as documented Neuro Denies abnormal gait, Denies dizziness and Denies headache(s) Psych Reports no additional complaints Physical exam (Primary Care) Vital Signs: Last Vital Signs Temp 97.3 F 10/27/24 08:24 Pulse 74 10/27/24 08:24 BP 130/72 10/27/24 08:24 Pulse Ox 99 10/27/24 08:24 Oxygen Delivery Method Room Air 10/27/24 08:24 BMI result Body Mass Index 36.8 Tobacco/Smoking Status: Tobacco use Status Tobacco use date assessed 10/27/24 10/27/24 08:31 Patient Tobacco Use Status Former Tobacco user 10/27/24 08:31 Tobacco use type Cigarette 10/27/24 08:31 e-Cigarette/Vaping Use Never Used 10/27/24 08:31 PHQ-9: PHQ-9 Score PHQ-9: Total score 0 10/27/24 08:31 Depression Screening Interpretation: Negative Thrive Assessment: Date of Thrive Assessment Date Thrive assessed 10/27/24 10/27/24 08:31 Const General: cooperative, healthy appearing, comfortable and no acute distress Orientation/consciousness: patient oriented x3 HENMT Head: Yes normocephalic Ears: hearing grossly normal bilaterally General nose exam: Normal external nose present Eyes General: appearance normal, both eyes and all related structures Conjunctivae: conjunctivae normal Neck Neck: Yes full ROM and Yes no lymphadenopathy Resp Effort & Inspection: normal respiratory effort Auscultation: clear to auscultation bilaterally, no crackles, no rales, no rhonchi and no wheezes Cardio Rate: regular rate Rhythm: regular rhythm Skin General skin exam: no rashes or lesions noted Neuro General: patient oriented x3 Gait exam (Neuro): Normal gait present Extrem General: Yes normal to inspection, Yes full ROM and No edema Psych Affect: normal affect Attitude: cooperative Insight: Good insight present (Psych) Judgement: Good judgement present (Psych) Coding Level of Care Code Est Pt Level 3 (15413) Diagnoses Insulin dependent type 2 diabetes mellitus E11.9; Z79.4 CKD stage 3b, GFR 30-44 ml/min N18.32 GERD (gastroesophageal reflux disease) K21.9 Hyperkalemia E87.5 Hypertension I10 Obesity (BMI 30-39.9) E66.9 Assessment & Plan Assessment & Plan (1) Insulin dependent type 2 diabetes mellitus: Code(s): E11.9 - Type 2 diabetes mellitus without complications; Z79.4 - custodial (current) use of insulin Category: Medical Plan: Decrease the amount of carbohydrates such as pasta, bread, rice, and potatoes and limit the amount of sweets. Although fruits are generally healthy they should be eaten in moderation as they are still high in sugar. Hemoglobin A1c goal of of less than 7%. Currently following with endocrinology. (2) CKD stage 3b, GFR 30-44 ml/min: Code(s): N18.32 - Chronic kidney disease, stage 3b Category: Medical Plan: Continue to monitor kidney function and follow with paint laboratory technician (3) GERD (gastroesophageal reflux disease): Code(s): K21.9 - Gastro-esophageal reflux disease without esophagitis Category: Medical Plan: Avoid trigger foods such as citrus, tomato products, soda, caffeine, spicy foods and other foods that may be irritating to your stomach. Avoid laying flat 3-4 hours after eating and elevate the head of the bed 30 degrees to prevent acid from moving into the esophagus. (4) Hyperkalemia: Code(s): E87.5 - Hyperkalemia Category: Medical Plan: Patient was told he has high potassium and was given a powdery substance to reduce the potassium. He initially believed it was from our office however I do not see any record of the lab results, medication or conversation that was had. Plan to request results from [facility] in [place]. (5) Hypertension: Code(s): I10 - Essential (primary) hypertension Category: Medical Plan: Continue on current blood pressure medication. Avoid salt intake and encourage healthy diet and regular exercise. (6) Obesity (BMI 30-39.9): Code(s): E66.9 - Obesity, unspecified Category: Medical Plan: Healthy diet and regular exercise is encouraged. Plan This note was constructed using voice recognition software. While every effort has been made to ensure accuracy and pyrometer temperature regulator, still areas may have been included sometimes these areas may affect the content or meeting of the given symptoms. Total time spent caring for the patient today was 20 minutes. This includes time spent before the visit reviewing the chart, time spent during the visit, and time spent after the visit and documentation.
[2024-10-27 08:24] VITALS: BP 130/72; PULSE 74; TEMP 36.3; O2SAT 99; BMI 36.8
--- OUTSIDE RECORDS SUMMARY | 2024-10-27 08:43 | XMS_ITS ---
Author Organization [facility] enrique [place] Address [address] [facility] [place] [address] Care Team Providers Care Real Estate Services Coordinator Name Role Phone Brandt Vickers Primary Care Provider Jamel Lundy Unavailable [phone] Allergies Allergen (clinical drug ingredient) Drug/Non Drug [...] Ordered Date Performed Result Body Sit e 61100-HDPWHVM NAIL, 6 OR MORE 09/22/2024 N/A [id number] SKIN LESIONS, OVER 4 09/22/2024 N/A Encounters Encounter Location Date Provider Diagnosis [facility] [address] [place] [address] 09/22/2024 Jamel Briseno Type 2 diabetes mellitus [...] INSTRUCTIONS.pdf) Pending Test Test Name Order Date [id number] NAIL, 6 OR MORE 09/22/2024 [id number] SKIN LESIONS, OVER 4 09/22/19 25 Next Appt Details Follow Up: prn, Reason: Provider Name:Jamel Briseno , 12/26/2024 09:00:00 AM, [address] [place], [address], Procedure Notes * Category Sub-Category Detail Notes [...] use of a nail nipper and/or dremel-type tool and cutter grinder, to a more viable healthy nail plate [...] to maintain effectiveness in symptomatic relief - 21949 Keratoma Treatment Parring or Cutting o f [...] instrumentation by the physician of record - 09320 Progress Notes * Sammy GHOSH EDOB:1945 (79 yo M)Acc No.[id number]:09/22/2024 Progress Note Patient:?Sammy GHOSH E Provider:?Jamel Briseno DPM :1945???Age:79 Y???Sex:Male Hemal e:09/22/2024 Address:[id number] Pcp:Brandt Vickers Subjective: * Chief Complaints: * [...] ?Marital status: single. ?Occupation: Retired-Multiple Jobs Works [employer]. ???Drug/Alcohol:?AUDIT-C (Standard)?Did you have a drink [...] 7.0 * Examination: ???Ophthalmology Referral: ?DIABETES EYE EXAM?Procedure Performed:?Yes ?Date of Exam Performed?07/24/2024 ?Retinal Screening Performed:?Yes ?Findings of Diabetic Eye Exam:?retinopathy?Neurological: ?SENSORY:? Neurological exam demonstrates, reduced light touch [...] and time , person, place, and time.?FOOT EXAM:?Lower Extremity Neurological Exam performed:?Yes Date ?Visual exam of foot performed:?Yes ?Date?09/22/2024 ?Footwear Evaluation?Footwear Evaluation performed:?Yes??? Assessment: * Assessment: 1.?Type 2 diabetes mellitus [...] use of a nail nipper and/or dremel-type tool and cutter grinder, to a more viable healthy nail plate [...] to maintain effectiveness in symptomatic relief - 88910.?Keratoma Treatment:?Parring or Cutting of Benign Hyperkeratotic Lesion(s)?(-57) [...] instrumentation by the physician of record - 64798.? * Procedure Codes:?27681 DEBRI DE NAIL, 6 OR MORE, Modifiers: XS 10506 TRIM SKIN LESIONS, OVER 4, Modifiers: XS [...] Briseno DPM Date:?2024 Generated for Natty hdz/Gisele/Jh on:?10/27/2024 08:43 AM EST History and Physical Notes * HPI (History of Present Illness) Category Sub-Category Detail Notes Category Not es Toe pain Location: B/L feet Duration: several years Aggravated by: shoes, any pressure Treatments: change in shoes At Risk footcare Pt States Last PCP Visit: Date: Examination Category Sub-Category Detail Notes Category Not [...]
--- OUTSIDE RECORDS SUMMARY | 2024-10-27 08:43 | XMS_ITS | Clinical Summary ---
Author Organization [facility] Address [address] [place] [address], [place] [address] Care Team Providers Care Laborer High Density Press Name Role Phone Brandt Vickers MD Primary Care Provider [phone] Allergies Active Allergy Reactions Criticality Noted Date Comments Metformin Other (see comments) 11/11/2023 Medications lovastatin (MEVACOR) 20 MG tablet Take 20 mg by mouth 1 (one) time each day Active losartan (COZAAR) 100 MG tablet Take 50 mg by mouth 1 (one) time each day Active Lantus SoloStar 100 UNIT/ML injection 34-40 units Active insulin aspart (NovoLOG) 100 UNIT/ML patient supplied pump Inject under the skin continuously Active Dulaglutide (TRULICITY SC) Inject under the skin Active furosemide (LASIX) 20 MG tablet TAKE 1 TABLET (20 MG TOTAL) BY MOUTH ONE TIME EACH DAY 90 tablet 1 Active Sodium Zirconium Cyclosilicate 10 g pack Take 1 Package by mouth 1 (one) time each day for 3 days 3 each 025 2024 Active furosemide (LASIX) 20 MG tablet TAKE 1 TABLET (20 MG TOTAL) BY MOUTH ONE TIME EACH DAY 90 tablet 1 024 2024 Discontinued Active Problems Problem Noted Date Diagnosed Date Type 2 diabetes mellitus without complication Essential (primary) hypertension 07/09/2022 Hypercholesterolemia 07/09/2022 Stage 3a chronic kidney disease 07/09/2022 Stage 3b chronic kidney disease 07/09/2022 Type 2 diabetes mellitus wit h diabetic chronic kidney disease 07/09/2022 Renal osteodystrophy 07/09/2022 Encounters Date Type Department Care Team Description 10/24/2024 Telephone [facility] [address] [address] Otoniel Giron MD 10/13/2024 Orders Only [facility] [address] [phone] Manuel Harris MD Stage 3b chronic kidney disease (HCC); Type 2 diabetes mellitus with diabetic chronic kidney disease (HCC); Renal osteodystrophy; Essential (primary) hypertension 10/09/2024 Refill [facility] [address] [phone] Nathan Fuentes MD from Last 3 Months [...] Care Team (Late st Contact Info) Description 01/04/2025 2:15 PM EDT Office Visit [facility] [address] [place] [address] Manuel Harris MD [address] [address] Health Maintenance Due Date Last [...] on patient's age to complete this topic Procedures Procedure Name Priority Date/Time Associated Diagnosis Comments MAGNESIUM Routine 10/23/2024 11:07 AM EST Stage 3b chronic kidney disease (HCC) Type 2 diabetes mellitus with diabetic chronic kidney disease (HCC) Renal osteodystrophy Essential (primary) hypertension CBC Routine 10/23/2024 11:07 AM EST Stage 3b chronic kidney disease (HCC) Type 2 diabetes mellitus with diabetic chronic kidney disease (HCC) Renal osteodystrophy Essential (primary) hypertension VITAMIN D 25 HYDROXY Routine 10/23/2024 11:07 AM EST Stage 3b chronic kidney disease (HCC) Type 2 diabetes mellitus with diabetic chronic kidney disease (HCC) Renal osteodystrophy Essential (primary) hypertension PROTEIN / CREATININE RATIO, URINE Routine 10/23/2024 11:07 AM EST Stage 3b chronic kidney disease (HCC) Type 2 diabetes mellitus with diabetic chronic kidney disease (HCC) Renal osteodystrophy Essential (primary) hypertension URINE ALBUMIN / CREATININE RATIO Routine 10/23/2024 11:07 AM EST Stage 3b chronic kidney disease (HCC) Type 2 diabetes mellitus with diabetic chronic kidney disease (HCC) Renal osteodystrophy Essential (primary) hypertension URINALYSIS WITH MICROSCOPIC Routine 10/23/2024 11:07 AM EST Stage 3b chronic kidney disease (HCC) Type 2 diabetes mellitus with diabetic chronic kidney disease (HCC) Renal osteodystrophy Essential (primary) hypertension RENAL FUNCTION PANEL Routine 10/23/2024 11:07 AM EST Stage 3b chronic kidney disease (HCC) Type 2 diabetes mellitus with diabetic chronic kidney disease (HCC) Renal osteodystrophy Essential (primary) hypertension PTH, INTACT Routine 10/23/2024 11:07 AM EST Stage 3b chronic kidney disease (HCC) Type 2 diabetes mellitus with diabetic chronic kidney disease (HCC) Renal osteodystrophy Essential (primary) hypertension MICROSCOPIC EXAMINATION - DO NOT USE Routine 10/23/2024 11:07 AM EST from Last 3 Months Results * Microscopic Examination (10/23/2024 11:07 AM EST) WBC, Urine None seen 0 - 5 /hpf [facility] RBC, Urine None seen 0 - 2 /hpf [facility] Squamous Epithelial, Urine None seen 0 - 10 /hpf [facility] Casts None seen None seen /lpf [facility] Bacteria, Urine None seen None seen/Few [facility] 10/23/2024 11:0 7 AM EST 10/23/2024 us Manuel Harris MD LAB MICROBIOLOGY - GENERAL OR DERABLES Final Result [facility] [address] [place] [address] * Protein, Total, Random Urine w/Creatinine (Protein/Creat Ratio) (10/23/2024 11:07 AM EST) Creatinine, Ur 186.4 Not Estab. mg/dL [facility] Protein, Ur 22.9 Not Estab. mg/dL [facility] Urine Protein/Creatin ine Ratio 123 0 - 200 mg/g creat [facility] Urine (Urine, Clean Catch) 10/23/2024 11:07 AM EST 10/23/2024 us Manuel Harris MD LAB URINE ORDERABLES Final Re sult Performing Organization Address [facility] de Phone Number [facility] [place] [address] [place] [address] * (ABNORMAL) Urine Albumin / Creatinine Ratio (10/23/2024 11:07 AM EST) Albumin, Urine 66.1 Not Estab. ug/mL [facility] Albumin/Creatin ine Ratio 35(H) 0 - 29 mg/g creat [facility] Comment: ? Normal: ?0 - ??29 ? Moderately increased: 30 - 300 ? Severely increased: ? >300 Urine (Urine, Clean Catch) 10/23/2024 11:07 AM EST 10/23/2024 Manuel Harris MD LAB URINE ORDERABLES Final Re sult Performing Organization Address [facility] de Phone Number [facility] [place] [address] [place] [address] * Vitamin D 25 Hydroxy (10/23/2024 11:07 AM EST) Vitamin D, 25-OH, Total 32.9 30.0 - 100.0 ng/mL [facility] Comment: Vitamin D deficiency has been defined by the [place] of Medicine and an Endocrine Society practice guideline as a level of serum 25-OH vitamin D less than 20 ng/mL (1,2). The Endocrine Society went on to further define vitamin D insufficiency as a level between 21 and 29 ng/mL (2). 1. IOM ([place] of Medicine). 2010. Dietary reference ?? intakes for calcium and D. [place]: The ?? National Academies Press. 2. Molina MF, Brenda NC, Charly SIDDIQUI, et al. ?? Evaluation, treatment, and prevention of vitamin D ?? deficiency: an Endocrine Society clinical practice ?? guideline. JCEM. 2010; 96(7):1911-30. Blood (Blood, Venous) 10/23/2024 11:07 AM EST 10/23/2024 us Manuel Harris MD LAB BLOOD ORDERABLES Final Re sult [facility] [address] [place] [address] * (ABNORMAL) Urinalysis with microscopic (10/23/2024 11:07 AM EST) Specific [place], Urine 1.019 1.005 - 1.030 [facility] pH Urine 5.5 5.0 - 7.5 [facility] [phone] Color, Urine Yellow Yellow [facility] Appearance Urine Clear Clear [facility] [phone] WBC Esterase Urine Negative Negative [facility] Protein, Ur 1+(A) Negative/Tra ce [facility] Glucose, Ur 1+(A) Negative [facility] Ketones, Urine Negative Negative [facility] Blood Urine Negative Negative [facility] Bilirubin Urine Negative Negative [facility] Urobilinogen Urine 0.2 0.2 - 1.0 mg/dL [facility] Nitrite, Urine Negative Negative [facility] Microscopic Examination See below: [facility] Comment:Microscopic was maximino cated and was performed. Urine (Urine, Clean Catch) 10/23/2024 11:07 AM EST 10/23/2024 Manuel Harris MD LAB URINE ORDERABLES Final Re sult Performing Organization Address City/[facility]/ZIP Co de Phone Number [facility] [address] [place] [address] * CBC (10/23/2024 11:07 AM EST) WBC 6.6 3.4 - 10.8 x10E3/uL [facility] RBC 4.65 4.14 - 5.80 x10E6/uL [facility] Hemoglobin 13.8 13.0 - 17.7 g/dL [facility] Hematocrit 41.1 37.5 - 51.0 % [facility] MCV 88 79 - 97 fL [facility] MCH 29.7 26.6 - 33.0 pg [facility] MCHC 33.6 31.5 - 35.7 g/dL [facility] RDW 13.8 11.6 - 15.4 % [facility] Platelets 341 150 - 450 x10E3/uL [facility] Blood (Blood, Venous) 10/23/2024 11:07 AM EST 10/23/2024 Manuel Harris MD LAB BLOOD ORDERABLES Final Re sult Performing Organization Address City/[facility]/ZIP Co de Phone Number [facility] [address] [place] [address] * PTH, Intact (10/23/2024 11:07 AM EST) Pathologist [facility] PTH 38 15 - 65 pg/mL [facility] Blood (Blood, Venous) 10/23/2024 11:07 AM EST 10/23/2024 Manuel Harris MD LAB BLOOD ORDERABLES Final Re sult Performing Organization Address City/[facility]/ZIP Co de Phone Number [facility] [address] [place] [address] * (ABNORMAL) Magnesium (10/23/2024 11:07 AM EST) [facility] Magnesium 2.4(H) 1.6 - 2.3 mg/dL [facility] Blood (Blood, Venous) 10/23/2024 11:07 AM EST 10/23/2024 Manuel Harris MD LAB BLOOD ORDERABLES Final Re sult Performing Organization Address City/[facility]/ZIP Co de Phone Number [facility] [address] [place] [address] * (ABNORMAL) Renal Function Panel (10/23/2024 11:07 AM EST) Pathologist [facility] Glucose 218(H) 70 - 99 mg/dL [facility] BUN 32(H) 8 - 27 mg/dL [facility] Creatinine 1.96(H) 0.76 - 1.27 mg/dL [facility] eGFR CKD-EPI CR 2020 35(L) >59 mL/min/1.7 3 [facility] BUN/Creatinine Ratio 16 10 - 24 [facility] Sodium 138 134 - 144 mmol/L [facility] Potassium 6.0(H) 3.5 - 5.2 mmol/L [facility] Chloride 102 96 - 106 mmol/L [facility] Bicarbonate (CO2) 21 20 - 29 mmol/L [facility] Calcium 9.8 8.6 - 10.2 mg/dL [facility] Albumin 4.3 3.8 - 4.8 g/dL [facility] Phosphorus 3.4 2.8 - 4.1 mg/dL [facility] Blood (Blood, Venous) 10/23/2024 11:07 AM EST 10/23/2024 Manuel Harris MD LAB BLOOD ORDERABLES Final Re sult [facility] [address] [place] [address] from Last 3 Months Insurance [facility] ([id number]) [facility] ([id number]) [place] [id number] Care Teams Laborer High Density Press Relationship Specialty Start Date End Date Brandt Vickers MD [address] [place], [place] PCP - General Internal Medicine 04/16/22
--- OUTSIDE RECORDS SUMMARY | 2024-10-27 08:43 | XMS_ITS | Encounter Summary ---
Author Organization [facility] Address [address] [facility] [address] [place] [address] Phone Care Team Providers Care Automobile Salesman Name Role Phone Brandt Vickers MD Primary Care Provider [phone] Encounter Details Date Type Department Care Team (Late st Contact Info) Description 10/13/2024 Orders Only [facility] [address] [phone] Manuel Harris MD [address] [address] Stage 3b chronic kidney disease (HCC); Type 2 diabetes mellitus with diabetic chronic kidney disease (HCC); Renal osteodystrophy; Essential (primary) hypertension Social History Tobacco Use Types Packs/Day Years [...] Office Visit [facility] [address] [place] [phone] Manuel Harris MD [address] [address] documented as of this encounter Procedures Procedure Name Priority Date/Time Associated Diagnosis Comments MICROSCOPIC EXAMINATION - DO NOT USE Routine 10/23/2024 11:07 AM EST PROTEIN / CREATININE RATIO, URINE Routine 10/23/2024 [...] disease (HCC) Renal osteodystrophy Essential (primary) hypertension MAGNESIUM Routine 10/23/2024 11:07 AM EST Stage 3b chronic kidney disease (HCC) Type 2 diabetes mellitus with diabetic chronic kidney disease (HCC) Renal osteodystrophy Essential (primary) hypertension RENAL FUNCTION PANEL Routine 10/23/2024 11:07 AM EST Stage 3b chronic kidney disease (HCC) Type 2 diabetes mellitus with diabetic chronic kidney disease (HCC) Renal osteodystrophy Essential (primary) hypertension documented in this encounter Results * Microscopic Examination (10/23/2024 11:07 AM EST) WBC, Urine None seen 0 - 5 /hpf [facility] RBC, Urine None seen 0 - 2 /hpf [facility] Squamous Epithelial, Urine None seen 0 - 10 /hpf [facility] Casts None seen None seen /lpf [facility] Bacteria, Urine None seen None seen/Few [facility] 10/23/2024 11:0 7 AM EST 10/23/2024 Manuel Harris MD LAB MICROBIOLOGY - GENERAL OR DERABLES Final Result Performing Organization Address City/[facility]/ZIP Co de Phone Number [facility] [address] [place] [address] * (ABNORMAL) Magnesium (10/23/2024 11:07 AM EST) Magnesium 2.4(H) 1.6 - 2.3 mg/dL [facility] Blood (Blood, Venous) 10/23/2024 11:07 AM EST 10/23/2024 Manuel Harris MD LAB BLOOD ORDERABLES Final Re sult [facility] [address] [place] [address] * CBC (10/23/2024 11:07 AM EST) WBC 6.6 3.4 - 10.8 x10E3/uL [facility] RBC 4.65 4.14 - 5.80 x10E6/uL [facility] Hemoglobin 13.8 13.0 - 17.7 g/dL [facility] Hematocrit 41.1 37.5 - 51.0 % [facility] MCV 88 79 - 97 fL [facility] MCH 29.7 26.6 - 33.0 pg [facility] MCHC 33.6 31.5 - 35.7 g/dL [facility] RDW 13.8 11.6 - 15.4 % [facility] Platelets 341 150 - 450 x10E3/uL [facility] Blood (Blood, Venous) 10/23/2024 11:07 AM EST 10/23/2024 Manuel Harris MD LAB BLOOD ORDERABLES Final Re sult [facility] [address] [place] [address] * Vitamin D 25 Hydroxy (10/23/2024 11:07 AM EST) Vitamin D, 25-OH, Total 32.9 30.0 - 100.0 ng/mL [facility] Comment: Vitamin D deficiency has been defined by the [place] of Medicine and an Endocrine Society practice guideline as a level of serum 25-OH vitamin D less than 20 ng/mL (1,2). The Endocrine Society went on to further define vitamin D insufficiency as a level between 21 and 29 ng/mL (2). 1. IOM ([place] of Medicine). 2010. Dietary reference ?? intakes for calcium and D. [place]: The ?? National AcademSIZESEEKER Press. 2. Molina MF, Brenda REA, Charly SIDDIQUI, et al. ?? Evaluation, treatment, and prevention of vitamin D ?? deficiency: an Endocrine Society clinical practice ?? guideline. JCEM. 2011 Home; 96(7):1911-30. Blood (Blood, Venous) 10/23/2024 11:07 AM EST 10/23/2024 Manuel Harris MD LAB BLOOD ORDERABLES Final Re sult Performing Organization Address [facility]/ZIP Co de Phone Number [facility] [address] [place] [address] * Protein, Total, Random Urine w/Creatinine (Protein/Creat Ratio) (10/23/2024 11:07 AM EST) Creatinine, Ur 186.4 Not Estab. mg/dL [facility] Protein, Ur 22.9 Not Estab. mg/dL [facility] Urine Protein/Creatin ine Ratio 123 0 - 200 mg/g creat [facility] Urine (Urine, Clean Catch) 10/23/2024 11:07 AM EST 10/23/2024 Manuel Harris MD LAB URINE ORDERABLES Final Re sult Performing Organization Address City/[facility]/ZIP Co de Phone Number [facility] [address] [place] [address] * (ABNORMAL) Urine Albumin / Creatinine Ratio (10/23/2024 11:07 AM EST) Albumin, Urine 66.1 Not Estab. ug/mL [facility] Albumin/Creatin ine Ratio 35(H) 0 - 29 mg/g creat [facility] Comment: ? Normal: ?0 - ??29 ? Moderately increased: 30 - 300 ? Severely increased: ? >300 Urine (Urine, Clean Catch) 10/23/2024 11:07 AM EST 10/23/2024 Manuel Harris MD LAB URINE ORDERABLES Final Re sult [facility] [address] [place] [address] * (ABNORMAL) Urinalysis with microscopic (10/23/2024 11:07 AM EST) Specific [place], Urine 1.019 1.005 - 1.030 [facility] pH Urine 5.5 5.0 - 7.5 [facility] Color, Urine Yellow Yellow [facility] Appearance Urine Clear Clear [facility] WBC Esterase Urine Negative Negative [facility] Protein, Ur 1+(A) Negative/Tra ce [facility] Glucose, Ur 1+(A) Negative [facility] Ketones, Urine Negative Negative [facility] Blood Urine Negative Negative [facility] [phone] Bilirubin Urine Negative Negative [facility] Urobilinogen Urine 0.2 0.2 - 1.0 mg/dL [facility] Nitrite, Urine Negative Negative [facility] Microscopic Examination See below: [facility] Comment:Microscopic was maximino cated and was performed. Urine (Urine, Clean Catch) 10/23/2024 11:07 AM EST 10/23/2024 Manuel Harris MD LAB URINE ORDERABLES Final Re sult [facility] [address] [place] [address] * (ABNORMAL) Renal Function Panel (10/23/2024 11:07 AM EST) Glucose 218(H) 70 - 99 mg/dL [facility] BUN 32(H) 8 - 27 mg/dL [facility] Creatinine 1.96(H) 0.76 - 1.27 mg/dL [facility] eGFR CKD-EPI CR 2020 35(L) >59 mL/min/1.7 3 [facility] BUN/Creatinine Ratio 16 10 - 24 [facility] Sodium 138 134 - 144 mmol/L [facility] Potassium 6.0(H) 3.5 - 5.2 mmol/L [facility] Chloride 102 96 - 106 mmol/L [facility] Bicarbonate (CO2) 21 20 - 29 mmol/L [facility] Calcium 9.8 8.6 - 10.2 mg/dL [facility] Albumin 4.3 3.8 - 4.8 g/dL [facility] Phosphorus 3.4 2.8 - 4.1 mg/dL [facility] Blood (Blood, Venous) 10/23/2024 11:07 AM EST 10/23/2024 Manuel Harris MD LAB BLOOD ORDERABLES Final Re sult [facility] [address] [place] [address] * PTH, Intact (10/23/2024 11:07 AM EST) PTH 38 15 - 65 pg/mL [facility] Blood (Blood, Venous) 10/23/2024 11:07 AM EST 10/23/2024 us Manuel Harris MD LAB BLOOD ORDERABLES Final Re sult [facility] [address] [place] [phone] documented in this encounter Visit Diagnoses Diagnosis Stage 3b chronic kidney disease (HCC) Type 2 diabetes mellitus with diabetic chronic kidney disease (HCC) Renal osteodystrophy Essential (primary) hypertension documented in this encounter Care Teams Automobile Salesman Relationship Specialty Start Date End Date Brandt Vickers MD [facility] [address] [place] PCP - General Internal Medicine 04/16/22 documented as of this encounter
--- OUTSIDE RECORDS SUMMARY | 2024-10-27 08:44 | XMS_ITS ---
Author Organization [facility] Address [address] [facility] [place] [address] Care Team Providers Care Handle And Vent Machine Operator Name Role Phone Brandt Vickers Primary Care Provider Jamel Lundy Unavailable [phone] Allergies Allergen (clinical drug ingredient) Drug/Non Drug [...] Ordered Date Performed Result Body Sit e 78270-GINMWRW NAIL, 6 OR MORE 06/23/2024 N/A 17489-NMFU SKIN LESIONS, OVER 4 06/23/2024 N/A Encounters Encounter Location Date Provider Diagnosis [facility] [place] [address] [place] [address] 06/23/2024 Jamel Briseno Type 2 diabetes mellitus [...] Treatment Pending Test Test Name Order Date 81966-XPDIPVJ NAIL, 6 OR MORE 06/23/2024 84915-FEUO SKIN LESIONS, OVER 4 06/23/20 24 Next Appt Details Follow Up: 3 Months, Reason: Provider Name:Jamel Briseno , 12/26/2024 09:00:00 AM, [address] [place] [address], [address], Procedure Notes * Category Sub-Category Detail Notes [...] of a nail nipper and/or dremel-type grinder operator tool, to a more viable healthy nail plate or bed tissue 6-10. Silver nitrate used for any petechial bleeding as necessary. Definitive antifungal treatment options have been reviewed and discussed with the patient. The patient chooses, no pharmaceutical tx - 30028 Keratoma Treatment Parring or Cutting o f Benign Hyperkeratotic Lesion(s) (-57) More than 4 Lesions - The Benign hyperkeratotic lesions, as described above were pared, and/or cut utilizing a sterile 15 blade, tissue nippers, and/or dremel - 00108 Progress Notes * Sammy GHOSHDOB:1945 ([age] yo M)Acc No.[id number]:06/23/2024 Progress Note Patient:?Sammy Ghosh Provider:?Jamel Briseno DPM :1945???Age:79 Y???Sex:Male Hemal e:06/23/2024 [id number] Pcp:Brandt Vickers Subjective: * Chief Complaints: * [...] ?Marital status: single. ?Occupation: Retired-Multiple Jobs Works [employer]. * Medications:?TakingFurosemid e 20 MG Tablet [...] of a nail nipper and/or dremel-type grinder operator tool, to a more viable healthy nail plate or bed tissue 6-10. Silver nitrate used for any petechial bleeding as necessary. Definitive antifungal treatment options have been reviewed and discussed with the patient. The patient chooses, no pharmaceutical tx - 19473.?Keratoma Treatment:?Parring or Cutting of Benign Hyperkeratotic Lesion(s)?(-57) More than 4 Lesions - The Benign hyperkeratotic lesions, as described above were pared, and/or cut utilizing a sterile 15 blade, tissue nippers, and/or dremel - 66538.? * Procedure Codes:?21874 DEBRI DE NAIL, 6 OR MORE, Modifiers: XS 64895 TRIM SKIN LESIONS, OVER 4, Modifiers: XS [...] Briseno DPM Date:?2023 Generated for Natty hdz/Gisele/Jh on:?10/27/2024 08:43 AM [...]
--- OUTSIDE RECORDS SUMMARY | 2024-10-27 08:44 | XMS_ITS | Encounter Summary ---
Author Organization [facility] Address [address] [facility] [address] [place] [address] Phone Care Team Providers Care Certified Orthotist/Pedorthist Name Role Phone Brandt Vickers MD Primary Care Provider [phone] Reason for Visit * Reason Comments Med Refill Encounter Details Date Type Department Care Team (Late Contact Info) Description 10/09/2024 Refill [facility] [address] [place] [address] Nathan Fuentes MD [address] [address] Social History Tobacco Use Types [...] Department Care Team (Late Contact Info) Description 01/04/2025 2:15 PM EDT Office Visit [facility] [address] [place] [address] Manuel Harris MD [address] [address] documented as of this encounter Visit Diagnoses Not on filedocumented in this encounter Care Teams Certified Orthotist/Pedorthist Relationship Specialty Start Date End Date Brandt Vickers MD [facility] [place] [address] [place] PCP - General Internal Medicine 04/16/22 documented as of this encounter
--- OUTSIDE RECORDS SUMMARY | 2024-10-27 08:44 | XMS_ITS ---
Author Organization [facility] Address [address] [facility] [place] [address] Care Team Providers Care Spa Attendant Name Role Phone Brandt Vickers Primary Care Provider Jamel Lundy [phone] REASON FOR VISIT Insurance Encounters Encounter Location Date Provider Diagnosis [address] [address] 09/22/2024 Jamel Briseno Plan Of Treatment Next Appt Details Provider Name:Jamel Briseno , 12/26/2024 09:00:00 AM, [address] [place], [address], Progress Notes * Sammy GHOSH EDOB:1945 (79 yo M)Acc No.[id number]:09/22/2024 Patient:?Sammy GHOSH :1945???Age:79 Y???Sex:Male Address:[address] [place], [address] * true * Date:? Generated for Printi ng/Falailag/eTransmitting on:?10/27/2024 08:44 AM EST
--- OUTSIDE RECORDS SUMMARY | 2024-10-27 08:44 | XMS_ITS | Patient Health Record ---
Author Organization [facility] Address [address] [place] [address] Care Team Providers Care Mirror Installer Name Role Phone Brandt Vickers Primary Care Provider Jamel Lundy Unavailable [phone] Allergies Allergen (clinical drug ingredient) Drug/Non Drug [...] Problem Acquired hammer toe of right foot (0078150206611831 ) Other hammer toe(s) (acquired), right foot (M20.41) Active confirmed Problem Acquired hammer toe of left foot (0021019758211890 ) Other hammer toe(s) (acquired), left foot (M20.42) Active confirmed Problem Polyneuropathy due to type 2 diabetes mellitus (463414950) Type 2 diabetes mellitus with diabetic polyneuropathy (E11.42) Active confirmed Vital Signs Blood pressure diastolic 60 mm Hg 09/22/2024 Height 5 ft 10.5 in in 09/22/2024 Blood pressure systolic 120 mm Hg 09/22/2024 Weight 237 lbs 09/22/2024 BMI 33.52 kg/m2 09/22/2024 Procedures Procedure Date Ordered Date Performed Result Body Sit e 25241-ISFRZIM NAIL, 6 OR MORE 03/17/2024 N/A 06028-JRKE SKIN LESIONS, OVER 4 03/17/2024 N/A 47532-BPMLRYE NAIL, 6 OR MORE 06/23/2024 N/A 24029-CYCM SKIN LESIONS, OVER 4 06/23/2024 N/A 26126-UBYOGYH NAIL, 6 OR MORE 09/22/2024 N/A 10863-JZGE SKIN LESIONS, OVER 4 09/22/2024 N/A Encounters Encounter Location Date Provider Diagnosis [facility] [address] [address] 03/17/2024 Jamel Briseno Type 2 diabetes mellitus with diabetic polyneuropathy E11.42 ; Tinea unguium B35.1 and Xerosis of skin L85.[address] [facility] [address] 06/23/2024 Jamel Briseno Type 2 diabetes mellitus with diabetic polyneuropathy E11.42 ; Tinea unguium B35.1 and Xerosis of skin L85.[address] [address] 09/22/2024 Jamel Briseno Type 2 diabetes mellitus with diabetic polyneuropathy E11.42 ; Tinea unguium B35.1 ; Other hammer toe(s) (acquired), right foot M20.41 and Other hammer toe(s) (acquired), left foot M20.[address] [address] 12/30/2023 Jamel Briseno [address] [address] 09/22/2024 Jamel Briseno Assessments Encounter Date Diagnosis [...] Treatment Pending Test Test Name Order Date 40248-NGVXMCL NAIL, 6 OR MORE 05/05/2022 78993-FEHIYGK NAIL, 6 OR MORE 08/04/2022 91832-EXWLANW NAIL, 6 OR MORE 12/22/2022 64846-PRVMQMD NAIL, 6 OR MORE 03/30/2023 08700-JURCZIP NAIL, 6 OR MORE 10/15/2023 25949-GEBHLGR NAIL, 6 OR MORE 03/17/2024 69368-LMSGDEE NAIL, 6 OR MORE 06/23/2024 10560-EAVTXDV NAIL, 6 OR MORE 09/22/2024 58151-Fvoikntw Plate 05/05/2022 18146-TXPE SKIN LESIONS, OVER 4 05/05/20 22 20272-JWOB SKIN LESIONS, OVER 4 08/04/20 89785-EYWY SKIN LESIONS, OVER 4 03/30/20 23 31850-TGMB SKIN LESIONS, OVER 4 12/23/19 23 38181-LLUQ SKIN LESIONS, OVER 4 09/22/19 25 98047-ZXIM SKIN LESIONS, OVER 4 06/23/20 24 32476-NOAI SKIN LESIONS, OVER 4 03/17/20 24 42806-JBIZ SKIN LESIONS, OVER 4 10/15/19 24 Next Appt Details Provider Name:Jamel Briseno , 12/26/2024 09:00:00 AM, [address] [facility], [place], [address], Insurance Providers Payer Name Payer Address Payer Phone Subscriber Number Group Number Insured Name Patient Relationship to Insured Coverage Start Date Coverage End Date Medicare National Govt Sv[employer] [address] [place] [address] [id number] Sammy Ghosh Self - patient is the insured 2 Medical (General) History Medical History History ICD Code Cataracts covid-19 type II diabetes Glaucoma High blood pressure Kidney disease Numbness Measles Chicken pox Retinopathy CAD Surgical History Surgery Date(Month/Year) cataract surgery L eye [facility] 06/2022
--- OUTSIDE RECORDS SUMMARY | 2024-10-27 08:44 | XMS_ITS | Encounter Summary ---
Author Organization [facility] Address [address] [address] Phone Care Team Providers Care Door Opener Name Role Phone Brandt Vickers MD Primary Care Provider [phone] Encounter Details Date Type Department Care Team (Late Contact Info) Description 10/24/2024 Telephone [facility] [address] [address] Otoniel Giron MD [address] [address] Social History Tobacco Use Types [...] on file documented as of this encounter Miscellaneous Notes * Telephone Encounter - Otoniel Giron MD - 10/24/2024 9:31 AM EST K was 6.0 Asked pt to hold Losartan today and in Am and lower dose to 100 mg 1/2 tab daily Low K diet Lokelma 10 g daily x 3 days and repeat labs I spoke to pt and sent script documented in this encounter Plan of Treatment Upcoming Encounters Date Type Department Care Team (Late Contact Info) Description 01/04/2025 2:15 PM EDT [facility] [address] [place] [address] Manuel Harris MD [address] [address] Scheduled Orders Name Type Priority Associated Diagnoses Orde r Schedule Renal function panel Lab Routine Hyperkalemia Expected: 10/24/2024, Expires: 11/24/2025 documented as of this encounter Visit Diagnoses Diagnosis Hyperkalemia- Primary documented in this encounter Care Teams Door Opener Relationship Specialty Start Date End Date Po, MD Brandt [facility] [address] [place], [place] PCP - General Internal Medicine 04/16/22 documented as of this encounter
== END 2024-10-27 09:09 | disposition home or self-care (01) ==
PROVIDERS: PCP Internal Medicine
DX: E11.9 Type 2 diabetes mellitus without complications (principal); Z79.4 Long term (current) use of insulin; N18.32 Chronic kidney disease, stage 3b; K21.9 Gastro-esophageal reflux disease without esophagitis; E87.5 Hyperkalemia; I10 Essential (primary) hypertension; E66.9 Obesity, unspecified

== ENCOUNTER → 2024-10-27 08:18 | Outpatient (BNVA) | payer MEDICARE, SELFPAY | PROVIDERS: PCP Internal Medicine | DX: I12.9 Hypertensive chronic kidney disease with stage 1 through stage 4 chronic kidney disease, or unspecified chronic kidney disease (principal); E11.22 Type 2 diabetes mellitus with diabetic chronic kidney disease; N18.32 Chronic kidney disease, stage 3b; K21.9 Gastro-esophageal reflux disease without esophagitis; E87.5 Hyperkalemia; E66.9 Obesity, unspecified; Z68.36 Body mass index [BMI] 36.0-36.9, adult; Z79.4 Long term (current) use of insulin; Z71.3 Dietary counseling and surveillance | CPT/HCPCS: 99212 ==

== ENCOUNTER 2024-11-07 08:20 | Outpatient (AMB) | payer MEDICARE, SELFPAY ==
--- NOTE | 2024-11-07 08:22 | A.OFFVIS_ITS ---
Vital Signs 11/07/24 08:25 11/07/24 08:43 Height 5 ft 10 in Weight 255 lb 11.779 oz BMI 36.7 BP 124/54 L Blood Pressure Location Lt brachial Position Sitting Pulse 55 57 Pulse Source Pulse Oximeter Pulse Oximetry (%) 97 Oxygen Delivery Method Room Air Intake Visit Reasons: Type II diabetes Intake Note: Patient present today to follow up on Type 2 Diabetes Mellitus. Last Diabetic Eye exam: 03/17/2024 Last Podiatry Visit: 09/22/2024 Random Glucose: 187 mg/dl HgA1C: 12.0% 10/10/2024 Merchandising Assistant Required: No Accompanied by: Self / Same As Patient Allergies metformin Adverse Reaction (Severe, Verified 11/07/24 08:25) Diarrhea Medication List - Last Reconciled 11/07/24 by ANTONIETTA Rodas alcohol swabs (Alcohol Pads) 1 pad topical QID blood sugar diagnostic ([employer] Verio test strips) Use as directed to check blood glucose 3 times daily. blood-glucose meter ([employer] Verio Flex Meter) Use as directed to check blood glucose 3 times daily for Type II diabetes mellitus. flash glucose scanning reader ([employer] Oscar 2 [place]) As directed checked the blood sugar 3 times a day, patient is on 4 shots a day of insulin flash glucose sensor (FreeStyle Oscar 2 Sensor kit) As directed check the blood sugars 4 times a day folic acid 1 mg PO DAILY furosemide 20 mg PO DAILY glucose (Dex4 Glucose) 16 grams (4 x 4 gram) PO Q15M PRN insulin aspart U-100 (Novolog FlexPen U-100 Insulin aspart) 4 - 22 units subcut TID insulin glargine (Lantus Solostar U-100 Insulin) 62 units subcut QPM lancets (OVIATouch Delica Plus Lancet) Use as directed to check blood glucose 3 times daily losartan 100 mg PO DAILY 90 days lovastatin 20 mg PO DAILY 90 days semaglutide (Ozempic) 1 mg (0.75 mL) subcut QWEEK HPI Comments Details: This is a 79 year old male with a pmhx of Type II D with proliferative retinopathy, HLD, HTN, CKD stage IIIb and obesity presenting for diabetic management. Reviewed Oscar 2 download CGM active 85% Average glucose 245 down from 260 G UT 9.2% down from 9.5% Glucose variability 28.8% Very high 49% down from 51% High 30% down from 36% Target range 21% up from 13% 0% hypoglycemia. He has a pattern of hyperglycemia late morning, afternoon, evening and overnight. Hemoglobin A1c 10/10/24 is 12%. Hemoglobin a1c 10.9% 07/07/24. The patient says he has an upcoming appointment with Dr. Harris. Patient says he was contacted by someone after he had lab work done at [facility] in [facility] who told him his potassium was elevated and put him on a powder drank for 3 days to lower it. He does not know who directed him to do this. There is no documentation in the chart or potassium result recently. He denies chest pain, dizziness and palpitations. Current medication regimen: Lantus 58 units at bedtime, Ozempic 0.5 mg weekly and NovoLog. If blood sugars under 100 no NovoLog 100-149 inject 4 units 150-199 8 units 200-249 12 units 250-299 14 units 300-349 16 units 350-399 18 units >400 call office and administer 20 units Past medications: Metformin discontinued due to diarrhea. Co-pay was too high with [employer]. Barriers to Treatment: Patient is legally blind and has financial constraints. Hypoglycemia symptoms: None. He keeps orange juice and glucose tablets on hand to treat hypoglycemia. Hyperglycemia symptoms: polydipsia He is exercising up and down his stairs daily. Eye exam: UTD and receives intravitreal injections every 8 weeks Podiatry visit: 09/11/2024. [facility]. Microvascular complications: neuropathy, nephropathy (Dr. Harris), retinopathy Macrovascular complications: No known. Hypertension: treated with losartan 100 mg. He is also on furosemide 20 mg. Hyperlipidemia: treated with lovastatin 20 mg. LDL at goal <100. ROS: Constitutional: No fevers or chills. Respiratory: No shortness of breath Cardiovascular: No chest pain, palpitations or lower extremity edema. Gastrointestinal: No anorexia, nausea, vomiting or diarrhea. No abdominal pain Skin: No open wounds Endocrine: No cold or heat intolerance. No polyuria Physical exam: Constitutional: Alert, in no distress. Neck: Supple, Full range of motion. No lymphadenopathy. No palpable thyroid masses. Respiratory: Clear to auscultation. Cardiovascular: S1 S2 regular. No murmurs. Extremities: Warm and well perfused. No edema. [facility] Medical History (Updated 11/07/24 @ 09:03 by ANTONIETTA Rodas) Hyperkalemia 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 Brother Diabetes Sister No problems noted. Daughter No problems noted. Social History Housing: Other Alcohol intake: current Patient Tobacco Use Status: Former Tobacco user Tobacco use type: Cigarette Years Smoked: quit 1979 e-Cigarette/Vaping Use: Never Used Second Hand Smoke Exposure: Yes service: No Current occupational status: retired Cognitive needs: No Hearing needs: No Vision needs: Yes Physical Exam Vital Signs: BMI result Body Mass Index 36.7 Results Reviewed Results Reviewed: Laboratory Tests 11/03/23 11/03/23 11/16/23 10:10 10:24 09:02 Creatinine 1.82 H Estimated GFR 36 Glucose (Clinic) Hgb A1c (Clinic) 9.9 H Triglycerides 203 H Cholesterol 155 LDL Cholesterol, Calc 89 HDL Cholesterol 26 L Microalb/Creat Ratio 39.1 H 04/04/24 04/04/24 10:10 10:13 Creatinine Estimated GFR Glucose (Clinic) 230 H Hgb A1c (Clinic) 9.7 H Triglycerides Cholesterol LDL Cholesterol, Calc HDL Cholesterol Microalb/Creat Ratio Assessment & Plan Assessment & Plan (1) Type 2 diabetes mellitus with hyperglycemia: Code(s): E11.65 - Type 2 diabetes mellitus with hyperglycemia Category: Medical Qualifiers: Diabetes mellitus keno terminal operator insulin use: with custodial use Qualified Code(s): E11.65 - Type 2 diabetes mellitus with hyperglycemia; Z79.4 - termination clerk (current) use of insulin (2) CKD stage 3b, GFR 30-44 ml/min: Code(s): N18.32 - Chronic kidney disease, stage 3b Category: Medical (3) Proliferative retinopathy due to DM: Code(s): E11.3599 - Type 2 diabetes mellitus with proliferative diabetic retinopathy with out macular edema, unspecified eye Category: Medical Qualifiers: Diabetes mellitus type: type 2 Proliferative retinopathy type: stable Laterality: bilateral Qualified Code(s): E11.3553 - Type 2 diabetes mellitus with stable proliferative diabetic retinopathy, bilateral (4) Hyperkalemia: Code(s): E87.5 - Hyperkalemia Category: Medical Plan In summary this is a 79-year-old male with uncontrolled type 2 diabetes with improved compliance and slowly improving glycemic control. Patient is using magnifiers now to administer medications. Adjusted medications as follows: Novolog sliding scale: 100-149 inject 4 units 150-199 10 units 200-249 14 units 250-299 16 units 300-349 18 units 350-399 20 units >400 call office and administer 22 units Increase Ozempic to 1 mg weekly Increase Lantus to 62 units daily I enlarged medication instructions and printed them for the patient. We reviewed treatment of hypo and hyperglycemia. He has glucose tablets. Patient declines referral to sales service coordinator and dietitian. Follow up with Dr. Harris as planned. We will contact his pharmacy today to see who prescribed the medication to lower potassium. Patient agreed to go to the lab today. We will repeat potassium with additional labs. Follow-up in 4 weeks for diabetes. Orders: Orders Aspartate Amino Transferase Today E11.9 - Type 2 diabetes mellitus without complications, Z79.4 - termination clerk (current) use of insulin Platelet Count Today E11.9 - Type 2 diabetes mellitus without complications, Z79.4 - termination clerk (current) use of insulin Lipid Panel Today E11.9 - Type 2 diabetes mellitus without complications, E78.5 - Hyperlipidemia, unspecified, Z79.4 - termination clerk (current) use of insulin Vitamin B12 Today E11.9 - Type 2 diabetes mellitus without complications, Z79.4 - termination clerk (current) use of insulin, Z91.89 - Other specified personal risk factors, not elsewhere classified TSH reflex Free T4 Today E11.9 - Type 2 diabetes mellitus without complications, Z79.4 - termination clerk (current) use of insulin Microalbumin, Random (w Creat) Today E11.9 - Type 2 diabetes mellitus without complications, Z79.4 - FPC (current) use of insulin Creatinine Today E11.9 - Type 2 diabetes mellitus without complications, Z79.4 - FPC (current) use of insulin Alanine Aminotransferase Today E11.9 - Type 2 diabetes mellitus without complications, R79.89 - Other specified abnormal findings of blood chemistry, Z79.4 - FPC (current) use of insulin Potassium Today E87.5 - Hyperkalemia Medications: New semaglutide (Ozempic) Replaces semaglutide 0.5 mg weekly. 1 mg (0.75 mL) subcut QWEEK 3 mL 3RF Changed From insulin aspart U-100 (Novolog FlexPen U-100 Insulin aspart) administered subcutaneously 10 minutes before meals per sliding scale 4 - 20 units (0.04 - 0.2 mL) subcut TID 45 mL 5RF To insulin aspart U-100 (Novolog FlexPen U-100 Insulin aspart) administered subcutaneously 10 minutes before meals per sliding scale 4 - 22 units subcut TID From insulin glargine (Lantus Solostar U-100 Insulin) 58 units (0.58 mL) subcut QPM 15 mL 5RF To insulin glargine (Lantus Solostar U-100 Insulin) 62 units subcut QPM Discontinued semaglutide (Ozempic) Discontinued Reason: Doctor's Order 0.5 mg (0.736 mL) subcut QWEEK 3 mL 0RF Patient Instructions: Novolog sliding scale: 100-149 inject 4 units 150-199 10 units 200-249 14 units 250-299 16 units 300-349 18 units 350-399 20 units >400 call office and administer 22 units Increase Ozempic to 1 mg weekly Increase Lantus to 62 units daily Coding Level of Care Code Est Pt Level 4 (36497) Complex EM visit Add On G2211 Diagnoses Type 2 diabetes mellitus with hyperglycemia, with long-term current use of insulin E11.65; Z79.4 Diabetes mellitus custodial insulin use: with keno terminal operator use CKD stage 3b, GFR 30-44 ml/min N18.32 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 associated with type 2 diabetes mellitus E11.3553 Diabetes mellitus type: type 2 Proliferative retinopathy type: stable Laterality: bilateral Hyperkalemia E87.5
[2024-11-07 08:25] VITALS: BP 124/54; PULSE 55; O2SAT 97; BMI 36.7
--- OUTSIDE RECORDS SUMMARY | 2024-11-07 08:32 | XMS_ITS | Encounter Summary ---
Author Organization [facility] Address [address] [address] Phone Care Team Providers Care Media Planner / Buyer Name Role Phone Brandt Vickers MD Primary Care Provider [phone] Encounter Details Date Type Department Care Team (Late Contact Info) Description 10/24/2024 Telephone [facility] [address] [address] Otoniel Giron MD [address] [address] Social History Tobacco Use Types [...] Visit [facility] [address] [place] [address] Manuel Harris MD [address] [address] Scheduled Orders Name Type Priority Associated Diagnoses Orde r Schedule Renal function panel Lab Routine Hyperkalemia Expected: 10/24/2024, Expires: 11/24/2025 documented as of this encounter Visit Diagnoses Diagnosis Hyperkalemia- Primary documented in this encounter Care Teams Media Planner / Buyer Relationship Specialty Start Date End Date Po, MD Brandt [facility] [address] [place], [place] PCP - General Internal Medicine 04/16/22 documented as of this encounter
--- OUTSIDE RECORDS SUMMARY | 2024-11-07 08:32 | XMS_ITS | Clinical Summary ---
Author Organization [facility] Facility Address [address] [place] [address], [place] [address] Care Team Providers Care Cartridge Belt Puncher Name Role Phone Brandt Vickers MD Primary Care Provider [phone] Allergies Active Allergy Reactions Criticality Noted Date [...] ONE TIME EACH DAY 90 tablet 1 025 Active furosemide (LASIX) 20 MG tablet TAKE 1 TABLET (20 MG TOTAL) BY MOUTH ONE TIME EACH DAY 90 tablet 1 024 2024 Discontinued Sodium Zirconium Cyclosilicate 10 g pack Take 1 Package by mouth 1 (one) time each day for 3 days 3 each 025 2024 Active Problems Problem Noted Date Diagnosed Date Type 2 diabetes mellitus without complication Essential (primary) hypertension 07/09/2022 Hypercholesterolemia 07/09/2022 Stage 3a chronic kidney disease 07/09/2022 Stage 3b chronic kidney disease 07/09/2022 Type 2 diabetes mellitus wit h diabetic chronic kidney disease 07/09/2022 Renal osteodystrophy 07/09/2022 Encounters Date Type Department Care Team Description 10/24/2024 Telephone [facility] [address] [address] Otoniel Giron MD 10/13/2024 Orders Only [facility] [address] [phone] Manuel Harris MD Stage 3b chronic kidney disease (HCC); Type 2 diabetes mellitus with diabetic chronic kidney disease (HCC); Renal osteodystrophy; Essential (primary) hypertension 10/09/2024 Refill [facility] [address] [address] Nathan Fuentes MD from Last [...] Office Visit [facility] [address] [place] [address] Manuel Harris MD [address] [address] Health Maintenance Due Date Last [...] None seen 0 - 5 /hpf [facility] RBC, Urine None seen 0 - 2 /hpf [facility] Squamous Epithelial, Urine None seen 0 - 10 /hpf [facility] Casts None seen None seen /lpf [facility] Bacteria, Urine None seen None seen/Few [facility] 10/23/2024 11:0 7 AM EST 10/23/2024 us Manuel Harris MD LAB MICROBIOLOGY - GENERAL OR DERABLES Final Result [facility] [address] [place] [address] * Protein, Total, Random Urine w/Creatinine (Protein/Creat Ratio) (10/23/2024 11:07 AM EST) Creatinine, Ur 186.4 Not Estab. mg/dL [facility] Protein, Ur 22.9 Not Estab. mg/dL [facility] Urine Protein/Creatin ine Ratio 123 0 - 200 mg/g creat [facility] Urine (Urine, Clean Catch) 10/23/2024 11:07 AM EST 10/23/2024 us Manuel Harris MD LAB URINE ORDERABLES Final Re sult Performing Organization Address [facility] Co de Phone Number [facility] [place] [address] [place] [address] * (ABNORMAL) Urine Albumin / Creatinine Ratio (10/23/2024 11:07 AM EST) Albumin, Urine 66.1 Not Estab. ug/mL [facility] Albumin/Creatin ine Ratio 35(H) 0 - 29 mg/g creat [facility] Comment: ? Normal: ?0 - ??29 ? Moderately increased: 30 - 300 ? Severely increased: ? >300 Urine (Urine, Clean Catch) 10/23/2024 11:07 AM EST 10/23/2024 Manuel Harris MD LAB URINE ORDERABLES Final Re sult Performing Organization Address [facility] de Phone Number [facility] [place] [place] [address] * Vitamin D 25 Hydroxy (10/23/2024 11:07 AM EST) Vitamin D, 25-OH, Total 32.9 30.0 - 100.0 ng/mL [facility] Comment: Vitamin D deficiency has been defined by the [place] of [employer] and an Endocrine Society practice guideline as a level of serum 25-OH vitamin D less than 20 ng/mL (1,2). The Endocrine Society went on to further define vitamin D insufficiency as a level between 21 and 29 ng/mL (2). 1. IOM ([place] of Medicine). 2010. Dietary reference ?? intakes [...] BLOOD ORDERABLES Final Re sult [facility] [address] [place] [address] * (ABNORMAL) Urinalysis with microscopic (10/23/2024 11:07 AM EST) Specific [place], Urine 1.019 1.005 - 1.030 [facility] pH Urine 5.5 5.0 - 7.5 [facility] Color, Urine Yellow Yellow [facility] Appearance Urine Clear Clear [facility] [place] [phone] WBC Esterase Urine Negative Negative [facility] Protein, Ur 1+(A) Negative/Tra ce [facility] Glucose, Ur 1+(A) Negative [facility] [phone] Ketones, Urine Negative Negative [facility] Blood Urine Negative Negative [facility] Bilirubin Urine Negative Negative [facility] Urobilinogen Urine 0.2 0.2 - 1.0 mg/dL [facility] Nitrite, Urine Negative Negative [facility] Microscopic Examination See below: [facility] [phone] Comment:Microscopic was maximino cated and was performed. Urine (Urine, Clean Catch) 10/23/2024 11:07 AM EST 10/23/2024 Manuel Harris MD LAB URINE ORDERABLES Final Re sult Performing Organization Address City/[facility]/ZIP Co de Phone Number [facility] [address] [place] [address] * CBC (10/23/2024 11:07 AM EST) WBC 6.6 3.4 - 10.8 x10E3/uL [facility] RBC 4.65 4.14 - 5.80 x10E6/uL [facility] Hemoglobin 13.8 13.0 - 17.7 g/dL [facility] Hematocrit 41.1 37.5 - 51.0 % [facility] MCV 88 79 - 97 fL [facility] MCH 29.7 26.6 - 33.0 pg [facility] MCHC 33.6 31.5 - 35.7 g/dL [facility] RDW 13.8 11.6 - 15.4 % [facility] Platelets 341 150 - 450 x10E3/uL [facility] Blood (Blood, Venous) 10/23/2024 11:07 AM EST 10/23/2024 Manuel Harris MD LAB BLOOD ORDERABLES Final Re sult Performing Organization Address City/[facility]/ZIP Co de Phone Number [facility] [address] [place] [address] * PTH, Intact (10/23/2024 11:07 AM EST) Pathologist [facility] PTH 38 15 - 65 pg/mL [facility] Blood (Blood, Venous) 10/23/2024 11:07 AM EST 10/23/2024 Manuel Harris MD LAB BLOOD ORDERABLES Final Re sult Performing Organization Address City/[facility]/ZIP Co de Phone Number [facility] [address] [place] [address] * (ABNORMAL) Magnesium (10/23/2024 11:07 AM EST) Pathologist [facility] Magnesium 2.4(H) 1.6 - 2.3 mg/dL [facility] Blood (Blood, Venous) 10/23/2024 11:07 AM EST 10/23/2024 Manuel Harris MD LAB BLOOD ORDERABLES Final Re sult Performing Organization Address [facility] de Phone Number [facility] [address] [place] [address] * (ABNORMAL) Renal Function Panel (10/23/2024 11:07 AM EST) Pathologist [facility] Glucose 218(H) 70 - 99 mg/dL [facility] BUN 32(H) 8 - 27 mg/dL [facility] Creatinine 1.96(H) 0.76 - 1.27 mg/dL [facility] eGFR CKD-EPI CR 2020 35(L) >59 mL/min/1.7 3 [facility] BUN/Creatinine Ratio 16 10 - 24 [facility] Sodium 138 134 - 144 mmol/L [facility] Potassium 6.0(H) 3.5 - 5.2 mmol/L [facility] Chloride 102 96 - 106 mmol/L [facility] Bicarbonate (CO2) 21 20 - 29 mmol/L [facility] Calcium 9.8 8.6 - 10.2 mg/dL [facility] Albumin 4.3 3.8 - 4.8 g/dL [facility] Phosphorus 3.4 2.8 - 4.1 mg/dL [facility] Blood (Blood, Venous) 10/23/2024 11:07 AM EST 10/23/2024 Manuel Harris MD LAB BLOOD ORDERABLES Final Re sult [facility] [address] [place] [address] from Last 3 Months Insurance [facility] ([id number]) [facility] ([id number]) [place] [phone] Care Teams Cartridge Belt Puncher Relationship Specialty Start Date End Date Brandt Vickers MD [facility] [address] [place], [place] PCP - General Internal Medicine 04/16/22
--- OUTSIDE RECORDS SUMMARY | 2024-11-07 08:32 | XMS_ITS ---
Author Organization [facility] [place] Address [address] [place] [address] Care Team Providers Care Polygraph Technician Name Role Phone Brandt Vickers Primary Care Provider Jamel Lundy Unavailable [phone] Allergies Allergen (clinical drug ingredient) Drug/Non Drug [...] Ordered Date Performed Result Body Sit e 84520-NPIREZJ NAIL, 6 OR MORE 09/22/2024 N/A 19510-PFUY SKIN LESIONS, OVER 4 09/22/2024 N/A Encounters Encounter Location Date Provider Diagnosis [facility] [place] [address] [place] [address] 09/22/2024 Jamel Briseno Type 2 diabetes mellitus [...] INSTRUCTIONS.pdf) Pending Test Test Name Order Date 68137-KHILZER NAIL, 6 OR MORE 09/22/2024 72540-QDBO SKIN LESIONS, OVER 4 09/22/19 25 Next Appt Details Follow Up: prn, Reason: Provider Name:Jamel Briseno , 12/26/2024 09:00:00 AM, [address] [place], [address], Procedure Notes * Category Sub-Category Detail Notes [...] use of a nail nipper and/or dremel-type sample grinder, to a more viable healthy nail [...] to maintain effectiveness in symptomatic relief - 97923 Keratoma Treatment Parring or Cutting o f [...] instrumentation by the physician of record - 34791 Progress Notes * Sammy GHOSH EDOB:1945 (79 yo M)Acc No.[id number]:09/22/2024 Progress Note Patient:?Sammy GHOSH E Provider:?Jamel Briseno DPM :1945???Age:79 Y???Sex:Male Hemal e:09/22/2024 Address:[place] Pcp:Brandt Vickers Subjective: * Chief Complaints: * [...] ?Marital status: single. ?Occupation: Retired-Multiple Jobs Works [employer]. ???Drug/Alcohol:?AUDIT-C (Standard)?Did you have a drink [...] use of a nail nipper and/or dremel-type sample grinder, to a more viable healthy nail [...] to maintain effectiveness in symptomatic relief - 62846.?Keratoma Treatment:?Parring or Cutting of Benign Hyperkeratotic Lesion(s)?(-57) [...] instrumentation by the physician of record - 48281.? * Procedure Codes:?42984 DEBRI DE NAIL, 6 OR MORE, Modifiers: XS 65703 TRIM SKIN LESIONS, OVER 4, Modifiers: XS [...] Briseno DPM Date:?2024 Generated for Natty hdz/Gisele/Jh on:?11/07/2024 08:31 AM EDT History and Physical Notes * HPI (History [...]
--- OUTSIDE RECORDS SUMMARY | 2024-11-07 08:32 | XMS_ITS ---
Author Organization [facility] Address [address] [facility] [place] [address] Care Team Providers Care Manager Exchange Name Role Phone Brandt Vickers Primary Care Provider Jamel Lundy Unavailable [phone] Allergies Allergen (clinical drug ingredient) Drug/Non Drug [...] Ordered Date Performed Result Body Sit e 46419-CLUEUJW NAIL, 6 OR MORE 06/23/2024 N/A 60409-HRQP SKIN LESIONS, OVER 4 06/23/2024 N/A Encounters Encounter Location Date Provider Diagnosis [facility] [place] [address] [place] [address] 06/23/2024 Jamel Briseno Type 2 diabetes mellitus [...] Treatment Pending Test Test Name Order Date 54079-JBPLPHR NAIL, 6 OR MORE 06/23/2024 16443-GJYA SKIN LESIONS, OVER 4 06/23/20 24 Next Appt Details Follow Up: 3 Months, Reason: Provider Name:Jamel Briseno , 12/26/2024 09:00:00 AM, [address] [place] [address], [phone], Procedure Notes * Category Sub-Category Detail Notes [...] of a nail nipper and/or dremel-type tool grinder operator, to a more viable healthy nail plate or bed tissue 6-10. Silver nitrate used for any petechial bleeding as necessary. Definitive antifungal treatment options have been reviewed and discussed with the patient. The patient chooses, no pharmaceutical tx - 48413 Keratoma Treatment Parring or Cutting o f Benign Hyperkeratotic Lesion(s) (-57) More than 4 Lesions - The Benign hyperkeratotic lesions, as described above were pared, and/or cut utilizing a sterile 15 blade, tissue nippers, and/or dremel - 94515 Progress Notes * Sammy GHOSHDOB:1945 ([age] yo M)Acc No.[id number]:06/23/2024 Progress Note Patient:?Sammy Ghosh Provider:?Jamel Briseno DPM :1945???Age:79 Y???Sex:Male Hemal e:06/23/2024 [facility] Pcp:Brandt Vickers Subjective: * Chief Complaints: * [...] ?Marital status: single. ?Occupation: Retired-Multiple Jobs Works [employer]. * Medications:?TakingFurosemid e 20 MG Tablet [...] of a nail nipper and/or dremel-type tool grinder operator, to a more viable healthy nail plate or bed tissue 6-10. Silver nitrate used for any petechial bleeding as necessary. Definitive antifungal treatment options have been reviewed and discussed with the patient. The patient chooses, no pharmaceutical tx - 15960.?Keratoma Treatment:?Parring or Cutting of Benign Hyperkeratotic Lesion(s)?(-57) More than 4 Lesions - The Benign hyperkeratotic lesions, as described above were pared, and/or cut utilizing a sterile 15 blade, tissue nippers, and/or dremel - 67009.? * Procedure Codes:?30496 DEBRI DE NAIL, 6 OR MORE, Modifiers: XS 96575 TRIM SKIN LESIONS, OVER 4, Modifiers: XS [...] Briseno DPM Date:?2023 Generated for Natty hdz/Gisele/Jh on:?11/07/2024 08:32 AM EDT History and Physical Notes * [...]
--- OUTSIDE RECORDS SUMMARY | 2024-11-07 08:32 | XMS_ITS ---
Author Organization [facility] Address [address] [facility] [place] [address] Care Team Providers Care Engine Repairer Service Name Role Phone Brandt Vickers Primary Care Provider Jamel Lundy [phone] REASON FOR VISIT Insurance Encounters Encounter Location Date Provider Diagnosis [address] [address] 09/22/2024 Jamel Briseno Plan Of Treatment Next Appt Details Provider Name:Jamel Briseno , 12/26/2024 09:00:00 AM, [address] [place], [address], Progress Notes * Sammy GHOSH EDOB:1945 (79 yo M)Acc No.[id number]:09/22/2024 Patient:?Sammy GHOSH :1945???Age:79 Y???Sex:Male Address:[address] [place], [address] * true * Date:? Generated for Printi ng/Faxing/eTransmitting on:?11/07/2024 08:32 AM EDT
--- OUTSIDE RECORDS SUMMARY | 2024-11-07 08:32 | XMS_ITS | Encounter Summary ---
Author Organization [facility] Address [address] [facility] [address] [place] [address] Phone Care Team Providers Care Robotic Machine Operator Name Role Phone Brandt Vickers MD Primary Care Provider [phone] Reason for Visit * Reason Comments Med Refill Encounter Details Date Type Department Care Team (Late Contact Info) Description 10/09/2024 Refill [facility] [address] [place] [address] Nathan Fuentes MD [address] [address] Social History Tobacco Use Types [...] Visit [facility] [address] [place] [address] Manuel Harris MD [address] [address] documented as of this encounter Visit Diagnoses Not on filedocumented in this encounter Care Teams Robotic Machine Operator Relationship Specialty Start Date End Date Brandt Vickers MD [facility] [place] [address] [place] PCP - General Internal Medicine 04/16/22 documented as of this encounter
--- OUTSIDE RECORDS SUMMARY | 2024-11-07 08:32 | XMS_ITS | Patient Health Record ---
Author Organization [facility] Address [address] [facility] [place] [address] Care Team Providers Care Cover Maker Name Role Phone Brandt Vickers Primary Care Provider Jamel Lundy Unavailable [phone] Allergies Allergen (clinical drug ingredient) Drug/Non Drug [...] Problem Acquired hammer toe of right foot (1564605681638538 ) Other hammer toe(s) (acquired), right foot (M20.41) Active confirmed Problem Acquired hammer toe of left foot (4047191816905586 ) Other hammer toe(s) (acquired), left foot (M20.42) Active confirmed Problem Polyneuropathy due to type 2 diabetes mellitus (964834583) Type 2 diabetes mellitus with diabetic polyneuropathy (E11.42) Active confirmed Vital Signs Blood pressure diastolic 60 mm Hg 09/22/2024 Height 5 ft 10.5 in in 09/22/2024 Blood pressure systolic 120 mm Hg 09/22/2024 Weight 237 lbs 09/22/2024 BMI 33.52 kg/m2 09/22/2024 Procedures Procedure Date Ordered Date Performed Result Body Sit e 96049-XFYSBHN NAIL, 6 OR MORE 03/17/2024 N/A 08664-GJZZ SKIN LESIONS, OVER 4 03/17/2024 N/A 89030-NOBGKON NAIL, 6 OR MORE 06/23/2024 N/A 32285-NWXV SKIN LESIONS, OVER 4 06/23/2024 N/A 35809-SJGKOJH NAIL, 6 OR MORE 09/22/2024 N/A 23844-FRDH SKIN LESIONS, OVER 4 09/22/2024 N/A Encounters Encounter Location Date Provider Diagnosis [facility] [address] [address] 03/17/2024 aJmel Briseno Type 2 diabetes mellitus with diabetic polyneuropathy E11.42 ; Tinea unguium B35.1 and Xerosis of skin L85.[address] [facility] [address] 06/23/2024 Jamel Briseno Type 2 diabetes mellitus with diabetic polyneuropathy E11.42 ; Tinea unguium B35.1 and Xerosis of skin L85.[address] [address] 09/22/2024 Jamel Briseno Type 2 diabetes mellitus with diabetic polyneuropathy E11.42 ; Tinea unguium B35.1 ; Other hammer toe(s) (acquired), right foot M20.41 and Other hammer toe(s) (acquired), left foot M20.[address] [address] 12/30/2023 Jamel Briseno [address] [address] 09/22/2024 Jamel Briseno Assessments Encounter Date Diagnosis [...] Treatment Pending Test Test Name Order Date 79774-OEZRUBQ NAIL, 6 OR MORE 05/05/2022 50784-NXXLADH NAIL, 6 OR MORE 08/04/2022 95035-KEPBEBJ NAIL, 6 OR MORE 12/22/2022 33507-BXFDVNN NAIL, 6 OR MORE 03/30/2023 70081-YMCBUBR NAIL, 6 OR MORE 10/15/2023 83377-WRYFONN NAIL, 6 OR MORE 03/17/2024 08665-CUWGTHU NAIL, 6 OR MORE 06/23/2024 43228-JWUSUAP NAIL, 6 OR MORE 09/22/2024 21599-Knbcjjwx Plate 05/05/2022 98154-LXCO SKIN LESIONS, OVER 4 05/05/20 22 28038-MKUF SKIN LESIONS, OVER 4 08/04/20 35306-JFQL SKIN LESIONS, OVER 4 03/30/20 23 18241-ONXH SKIN LESIONS, OVER 4 12/23/19 23 55553-UBIG SKIN LESIONS, OVER 4 09/22/19 25 78650-NLXI SKIN LESIONS, OVER 4 06/23/20 24 15272-GPAS SKIN LESIONS, OVER 4 03/17/20 24 01218-WHVL SKIN LESIONS, OVER 4 10/15/19 24 Next Appt Details Provider Name:Jamel Briseno , 12/26/2024 09:00:00 AM, [address] [facility], [place], [address], Insurance Providers Payer Name Payer Address Payer Phone Subscriber Number Group Number Insured Name Patient Relationship to Insured Coverage Start Date Coverage End Date Medicare National [employer]t [employer] [address] [place] [address] [id number] Sammy Ghosh Self - patient is the insured 2 Medical (General) History Medical History History ICD Code Cataracts covid-19 type II diabetes Glaucoma High blood pressure Kidney disease Numbness Measles Chicken pox Retinopathy CAD Surgical History Surgery Date(Month/Year) cataract surgery L eye [place] 06/2022
--- OUTSIDE RECORDS SUMMARY | 2024-11-07 08:32 | XMS_ITS | Encounter Summary ---
Author Organization [facility] Address [address] [facility] [address] [place] [address] Phone Care Team Providers Care Mosaic Tile Maker Name Role Phone Brandt Vickers MD Primary Care Provider [phone] Encounter Details Date Type Department Care Team (Late st Contact Info) Description 10/13/2024 Orders Only [facility] [address] [phone] Manuel Harris MD [phone] [address] Stage 3b chronic kidney disease [...] [facility] [address] [place] [phone] Manuel Harris MD [address] [address] documented as of this encounter [...] None seen 0 - 5 /hpf [facility] RBC, Urine None seen 0 - 2 /hpf [facility] Squamous Epithelial, Urine None seen 0 - 10 /hpf [facility] Casts None seen None seen /lpf [facility] Bacteria, Urine None seen None seen/Few [facility] 10/23/2024 11:0 7 AM EST 10/23/2024 Manuel Harris MD LAB MICROBIOLOGY - GENERAL OR DERABLES Final Result Performing Organization Address City/[facility]/ZIP Co de Phone Number [facility] [address] [place] [address] * (ABNORMAL) Magnesium (10/23/2024 11:07 AM EST) Magnesium 2.4(H) 1.6 - 2.3 mg/dL [facility] Blood (Blood, Venous) 10/23/2024 11:07 AM EST 10/23/2024 Manuel Harris MD LAB BLOOD ORDERABLES Final Re sult [facility] [address] [place] [address] * CBC (10/23/2024 11:07 AM EST) WBC 6.6 3.4 - 10.8 x10E3/uL [facility] RBC 4.65 4.14 - 5.80 x10E6/uL [facility] Hemoglobin 13.8 13.0 - 17.7 g/dL [facility] Hematocrit 41.1 37.5 - 51.0 % [facility] MCV 88 79 - 97 fL [facility] MCH 29.7 26.6 - 33.0 pg [facility] MCHC 33.6 31.5 - 35.7 g/dL [facility] RDW 13.8 11.6 - 15.4 % [facility] Platelets 341 150 - 450 x10E3/uL [facility] Blood (Blood, Venous) 10/23/2024 11:07 AM EST 10/23/2024 Manuel Harris MD LAB BLOOD ORDERABLES Final Re sult [facility] [address] [place] [address] * Vitamin D 25 Hydroxy (10/23/2024 11:07 AM EST) Vitamin D, 25-OH, Total 32.9 30.0 - 100.0 ng/mL [facility] Comment: Vitamin D deficiency has been defined by the [employer] of [employer] and an Endocrine Society practice guideline as a level of serum 25-OH vitamin D less than 20 ng/mL (1,2). The Endocrine Society went on to further define vitamin D insufficiency as a level between 21 and 29 ng/mL (2). 1. IOM ([employer] of Medicine). 2010. Dietary reference ?? intakes for calcium and D. [place]: The ?? National AcademCoupang Press. 2. Molina MF, Brenda REA, Charly SIDDIQUI, et al. ?? Evaluation, treatment, and prevention of vitamin D ?? deficiency: an Endocrine Society clinical practice ?? guideline. JCEM. 2011 Home; 96(7):1911-30. Blood (Blood, Venous) 10/23/2024 11:07 AM EST 10/23/2024 Manuel Harris MD LAB BLOOD ORDERABLES Final Re sult Performing Organization Address [facility]/ZIP Co de Phone Number [facility] [address] [place] [address] * Protein, Total, Random Urine w/Creatinine (Protein/Creat Ratio) (10/23/2024 11:07 AM EST) Creatinine, Ur 186.4 Not Estab. mg/dL [facility] Protein, Ur 22.9 Not Estab. mg/dL [facility] Urine Protein/Creatin ine Ratio 123 0 - 200 mg/g creat [facility] Urine (Urine, Clean Catch) 10/23/2024 11:07 AM EST 10/23/2024 Manuel Harris MD LAB URINE ORDERABLES Final Re sult Performing Organization Address City/[facility]/ZIP Co de Phone Number [facility] [address] [place] [address] * (ABNORMAL) Urine Albumin / Creatinine Ratio (10/23/2024 11:07 AM EST) Albumin, Urine 66.1 Not Estab. ug/mL [facility] Albumin/Creatin ine Ratio 35(H) 0 - 29 mg/g creat [facility] Comment: ? Normal: ?0 - ??29 ? Moderately increased: 30 - 300 ? Severely increased: ? >300 Urine (Urine, Clean Catch) 10/23/2024 11:07 AM EST 10/23/2024 Manuel Harris MD LAB URINE ORDERABLES Final Re sult [facility] [address] [place] [address] * (ABNORMAL) Urinalysis with microscopic (10/23/2024 11:07 AM EST) Specific Eme[place], Urine 1.019 1.005 - 1.030 [facility] pH Urine 5.5 5.0 - 7.5 [facility] Color, Urine Yellow Yellow [facility] [phone] Appearance Urine Clear Clear [facility] WBC Esterase Urine Negative Negative [facility] Protein, Ur 1+(A) Negative/Tra ce [facility] [phone] Glucose, Ur 1+(A) Negative [facility] Ketones, Urine Negative Negative [facility] Blood Urine Negative Negative [facility] Bilirubin Urine Negative Negative [facility] Urobilinogen Urine 0.2 0.2 - 1.0 mg/dL [facility] Nitrite, Urine Negative Negative [facility] [phone] Microscopic Examination See below: [facility] [phone] Comment:Microscopic was maximino cated and was performed. Urine (Urine, Clean Catch) 10/23/2024 11:07 AM EST 10/23/2024 Manuel Harris MD LAB URINE ORDERABLES Final Re sult [facility] [address] [place] [address] * (ABNORMAL) Renal Function Panel (10/23/2024 11:07 AM EST) Glucose 218(H) 70 - 99 mg/dL [facility] BUN 32(H) 8 - 27 mg/dL [facility] Creatinine 1.96(H) 0.76 - 1.27 mg/dL [facility] eGFR CKD-EPI CR 2020 35(L) >59 mL/min/1.7 3 [facility] BUN/Creatinine Ratio 16 10 - 24 [facility] Sodium 138 134 - 144 mmol/L [facility] Potassium 6.0(H) 3.5 - 5.2 mmol/L [facility] Chloride 102 96 - 106 mmol/L [facility] Bicarbonate (CO2) 21 20 - 29 mmol/L [facility] Calcium 9.8 8.6 - 10.2 mg/dL [facility] Albumin 4.3 3.8 - 4.8 g/dL [facility] Phosphorus 3.4 2.8 - 4.1 mg/dL [facility] Blood (Blood, Venous) 10/23/2024 11:07 AM EST 10/23/2024 Manuel Harris MD LAB BLOOD ORDERABLES Final Re sult [facility] [address] [place] [address] * PTH, Intact (10/23/2024 11:07 AM EST) PTH 38 15 - 65 pg/mL [facility] Blood (Blood, Venous) 10/23/2024 11:07 AM EST 10/23/2024 us Manuel Harris MD LAB BLOOD ORDERABLES Final Re sult [facility] [address] [place] [phone] documented in this encounter Visit Diagnoses Diagnosis Stage 3b chronic kidney disease (HCC) 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
[2024-11-07 08:34] LABS: Glucose, Whole Blood 187 mg/dL (60-115)
[2024-11-07 08:43] VITALS: PULSE 57
== END 2024-11-07 09:00 | disposition home or self-care (01) ==
LOC: HO.ENCR 08:21
PROVIDERS: PCP Internal Medicine; Visit Provider Physician Assistant Medical
DX: E11.65 Type 2 diabetes mellitus with hyperglycemia (principal); Z79.4 Long term (current) use of insulin; N18.32 Chronic kidney disease, stage 3b; E11.3553 Type 2 diabetes mellitus with stable proliferative diabetic retinopathy, bilateral; E87.5 Hyperkalemia

== ENCOUNTER 2024-11-07 09:02 | Outpatient (REF) | payer MEDICARE, SELFPAY ==
[2024-11-07 10:24] LABS: Platelet Count 344 X10*3/uL (160-400)
[2024-11-07 10:41] LABS: Alanine Aminotransferase 13 U/L (0-40); Aspartate Amino Transferase 27 U/L (5-37); Cholesterol 152 mg/dL (<200); Estimated Glomerular Filt Rate 38; HDL Cholesterol 27 mg/dL (>40); LDL Cholesterol Calculated 54 mg/dL (<100); Triglycerides 355 mg/dL (<150)
[2024-11-07 10:47] LABS: Creatinine Urine 100.77 mg/dL; Microalbum/Creatinine Ratio Ur 32.7 ug/mg cr (<30)
[2024-11-07 11:00] LABS: Vitamin B12 457 pg/mL (200-900)
[2024-11-07 11:36] LABS: Free T4 (Free Thyroxine) 0.87 ng/dL (0.71-1.85)
== END 2024-11-07 09:03 | disposition home or self-care (01) ==
LOC: HO.10HDL 09:02
PROVIDERS: Visit Provider Physician Assistant Medical
DX: E11.22 Type 2 diabetes mellitus with diabetic chronic kidney disease (principal); N18.32 Chronic kidney disease, stage 3b; E11.65 Type 2 diabetes mellitus with hyperglycemia; E11.40 Type 2 diabetes mellitus with diabetic neuropathy, unspecified; E11.319 Type 2 diabetes mellitus with unspecified diabetic retinopathy without macular edema; R79.89 Other specified abnormal findings of blood chemistry; E78.5 Hyperlipidemia, unspecified; Z79.4 Long term (current) use of insulin; Z91.89 Other specified personal risk factors, not elsewhere classified; H54.8 Legal blindness, as defined in USA
CPT/HCPCS: 36415; 80061; 82043; 82565; 82570; 82607; 82947; 84439; 84443; 84450; 84460; 85049; 99212

== ENCOUNTER 2025-01-31 08:53 | Outpatient (AMB) | payer MEDICARE, MEDICAID, SELFPAY ==
--- NOTE | 2025-01-31 08:57 | A.OFFPC_ITS ---
Vital Signs 01/31/25 08:58 Height 5 ft 10 in Weight 249 lb 9.012 oz BMI 35.8 BP 140/62 H Blood Pressure Location Rt brachial Position Sitting Pulse 75 Pulse Source Pulse Oximeter Temp 97.3 F Temp Source Temporal Artery Scan Pulse Oximetry (%) 97 Oxygen Delivery Method Room Air Intake Visit Reasons: f/u HTN Intake Note: Patient is here to follow up on HTN. Swager Operator Required: No Marketing Operations Analyst: Not Required per policy Accompanied by: Self / Same As Patient Allergies metformin Adverse Reaction (Severe, Verified 01/31/25 08:57) Diarrhea ozempic Adverse Reaction (Intermediate, Uncoded 01/31/25 09:15) vomiting Medication List - Last Reconciled 01/31/25 by Brandt Vickers MD alcohol swabs (Alcohol Pads) 1 pad topical QID blood sugar diagnostic (Algal ScientificTouch Verio test strips) Use as directed to check blood glucose 3 times daily. blood-glucose meter ([facility] Verio Flex Meter) Use as directed to check blood glucose 3 times daily for Type II diabetes mellitus. flash glucose scanning reader (BiiCodeStyle Oscar 2 Kell) As directed checked the blood sugar 3 times a day, patient is on 4 shots a day of insulin flash glucose sensor (FreeStyle Oscar 2 Sensor kit) As directed check the blood sugars 4 times a day folic acid 1 mg PO DAILY furosemide 20 mg PO DAILY glucose (Dex4 Glucose) 16 grams (4 x 4 gram) PO Q15M PRN insulin aspart U-100 (Novolog FlexPen U-100 Insulin aspart) 4 - 22 units subcut TID insulin glargine (Lantus Solostar U-100 Insulin) 62 units subcut QPM lancets (Algal ScientificTouch Delica Plus Lancet) Use as directed to check blood glucose 3 times daily losartan 100 mg PO DAILY 90 days rosuvastatin 20 mg PO BEDTIME semaglutide (Ozempic) 0.5 mg subcut QWEEK Tobacco use date assessed: 01/31/25 Fall risk assessment: No Falls in past year Last assessed Fall Risk: 01/31/25 Dental Screening Dental Screen Date: 10/27/24 [facility] Medical History (Updated 01/31/25 @ 09:40 by Brandt Vickers MD) Hyperkalemia 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 Brother Diabetes Sister No problems noted. Daughter No problems noted. Social History Housing: Other Alcohol intake: current Patient Tobacco Use Status: Former Tobacco user Tobacco use type: Cigarette Years Smoked: quit 1979 e-Cigarette/Vaping Use: Never Used Second Hand Smoke Exposure: Yes service: No Current occupational status: retired Cognitive needs: No Hearing needs: No Vision needs: Yes Questionnaire PHQ-9 Over the last 2 weeks, how often have you been bothered by any of the following problems? 1. Little interest or pleasure in doing things: not at all 2. Feeling down, depressed, or hopeless: not at all 3. Trouble falling or staying asleep, or sleeping too much: not at all 4. Feeling tired or having little energy: not at all 5. Poor appetite or overeating: not at all 6. Feeling bad about yourself - or that you are a failure or have let yourself or your family down: not at all 7. Trouble concentrating on things, such as reading the newspaper or watching television: not at all 8. Moving or speaking so slowly that other people could have noticed. Or the op posite - being so fidgety or restless that you have been moving around a lot more than usual: not at all 9. Thoughts that you would be better off or of hurting yourself in some way: not at all Total score: 0 Depression Screening Interpretation: Negative Depression Screening Done: Yes Source: Developed by Drs. Kalen Laguerre, Meg Charles, Alfonso Gan and colleagues, with an educational nadia from [employer]. Thrive Questionnaire Date Thrive assessed: 10/27/24 I am a: Patient What is your living situation today?: I have a steady place to live Within the past 12 months, did the food you bought not last and you didn't have the money to get more?: Never true Within the past 12 months, did you worry whether your food would run out before you got money to buy more?: Never true Do you have trouble paying for medicines?: I choose not to answer this question Do you have trouble getting transportation to medical appointments?: No Do you have trouble paying your heating and electricity bill?: No Do you have trouble taking care of your child, family member or friend?: No Do you have trouble with day-to-day activities such as bathing, preparing meals, shopping, managing finances, etc.?: I choose not to answer this question Are you currently unemployed and looking for a job?: No Are you interested in more education?: No Please select the resources that you would like help with: None Currently or been in a relationship where the following occur: No concerns reported THRIVE Score: 0 AUDIT C Alcohol Use Questionnaire (AUDIT-C) 1. How often do you have a drink containing alcohol?: Never Total Score: 0 PAZ-7 AMB Questionnaire PAZ-7 Date PAZ - 7 assessed: 10/27/24 Feeling nervous, anxious, or on edge: 0 = Not at all Not being able to stop or control worryin = Not at all Worrying too much about different things: 0 = Not at all Trouble relaxin = Not at all Being so restless that it is hard to sit still: 0 = Not at all Becoming easily annoyed or irritable: 0 = Not at all Feeling afraid as if something awful might happen: 0 = Not at all Total PAZ-7 score (0-4 normal; 5-9 mild; 10-14 moderate; 15-21 severe): 0 Source: Developed by Drs. Kalen Laguerre, Meg Charles, Alfonso Gan and colleagues, with an educational nadia from [employer]. Physical exam (Primary Care) Vital Signs: Last Vital Signs Temp 97.3 F 01/31/25 08:58 Pulse 75 01/31/25 08:58 BP 140/62 H 01/31/25 08:58 Pulse Ox 97 01/31/25 08:58 Oxygen Delivery Method Room Air 01/31/25 08:58 BMI result Body Mass Index 35.8 Tobacco/Smoking Status: Tobacco use Status Tobacco use date assessed 01/31/25 01/31/25 09:06 Patient Tobacco Use Status Former Tobacco user 01/31/25 09:06 Tobacco use type Cigarette 01/31/25 09:06 e-Cigarette/Vaping Use Never Used 01/31/25 09:06 PHQ-9: PHQ-9 Score PHQ-9: Total score 0 01/31/25 09:24 Depression Screening Interpretation: Negative Thrive Assessment: Date of Thrive Assessment Date Thrive assessed 10/27/24 01/31/25 09:06 Currently or been in a relationship where the following occur: No concerns reported Const General: alert; No acute distress Eyes Conjunctivae: conjunctivae normal Resp Auscultation: clear to auscultation bilaterally Cardio Rate: regular rate Rhythm: regular rhythm GI Inspection: Yes normal to inspection Extrem General: Yes normal to inspection and No edema Results AMB Hemoglobin A1c AMB Hemoglobin A1c 10.7 % Last Edit by STACI Armstrong on 01/31/25 09:1 7 Results Reviewed Results Reviewed: Laboratory Last Values Hgb A1c (Clinic) 10.7 % (4.0-6.0) H 01/31/25 08:56 Coding Level of Care Code Est Pt Level 4 (60609) Complex EM visit Add On G2211 Diagnoses Insulin dependent type 2 diabetes mellitus E11.9; Z79.4 CKD stage 3b, GFR 30-44 ml/min N18.32 GERD (gastroesophageal reflux disease) K21.9 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 associated with type 2 diabetes mellitus E11.3553 Diabetes mellitus type: type 2 Laterality: bilateral Proliferative retinopathy type: stable Hypertension I10 Hypercholesterolemia E78.00 Obesity (BMI 30-39.9) E66.9 Urge incontinence N39.41 Assessment & Plan Assessment & Plan (1) Insulin dependent type 2 diabetes mellitus: Code(s): E11.9 - Type 2 diabetes mellitus without complications; Z79.4 - terminal worker (current) use of insulin Category: Medical Plan: And is being followed up by Endocrinology on insulin Lantus and sliding scale recommended Ozempic but not using (2) CKD stage 3b, GFR 30-44 ml/min: Code(s): N18.32 - Chronic kidney disease, stage 3b Category: Medical Plan: Continue to monitor chronic kidney disease by Nephrology avoid NSAIDs patient was advised to take SGLT2 (3) GERD (gastroesophageal reflux disease): Code(s): K21.9 - Gastro-esophageal reflux disease without esophagitis Category: Medical Plan: Avoid the foods that causes that usually spicy foods, tomato products, juices, coffee, soda and foods that your sensitive to. After eating do not lie down, allow 3-4 hours before in lie down. And keep the head of bed above 30 degrees to avoid the acid from going up. (4) Proliferative retinopathy due to DM: Code(s): E11.3599 - Type 2 diabetes mellitus with proliferative diabetic retinopathy without macular edema, unspecified eye Category: Medical Qualifiers: Diabetes mellitus type: type 2 Laterality: bilateral Proliferative retinopathy type: stable Qualified Code(s): E11.3553 - Type 2 diabetes mellitus with stable proliferative diabetic retinopathy, bilateral Plan: Continue to follow-up with ophthalmology (5) Hypertension: Code(s): I10 - Essential (primary) hypertension Category: Medical Plan: Continue with blood pressure medication. Decrease salt intake and exercise on losartan 100 mg once a day (6) Hypercholesterolemia: Code(s): E78.00 - Pure hypercholesterolemia, unspecified Category: Medical Plan: Avoid fried foods, chicken skin, eggs, butter margarine, pastries and meat. Be it pork or beef they have a lot of cholesterol LDL goal of less than 100 and triglyceride of less than 150 (7) Obesity (BMI 30-39.9): Code(s): E66.9 - Obesity, unspecified Category: Medical Plan: Diet and exercise (8) Urge incontinence: Code(s): N39.41 - Urge incontinence Category: Medical Plan History of Present Illness The patient is a 79-year-old male presenting for follow-up evaluation of diabetes mellitus and associated comorbidities. He reports a 6-pound weight loss, partly attributed to the use of Ozempic. The HbA1c remains elevated at 10.7, signaling poor glycemic control despite current interventions. There is ongoing management of chronic comorbidities including chronic kidney disease st age 5, hypertension, and hypercholesterolemia. He reviews GERD as noted symptoms related to certain dietary habits and medications, with episodes of emesis linked to Ozempic-induced slowed gastrointestinal motility. Dietary constraints exacerbate challenges in managing his triglycerides, with evidence of hypertriglyceridemia (355) despite good control of LDL at 54. The patient is under nephrology and endocrinology surveillance, highlighting stable renal function at chronic stage 3 with creatinine at 1.75. Hypothyroidism is suspected due to an elevated thyroid level of 5.3 noted on a recent lab test. Furthermore, he experiences GERD, nocturnal dysuria, and issues with urinary leakage. Health maintenance discussions have highlighted dietary management and physical activity to optimize health outcomes. Recommendations include SGLT2 inhibitors as an adjunct therapy for diabetes and potential benefit to cardiovascular and renal health. The patient remains cautious and is being monitored for thyroid function, underlining the need to reevaluate acid reflux management strategies. Health Maintenance - Discussion of target LDL cholesterol level: less than 100 mg/dL. - Goal for triglycerides: less than 150 mg/dL through dietary modifications and exercise recommendations. - Counseling on dietary management to alleviate GERD symptoms and improve lipid profile. - Reminded patient of importance of routine ophthalmology visits for diabetic retinopathy screening. - Discussed benefits of vaccinations, including shingles and influenza. - Discussed strategies to improve medication adherence and follow dietary modifications to manage triglyceride levels. - Reinforcement of monitoring thyroid levels following elevated result (5.3). Social History - Lives independently. - Prepares own meals, reports difficulty focusing on healthy diet due to visual impairment and lack of cooking assistance. - Relies on [facility] services but hasn't availed full benefits due to logistical challenges. - Reports occasional issues with balance; attributes this to age and presents a fall risk. Review of Systems - Gastrointestinal: Reports acid reflux, emesis associated with certain foods and experiences exacerbation with Ozempic. - Genitourinary: Reports urgency and urinary leakage. - Nutrition: Reports poor dietary habits influenced by difficulty preparing balanced meals. - Endocrine: Denies frequent episodes of hypoglycemia; acknowledges occasional lower blood sugar readings. Physical Exam Results - Labs: HbA1c 10.7, LDL 54, triglycerides 355, TSH 5.3, creatinine 1.75. Plan 1. 7 required careful consideration of metabolic interventions. Although an SGLT2 inhibitor, such as Jardiance or Farxiga, was recommended, patient's concerns led to planning deferral until endocrinology consultation. Current therapeutic modalities will remain, with emphasis on Ozempic to ensure maximal tolerance. For GERD management, omeprazole initiation and lifestyle alterations involving dietary habits and positional strategies are in place: Addressing dyslipidemia targeted triglyceride reduction through lifestyle changes, acknowledging controlled LDL levels. The comorbidities, including chronic kidney disease and hypertension, maintain consistent monitoring, while thyroid function aberrations prompt forthcoming reassessment. To delineate etiology in urinary symptoms, urological investigations including ultrasound and urinalysis are prepared. Reinforcing preventative guidelines focuses on dietary and lifestyle review with periodic specialist consultation and continued adherence to recomm ended vaccination protocols. Patient was informed and verbally consented to the use of an ambient scribe for clinic note documentation during this visit. Discussion Notes Today, I reviewed the elevated HbA1c and discussed the potential addition of an SGLT2 inhibitor alongside his current regimen of Ozempic for its multifaceted benefits on glycemic control, renal protection, and weight management. I addressed his concerns about side effects, emphasizing the evidence supporting its favorable profile and agreeing to collaborate with endocrinology for comprehensive evaluation. I provided guidance on managing GERD exacerbated by Ozempic, suggesting adequate dietary modifications and the use of omeprazole for symptom relief. I reiterated the importance of dietary control in managing hyperlipidemia, notably triglycerides, in consultation with his lipid panel results. In relation to his urinary symptoms, I arranged for an ultrasound to assess prostatic involvement. My dialogue extended to health maintenance measures: vaccination status, screening recommendations, and support for addressing challenges in meal preparation due to visual changes, extending the notion of possibly enlisting external supportive services. I underscored the need for maintaining scheduled follow-ups to adaptively refine treatment plans aligned with ongoing clinical developments. Patient Instructions - Continue your current diabetes medication regimen and monitor blood sugar levels regularly. - Start taking omeprazole once a day to help with acid reflux; avoid spicy and acidic foods, and elevate the head of your bed when sleeping. - Maintain a low-potassium diet as advised by nephrology. - Schedule the ultrasound for your urinary symptoms and continue monitoring kidney function. - Follow up with endocrinology regarding potential thyroid intervention and SGLT2 inhibitor initiation. - Engage with available [facility]-supported services for nutritional assistance. - Make sure to get routine blood work as recommended to monitor your thyroid and cholesterol. - Stay up to date with special appointment schedules, including ophthalmology and podiatry. - Seek help if you experience new or worsening symptoms. Orders: Orders Comprehensive Met. Panel 3 Months N18.32 - Chronic kidney disease, stage 3b Free T4 (Free Thyroxine) 3 Months N18.32 - Chronic kidney disease, stage 3b Thyroid Stimulating Hormone 3 Months N18.32 - Chronic kidney disease, stage 3b IRON PROFILE 3 Months N18.32 - Chronic kidney disease, stage 3b Hemoglobin A1c 3 Months N18.32 - Chronic kidney disease, stage 3b Vitamin B12 and Folate 3 Months N18.32 - Chronic kidney disease, stage 3b UA CC w/rflx Micro + Cult 3 Months N39.41 - Urge incontinence, R30.0 - Dysuria US bladder Today N39.41 - Urge incontinence AMB Hemoglobin A1c Today E11.65 - Type 2 diabetes mellitus with hyperglycemia, E11.9 - Type 2 diabetes mellitus without complications, Z79.4 - assisted (current) use of insulin Complete Blood Count Auto Diff 3 Months N18.32 - Chronic kidney disease, stage 3b Reticulocyte Count 3 Months N18.32 - Chronic kidney disease, stage 3b Ferritin 3 Months N18.32 - Chronic kidney disease, stage 3b Medications: New omeprazole 20 mg PO DAILY 30 caps 0RF K21.9 - Gastro-esophageal reflux disease without esophagitis pen needle, diabetic (1st Tier Unifine Pentips Plus) As directed inject 4 x a day 1,200 ea 3RF E11.9 - Type 2 diabetes mellitus without complications, Z79.4 - assisted (current) use of insulin Discontinued semaglutide (Ozempic) Replaces semaglutide 0.5 mg weekly. Discontinued Reason: Doctor's Order 1 mg (0.75 mL) subcut QWEEK 3 mL 3RF
[2025-01-31 08:58] VITALS: BP 140/62; PULSE 75; TEMP 36.3; O2SAT 97; BMI 35.8
--- OUTSIDE RECORDS SUMMARY | 2025-01-31 09:17 | XMS_ITS | Clinical Summary ---
Author Organization [facility] Address [address] [phone] Phone Care Team Providers Care Criminal Lawyer Name Role Phone Brandt Vickers MD Primary Care Provider [phone] Allergies Active Allergy Reactions Criticality Noted Date Comments Metformin Other (see comments) 11/11/2023 Medications lovastatin (MEVACOR) 20 MG tablet Take 20 mg by mouth 1 (one) time each day 2 Active losartan (COZAAR) 100 MG tablet Take 50 mg by mouth 1 (one) time each day 2 Active Lantus SoloStar 100 UNIT/ML injection 34-40 units 2 Active insulin aspart (NovoLOG) 100 UNIT/ML patient supplied pump Inject under the skin continuously Active Dulaglutide (TRULICITY SC) Inject under the skin Active furosemide (LASIX) 20 MG tablet TAKE 1 TABLET (20 MG TOTAL) BY MOUTH ONE TIME EACH DAY 90 tablet 1 5 Active Dapagliflozin Propanediol 10 MG tablet Take 10 mg by mouth 1 (one) time each day in the morning 90 tablet 1 5 04/05/20 25 Active Active Problems Problem Noted Date Diagnosed Date Type 2 diabetes mellitus without complication Essential (primary) hypertension 07/09/2022 Hypercholesterolemia 07/09/2022 Stage 3a chronic kidney disease 07/09/2022 Stage 3b chronic kidney disease 07/09/2022 Type 2 diabetes mellitus wit h diabetic chronic kidney disease 07/09/2022 Renal osteodystrophy 07/09/2022 Encounters Date Type Department Care Team Description 01/05/2025 Office Communication [facility] [address] [place] [phone] Manuel Harris MD 01/04/2025 2:15 PM EDT Office Visit [facility] [address] [phone] Manuel Harris MD Stage 3b chronic kidney disease (HCC) (Primary Dx); Type 2 diabetes mellitus with diabetic chronic kidney disease (HCC); Renal osteodystrophy; Hyperkalemia from Last 3 Months Social History Tobacco [...] Sign Reading Time Taken Comments Blood Pressure 140/72 01/04/2025 2:13 PM EDT Pulse 79 01/04/2025 2:13 PM EDT Temperature - - Respiratory Rate - - Oxygen Saturation 98% 01/04/2025 2:13 PM EDT Inhaled Oxygen Concentration - - Weight 115 kg (253 lb) 01/04/2025 2:13 PM EDT Height - - Body Mass Index - - Plan of Treatment Upcoming Encounters Date Type Department Care Team (Late st Contact Info) Description 05/10/2025 2:00 PM EDT Office Visit [facility] [address] [phone] Manuel Harris MD [address] [phone] Health Maintenance Due Date Last Done Comments Pneumococcal Vaccine: 50+ Ye ars (1 of 2 - PCV) 1964 Diabetes: Hemoglobin A1C 07/09/2022 Diabetes: Ophthalmology Exam 07/09/2022 Diabetes: Pedal Pulse Checked 07/09/2022 Diabetes: Sensory Foot Exam 07/09/2022 Diabetes: Visual Foot Exam 07/09/2022 Influenza Vaccine (Season Ended) 2025 06/02/20 Hepatitis B Vaccine Aged Out No longe r eligible based on patient's age to complete this topic Insurance Medicare [place] Care Teams Criminal Lawyer Relationship Specialty Start Date End Date Brandt Vickers MD [facility] [place] [address] [place] PCP - General Internal Medicine 04/16/22
== END 2025-01-31 09:47 | disposition home or self-care (01) ==
LOC: HO.HMCH 08:54
PROVIDERS: PCP Internal Medicine; Visit Provider Internal Medicine
DX: E11.3553 Type 2 diabetes mellitus with stable proliferative diabetic retinopathy, bilateral (principal); E11.65 Type 2 diabetes mellitus with hyperglycemia; Z79.4 Long term (current) use of insulin; N18.32 Chronic kidney disease, stage 3b; K21.9 Gastro-esophageal reflux disease without esophagitis; I10 Essential (primary) hypertension; E78.00 Pure hypercholesterolemia, unspecified; E66.9 Obesity, unspecified; N39.41 Urge incontinence

== ENCOUNTER → 2025-01-31 08:53 | Outpatient (BNVA) | payer MEDICARE, MEDICAID, SELFPAY | PROVIDERS: PCP Internal Medicine; Visit Provider Internal Medicine | DX: I12.9 Hypertensive chronic kidney disease with stage 1 through stage 4 chronic kidney disease, or unspecified chronic kidney disease (principal); E11.22 Type 2 diabetes mellitus with diabetic chronic kidney disease; N18.32 Chronic kidney disease, stage 3b; E11.3553 Type 2 diabetes mellitus with stable proliferative diabetic retinopathy, bilateral; E78.00 Pure hypercholesterolemia, unspecified; N39.41 Urge incontinence; E66.9 Obesity, unspecified; K21.9 Gastro-esophageal reflux disease without esophagitis; Z79.4 Long term (current) use of insulin | CPT/HCPCS: 83036; 99212 ==

== ENCOUNTER 2025-02-07 12:25 | Outpatient (REF) | payer MEDICARE, MEDICAID, SELFPAY ==
[2025-02-07 14:11] LABS: Alanine Aminotransferase 13 U/L (0-40); Alkaline Phosphatase 72 U/L (39-117); Anion Gap 12 (12-20); Aspartate Amino Transferase 14 U/L (5-37); Bilirubin Total 0.3 mg/dL (0.0-1.0); Blood Urea Nitrogen 36 mg/dL (9-16); Calcium 8.8 mg/dL (8.4-10.2); Carbon Dioxide 24 mmol/L (22-29); Chloride 106 mmol/L (96-108); Estimated Glomerular Filt Rate 37; Glucose Random 329 mg/dL (60-115); Potassium 4.8 mmol/L (3.3-5.1); Sodium 137 mmol/L (135-145); Total Protein 7.4 g/dL (6.5-8.0)
--- OUTSIDE RECORDS SUMMARY | 2025-02-07 14:17 | XMS_ITS | Clinical Summary ---
Author Organization [facility] Address [address] [phone] Phone Care Team Providers Care Fabric Designer Name Role Phone Brandt Vickers MD Primary Care Provider [phone] Allergies Active Allergy Reactions Criticality Noted Date [...] Office Communication [facility] [address] [place] [phone] Manuel Harris MD 01/04/2025 2:15 PM EDT Office Visit [facility] [address] [phone] Manuel Harris MD Stage 3b chronic kidney [...] Office Visit [facility] [address] [phone] Manuel Harris MD [address] [phone] Health Maintenance Due Date Last [...] topic Insurance Medicare [place] Care Teams Fabric Designer Relationship Specialty Start Date End Date Brandt Vickers MD [facility] [place] [address] [place] PCP - General Internal Medicine 04/16/22
== END 2025-02-07 12:26 | disposition home or self-care (01) ==
LOC: HO.LAB 12:25
PROVIDERS: PCP Internal Medicine; Visit Provider Internal Medicine
DX: E11.9 Type 2 diabetes mellitus without complications (principal); Z79.4 Long term (current) use of insulin
CPT/HCPCS: 36415; 80053

== ENCOUNTER 2025-02-16 09:21 | Outpatient (AMB) | payer MEDICARE, MEDICAID, SELFPAY ==
--- NOTE | 2025-02-16 09:23 | A.OFFVIS_ITS ---
Vital Signs 02/16/25 09:28 Height 5 ft 10 in Weight 252 lb 6.868 oz BMI 36.2 BP 122/62 Blood Pressure Location Lt brachial Position Sitting Pulse 60 Pulse Source Pulse Oximeter Pulse Oximetry (%) 98 Oxygen Delivery Method Room Air Intake Visit Reasons: DMT2 Follow-up Intake Note: Patient present today to follow up on Type 2 Diabetes Mellitus. Last Diabetic Eye exam: 03/17/2024 Last Podiatry Visit: 09/22/2024 Random Glucose: 159 mg/dl HgA1C: 10.7% 01/31/2025 Bright Cutter Required: No Accompanied by: Self / Same As Patient Allergies metformin Adverse Reaction (Severe, Verified 02/16/25 09:27) Diarrhea ozempic Adverse Reaction (Intermediate, Uncoded 02/16/25 09:27) vomiting HPI Comments Details: This is a 79 year old male with a pmhx of Type II diabetes with proliferative retinopathy, HLD, HTN, CKD stage IIIb and obesity presenting for diabetic management. Reviewed Active DSP 2 download High 84% Target 6% No hypoglycemia CGM active 59% Hyperglycemia throughout 24 hours which worsens during the day. Hemoglobin A1c 10.7% 01/31/2025 down from 12% 10/10/2024. Current medication regimen: Lantus 62 units at bedtime and NovoLog. If blood sugars under 100 no NovoLog 100-149 inject 4 units 150-199 8 units 200-249 12 units 250-299 14 units 300-349 16 units 350-399 18 units >400 call office and administer 20 units Past medications: Metformin discontinued due to diarrhea. Co-pay was too high with [employer] previously, but now he is on [employer]. Stopped Ozempic due to acid reflux, indigestion and then had vomiting. Barriers to Treatment: Patient is legally blind and has financial constraints. Hypoglycemia symptoms: None. He keeps orange juice and glucose tablets on hand to treat hypoglycemia. Hyperglycemia symptoms: polydipsia Eye exam: UTD and receives intravitreal injections every 8 weeks Podiatry visit: [facility]. Complications: neuropathy, nephropathy (Dr. Harris), retinopathy Hypertension: treated with losartan 100 mg. He is also on furosemide 20 mg. Hyperlipidemia: treated with lovastatin 20 mg. ROS: Constitutional: No fevers or chills. Respiratory: No shortness of breath Cardiovascular: No chest pain, palpitations or lower extremity edema. Gastrointestinal: No anorexia, nausea, vomiting or diarrhea. No abdominal pain Skin: No open wounds Endocrine: No cold or heat intolerance. No polyuria Physical exam: Constitutional: Alert, in no distress. Neck: Supple, Full range of motion. No lymphadenopathy. No palpable thyroid masses. Respiratory: Clear to auscultation. Cardiovascular: S1 S2 regular. No murmurs. Extremities: Warm and well perfused. No edema. [facility] Medical History (Updated 01/31/25 @ 09:40 by Brandt Vickers MD) Hyperkalemia 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 Brother Diabetes Sister No problems noted. Daughter No problems noted. Social History Housing: Other Alcohol intake: current Patient Tobacco Use Status: Former Tobacco user Tobacco use type: Cigarette Years Smoked: quit 1979 e-Cigarette/Vaping Use: Never Used Second Hand Smoke Exposure: Yes service: No Current occupational status: retired Cognitive needs: No Hearing needs: No Vision needs: Yes Physical Exam Vital Signs: Last Vital Signs Pulse 60 02/16/25 09:28 BP 122/62 02/16/25 09:28 Pulse Ox 98 02/16/25 09:28 Oxygen Delivery Method Room Air 02/16/25 09:28 BMI result Body Mass Index 36.2 Results Reviewed Results Reviewed: Laboratory Last Values Glucose (Clinic) 159 mg/dL (60-115) H 02/16/25 09:32 Laboratory Tests 11/03/23 11/03/23 11/07/24 10:10 10:24 09:05 Creatinine 1.82 H Estimated GFR 36 Hgb A1c (Clinic) AST ALT Triglycerides 203 H 355 H Cholesterol 155 152 LDL Cholesterol, Calc 89 54 HDL Cholesterol 26 L 27 L Urine Creatinine 97.07 Urine Microalbumin 38.0 Microalb/Creat Ratio 39.1 H 06/11/25 06/18/25 08:56 12:50 Creatinine 1.78 H Estimated GFR 37 Hgb A1c (Clinic) 10.7 H AST 14 ALT 13 Triglycerides Cholesterol LDL Cholesterol, Calc HDL Cholesterol Urine Creatinine Urine Microalbumin Microalb/Creat Ratio Assessment & Plan Assessment & Plan (1) Type 2 diabetes mellitus with hyperglycemia: Comment: [facility] Code(s): E11.65 - Type 2 diabetes mellitus with hyperglycemia Category: Medical Qualifiers: Diabetes mellitus group home insulin use: with longwall shearer operator use Qualified Code(s): E11.65 - Type 2 diabetes mellitus with hyperglycemia; Z79.4 - correction (current) use of insulin (2) CKD stage 3b, GFR 30-44 ml/min: Code(s): N18.32 - Chronic kidney disease, stage 3b Category: Medical (3) Proliferative retinopathy due to DM: Code(s): E11.3599 - Type 2 diabetes mellitus with proliferative diabetic retinopathy without macular edema, unspecified eye Category: Medical Qualifiers: Diabetes mellitus type: type 2 Proliferative retinopathy type: stable Laterality: bilateral Qualified Code(s): E11.3553 - Type 2 diabetes mellitus with stable proliferative diabetic retinopathy, bilateral Plan In summary this is a 79-year-old male with uncontrolled type 2 diabetes with complications. Patient is using magnifiers now to administer medications. Adjusted medications as follows: Stop Lantus 62 units and start Tresiba 66 units at bedtime. Start Trulicity 0.75 mg once weekly. Monitored for GI side effects. Novolog sliding scale If blood sugars under 100 no NovoLog 100-149 inject 4 units 150-199 8 units 200-249 12 units 250-299 14 units 300-349 16 units 350-399 18 units >400 call office and administer 20 units I enlarged medication instructions and printed them for the patient. We reviewed treatment of hypo and hyperglycemia. He has glucose tablets. Written instructions provided. Patient declines referral to certified adaptive physical educator and dietitian. Due to Oscar 2 being discontinued in the patient on basal bolus insulin regimen it is medically necessary to prescribed Oscar 3 plus. Follow-up in 4 weeks for diabetes. Medications: New blood-glucose,endodontist,cont (FreeStyle Oscar 3 [place]) Use daily to monitor blood glucose levels continuously. 1 ea 0RF Tresiba FlexTouch U-200 (insulin degludec) replaces Lantus 66 units (0.33 mL) subcut BEDTIME 9 mL 5RF NS blood-glucose sensor (FreeStyle Oscar 3 Plus Sensor device) Apply 1 new sensor every 15 days as directed to monitor blood glucose continuously. 2 ea 11RF dulaglutide (Trulicity) 0.75 mg (0.5 mL) subcut QWEEK 1 mL 1RF Discontinued flash glucose scanning reader (FreeStyle Oscar 2 [place]) Discontinued Reason: Doctor's Order As directed checked the blood sugar 3 times a day, patient is on 4 shots a day of insulin 1 ea 0RF E11.65 - Type 2 diabetes mellitus with hyperglycemia flash glucose sensor (FreeStyle Oscar 2 Sensor kit) Discontinued Reason: Doctor's Order As directed check the blood sugars 4 times a day 6 kits 11RF E11.65 - Type 2 diabetes mellitus with hyperglycemia Patient Instructions: Stop Lantus 62 units and start Tresiba 66 units at bedtime. Start Trulicity 0.75 mg once weekly. Novolog sliding scale If blood sugars under 100 no NovoLog 100-149 inject 4 units 150-199 8 units 200-249 12 units 250-299 14 units 300-349 16 units 350-399 18 units >400 call office and administer 20 units If you experience low blood sugar (under 70), treat this by eating a chewable fruit candy like skittles or jelly beans (about 8 pieces), 4 ounces (1/2 cup) of fruit juice (not diet), 1 tablespoon of honey or 4 glucose tablets. If your blood sugar is under 55, take double the amount of one of the above. Recheck your blood sugar in 15 minutes. Coding Level of Care Code Est Pt Level 4 (23901) Complex EM visit Add On G2211 Diagnoses Type 2 diabetes mellitus with hyperglycemia, with long-term current use of insulin E11.65; Z79.4 Diabetes mellitus longwall shearer operator insulin use: with longwall shearer operator use CKD stage 3b, GFR 30-44 ml/min N18.32 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 associated with type 2 diabetes mellitus E11.3553 Diabetes mellitus type: type 2 Proliferative retinopathy type: stable Laterality: bilateral
[2025-02-16 09:28] VITALS: BP 122/62; PULSE 60; O2SAT 98; BMI 36.2
[2025-02-16 09:36] LABS: Glucose, Whole Blood 159 mg/dL (60-115)
--- OUTSIDE RECORDS SUMMARY | 2025-02-16 09:43 | XMS_ITS | Clinical Summary ---
Author Organization [facility] Address [address] [phone] Phone Care Team Providers Care Pupil Personnel Services Director Name Role Phone Brandt Vickers MD Primary Care Provider [phone] Allergies Active Allergy Reactions Criticality Noted Date [...] Office Communication [facility] [address] [place] [phone] Manuel Harris MD 01/04/2025 2:15 PM EDT Office Visit [facility] [address] [phone] Manuel Harris MD Stage 3b chronic kidney [...] Office Visit [facility] [address] [phone] Manuel Harris MD [address] [phone] Health Maintenance Due Date Last [...] topic Insurance Medicare [place] Care Teams Pupil Personnel Services Director Relationship Specialty Start Date End Date Brandt Vickers MD [facility] MD [address] [place] PCP - General Internal Medicine 04/16/22
== END 2025-02-16 10:22 | disposition home or self-care (01) ==
LOC: HO.ENCR 09:22
PROVIDERS: PCP Internal Medicine; Visit Provider Physician Assistant Medical
DX: E11.65 Type 2 diabetes mellitus with hyperglycemia (principal); Z79.4 Long term (current) use of insulin; N18.32 Chronic kidney disease, stage 3b; E11.3553 Type 2 diabetes mellitus with stable proliferative diabetic retinopathy, bilateral

== ENCOUNTER → 2025-02-16 09:21 | Outpatient (BNVA) | payer MEDICARE, MEDICAID, SELFPAY | PROVIDERS: PCP Internal Medicine; Visit Provider Physician Assistant Medical | DX: E11.65 Type 2 diabetes mellitus with hyperglycemia (principal); E11.3553 Type 2 diabetes mellitus with stable proliferative diabetic retinopathy, bilateral; E11.22 Type 2 diabetes mellitus with diabetic chronic kidney disease; N18.32 Chronic kidney disease, stage 3b; Z79.4 Long term (current) use of insulin | CPT/HCPCS: 82947; 99212 ==

== ENCOUNTER 2025-03-12 11:13 | Outpatient (REF) | payer MEDICARE, MEDICAID, SELFPAY ==
--- OUTSIDE RECORDS SUMMARY | 2024-12-26 05:00 | XMS_ITS ---
Author Organization [facility] Address [address] [place] [address] Care Team Providers Care Middleware Solutions Architect Name Role Phone Brandt Vickers Primary Care Provider Jamel Lundy [phone] Allergies Allergen (clinical drug ingredient) Drug/Non Drug [...] Active Encounters Encounter Location Date Provider Diagnosis [facility] [address] [place] [address] 12/26/2024 Jamel Briseno Plan Of Treatment No Information Progress Notes * Sammy GHOSH EDOB:1945 (79 yo M)Acc No.[id number]:12/26/2024 Progress Note Patient: Sammy SWANSON Provider: Kwame Briseno DPM :1945 A ge:79 Y S ex:Male Date:12/26/2024 [facility] Pcp:Brandt Vickers Subjective: * Chief Complaints: * [...] DPM Date: 0 12/26/2024 Generated for Natty hdz/Gisele/Luisransmitting on: 0 03/12/2025 12:23 PM EDT
--- NOTE | ~2025-03-12 | US_ITS ---
CLINICAL HISTORY: N39.41 - Urge incontinence --- Additional Notes or Special Instructions: pre and post void US Urinary Bladder Comparison: None Findings: The urinary bladder is unremarkable. Prevoid volume: 202 mLPostvoid volume: 54 mL Ureteral jets are visualized bilaterally. The prostate gland measures 3.5 x 3.1 x 3.0 cm IMPRESSION: Mild postvoid residual within the urinary bladder. This document has been electronically signed by: Lilliana Solano MD on 03/13/2025 16:12:15
--- OUTSIDE RECORDS SUMMARY | 2025-03-12 12:23 | XMS_ITS | Clinical Summary ---
Author Organization [facility] Address [address] [address] Phone Care Team Providers Care Child Development Assistant Name Role Phone Brandt Vickers MD Primary Care Provider [phone] Allergies Active Allergy Reactions Criticality Noted Date [...] Office Communication [facility] [address] [place] [phone] Manuel Harris MD 01/04/2025 2:15 PM EDT Office Visit [facility] [address] [phone] Manuel Harris MD Stage 3b chronic kidney [...] Office Visit [facility] [address] [phone] Manuel Harris MD [address] [phone] Health Maintenance Due Date Last Done Comments Pneumococcal Vaccine: 50+ Ye ars (1 of 2 - PCV) 1964 Diabetes: Hemoglobin A1C 07/09/2022 Diabetes: Ophthalmology Exam 07/09/2022 Diabetes: Pedal Pulse Checked 07/09/2022 Diabetes: Sensory Foot Exam 07/09/2022 Diabetes: Visual Foot Exam 07/09/2022 Influenza Vaccine (#1) 2025 06/02/2022 Hepatitis B Vaccine Aged Out No longe r eligible based on patient's age to complete this topic Insurance Medicare [place] Care Teams Child Development Assistant Relationship Specialty Start Date End Date Brandt Vickers MD [facility] MS [address] [place] PCP - General Internal Medicine 04/16/22
--- OUTSIDE RECORDS SUMMARY | 2025-03-12 12:24 | XMS_ITS | Clinical Summary ---
Author Organization [facility] Address [address] [place] [address] Phone Care Team Providers Care Shaper Operator Name Role Phone Brandt Vickers MD Primary Care Provider [phone] Social History Tobacco Use Types Packs/Day Years Used Date Smoking Tobacco: Never Assessed Education Answer Date Recorded Are you interested in more education? Not on west e 12/19/2022 Are you concerned about learning? Not on file 12/19/2022 No 12/19/2022 No 12/19/2022 Digital Access Answer Date Recorded No 01/19/2023 No 01/19/2023 Reliable internet access at home? Not on file 01/19/2023 Device with a working camera? Not on file Sex and Gender Information Value Date Recorded Sex Assigned at Not on file Legal Sex Male 10:16 AM EDT Gender Identity Not on file Sexual Orientation Not on file Plan of Treatment Not on file Medical Devices Not on file Insurance [address] [address] [facility] MEDICARE REPLACEMENT [address] [address] [facility] MEDIC[facility] REPLACEMENT [address] [place] [address] [facility] MEDICARE REPLACEMENT [address] [place] [address] [facility] MEDICARE REPLACEMENT [address] [address] [facility] MEDICARE REPLACEMENT [address] [place] [address] [facility] P[facility] VALUE MEDICARE REPLACEMENT Care Teams Shaper Operator Relationship Specialty Start Date End Date Brandt Vickers MD [address] [place] [id number] PCP - General Internal Medicine 12/08/22 Additional Source Comments The information contained in this document represents components of the legal health record. It is not the complete legal health record.[facility]
== END 2025-03-12 11:14 | disposition home or self-care (01) ==
LOC: HO.HMGCX 11:13
PROVIDERS: PCP Internal Medicine; Visit Provider Internal Medicine
DX: N39.41 Urge incontinence (principal)
CPT/HCPCS: 76857

== ENCOUNTER → 2025-03-12 11:30 | Outpatient (BNV) | payer MEDICARE, MEDICAID, SELFPAY | PROVIDERS: PCP Internal Medicine; Visit Provider Radiology Diagnostic Radiology | DX: N39.41 Urge incontinence (principal) | CPT/HCPCS: 76857 ==

== ENCOUNTER 2025-03-20 08:20 | Outpatient (AMB) | payer MEDICARE, MEDICAID, SELFPAY ==
--- OUTSIDE RECORDS SUMMARY | 2024-12-26 05:00 | XMS_ITS ---
Author Organization [facility] Address [address] [place] [address] Care Team Providers Care Architectural Superintendent Name Role Phone Brandt Vickers Primary Care Provider Jamel Lundy [phone] Allergies Allergen (clinical drug ingredient) Drug/Non Drug [...] Active Encounters Encounter Location Date Provider Diagnosis [facility] [address] [place] [address] 12/26/2024 Jamel Briseno Plan Of Treatment No Information Progress Notes * Sammy GHOSH EDOB:1945 (79 yo M)Acc No.[id number]:12/26/2024 Progress Note Patient: Sammy SWANSON Provider: Kwame Briseno DPM :1945 A ge:79 Y S ex:Male Date:12/26/2024 [facility] Pcp:Brandt Vickers Subjective: * Chief Complaints: * [...] 0 12/26/2024 Generated for Natty hdz/Gisele/eTransmitting on: 0 03/20/2025 08:29 AM EDT
[2025-03-20 08:22] VITALS: BP 124/80; PULSE 65; O2SAT 96; BMI 36.1
--- NOTE | 2025-03-20 08:22 | A.OFFVIS_ITS ---
Vital Signs 03/20/25 08:22 Height 5 ft 10 in Weight 251 lb 5.231 oz BMI 36.1 BP 124/80 Blood Pressure Location Rt brachial Position Sitting Pulse 65 Pulse Source Pulse Oximeter Pulse Oximetry (%) 96 Oxygen Delivery Method Room Air Intake Visit Reasons: DMT2 Follow-up Intake Note: Patient present today to follow up on Type 2 Diabetes Mellitus. Last Diabetic Eye exam: Patient stated around January 30, 2025, has a coming up appt tomorrow. Last Podiatry Visit: 09/22/2024 Random Glucose: 358 mg/dL Most Recent HgA1C: 10.7% 01/31/2025 Configuration Specialist Required: No Accompanied by: Self / Same As Patient Allergies metformin Adverse Reaction (Severe, Verified 03/20/25 08:23) Diarrhea ozempic Adverse Reaction (Intermediate, Uncoded 03/20/25 08:23) vomiting Medication List - Last Reconciled 03/20/25 by ANTONIETTA Rodas alcohol swabs (Alcohol Pads) 1 pad topical QID blood sugar diagnostic (OneTouch Verio test strips) Use as directed to check bl ood glucose 3 times daily. blood-glucose meter (OneTouch Verio Flex Meter) Use as directed to check blood glucose 3 times daily for Type II diabetes mellitus. blood-glucose sensor (FreeStyle Oscar 3 Plus Sensor device) Apply 1 new sensor every 15 days as directed to monitor blood glucose continuously. blood-glucose,cosmetology educator,cont (FreeStyle Oscar 3 [place]) Use daily to monitor blood glucose levels continuously. dulaglutide (Trulicity) 1.5 mg (0.5 mL) subcut QWEEK folic acid 1 mg PO DAILY furosemide 20 mg PO DAILY glucose (Dex4 Glucose) 16 grams (4 x 4 gram) PO Q15M PRN insulin aspart U-100 (Novolog FlexPen U-100 Insulin aspart) 4 - 22 units subcut TID insulin degludec (Tresiba FlexTouch U-200 insulin) 72 units subcut BEDTIME lancets (OneTouch Delica Plus Lancet) Use as directed to check blood glucose 3 times daily losartan 100 mg PO DAILY 90 days omeprazole 20 mg PO DAILY pen needle, diabetic (1st Tier Unifine Pentips Plus) As directed inject 4 x a day rosuvastatin 20 mg PO BEDTIME HPI Comments Details: This is a 79 year old male with a pmhx of Type II diabetes with proliferative retinopathy, HLD, HTN, CKD stage IIIb and obesity presenting for diabetic management. Reviewed Oscar to data from March 07 to March 20 CGM active 77% Average glucose 285 GMI 10.1% Very high 64% High 27% Target range 9% Low 0% He has hyperglycemia throughout 24 hours. Hemoglobin A1c 10.7% 01/31/2025 down from 12% 10/10/2024. POC is high today. He had a piece of right toes and a dog handler or trainer before the appointment. He thinks he administered 12 units of NovoLog around 06:00 this morning. Eats a dog handler or trainer every day. Denies symptoms related to hyperglycemia. Current medication regimen: Trulicity 0.75 mg, Tresiba 66 units at bedtime and NovoLog. Denies side effects with the addition of Trulicity. If blood sugars under 100 no NovoLog 100-149 inject 4 units 150-199 8 units 200-249 12 units 250-299 14 units 300-349 16 units 350-399 18 units >400 call office and administer 20 units Past medications: Metformin discontinued due to diarrhea. Co-pay was too high with [employer] previously, but now he is on [employer]. Stopped Ozempic due to acid reflux, indigestion and then had vomiting. Lantus switch to Tresiba. Barriers to Treatment: Patient is legally blind and has financial constraints. Hypoglycemia symptoms: None. He keeps orange juice and glucose tablets on hand to treat hypoglycemia. Hyperglycemia symptoms: Polydipsia Eye exam: UTD and receives intravitreal injections every 8 weeks Podiatry visit: [facility]. Complications: neuropathy, nephropathy (Dr. Harris), retinopathy Hypertension: treated with losartan 100 mg. He is also on furosemide 20 mg. Hyperlipidemia: treated with lovastatin 20 mg. ROS: Constitutional: No fevers or chills. Respiratory: No shortness of breath Cardiovascular: No chest pain, palpitations or lower extremity edema. Gastrointestinal: No anorexia, nausea, vomiting or diarrhea. No abdominal pain Skin: No open wounds Endocrine: No cold or heat intolerance. No polyuria Physical exam: Constitutional: Alert, in no distress. Neck: Supple, Full range of motion. No lymphadenopathy. No palpable thyroid masses. Respiratory: Clear to auscultation. Cardiovascular: S1 S2 regular. No murmurs. Extremities: Warm and well perfused. No edema. [facility] Medical History Hyperkalemia 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 Brother Diabetes Sister No problems noted. Daughter No problems noted. Social History Housing: Other Alcohol intake: current Patient Tobacco Use Status: Former Tobacco user Tobacco use type: Cigarette Years Smoked: quit 1979 e-Cigarette/Vaping Use: Never Used Second Hand Smoke Exposure: Yes service: No Current occupational status: retired Cognitive needs: No Hearing needs: No Vision needs: Yes Physical Exam Vital Signs: Last Vital Signs Pulse 65 03/20/25 08:22 BP 124/80 03/20/25 08:22 Pulse Ox 96 03/20/25 08:22 Oxygen Delivery Method Room Air 03/20/25 08:22 BMI result Body Mass Index 36.1 Office Procedures Glucose Monitoring Details Details: See [facility] [address] - Glucose monitoring, continuous-physician I&R Procedure code (CPT) selection complete Results Reviewed Results Reviewed: Laboratory Tests 11/03/23 11/03/23 11/07/24 10:10 10:24 09:05 Creatinine 1.82 H Estimated GFR 36 Hgb A1c (Clinic) AST ALT Triglycerides 203 H 355 H Cholesterol 155 152 LDL Cholesterol, Calc 89 54 HDL Cholesterol 26 L 27 L Urine Creatinine 97.07 Urine Microalbumin 38.0 Microalb/Creat Ratio 39.1 H 01/31/25 02/07/25 08:56 12:50 Creatinine 1.78 H Estimated GFR 37 Hgb A1c (Clinic) 10.7 H AST 14 ALT 13 Triglycerides Cholesterol LDL Cholesterol, Calc HDL Cholesterol Urine Creatinine Urine Microalbumin Microalb/Creat Ratio Assessment & Plan Assessment & Plan (1) Type 2 diabetes mellitus with hyperglycemia: Comment: [facility] Code(s): E11.65 - Type 2 diabetes mellitus with hyperglycemia Category: Medical Qualifiers: Diabetes mellitus group home insulin use: with group home use Qualified Code(s): E11.65 - Type 2 diabetes mellitus with hyperglycemia; Z79.4 - terminal operator (current) use of insulin (2) CKD stage 3b, GFR 30-44 ml/min: Code(s): N18.32 - Chronic kidney disease, stage 3b Category: Medical (3) Proliferative retinopathy due to DM: Code(s): E11.3599 - Type 2 diabetes mellitus with proliferative diabetic retinopathy without macular edema, unspecified eye Category: Medical Qualifiers: Diabetes mellitus type: type 2 Laterality: bilateral Proliferative retinopathy type: stable Qualified Code(s): E11.3553 - Type 2 diabetes mellitus with stable proliferative diabetic retinopathy, bilateral Plan In summary this is a 79-year-old male with uncontrolled type 2 diabetes with complications. Patient is using magnifiers to administer medications. We reviewed a diabetic diet. Patient says he will stop having devil dogs. Recommended consult with in service educator and dietitian, but he declined. Adjusted medications as follows: Increase Tresiba to 72 units at bedtime. Increase Trulicity 1.5 mg once weekly. Monitor for GI side effects. Novolog sliding scale If blood sugars under 100 no NovoLog 100-149 inject 4 units 150-199 8 units 200-249 14 units 250-299 16 units 300-349 18 units 350-399 20 units >400 call office and administer 22 units I enlarged medication instructions and printed them for the patient. We reviewed treatment of hypo and hyperglycemia. He has glucose tablets. Due to Oscar 2 being discontinued in the patient on basal bolus insulin regimen it is medically necessary to advance to Oscar 3 plus. Message sent to process PA. Follow-up in 4 weeks for diabetes. Orders: Orders AMB Glucose Monitoring Today E11.9 - Type 2 diabetes mellitus without complications Medications: New dulaglutide (Trulicity) 1.5 mg (0.5 mL) subcut QWEEK 2 mL 1RF Changed From insulin degludec (Tresiba FlexTouch U-200 insulin) replaces Lantus 72 units subcut BEDTIME To insulin degludec (Tresiba FlexTouch U-200 insulin) replaces Lantus 72 units subcut BEDTIME Discontinued dulaglutide (Trulicity) Discontinued Reason: Doctor's Order 0.75 mg (0.5 mL) subcut QWEEK 1 mL 1RF Patient Instructions: Increase Tresiba to 72 units at bedtime. Increase Trulicity 1.5 mg once weekly. Monitored for GI side effects. Novolog sliding scale If blood sugars under 100 no NovoLog 100-149 inject 4 units 150-199 8 units 200-249 14 units 250-299 16 units 300-349 18 units 350-399 20 units >400 call office and administer 22 units Coding Level of Care Code Est Pt Level 4 (50882) Diagnoses Type 2 diabetes mellitus with hyperglycemia, with long-term current use of insulin E11.65; Z79.4 Diabetes mellitus group home insulin use: with group home use CKD stage 3b, GFR 30-44 ml/min N18.32 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 associated with type 2 diabetes mellitus E11.3553 Diabetes mellitus type: type 2 Laterality: bilateral Proliferative retinopathy type: stable CPT Codes Details - CPT: 71320 - Glucose monitoring, continuous-physician I&R ([id number])
--- OUTSIDE RECORDS SUMMARY | 2025-03-20 08:29 | XMS_ITS | Clinical Summary ---
Author Organization [facility] Address [address] [address] Phone Care Team Providers Care Pace Analyst Name Role Phone Brandt Vickers MD Primary Care Provider [phone] Allergies Active Allergy Reactions Criticality Noted Date [...] Office Communication [facility] [address] [place] [phone] Manuel Harris MD 01/04/2025 2:15 PM EDT [facility] Visit [facility] [address] [phone] Manuel Harris MD Stage 3b chronic kidney [...] [facility] Visit [facility] [address] [phone] Manuel Harris MD [address] [phone] Health Maintenance Due Date Last [...] topic Insurance Medicare [place] Care Teams Pace Analyst Relationship Specialty Start Date End Date Brandt Vickers MD [facility] [place] [address] [place] PCP - General Internal Medicine 04/16/22
--- OUTSIDE RECORDS SUMMARY | 2025-03-20 08:29 | XMS_ITS | Clinical Summary ---
Author Organization [facility] Address [address] [place] [address] Phone Care Team Providers Care Health Care Marketing Specialist Name Role Phone Brandt Vickers MD Primary Care Provider [phone] Social History Tobacco Use Types Packs/Day Years [...] on file Insurance [address] [place] [address] [facility] PREF [facility] MEDICARE REPLACEMENT [address] [place] [address] [facility] MEDICARE REPLACEMENT 9 [place] [address] [facility] VALUE MEDIC[facility] REPLACEMENT 9 [place] [address] [facility] MEDICARE REPLACEMENT 9 [place] [address] [facility] PREF VALUE MEDICARE REPLACEMENT 9 [place] [address] [facility] PREF VALUE MEDICARE REPLACEMENT Care Teams Health Care Marketing Specialist Relationship Specialty Start Date End Date Brandt Vickers MD [address] [place] [id number] PCP - General Internal Medicine 12/08/22 Additional Source Comments The information contained in this document represents components of the legal health record. It is not the complete legal health record.[facility]
[2025-03-20 08:34] LABS: Glucose, Whole Blood 358 mg/dL (60-115)
== END 2025-03-20 08:52 | disposition home or self-care (01) ==
PROVIDERS: PCP Internal Medicine; Visit Provider Physician Assistant Medical
DX: E11.65 Type 2 diabetes mellitus with hyperglycemia (principal); Z79.4 Long term (current) use of insulin; N18.32 Chronic kidney disease, stage 3b; E11.3553 Type 2 diabetes mellitus with stable proliferative diabetic retinopathy, bilateral

== ENCOUNTER → 2025-03-20 08:20 | Outpatient (BNVA) | payer MEDICARE, MEDICAID, SELFPAY | PROVIDERS: PCP Internal Medicine; Visit Provider Physician Assistant Medical | DX: E11.65 Type 2 diabetes mellitus with hyperglycemia (principal); E11.3553 Type 2 diabetes mellitus with stable proliferative diabetic retinopathy, bilateral; E11.22 Type 2 diabetes mellitus with diabetic chronic kidney disease; N18.32 Chronic kidney disease, stage 3b; E11.21 Type 2 diabetes mellitus with diabetic nephropathy; E11.40 Type 2 diabetes mellitus with diabetic neuropathy, unspecified; Z79.4 Long term (current) use of insulin | CPT/HCPCS: 82947; 99212 ==

== ENCOUNTER 2025-04-17 08:49 | Outpatient (AMB) | payer MEDICARE, MEDICAID, SELFPAY ==
--- OUTSIDE RECORDS SUMMARY | 2024-12-26 05:00 | XMS_ITS ---
Author Organization [facility] Address [address] [place] [address] Care Team Providers Care Founder / Ceo Name Role Phone Brandt Vickers Primary Care Provider Jamel Lundy [phone] Allergies Allergen (clinical drug ingredient) Drug/Non Drug Allergy documented on EMR Reaction Allergy Type Onset Date Status metformin Metformin hallucinations Drug Allergy Ac tive Medications Medication SIG (Take, Route, Frequency, Duration) Notes Start Date End Date Status Losartan Potassium 100 MG 1 tablet Orall y Once a day; Duration: 30 day(s) Active NovoLOG 100 UNIT/ML as directed Injection Active Lovastatin 20 MG 1 tablet with the ev ening meal Orally Once a day; Duration: 30 day(s) Active Extra Depth Orthopedic Shoes (1 Pair) with Customized Heat Molded Multidensity Innersoles (3 Pair) as directed Dx: NIDDM/Polyneuropathy (E11.42), Hammertoe Foot Deformity (M20.41,M20.42), Preulcerative Skin Lesion(s) (L85.1 10/15/2023 Active Ammonium Lactate 12 % 1 application Exte rnally Twice a day; Duration: 30 days Active Lantus 100 UNIT/ML as directed Subcutaneous Active Furosemide 20 MG Oral; Duration: 30 Active Ozempic Active Encounters Encounter Location Date Provider Diagnosis [facility] [address] [place] [address] 12/26/2024 Jamel Briseno Plan Of Treatment No Information Progress Notes * Sammy GHOSH EDOB:1945 (79 yo M)Acc No.[id number]:12/26/2024 Progress Note Patient: Sammy SWANSON Provider: Kwame Briseno DPM :1945 A ge:79 Y S ex:Male Date:12/26/2024 [facility] Pcp:Brandt Vickers Subjective: * Chief Complaints: * * Medical History: C ataracts, Covid-19, type II diabetes, Glaucoma, High blood pressure, Kidney disease, Numbness, Measles, Chicken pox, Retinopathy, CAD. * Medications: T aking Ozempic , Taking Furosemide 20 MG Tablet Oral , Taking Lantus 100 UNIT/ML Solution as directed Subcutaneous , Taking Losartan Potassium 100 MG Tablet 1 tablet Orally Once a day , Taking Lovastatin 20 MG Tablet 1 tablet with the evening meal Orally Once a day , Taking NovoLOG 100 UNIT/ML Solution as directed Injection , Taking Extra Depth Orthopedic Shoes (1 Pair) with Customized Heat Molded Multidensity Innersoles (3 Pair) as directed Dx: NIDDM/Polyneuropathy (E11.42), Hammertoe Foot Deformity (M20.41,M20.42), Preulcerative Skin Lesion(s) (L85.1 , Taking Ammonium Lactate 12 % Cream 1 application Externally Twice a day * Allergies: M etformin: hallucinations - Allergy. Objective: * Vitals: Assessment: Plan: * Treatment: * Images: * The named appointment provid er may or may not be the originator of this progress note, and it is not deemed complete until electronically signed by the appointment provider. Sign off status: Pending * Provider: Kwame Briseno DPM Date: 0 12/26/2024 Generated for Natty hdz/Gisele/Maikolsmitting on: 0 04/17/2025 09:07 AM EDT
--- NOTE | 2025-04-17 08:58 | A.OFFVIS_ITS ---
Vital Signs 04/17/25 09:02 Height 5 ft 10 in Weight 252 lb 10.396 oz BMI 36.2 BP 114/52 L Blood Pressure Location Lt brachial Position Sitting Pulse 51 Pulse Source Pulse Oximeter Pulse Oximetry (%) 99 Oxygen Delivery Method Room Air Intake Visit Reasons: DMT2 Follow-up Intake Note: Patient present today to follow up on Type 2 Diabetes Mellitus. Last Diabetic Eye exam: 03/21/2025, [facility] Last Podiatry Visit: 09/22/2024 Random Glucose: 166 mg/dL Most Recent HgA1C: 10.7% 01/31/2025 Biometric Technician Required: No Accompanied by: Self / Same As Patient Allergies metformin Adverse Reaction (Severe, Verified 04/17/25 09:02) Diarrhea ozempic Adverse Reaction (Intermediate, Uncoded 04/17/25 09:02) vomiting Medication List - Last Reconciled 04/17/25 by ANTONIETTA Rodas alcohol swabs (Alcohol Pads) 1 pad topical QID blood sugar diagnostic (HerokuTouch Verio test strips) Use as directed to check blood glucose 3 times daily. blood-glucose meter ([employer] Verio Flex Meter) Use as directed to check blood glucose 3 times daily for Type II diabetes mellitus. blood-glucose sensor (FreeStyle Oscar 3 Plus Sensor device) Apply 1 new sensor every 15 days as directed to monitor blood glucose continuously. blood-glucose,drafter detail,cont (FreeStyle Oscar 3 Hudson) Use daily to monitor blood glucose levels continuously. dulaglutide (Trulicity) 3 mg (0.5 mL) subcut QWEEK folic acid 1 mg PO DAILY furosemide 20 mg PO DAILY glucose (Dex4 Glucose) 16 grams (4 x 4 gram) PO Q15M PRN insulin aspart U-100 (Novolog FlexPen U-100 Insulin aspart) 6 - 24 units subcut TID insulin degludec (Tresiba FlexTouch U-200 insulin) 62 units subcut BEDTIME lancets (HerokuTouch Delica Plus Lancet) Use as directed to check blood glucose 3 times daily losartan 100 mg PO DAILY 90 days omeprazole 20 mg PO DAILY pen needle, diabetic (1st Tier Unifine Pentips Plus) As directed inject 4 x a day rosuvastatin 20 mg PO BEDTIME HPI Comments Details: This is a 79 year old male with a pmhx of Type II diabetes with proliferative retinopathy, HLD, HTN, CKD stage IIIb and obesity presenting for diabetic management. Reviewed Oscar 2 data (PA is being processed for the 3+) Average glucose 238 GMI 9% Very high 42% High 33% Target range 25% Hypoglycemia 0% The patient has hyperglycemia during the day with improvement in blood sugar readings overnight but still some hyperglycemia nocturnally. Hemoglobin A1c 10.7% 01/31/2025 down from 12% 10/10/2024. Current medication regimen: Tresiba 72 units at bedtime. (He reduced to 62 units because of low sugars overnight. One low was 54.) Trulicity 1.5 mg once weekly. Novolog sliding scale If blood sugars under 100 no NovoLog 100-149 inject 4 units 150-199 8 units 200-249 14 units 250-299 16 units 300-349 18 units 350-399 20 units >400 call office and administer 22 units Past medications: Metformin discontinued due to diarrhea. Stopped Ozempic due to acid reflux, indigestion and then had vomiting. Lantus switch to Tresiba. Barriers to Treatment: Patient is legally blind and has financial barriers. Hypoglycemia symptoms: Denies symptoms. He keeps orange juice and glucose tablets on hand to treat hypoglycemia. Hyperglycemia symptoms: Polydipsia Eye exam: UTD and receives intravitreal injections every 8 weeks Podiatry visit: [facility]. Complications: neuropathy, nephropathy (Dr. Harris), retinopathy Hypertension: treated with losartan 100 mg. He is also on furosemide 20 mg. Hyperlipidemia: treated with lovastatin 20 mg. ROS: Constitutional: No fevers or chills. Respiratory: No shortness of breath Cardiovascular: No chest pain, palpitations or lower extremity edema. Gastrointestinal: No anorexia, nausea, vomiting or diarrhea. No abdominal pain Skin: No open wounds Endocrine: No cold or heat intolerance. No polyuria Physical exam: Constitutional: Alert, in no distress. Neck: Supple, Full range of motion. No lymphadenopathy. No palpable thyroid masses. Respiratory: Clear to auscultation. Cardiovascular: S1 S2 regular. No murmurs. Extremities: Warm and well perfused. No edema. Feet: declined exam. [facility] Medical History Hyperkalemia 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 Brother Diabetes Sister No problems noted. Daughter No problems noted. Social History Housing: Other Alcohol intake: current Patient Tobacco Use Status: Former Tobacco user Tobacco use type: Cigarette Years Smoked: quit 1979 e-Cigarette/Vaping Use: Never Used Second Hand Smoke Exposure: Yes service: No Current occupational status: retired Cognitive needs: No Hearing needs: No Vision needs: Yes Physical Exam Vital Signs: Last Vital Signs Pulse 51 04/17/25 09:02 BP 114/52 L 04/17/25 09:02 Pulse Ox 99 04/17/25 09:02 Oxygen Delivery Method Room Air 04/17/25 09:02 BMI result Body Mass Index 36.2 Results Reviewed Results Reviewed: Laboratory Tests 11/03/23 11/03/23 11/07/24 10:10 10:24 09:05 Creatinine 1.82 H Estimated GFR 36 Hgb A1c (Clinic) AST ALT Triglycerides 203 H 355 H Cholesterol 155 152 LDL Cholesterol, Calc 89 54 HDL Cholesterol 26 L 27 L Urine Creatinine 97.07 Urine Microalbumin 38.0 Microalb/Creat Ratio 39.1 H 01/31/25 02/07/25 08:56 12:50 Creatinine 1.78 H Estimated GFR 37 Hgb A1c (Clinic) 10.7 H AST 14 ALT 13 Triglycerides Cholesterol LDL Cholesterol, Calc HDL Cholesterol Urine Creatinine Urine Microalbumin Microalb/Creat Ratio Assessment & Plan Assessment & Plan (1) Type 2 diabetes mellitus with hyperglycemia: Comment: [facility] Code(s): E11.65 - Type 2 diabetes mellitus with hyperglycemia Category: Medical Qualifiers: Diabetes mellitus prison insulin use: with prison use Qualified Code(s): E11.65 - Type 2 diabetes mellitus with hyperglycemia; Z79.4 - intermission coordinator (current) use of insulin (2) CKD stage 3b, GFR 30-44 ml/min: Code(s): N18.32 - Chronic kidney disease, stage 3b Category: Medical (3) Proliferative retinopathy due to DM: Code(s): E11.3599 - Type 2 diabetes mellitus with proliferative diabetic retinopathy without macular edema, unspecified eye Category: Medical Qualifiers: Diabetes mellitus type: type 2 Proliferative retinopathy type: stable Laterality: bilateral Qualified Code(s): E11.3553 - Type 2 diabetes mellitus with stable proliferative diabetic retinopathy, bilateral Plan In summary this is a 79-year-old male with uncontrolled type 2 diabetes with complications. Patient is using magnifiers to administer medications. We reviewed a diabetic diet. Recommended consult with certified adapted physical educator and dietitian, but he declined. Adjusted medications as follows: Continue Tresiba 62 units at bedtime. Increase Trulicity to 3 mg weekly. Novolog sliding scale If blood sugar is under 100 no NovoLog 100-149 inject 6 units 150-199 10 units 200-249 16 units 250-299 18 units 300-349 20 units 350-399 22 units >400 call office and administer 24 units I enlarged medication instructions and printed them for the patient. We reviewed treatment of hypo and hyperglycemia. He has glucose tablets. Due to Oscar 2 being discontinued in the patient on basal bolus insulin regimen he is being advanced to oscar 3 plus. He will finish his current prescription for Trulicity 1.5 (has 3 pens left) before increasing the dose. Follow-up in 8 weeks for Type II diabetes. Medications: New dulaglutide (Trulicity) 3 mg (0.5 mL) subcut QWEEK 2 mL 2RF Changed From insulin aspart U-100 (Novolog FlexPen U-100 Insulin aspart) administered subcutaneously 10 minutes before meals per sliding scale 4 - 22 units (0.04 - 0.22 mL) subcut TID 30 mL 5RF To insulin aspart U-100 (Novolog FlexPen U-100 Insulin aspart) administered subcutaneously 10 minutes before meals per sliding scale 6 - 24 units subcut TID Discontinued dulaglutide (Trulicity) Discontinued Reason: Doctor's Order 1.5 mg (0.5 mL) subcut QWEEK 2 mL 1RF Patient Instructions: Continue Tresiba 62 units at bedtime. Increase Trulicity to 3 mg weekly. Novolog sliding scale If blood sugars under 100 no NovoLog 100-149 inject 6 units 150-199 10 units 200-249 16 units 250-299 18 units 300-349 20 units 350-399 22 units >400 call office and administer 24 units Coding Level of Care Code Est Pt Level 4 (34690) Complex EM visit Add On G2211 Diagnoses Type 2 diabetes mellitus with hyperglycemia, with long-term current use of insulin E11.65; Z79.4 Diabetes mellitus termite treater insulin use: with prison use CKD stage 3b, GFR 30-44 ml/min N18.32 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 associated with type 2 diabetes mellitus E11.3553 Diabetes mellitus type: type 2 Proliferative retinopathy type: stable Laterality: bilateral
[2025-04-17 09:02] VITALS: BP 114/52; PULSE 51; O2SAT 99; BMI 36.2
--- OUTSIDE RECORDS SUMMARY | 2025-04-17 09:07 | XMS_ITS | Clinical Summary ---
Author Organization [facility] Address [address] [place] [address] Phone Care Team Providers Care Freight Hustler Name Role Phone Brandt Vickers MD Primary Care Provider [phone] Social History Tobacco Use Types Packs/Day Years [...] on file Insurance [address] [address] [facility] PREF [facility] MEDICARE REPLACEMENT [address] [address] [facility] VALUE MEDICARE REPLACEMENT [address] [address] [facility] VALUE MEDICARE REPLACEMENT [address] [place] [address] [facility] MEDICARE REPLACEMENT 9 [address] [address] [facility] PREF VALUE MEDICARE REPLACEMENT 9 [address] [address] [facility] PREF VALUE MEDICARE REPLACEMENT Care Teams Freight Hustler Relationship Specialty Start Date End Date Brandt Vickers MD [address] [place] [id number] PCP - General Internal Medicine 12/08/22 Additional Source Comments The information contained in this document represents components of the legal health record. It is not the complete legal health record.[facility]
--- OUTSIDE RECORDS SUMMARY | 2025-04-17 09:07 | XMS_ITS | Encounter Summary ---
Author Organization [facility] Address [address] [place] [address] Phone Care Team Providers Care Taper/Finisher Name Role Phone Pcp, Unknown Primary Care Provider Brandt Aragon MD Primary Care Provider [phone] Encounter Details Date Type Department Care Team (Late st Contact Info) Description 11/11/2022 Transcribe Orders Virtual Department [address] [place] [address] Manuel Harris MD [address] [place] [address] [address] [address] [email or web address] Stage 3b chronic kidney disease (CKD) (Primary Dx); Type 2 diabetes mellitus with diabetic chronic kidney disease, unspecified CKD stage, unspecified whether termite treater helper insulin use Social History Tobacco Use Types Packs/Day Years Used Date Smoking Tobacco: Never Assessed Sex and Gender Information Value Date Recorded Sex Assigned at Not on file Legal Sex Male 10:16 AM EDT Gender Identity Not on file Sexual Orientation Not on file documented as of this encounter Plan of Treatment Not on file documented as of this encounter Results * US Kidneys (12/08/2022 9:53 AM EDT) Anatomical Region Laterality Modality Abdomen, Kidney Ultrasound 12/08/2022 10:0 6 PM EDT Impressions 12/09/2022 7:06 AM EDT Nonobstructing right renal stones measuring up to 1.5 cm. No hydronephrosis. Narrative 12/09/2022 7:06 AM EDT US KIDNEYS TECHNIQUE: Kidney Ultrasound. COMPARISON: None FINDINGS: Right Kidney: Size: 12.5 cm Multiple nonobstructing right renal stones measuring up to 1.5 cm. No hydronephrosis. Left Kidney: Size: 11.3 cm Normal. No stones or hydronephrosis. Bladder: Normal. Procedure Note Sohan Tilley MD - 12/09/2022 US KIDNEYS TECHNIQUE: Kidney Ultrasound. COMPARISON: None FINDINGS: Right Kidney: Size: 12.5 cm Multiple nonobstructing right renal stones measuring up to 1.5 cm. Nohydronephrosis. Left Kidney: Size: 11.3 cm Normal. No stones or hydronephrosis. Bladder: Normal. IMPRESSION: Nonobstructing right renal stones measuring up to 1.5 cm. Nohydronephrosis. Manuel Harris MD [facility] US RENAL Final Result documented in this encounter Visit Diagnoses Diagnosis Stage 3b chronic kidney disease (CKD)- Primary Type 2 diabetes mellitus with diabetic chronic kidney disease, unspecified CKD stage, unspecified whether termite treater helper insulin use Stage 3b chronic kidney disease (CKD) Type 2 diabetes mellitus with diabetic chronic kidney disease, unspecified CKD stage, unspecified whether termite treater helper insulin use documented in this encounter Care Teams Taper/Finisher Relationship Specialty Start Date End Date Pcp, Unknown PCP - General 11/19/22 12/07/22 Brandt Vickers MD [address] [place] [phone] PCP - General Internal Medicine 12/08/22 documented as of this encounter Additional Source Comments The information contained in this document represents components of the legal health record. It is not the complete legal health record.[facility]
--- OUTSIDE RECORDS SUMMARY | 2025-04-17 09:07 | XMS_ITS | Patient Health Record ---
Author Organization [facility] Address [address] [facility] [place] [address] Care Team Providers Care Secretary Name Role Phone Brandt Vickers Primary Care Provider Jamel Lundy Unavailable [phone] Allergies Allergen (clinical drug ingredient) Drug/Non Drug [...] Once a day; Duration: 30 day(s) Active Lantus 100 UNIT/ML as directed Subcutaneous Active NovoLOG 100 UNIT/ML as directed Injection Active Lovastatin 20 MG 1 tablet with the ev ening meal Orally Once a day; Duration: 30 day(s) Active Furosemide 20 MG Oral; Duration: 30 Active Ozempic Active Extra Depth Orthopedic Shoes (1 Pair) with Customized Heat Molded Multidensity Innersoles (3 Pair) as directed Dx: NIDDM/Polyneuropathy (E11.42), Hammertoe Foot Deformity (M20.41,M20.42), Preulcerative Skin Lesion(s) (L85.1 10/15/2023 Active Ammonium Lactate 12 % 1 application Exte rnally Twice a day; Duration: 30 days Active Immunizations Vaccine Route Administration Date Status [...] Problem Acquired hammer toe of right foot ([id number] ) Other hammer toe(s) (acquired), right foot (M20.41) Active confirmed Problem Acquired hammer toe of left foot ([id number] ) Other hammer toe(s) (acquired), left foot (M20.42) Active confirmed Problem Polyneuropathy due to type 2 diabetes mellitus (849207798) Type 2 diabetes mellitus with diabetic polyneuropathy (E11.42) Active confirmed Vital Signs Blood pressure diastolic 60 mm Hg 09/22/2024 Height 5 ft 10.5 in in 09/22/2024 Blood pressure systolic 120 mm Hg 09/22/2024 Weight 237 lbs 09/22/2024 BMI 33.52 kg/m2 09/22/2024 Procedures Procedure Date Ordered Date Performed Result Body Sit e 93316-WQIYCIM NAIL, 6 OR MORE 06/23/2024 N/A 34730-XWLJ SKIN LESIONS, OVER 4 06/23/2024 N/A 14747-NJDJOSZ NAIL, 6 OR MORE 09/22/2024 N/A 99550-NSBF SKIN LESIONS, OVER 4 09/22/2024 N/A Encounters Encounter Location Date Provider Diagnosis [facility] [address] [address] 06/23/2024 Jamel Briseno Type 2 diabetes mellitus with diabetic polyneuropathy E11.42 ; Tinea unguium B35.1 and Xerosis of [facility] L85.[facility] [address] 09/22/2024 Jamel Briseno Type 2 diabetes mellitus with diabetic polyneuropathy E11.42 ; Tinea unguium B35.1 ; Other hammer toe(s) (acquired), right foot M20.41 and Other hammer toe(s) (acquired), left foot M20.42 [facility] [place] [address] [place] [address] 09/22/2024 Jamel Briseno Assessments Encounter Date Diagnosis [...] Treatment Pending Test Test Name Order Date 12685-SULPDRZ NAIL, 6 OR MORE 08/04/2022 56818-OSYBEIA NAIL, 6 OR MORE 12/22/2022 40328-USTWZLJ NAIL, 6 OR MORE 03/30/2023 70324-GTLYBPO NAIL, 6 OR MORE 10/15/2023 74888-ULMPMFI NAIL, 6 OR MORE 03/17/2024 76314-BXOIEXQ NAIL, 6 OR MORE 06/23/2024 32058-JOHBJSS NAIL, 6 OR MORE 09/22/2024 29900-NVZGKSG NAIL, 6 OR MORE 05/05/2022 22125-Ggpcypqu Plate 05/05/2022 21331-FCJQ SKIN LESIONS, OVER 4 05/05/20 22 71775-VOUM SKIN LESIONS, OVER 4 09/22/19 25 21197-WAJX SKIN LESIONS, OVER 4 06/23/20 24 58927-ZDDV SKIN LESIONS, OVER 4 03/17/20 24 31584-XEMV SKIN LESIONS, OVER 4 10/15/19 24 04453-RVGZ SKIN LESIONS, OVER 4 03/30/20 23 94812-NCJC SKIN LESIONS, OVER 4 12/23/19 23 64939-CARG SKIN LESIONS, OVER 4 08/04/20 22 Insurance Providers Payer Name Payer Address Payer Phone Subscriber Number Group Number Insured Name Patient Relationship to Insured Coverage Start Date Coverage End Date Medicare National [employer] [address] [place] [address] [id number] Sammy Ghosh Self - patient is the insured 2 Medical (General) History Medical History History ICD Code Cataracts covid-19 type II diabetes Glaucoma High blood pressure Kidney disease Numbness Measles Chicken pox Retinopathy CAD Surgical History Surgery Date(Month/Year) cataract surgery L eye [facility] 06/2022
--- OUTSIDE RECORDS SUMMARY | 2025-04-17 09:07 | XMS_ITS | Clinical Summary ---
Author Organization [facility] Address [address] [address] Phone Care Team Providers Care Dispute Resolution Specialist Name Role Phone Brandt Vickers MD Primary Care Provider [phone] Allergies Active Allergy Reactions Criticality Noted Date [...] in the morning 90 tablet 1 5 Active Active Problems Problem Noted Date Diagnosed Date Type 2 diabetes mellitus without complication Essential (primary) hypertension 07/09/2022 Hypercholesterolemia 07/09/2022 Stage 3a chronic kidney disease 07/09/2022 Stage 3b chronic kidney disease 07/09/2022 Type 2 diabetes mellitus wit h diabetic chronic kidney disease 07/09/2022 Renal osteodystrophy 07/09/2022 Social History Tobacco Use Types Packs/Day Years [...] Care Team (Late st Contact Info) Description 07/05/2025 2:45 PM EST Office Visit [facility] [address] [phone] Manuel Harris MD [address] [phone] Health Maintenance Due Date Last Done Comments [...] topic Insurance Medicare Medicaid [place] Care Teams Dispute Resolution Specialist Relationship Specialty Start Date End Date Brandt Vickers MD [facility] [place] [address] [place] PCP - General Internal Medicine 04/16/22
[2025-04-17 09:13] LABS: Glucose, Whole Blood 166 mg/dL (60-115)
== END 2025-04-17 09:27 | disposition home or self-care (01) ==
LOC: HO.ENCR 08:49
PROVIDERS: PCP Internal Medicine; Visit Provider Physician Assistant Medical
DX: E11.65 Type 2 diabetes mellitus with hyperglycemia (principal); Z79.4 Long term (current) use of insulin; N18.32 Chronic kidney disease, stage 3b; E11.3553 Type 2 diabetes mellitus with stable proliferative diabetic retinopathy, bilateral

== ENCOUNTER → 2025-04-17 08:49 | Outpatient (BNVA) | payer MEDICARE, MEDICAID, SELFPAY | PROVIDERS: PCP Internal Medicine; Visit Provider Physician Assistant Medical | DX: E11.65 Type 2 diabetes mellitus with hyperglycemia (principal); E11.22 Type 2 diabetes mellitus with diabetic chronic kidney disease; N18.32 Chronic kidney disease, stage 3b; E11.3553 Type 2 diabetes mellitus with stable proliferative diabetic retinopathy, bilateral; Z79.4 Long term (current) use of insulin; Z79.85 Long-term (current) use of injectable non-insulin antidiabetic drugs | CPT/HCPCS: 82947; 99212 ==

== ENCOUNTER 2025-05-23 08:45 | Outpatient (AMB) | payer MEDICARE, MEDICAID, SELFPAY ==
--- OUTSIDE RECORDS SUMMARY | 2023-12-31 05:00 | XMS_ITS ---
Author Organization [facility] Address [address] [place] [id number] Care Team Providers Care Optical Mechanic Apprentice Name Role Phone Brandt Vickers Primary Care Provider Jamel Lundy Unavailable [phone] Encounters Encounter Location Date Provider Diagnosis [address] [address] 12/31/2023 Jamel Briseno Plan Of Treatment No Information Progress Notes * Sammy GHOSH EDOB:1945 (79 yo M)Acc No.[id number]:12/31/2023 Progress Note Patient: Josefina ARIZA Sammy Puente Provider: Kwame Briseno DPM :1945 A ge:78 Y S ex:Male Date:12/31/2023 [id number] Pcp:Brandt Vickers Subjective: * Chief Complaints: * [...] DPM Date: 0 12/31/2023 Generated for Natty hdz/Falailag/eTransmitting on: 1 09:20 AM EDT
--- OUTSIDE RECORDS SUMMARY | 2024-12-26 05:00 | XMS_ITS ---
Author Organization [facility] Address [address] [place] [address] Care Team Providers Care Cash Management Associate Name Role Phone Brandt Vickers Primary Care Provider Jamel Lundy [phone] Allergies Allergen (clinical drug ingredient) Drug/Non Drug [...] Active Encounters Encounter Location Date Provider Diagnosis [facility] [address] [place] [address] 12/26/2024 Jamel Briseno Plan Of Treatment No Information Progress Notes * Sammy GHOSH EDOB:1945 (79 yo M)Acc No.[id number]:12/26/2024 Progress Note Patient: Sammy SWANSON Provider: Kwame Briseno DPM :1945 A ge:79 Y S ex:Male Date:12/26/2024 [facility] Pcp:Brandt Vickers Subjective: * Chief Complaints: * [...] 12/26/2024 Generated for Natty hdz/Gisele/eTransmitting on: 1 09:20 AM EDT
--- NOTE | 2025-05-23 08:50 | MHC.PC.OV ---
Vital Signs 05/23/25 08:51 Height 5 ft 10 in Weight 250 lb BMI 35.9 BP 128/62 Blood Pressure Location Lt brachial Position Sitting Pulse 73 Pulse Source Pulse Oximeter Pulse Oximetry (%) 98 Oxygen Delivery Method Room Air Intake Visit Reasons: 3 MNTH F/U Allergies metformin Adverse Reaction (Severe, Verified 05/23/25 08:51) Diarrhea ozempic Adverse Reaction (Intermediate, Uncoded 05/23/25 08:51) vomiting Medication List - Last Reconciled 05/23/25 by Brandt Vickers MD alcohol swabs (Alcohol Pads) 1 pad topical QID blood sugar diagnostic (CrepeGuysTouch Verio test strips) Use as directed to check blood glucose 3 times daily. blood-glucose meter (CrepeGuysTouch Verio Flex Meter) Use as directed to check blood glucose 3 times daily for Type II diabetes mellitus. blood-glucose sensor (FreeStyle Oscar 3 Plus Sensor device) Apply 1 new sensor every 15 days as directed to monitor blood glucose continuously. blood-glucose,gift wrapper,cont (FreeStyle Oscar 3 [place]) Use daily to monitor blood glucose levels continuously. dulaglutide (Trulicity) 3 mg (0.5 mL) subcut QWEEK folic acid 1 mg PO DAILY furosemide 20 mg PO DAILY glucose (Dex4 Glucose) 16 grams (4 x 4 gram) PO Q15M PRN insulin aspart U-100 (Novolog FlexPen U-100 Insulin aspart) 6 - 24 units subcut TID insulin degludec (Tresiba FlexTouch U-200 insulin) 62 units subcut BEDTIME lancets (OneTouch Delica Plus Lancet) Use as directed to check blood glucose 3 times daily losartan 100 mg PO DAILY 90 days omeprazole 20 mg PO DAILY pen needle, diabetic (1st Tier Unifine Pentips Plus) As directed inject 4 x a day rosuvastatin 20 mg PO BEDTIME Tobacco use date assessed: 01/31/25 Fall risk assessment: No Falls in past year Last assessed Fall Risk: 05/23/25 Dental Screening Dental Screen Date: 05/23/25 Did you have a dental visit in the last 12 months?: No Did you have a dental problem in the last 6 months where you did not have access to dental care?: No Was dental information given to patient?: No [facility] Medical History Hyperkalemia 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 Brother Diabetes Sister No problems noted. Daughter No problems noted. Social History Housing: Other Alcohol intake: current Patient Tobacco Use Status: Former Tobacco user Tobacco use type: Cigarette Years Smoked: quit 1979 e-Cigarette/Vaping Use: Never Used Second Hand Smoke Exposure: Yes service: No Current occupational status: retired Cognitive needs: No Hearing needs: No Vision needs: Yes Questionnaire Thrive Questionnaire Date Thrive assessed: 01/31/25 I am a: Patient What is your living situation today?: I have a steady place to live Within the past 12 months, did the food you bought not last and you didn't have the money to get more?: Never true Within the past 12 months, did you worry whether your food would run out before you got money to buy more?: Never true Do you have trouble paying for medicines?: I choose not to answer this question Do you have trouble getting transportation to medical appointments?: No Do you have trouble paying your heating and electricity bill?: No Do you have trouble taking care of your child, family member or friend?: No Do you have trouble with day-to-day activities such as bathing, preparing meals, shopping, managing finances, etc.?: I choose not to answer this question Are you currently unemployed and looking for a job?: No Are you interested in more education?: No Please select the resources that you would like help with: None Currently or been in a relationship where the following occur: No concerns reported THRIVE Score: 0 PAZ-7 AMB Questionnaire PAZ-7 Date PAZ - 7 assessed: 10/27/24 Source: Developed by Drs. Kalen Laguerre, Meg Charles, Alfonso Gan and colleagues, with an educational nadia from [employer]. Physical exam (Primary Care) Vital Signs: Last Vital Signs Pulse 73 05/23/25 08:51 BP 128/62 05/23/25 08:51 Pulse Ox 98 05/23/25 08:51 Oxygen Delivery Method Room Air 05/23/25 08:51 BMI result Body Mass Index 35.9 Tobacco/Smoking Status: Tobacco use Status Tobacco use date assessed 01/31/25 05/23/25 08:50 Patient Tobacco Use Status Former Tobacco user 05/23/25 08:50 Tobacco use type Cigarette 05/23/25 08:50 e-Cigarette/Vaping Use Never Used 05/23/25 08:50 Thrive Assessment: Date of Thrive Assessment Date Thrive assessed 01/31/25 05/23/25 08:50 Currently or been in a relationship where the following occur: No concerns reported Const General: alert; No acute distress Eyes Conjunctivae: conjunctivae normal Resp Auscultation: clear to auscultation bilaterally Cardio Rate: regular rate Rhythm: regular rhythm GI Inspection: Yes normal to inspection Extrem General: Yes normal to inspection and No edema Results AMB Hemoglobin A1c AMB Hemoglobin A1c 10.4 % Last Edit by Taylor Casrto CMA on 05/23/25 09:07 Immunizations pneumoc 20-santiago conj-dip cr(PF) 0.5 mL IM syringe Performing Provider: Brandt Vickers MD [facility] Administered by: Taylor Castro CMA on 05/23/25 09:20 Dose Route Admin Location Dispensed Lot Number Expiration Date [facility] Mortgage Banker 0.5 mL IM Left Deltoid 0.5 mL [id number] 04/23/26 [employer] Total Dispensed Waste 0.5 mL 0 % VIS Given Date VIS Provided VIS Publication Date 05/23/25 Single Vaccine 25 Eligibility Eligibility Date Funding Source Not [facility] Eligible 05/23/25 Private Results Reviewed Results Reviewed: Laboratory Last Values Hgb A1c (Clinic) 10.4 % (4.0-6.0) H 05/23/25 08:52 Coding Level of Care Code Est Pt Level 4 (98039) Complex EM visit Add On G2211 Diagnoses Type 2 diabetes mellitus with hyperglycemia, with long-term current use of insulin E11.65; Z79.4 Diabetes mellitus technician terminal and repeater insulin use: with [facility] use Hypertension I10 Hypercholesterolemia E78.00 Obesity (BMI 30-39.9) E66.9 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 associated with type 2 diabetes mellitus E11.3553 Diabetes mellitus type: type 2 Laterality: bilateral Proliferative retinopathy type: stable GERD (gastroesophageal reflux disease) K21.9 CKD (chronic kidney disease) N18.9 Assessment & Plan Assessment & Plan (1) Type 2 diabetes mellitus with hyperglycemia: Comment: [facility] Code(s): E11.65 - Type 2 diabetes mellitus with hyperglycemia Category: Medical Qualifiers: Diabetes mellitus [facility] insulin use: with [facility] use Qualified Code(s): E11.65 - Type 2 diabetes mellitus with hyperglycemia; Z79.4 - assisted (current) use of insulin Plan: Decrease the amount of carbohydrate intake, pasta, bread, rice and potatoes are all sugar and that is aside from all the sweet stuff, remember that fruits are good but they are Sweet also. Patient has met with the hay rake operator adjustment of medication and nutrition in education again. Patient continues to follow-up with [facility] and up-to-date. As far as medications are concerned on Trulicity 3 mg increase NovoLog sliding scale Tresiba. (2) Hypertension: Code(s): I10 - Essential (primary) hypertension Category: Medical Plan: Continue with blood pressure medication. Decrease salt intake and exercise on losartan 100 mg once a day (3) Hypercholesterolemia: Code(s): E78.00 - Pure hypercholesterolemia, unspecified Category: Medical Plan: Avoid fried foods, chicken skin, eggs, butter margarine, pastries and meat. Be it pork or beef they have a lot of cholesterol LDL goal of less than 100 and triglyceride of less than 150. Patient on rosuvastatin 20 mg once a day but with a very high triglyceride will need to repeat. (4) Obesity (BMI 30-39.9): Code(s): E66.9 - Obesity, unspecified Category: Medical Plan: Diet and exercise (5) Proliferative retinopathy due to DM: Code(s): E11.3599 - Type 2 diabetes mellitus with proliferative diabetic retinopathy without macular edema, unspecified eye Category: Medical Qualifiers: Diabetes mellitus type: type 2 Laterality: bilateral Proliferative retinopathy type: stable Qualified Code(s): E11.3553 - Type 2 diabetes mellitus with stable proliferative diabetic retinopathy, bilateral Plan: Continue to follow-up with ophthalmology, control diabetes (6) GERD (gastroesophageal reflux disease): Code(s): K21.9 - Gastro-esophageal reflux disease without esophagitis Category: Medical Plan: Avoid the foods that causes that usually spicy foods, tomato products, juices, coffee, soda and foods that your sensitive to. After eating do not lie down, allow 3-4 hours before in lie down. And keep the head of bed above 30 degrees to avoid the acid from going up. (7) CKD (chronic kidney disease): Comment: Stage IIIB nephrology Code(s): N18.9 - Chronic kidney disease, unspecified Category: Medical Plan: Continue to monitor avoid NSAIDs will request for blood test Plan History of Present Illness The patient is a 79-year-old male presenting for a follow-up visit to address chronic medical conditions and to review recent laboratory test results. The patient has a history of uncontrolled diabetes mellitus with a current hemoglobin A1c of 10.4%. Endocrinology has been consulted, and he has been advised to engage with a school vocational educator. He reports being on Tresiba and Trulicity; the latter undergoes ongoing adjustment. The patient has a past medical history of essential hypertension treated with losartan, with reports of current blood pressure control. Hypercholesterolemia is managed with rosuvastatin; however, previous laboratory work indicated high triglyceride levels necessitating further testing and dietary evaluation. He has chronic kidney disease with stable parameters except for elevated creatinine and is undergoing specialized ophthalmological follow-ups for proliferative diabetic retinopathy. The patient also reports urge incontinence without additional complications noted. Health Maintenance - Administer pneumonia vaccine, as it is due. Scheduled for administration. - Discussed influenza vaccination, advised receiving it either onsite or at a pharmacy. - Encouraged COVID-19 vaccination at pharmacy alongside flu shot. - Discussed Shingles vaccination as a preventive measure, though not required. Social History - Lives alone; feels isolated due to vision impairment. - Family support from daughter who resides nearby. - Has difficulty with cooking and grocery shopping due to vision problems and relies on external support for daily activities. Review of Systems - Genitourinary: Reports urge incontinence. - Ophthalmologic: Reports issues with vision. - Respiratory: Denies any chronic cough or respiratory distress. - Gastrointestinal: Denies changes in bowel movements but occasionally requires manual assistance for defecation. - Neurological: Denies pins and needles sensation in feet. Physical Exam - Cardiovascular- Heart sounds noted during the examination. - Respiratory- Observed postnasal drip with no significant cough during examination. - Dermatologic- Acknowledged thorough inspection by a graphics manager for diabetic foot care. Results - Labs: Hemoglobin A1c 10.4%, indicating slight improvement. - Labs: Creatinine 1.78 mg/dL, consistent with chronic kidney disease. - Labs: LDL 54 mg/dL, triglycerides 355 mg/dL, follow-up recommended. - Imaging: Previous bladder ultrasound showed mild postvoid residual. Plan Patient was informed and verbally consented to the use of an ambient scribe for clinic note documentation during this visit. 1. Diabetes Mellitus Follow-up with endocrinology. Adjustments made in Trulicity dosage to 3 mg. Continue Tresiba at 62 units. Plan to incorporate a school vocational educator with family's assistance due to the patient's limited vision affecting diet management. 2. Hypertension Continuation of losartan 100 mg daily. Adequate control observed, with regular evaluations scheduled. 3. Hypercholesterolemia Maintain rosuvastatin 20 mg once daily. Monitor dietary intake, encourage triglyceride control with repeat testing advised. 4. Chronic Kidney Disease Ongoing monitoring of creatinine levels. Ensure medication adherence for blood pressure control. 5. Proliferative Diabetic Retinopathy Scheduled follow-ups as per retinal specialist's advice. 6. Urge Incontinence Re-evaluate bladder function if symptoms persist. Discussed potential conservative management strategies. Discussion Notes I discussed with the patient the importance of managing his diabetes mellitus through both medication and lifestyle changes, though his limited vision poses a challenge with dietary management. We reviewed the benefits of his current medications, Tresiba and Trulicity, and the need for close follow-ups with endocrinology. The risks of poorly managed diabetes were highlighted, including potential renal and retinal complications. We support continued blood pressure management through losartan, now well-controlled, as part of his chronic kidney disease management. Discussed the necessity of achieving better triglyceride levels to mitigate cardiovascular risk and the importance of involvement with a dietitian when feasible. Vaccination updates were addressed, prioritizing pneumonia and influenza protection. The value of family support was emphasized, especially regarding daily activities impacted by visual limitations. He consented to the recommended treatments and vaccinations. Patient Instructions - Continue Tresiba and Trulicity as directed and monitor blood glucose levels. - Maintain current medications for hypertension and hypercholesterolemia. - Schedule fasting lab tests for cholesterol as advised. - Obtain pneumonia shot today and seek flu and COVID vaccines at the pharmacy. - Follow up with the hay rake operator and seafood technology specialist as scheduled. - Seek family assistance for diet and grocery needs due to vision constraints. - Report any significant changes in symptoms to the clinic immediately. Orders: Orders Microalbumin, Random (w Creat) Today E11.9 - Type 2 diabetes mellitus without complications Pneumococcal 20 Immunization Today Z23 - Encounter for immunization AMB Hemoglobin A1c Today Z13.9 - Encounter for screening, unspecified
[2025-05-23 08:51] VITALS: BP 128/62; PULSE 73; O2SAT 98; BMI 35.9
--- OUTSIDE RECORDS SUMMARY | 2025-05-23 09:20 | XMS_ITS | Encounter Summary ---
Author Organization [facility] Address [address] [place] [address] Phone Care Team Providers Care Skull Grinder Name Role Phone Pcp, Unknown Primary Care Provider Brandt Aragon MD Primary Care Provider [phone] Encounter Details Date Type Department Care Team (Late st Contact Info) Description 11/11/2022 Transcribe Orders Virtual Department [address] [place] [address] Manuel Harris MD [address] [place] [address] [address] [address] [email or web address] Stage 3b chronic kidney disease (CKD) (Primary Dx); Type 2 diabetes mellitus with diabetic chronic kidney disease, unspecified CKD stage, unspecified whether laborer marine terminal insulin use Social History Tobacco Use Types [...] 1.5 cm. Nohydronephrosis. Manuel Harris MD [facility] Final Result documented in this encounter Visit Diagnoses Diagnosis Stage 3b chronic kidney disease (CKD)- Primary Type 2 diabetes mellitus with diabetic chronic kidney disease, unspecified CKD stage, unspecified whether laborer marine terminal insulin use Stage 3b chronic kidney disease (CKD) Type 2 diabetes mellitus with diabetic chronic kidney disease, unspecified CKD stage, unspecified whether laborer marine terminal insulin use documented in this encounter Care Teams Skull Grinder Relationship Specialty Start Date End Date Pcp, Unknown PCP - General 11/19/22 12/07/22 Brandt Vickers MD [address] [place] [phone] PCP - General Internal Medicine 12/08/22 documented as of this encounter Additional Source Comments The information contained in this document represents components of the legal health record. It is not the complete legal health record.[facility]
--- OUTSIDE RECORDS SUMMARY | 2025-05-23 09:20 | XMS_ITS | Clinical Summary ---
Author Organization [facility] Address [address] [address] Phone Care Team Providers Care Deputy Chief Executive Name Role Phone Brandt Vickers MD Primary Care Provider [phone] Allergies Active Allergy Reactions Criticality Noted Date [...] Office Visit [facility] [address] [phone] Manuel Harris MD [address] [phone] Health Maintenance Due Date Last Done Comments [...] topic Insurance Medicare Medicaid [place] Care Teams Deputy Chief Executive Relationship Specialty Start Date End Date Brandt Vickers MD [facility] [place] [address] [place] PCP - General Internal Medicine 04/16/22
--- OUTSIDE RECORDS SUMMARY | 2025-05-23 09:20 | XMS_ITS | Clinical Summary ---
Author Organization [facility] Address [address] [place] [address] Phone Care Team Providers Care Workforce Planning Analyst Name Role Phone Brandt Vickers MD Primary Care Provider [phone] Social History Tobacco Use Types Packs/Day Years [...] on file Insurance [address] [address] [facility] PREF [facility] MEDICARE REPLACEMENT [address] [address] [facility] MEDICARE REPLACEMENT [address] [address] [facility] MEDICARE REPLACEMENT [address] [place] [address] [facility] MEDICARE REPLACEMENT [address] [address] [facility] P[facility]UE MEDICARE REPLACEMENT [address] [address] [facility] PREF VALUE MEDICARE REPLACEMENT Care Teams Workforce Planning Analyst Relationship Specialty Start Date End Date Brandt Vickers MD [address] [place] [id number] PCP - General Internal Medicine 12/08/22 Additional Source Comments The information contained in this document represents components of the legal health record. It is not the complete legal health record.[facility]
--- OUTSIDE RECORDS SUMMARY | 2025-05-23 09:20 | XMS_ITS | Patient Health Record ---
Author Organization [facility] Address [address] [place] [address] Care Team Providers Care Buggyman Name Role Phone Brandt Vickers Primary Care Provider Jamel Lundy Unavailable [phone] Allergies Allergen (clinical drug ingredient) Drug/Non Drug [...] Vaccine Route Administration Date Status Comme nts Influenza Unknown 05/25/2022 Administered COVID-19 Moderna Vaccine Unknown 03/23/2022 Administered 2020 Unsure Dates Social History Tobacco Use: Social History Observation [...] Problem Acquired hammer toe of right foot ([id number] ) Other hammer toe(s) (acquired), right foot (M20.41) Active confirmed Problem Acquired hammer toe of left foot (5963838046002867 ) Other hammer toe(s) (acquired), left foot (M20.42) Active confirmed Problem Polyneuropathy due to type 2 diabetes mellitus (821276468) Type 2 diabetes mellitus with diabetic polyneuropathy (E11.42) Active confirmed Vital Signs Blood pressure diastolic 60 mm Hg 09/22/2024 Height 5 ft 10.5 in in 09/22/2024 Blood pressure systolic 120 mm Hg 09/22/2024 Weight 237 lbs 09/22/2024 BMI 33.52 kg/m2 09/22/2024 Procedures Procedure Date Ordered Date Performed Result Body Sit e 99566-FWJQKGP NAIL, 6 OR MORE 06/23/2024 N/A 56900-PAZN SKIN LESIONS, OVER 4 06/23/2024 N/A 31622-FQAZTVM NAIL, 6 OR MORE 09/22/2024 N/A 98195-KODE SKIN LESIONS, OVER 4 09/22/2024 N/A Encounters Encounter Location Date Provider Diagnosis [facility] [address] [phone] 06/23/2024 Jamel Briseno Type 2 diabetes mellitus with diabetic polyneuropathy E11.42 ; Tinea unguium B35.1 and Xerosis [facility] L85.[facility] [address] 09/22/2024 Jamel Briseno Type 2 diabetes mellitus with diabetic polyneuropathy E11.42 ; Tinea unguium B35.1 ; Other hammer toe(s) (acquired), right foot M20.41 and Other hammer toe(s) (acquired), left foot M20.42 [facility] [address] [place] [address] 09/22/2024 Jamel Briseno Assessments Encounter Date Diagnosis [...] Treatment Pending Test Test Name Order Date 68416-LUIHICF NAIL, 6 OR MORE 05/05/2022 11059-YLBWDMG NAIL, 6 OR MORE 08/04/2022 67601-TIYLLDI NAIL, 6 OR MORE 12/22/2022 59848-QOCDDXV NAIL, 6 OR MORE 03/30/2023 56725-HAKVQFD NAIL, 6 OR MORE 10/15/2023 10006-TDSCUTU NAIL, 6 OR MORE 03/17/2024 85071-EFAYFJS NAIL, 6 OR MORE 06/23/2024 62899-WIFHGFI NAIL, 6 OR MORE 09/22/2024 47667-Wjyzoqeo Plate 05/05/2022 96131-XPXT SKIN LESIONS, OVER 4 05/05/20 22 15241-LYOD SKIN LESIONS, OVER 4 08/04/20 22 30419-QHLT SKIN LESIONS, OVER 4 03/30/20 23 05186-QVBP SKIN LESIONS, OVER 4 12/23/19 23 57438-UXOV SKIN LESIONS, OVER 4 09/22/19 25 17975-EEAM SKIN LESIONS, OVER 4 06/23/20 24 77717-YHLD SKIN LESIONS, OVER 4 03/17/20 24 69284-QBXM SKIN LESIONS, OVER 10/15/19 24 Insurance Providers Payer Name Payer Address Payer Phone Subscriber Number Group Number Insured Name Patient Relationship to Insured Coverage Start Date Coverage End Date Medicare [employer] [address] [place] [address] [id number] Sammy Ghosh Self - patient is the insured 2 Medical (General) History Medical History History ICD Code Cataracts covid-19 type II diabetes Glaucoma High blood pressure Kidney disease Numbness Measles Chicken pox Retinopathy CAD Surgical History Surgery Date(Month/Year) cataract surgery L eye [facility] 06/2022
== END 2025-05-23 09:28 | disposition home or self-care (01) ==
LOC: HO.HMCH 08:46
PROVIDERS: PCP Internal Medicine; Visit Provider Internal Medicine
DX: I12.9 Hypertensive chronic kidney disease with stage 1 through stage 4 chronic kidney disease, or unspecified chronic kidney disease (principal); E11.65 Type 2 diabetes mellitus with hyperglycemia; Z79.4 Long term (current) use of insulin; E11.3553 Type 2 diabetes mellitus with stable proliferative diabetic retinopathy, bilateral; E66.9 Obesity, unspecified; Z68.35 Body mass index [BMI] 35.0-35.9, adult; E78.00 Pure hypercholesterolemia, unspecified; K21.9 Gastro-esophageal reflux disease without esophagitis; N18.9 Chronic kidney disease, unspecified; Z23 Encounter for immunization

== ENCOUNTER → 2025-05-23 08:45 | Outpatient (BNVA) | payer MEDICARE, MEDICAID, SELFPAY | PROVIDERS: PCP Internal Medicine; Visit Provider Internal Medicine | DX: E11.65 Type 2 diabetes mellitus with hyperglycemia (principal); E11.22 Type 2 diabetes mellitus with diabetic chronic kidney disease; E11.3553 Type 2 diabetes mellitus with stable proliferative diabetic retinopathy, bilateral; K21.9 Gastro-esophageal reflux disease without esophagitis; I12.9 Hypertensive chronic kidney disease with stage 1 through stage 4 chronic kidney disease, or unspecified chronic kidney disease; E78.00 Pure hypercholesterolemia, unspecified; E66.9 Obesity, unspecified; N18.9 Chronic kidney disease, unspecified; N39.41 Urge incontinence; Z79.4 Long term (current) use of insulin; Z23 Encounter for immunization; Z68.35 Body mass index [BMI] 35.0-35.9, adult; Z79.899 Other long term (current) drug therapy | CPT/HCPCS: 83036; 90471; 90677; 99212 ==

== ENCOUNTER 2025-06-19 09:16 | Outpatient (AMB) | payer MEDICARE, MEDICAID, SELFPAY ==
--- OUTSIDE RECORDS SUMMARY | 2023-12-31 05:00 | XMS_ITS ---
[facility] Organization [facility] Address [address] [place] [id number] Care Team Providers Care Test Rider Name Role Phone Brandt Vickers Primary Care Provider Jamel Lundy Unavailable [phone] Encounters Encounter Location Date Provider Diagnosis [address] [address] 12/31/2023 Jamel Briseno Plan Of Treatment No Information Progress Notes * Sammy GHOSH EDOB:1945 (80 yo M)Acc No.[id number]:12/31/2023 Progress Note Patient: Josefina ARIZA Sammy Puente Provider: Kwame Briseno DPM :1945 A ge:78 Y S ex:Male Date:12/31/2023 [id number] Pcp:Brandt Vickers Subjective: * Chief Complaints: * * Medical History: Objective: * Vitals: Assessment: Plan: * Treatment: * Images: * The named appointment provid er may or may not be the originator of this progress note, and it is not deemed complete until electronically signed by the appointment provider. Sign off status: Pending * Provider: Kwame Briseno DPM Date: 0 12/31/2023 Generated for Natty ng/Falailag/eTransmitting on: 1 10:25 AM EDT
--- OUTSIDE RECORDS SUMMARY | 2024-12-26 05:00 | XMS_ITS ---
Author Organization [facility] Address [address] [place] [address] Care Team Providers Care Adult Literacy Instructor Name Role Phone Brandt Vickers Primary Care Provider Jamel Lundy [phone] Allergies Allergen (clinical drug ingredient) Drug/Non Drug [...] Active Encounters Encounter Location Date Provider Diagnosis [facility] [address] [place] [address] 12/26/2024 Jamel Briseno Plan Of Treatment No Information Progress Notes * Sammy GHOSH EDOB:1945 (80 yo M)Acc No.[id number]:12/26/2024 Progress Note Patient: Sammy SWANSON Provider: Kwame Briseno DPM :1945 A ge:79 Y S ex:Male Date:12/26/2024 [facility] Pcp:Brandt Vickers Subjective: * Chief Complaints: * [...] DPM Date: 0 12/26/2024 Generated for Natty hdz/Gisele/eTransmitting on: 1 10:25 AM EDT
[2025-06-19 09:18] VITALS: BP 132/48; PULSE 61; O2SAT 98; BMI 36.7
--- NOTE | 2025-06-19 09:18 | A.OFFVIS_ITS ---
Vital Signs 06/19/25 09:18 Height 5 ft 10 in Weight 255 lb 8.252 oz BMI 36.7 BP 132/48 L Blood Pressure Location Lt brachial Position Sitting Pulse 61 Pulse Source Pulse Oximeter Pulse Oximetry (%) 98 Oxygen Delivery Method Room Air Intake Visit Reasons: DMT2 Follow-Up Intake Note: Patient present today to follow up on Type 2 Diabetes Mellitus. Last Diabetic Eye exam: 03/21/2025, [facility] Last Podiatry Visit: 09/22/2024 Random Glucose: 141 mg/dL Most Recent HgA1C: 10.4% 05/23/2025 Seafood Team Member Required: No Accompanied by: Self / Same As Patient Allergies metformin Adverse Reaction (Severe, Verified 06/19/25 09:23) Diarrhea ozempic Adverse Reaction (Intermediate, Uncoded 06/19/25 09:23) vomiting Medication List - Last Reconciled 06/19/25 by ANTONIETTA Rodas alcohol swabs (Alcohol Pads) 1 pad topical QID blood sugar diagnostic (Force10 NetworksTouch Verio test strips) Use as directed to check blood glucose 3 times daily. blood-glucose meter ([employer] Verio Flex Meter) Use as directed to check blood glucose 3 times daily for Type II diabetes mellitus. blood-glucose sensor (FreeStyle Oscar 3 Plus Sensor device) Apply 1 new sensor every 15 days as directed to monitor blood glucose continuously. blood-glucose,furniture finisher apprentice,cont (FreeStyle Oscar 3 [place]) Use daily to monitor blood glucose levels continuously. dulaglutide (Trulicity) 4.5 mg (0.5 mL) subcut QWEEK folic acid 1 mg PO DAILY furosemide 20 mg PO DAILY glucose (Dex4 Glucose) 16 grams (4 x 4 gram) PO Q15M PRN insulin aspart U-100 (Novolog FlexPen U-100 Insulin aspart) 6 - 24 units subcut TID insulin degludec (Tresiba FlexTouch U-200 insulin) 70 units subcut BEDTIME lancets (Force10 NetworksTouch Delica Plus Lancet) Use as directed to check blood glucose 3 times daily losartan 100 mg PO DAILY 90 days omeprazole 20 mg PO DAILY pen needle, diabetic (1st Tier Unifine Pentips Plus) As directed inject 4 x a day rosuvastatin 20 mg PO BEDTIME HPI Comments Details: This is a 80 year old male with a pmhx of Type II diabetes with proliferative retinopathy, HLD, HTN, CKD stage IIIb and obesity presenting for diabetic management. Reviewed CGM data for the past 14 days Average glucose 256 G VA 9.4% Glucose variability 31.9% Very high 53% High 23% Target range 24% 0% hypoglycemia My interpretation of data is that the blood sugars are within target range sometimes overnight, but he has hyperglycemia constantly between 9 am and 12 am. Hemoglobin A1c 10.4% 05/23/2025. Tresiba 70 units at bedtime. Trulicity 3 mg weekly. Novolog sliding scale If blood sugar is under 100 no NovoLog 100-149 inject 6 units 150-199 10 units 200-249 16 units 250-299 18 units 300-349 20 units 350-399 22 units >400 call office and administer 24 units Past medications: Metformin discontinued due to diarrhea. Stopped Ozempic due to acid reflux, indigestion and then had vomiting. Lantus switch to Tresiba. Barriers to Treatment: Patient is legally blind and has financial barriers. He reports he is not taking Novolog as directed. He doesn't use it at all some days. Dosing is variable. Hypoglycemia symptoms: Denies episodes Hyperglycemia symptoms: Denies symptoms Eye exam: UTD and receives intravitreal injections every 8 weeks at [facility], sees ophthalmology soon for routine diabetic exam Podiatry visit: [facility]. Complications: neuropathy, nephropathy (Dr. Harris), retinopathy Hypertension: treated with losartan 100 mg. He is also on furosemide 20 mg. Hyperlipidemia: treated with lovastatin 20 mg. ROS: Constitutional: No fevers or chills. Respiratory: No shortness of breath Cardiovascular: No chest pain, palpitations or lower extremity edema. Gastrointestinal: No anorexia, nausea, vomiting or diarrhea. No abdominal pain Skin: No open wounds Endocrine: No cold or heat intolerance. No polyuria Physical exam: Constitutional: Alert, in no distress. Neck: Supple, Full range of motion. No lymphadenopathy. No palpable thyroid masses. Respiratory: Clear to auscultation. Cardiovascular: S1 S2 regular. No murmurs. Extremities: Warm and well perfused. 1+ ankle edema bilaterally. Feet: Patient declined examination. Stated he will call his cutting machine operator but could not confirm the office location and declined referral. [facility] Medical History Hyperkalemia 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 Brother Diabetes Sister No problems noted. Daughter No problems noted. Social History Housing: Other Alcohol intake: current Patient Tobacco Use Status: Former Tobacco user Tobacco use type: Cigarette Years Smoked: quit 1979 e-Cigarette/Vaping Use: Never Used Second Hand Smoke Exposure: Yes service: No Current occupational status: retired Cognitive needs: No Hearing needs: No Vision needs: Yes Physical Exam Vital Signs: Last Vital Signs Pulse 61 06/19/25 09:18 BP 132/48 L 06/19/25 09:18 Pulse Ox 98 06/19/25 09:18 Oxygen Delivery Method Room Air 06/19/25 09:18 BMI result Body Mass Index 36.7 Office Procedures Glucose Monitoring Details Details: See HPI 84112 - Glucose monitoring, continuous-physician I&R Procedure code (CPT) selection complete Results Reviewed Results Reviewed: Laboratory Last Values Glucose (Clinic) 141 mg/dL (60-115) H 06/19/25 09:25 Laboratory Tests 11/07/24 02/07/25 09:05 12:50 Creatinine 1.78 H Estimated GFR 37 AST 14 ALT 13 Triglycerides 355 H Cholesterol 152 LDL Cholesterol, Calc 54 HDL Cholesterol 27 L Assessment & Plan Assessment & Plan (1) Type 2 diabetes mellitus with hyperglycemia: Comment: [facility] Code(s): E11.65 - Type 2 diabetes mellitus with hyperglycemia Category: Medical Qualifiers: Diabetes mellitus [facility] use: with [facility] use Qualified Code(s): E11.65 - Type 2 diabetes mellitus with hyperglycemia; Z79.4 - senior care (current) use of insulin (2) CKD stage 3b, GFR 30-44 ml/min: Code(s): N18.32 - Chronic kidney disease, stage 3b Category: Medical (3) Proliferative retinopathy due to DM: Code(s): E11.3599 - Type 2 diabetes mellitus with proliferative diabetic retinopathy without macular edema, unspecified eye Category: Medical Qualifiers: Diabetes mellitus type: type 2 Proliferative retinopathy type: stable Laterality: bilateral Qualified Code(s): E11.3553 - Type 2 diabetes mellitus with stable proliferative diabetic retinopathy, bilateral (4) Hypercholesterolemia: Code(s): E78.00 - Pure hypercholesterolemia, unspecified Category: Medical (5) Hypertension: Code(s): I10 - Essential (primary) hypertension Category: Medical Qualifiers: Hypertension type: primary hypertension Qualified Code(s): I10 - Essential (primary) hypertension Plan In summary this is a 80-year-old male with uncontrolled type 2 diabetes with complications. Patient is using magnifiers to administer medications. We reviewed a diabetic diet. Recommended consult with peer educator and dietitian, but he declined. Adjusted medications as follows: Continue Tresiba 70 units at bedtime. Increase Trulicity to 4.5 mg weekly. Reviewed the importance of using short-acting insulin and encouraged compliance with the medication. Novolog sliding scale If blood sugar is under 100 no NovoLog 100-149 inject 6 units 150-199 10 units 200-249 16 units 250-299 18 units 300-349 20 units 350-399 22 units >400 call office and administer 24 units I strongly encouraged the patient to start a SGLT2 like Jardiance. This is a conversation he has had with his cashier gambling as well. He declined the prescription, but he agreed to think about it. We reviewed treatment of hypo and hyperglycemia. He has glucose tablets. Continue statin and antihypertensive regimen. Follow up in 6 weeks. Orders: Orders AMB Glucose Monitoring Today E11.9 - Type 2 diabetes mellitus without complications Medications: New dulaglutide (Trulicity) 4.5 mg (0.5 mL) subcut QWEEK 2 mL 5RF Discontinued dulaglutide (Trulicity) Discontinued Reason: Doctor's Order 3 mg (0.5 mL) subcut QWEEK 2 mL 2RF Patient Instructions: Tresiba 70 units at bedtime. Increase Trulicity to 4.5 mg weekly. Novolog sliding scale If blood sugar is under 100 no NovoLog 100-149 inject 6 units 150-199 10 units 200-249 16 units 250-299 18 units 300-349 20 units 350-399 22 units >400 call office and administer 24 units If you experience low blood sugar, treat this by eating a chewable fruit candy like skittles or jelly beans (about 8 pieces), 4 ounces (1/2 cup) of fruit juice (not diet), 1 tablespoon of honey or 4 glucose tablets. If your blood sugar is under 50, take double the amount of one of the above. Recheck your blood sugar in 15 minutes. If you want to try Jardiance (pill for diabetes) please call me, and I will send it in to the pharmacy. Coding Level of Care Code Est Pt Level 4 (47998) Diagnoses Type 2 diabetes mellitus with hyperglycemia, with long-term current use of insulin E11.65; Z79.4 Diabetes mellitus [facility] insulin use: with [facility] use CKD stage 3b, GFR 30-44 ml/min N18.32 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 associated with type 2 diabetes mellitus E11.3553 Diabetes mellitus type: type 2 Proliferative retinopathy type: stable Laterality: bilateral Hypercholesterolemia E78.00 Primary hypertension I10 Hypertension type: primary hypertension CPT Codes Details - CPT: 29903 - Glucose monitoring, continuous-physician I&R ([id number])
[2025-06-19 09:29] LABS: Glucose, Whole Blood 141 mg/dL (60-115)
--- OUTSIDE RECORDS SUMMARY | 2025-06-19 10:25 | XMS_ITS | Patient Health Record ---
Author Organization [facility] en[place] Address [address] [facility] [place] [address] Care Team Providers Care Supervisor Assembly Stock Name Role Phone Brandt Vickers Primary Care Provider Jamel Lundy Unavailable [phone] Allergies Allergen (clinical drug ingredient) Drug/Non Drug [...] Problem Acquired hammer toe of right foot (4204227112701532 ) Other hammer toe(s) (acquired), right foot (M20.41) Active confirmed Problem Acquired hammer toe of left foot (9403163056998807 ) Other hammer toe(s) (acquired), left foot (M20.42) Active confirmed Problem Polyneuropathy due to type 2 diabetes mellitus (631652710) Type 2 diabetes mellitus with diabetic polyneuropathy (E11.42) Active confirmed Vital Signs Blood pressure diastolic 60 mm Hg 09/22/2024 Height 5 ft 10.5 in in 09/22/2024 Blood pressure systolic 120 mm Hg 09/22/2024 Weight 237 lbs 09/22/2024 BMI 33.52 kg/m2 09/22/2024 Procedures Procedure Date Ordered Date Performed Result Body Sit e 69780-DTTYIZL NAIL, 6 OR MORE 06/23/2024 N/A 58210-SLQE SKIN LESIONS, OVER 4 06/23/2024 N/A 37687-SAEIXGV NAIL, 6 OR MORE 09/22/2024 N/A 66500-VZXX SKIN LESIONS, OVER 4 09/22/2024 N/A Encounters Encounter Location Date Provider Diagnosis [facility] [address] [address] 06/23/2024 Jamel Briseno Type 2 diabetes mellitus with diabetic polyneuropathy E11.42 ; Tinea unguium B35.1 and Xerosis [facility] L85.[facility] [address] 09/22/2024 Jamel Briseno Type 2 diabetes mellitus with diabetic polyneuropathy E11.42 ; Tinea unguium B35.1 ; Other hammer toe(s) (acquired), right foot M20.41 and Other hammer toe(s) (acquired), left foot M20.42 [facility] [place] [address] [place] [address] 09/22/2024 Jamel Briseno Assessments Encounter Date Diagnosis [...] Treatment Pending Test Test Name Order Date 12986-PPEOMPN NAIL, 6 OR MORE 05/05/2022 92156-KQLTZHD NAIL, 6 OR MORE 08/04/2022 14426-VXGDDUN NAIL, 6 OR MORE 12/22/2022 20664-LSEJZTU NAIL, 6 OR MORE 03/30/2023 61152-SDUSKIO NAIL, 6 OR MORE 10/15/2023 36576-PLXQIPL NAIL, 6 OR MORE 03/17/2024 68668-OSNMOQA NAIL, 6 OR MORE 06/23/2024 45773-NDMBNRP NAIL, 6 OR MORE 09/22/2024 86562-Evolkuzr Plate 05/05/2022 93104-JDBX SKIN LESIONS, OVER 4 05/05/20 22 53178-CKCY SKIN LESIONS, OVER 4 08/04/20 22 87909-FRAJ SKIN LESIONS, OVER 4 03/30/20 23 11377-KTEF SKIN LESIONS, OVER 4 12/23/19 23 68184-YOLO SKIN LESIONS, OVER 4 09/22/19 25 90128-NYNC SKIN LESIONS, OVER 4 06/23/20 24 49799-INQP SKIN LESIONS, OVER 4 03/17/20 24 17219-OOBE SKIN LESIONS, OVER 10/15/19 24 Insurance Providers Payer Name Payer Address Payer Phone Subscriber Number Group Number Insured Name Patient Relationship to Insured Coverage Start Date Coverage End Date Medicare National Govt [employer] [address] [place] [address] [id number] Sammy Ghosh Self - patient is the insured 2 Medical (General) History Medical History History ICD Code Cataracts covid-19 type II diabetes Glaucoma High blood pressure Kidney disease Numbness Measles Chicken pox Retinopathy CAD Surgical History Surgery Date(Month/Year) cataract surgery L eye [place] 06/2022
--- OUTSIDE RECORDS SUMMARY | 2025-06-19 10:25 | XMS_ITS | Encounter Summary ---
Author Organization [facility] Address [address] [place] [id number] Phone Care Team Providers Care Intake Coordinator Name Role Phone Pcp, Unknown Primary Care Provider Brandt Aragon MD Primary Care Provider [phone] Encounter Details Date Type Department Care Team (Late st Contact Info) Description 11/11/2022 Transcribe Orders Virtual Department [address] [place] [address] Manuel Harris MD [address] [place] [address] [email or web address] [address] [email or web address] Stage 3b chronic kidney disease (CKD) (Primary Dx); Type 2 diabetes mellitus with diabetic chronic kidney disease, unspecified CKD stage, unspecified whether penitentiary insulin use Social History Tobacco Use Types [...] to 1.5 cm. Nohydronephrosis. Manuel Harris MD [facility] Final Result documented in this encounter Visit Diagnoses Diagnosis Stage 3b chronic kidney disease (CKD)- Primary Type 2 diabetes mellitus with diabetic chronic kidney disease, unspecified CKD stage, unspecified whether penitentiary insulin use Stage 3b chronic kidney disease (CKD) Type 2 diabetes mellitus with diabetic chronic kidney disease, unspecified CKD stage, unspecified whether terminal worker insulin use documented in this encounter Care Teams Intake Coordinator Relationship Specialty Start Date End Date Pcp, Unknown PCP - General 11/19/22 12/07/22 Brandt Vickers MD [address] [place] [phone] PCP - General Internal Medicine 12/08/22 documented as of this encounter Additional Source Comments The information contained in this document represents components of the legal health record. It is not the complete legal health record.[facility]
--- OUTSIDE RECORDS SUMMARY | 2025-06-19 10:26 | XMS_ITS | Clinical Summary ---
Author Organization [facility] Address [address] [place] [address] Phone Care Team Providers Care Electric Shaver Mechanic Name Role Phone Brandt Vickers MD Primary Care Provider [phone] Social History Tobacco Use Types Packs/Day Years [...] on file Insurance [address] [address] [facility] MEDICARE REPLACEMENT [address] [address] [facility] MEDICARE [facility]PLACEMENT [address] [address] [facility] MEDICARE REPLACEMENT [address] [address] [facility] MEDICARE REPLACEMENT [address] [address] [facility] MEDICARE REPLACEMENT [address] [address] [facility] PREF VALUE MEDICARE REPLACEMENT Care Teams Electric Shaver Mechanic Relationship Specialty Start Date End Date Brandt Vickers MD [address] [place] [id number] PCP - General Internal Medicine 12/08/22 Additional Source Comments The information contained in this document represents components of the legal health record. It is not the complete legal health record.[facility]
== END 2025-06-19 10:07 | disposition home or self-care (01) ==
LOC: HO.ENCR 09:17
PROVIDERS: PCP Internal Medicine; Visit Provider Physician Assistant Medical
DX: E11.65 Type 2 diabetes mellitus with hyperglycemia (principal); Z79.4 Long term (current) use of insulin; N18.32 Chronic kidney disease, stage 3b; E11.3553 Type 2 diabetes mellitus with stable proliferative diabetic retinopathy, bilateral; E78.00 Pure hypercholesterolemia, unspecified; I10 Essential (primary) hypertension

== ENCOUNTER → 2025-06-19 09:16 | Outpatient (BNVA) | payer MEDICARE, MEDICAID, SELFPAY | PROVIDERS: PCP Internal Medicine; Visit Provider Physician Assistant Medical | DX: E11.65 Type 2 diabetes mellitus with hyperglycemia (principal); I12.9 Hypertensive chronic kidney disease with stage 1 through stage 4 chronic kidney disease, or unspecified chronic kidney disease; E11.22 Type 2 diabetes mellitus with diabetic chronic kidney disease; E11.3553 Type 2 diabetes mellitus with stable proliferative diabetic retinopathy, bilateral; N18.32 Chronic kidney disease, stage 3b; Z79.4 Long term (current) use of insulin; Z87.891 Personal history of nicotine dependence | CPT/HCPCS: 82947; 99212 ==

== ENCOUNTER 2025-07-31 08:57 | Outpatient (AMB) | payer MEDICARE, MEDICAID, SELFPAY ==
[2025-07-31 09:00] VITALS: BP 140/65; PULSE 60; O2SAT 100; BMI 36.2
--- NOTE | 2025-07-31 09:00 | MHC.OFFVIS ---
Vital Signs 07/31/25 09:00 Height 5 ft 10 in Weight 252 lb 6.868 oz BMI 36.2 BP 140/65 H Blood Pressure Location Rt brachial Position Sitting Pulse 60 Pulse Source Pulse Oximeter Pulse Oximetry (%) 100 Oxygen Delivery Method Room Air Intake Visit Reasons: Type II diabetes Intake Note: Patient present today to follow up on Type 2 Diabetes Mellitus. Last Diabetic Eye exam: 03/21/2025, [facility] Last Podiatry Visit: 07/30/2025 Random Glucose: 236 mg/dL Most Recent HgA1C: 10.4% 05/23/2025 Compensation And Hris Analyst Required: No Accompanied by: Self / Same As Patient Allergies metformin Adverse Reaction (Severe, Verified 07/31/25 09:08) Diarrhea ozempic Adverse Reaction (Intermediate, Uncoded 07/31/25 09:08) vomiting Medication List - Last Reconciled 07/31/25 by ANTONIETTA Rodas alcohol swabs (Alcohol Pads) 1 pad topical QID blood sugar diagnostic (Elevate HRTouch Verio test strips) Use as directed to check blood glucose 3 times daily. blood-glucose meter (Mettluch Verio Flex Meter) Use as directed to check blood glucose 3 times daily for Type II diabetes mellitus. blood-glucose sensor (FreeStyle Oscar 3 Plus Sensor device) Apply 1 new sensor every 15 days as directed to monitor blood glucose continuously. blood-glucose,neuropsychology division chief,cont (FreeStyle Oscar 3 [place]) Use daily to monitor blood glucose levels continuously. dulaglutide (Trulicity) 4.5 mg (0.5 mL) subcut QWEEK folic acid 1 mg PO DAILY furosemide 20 mg PO DAILY glucose (Dex4 Glucose) 16 grams (4 x 4 gram) PO Q15M PRN insulin aspart U-100 (Novolog FlexPen U-100 Insulin aspart) 6 - 24 units subcut TID insulin degludec (Tresiba FlexTouch U-200 insulin) 80 units subcut BEDTIME lancets (Elevate HRTouch Delica Plus Lancet) Use as directed to check blood glucose 3 times daily losartan 100 mg PO DAILY 90 days omeprazole 20 mg PO DAILY pen needle, diabetic (1st Tier Unifine Pentips Plus) As directed inject 4 x a day rosuvastatin 20 mg PO BEDTIME HPI Comments Details: This is a 80 year old male with a pmhx of Type II diabetes with proliferative retinopathy, HLD, HTN, CKD stage IIIb and obesity presenting for diabetic management. Oscar 3+ data for the past 14 days: CGM active 89% Average glucose 286 G ND 10.2% Glucose variability 22.9% Very high 71% High 23% Target range 6% 0% hypoglycemia Patient has hyperglycemia throughout 24 hours with little variation throughout the day. Blood sugars are higher despite increasing Trulicity. Hemoglobin A1c 10.4% 05/23/2025. Taking Tresiba 80 units at bedtime. States he is consistent with this and Trulicity 4.5 mg weekly. He admits to using Novolog sporadically and is not following the sliding scale below: Novolog sliding scale If blood sugar is under 100 no NovoLog 100-149 inject 6 units 150-199 10 units 200-249 16 units 250-299 18 units 300-349 20 units 350-399 22 units >400 call office and administer 24 units He has to use a magnifier to administer insulin which is why he doesn't use it as directed. I had arranged [facility] in the past to help with medication management. He says this was not helpful. Eats breakfast: bowl of cereal or ham egg and cheese sandwich or peanut butter sandwich with glass of milk or green tea. Doesn't usually eat lunch Dinner is usually a frozen meal. Didn't like meals on wheels. He can't really prepare meals due to vision. He doesn't think a FIELD SERVICE TECHNICIAN would benefit him. Can't get to [facility] due to lack of transportation. Past medications: Metformin discontinued due to diarrhea. Stopped Ozempic due to GI side effects. Lantus switch to Tresiba. Hypoglycemia symptoms: Denies episodes Hyperglycemia symptoms: Denies symptoms Eye exam: UTD and receives intravitreal injections every 8 weeks at [facility] Podiatry visit: [facility]. Complications: neuropathy, nephropathy (Dr. Harris), retinopathy Hypertension: treated with losartan 100 mg. He is also on furosemide 20 mg. He didn't take Losartan today, and his blood pressure is elevated. Hyperlipidemia: treated with lovastatin 20 mg. Last podiatry visit 07/30/2025. ROS: Constitutional: No fevers or chills. Respiratory: No shortness of breath Cardiovascular: No chest pain, palpitations or lower extremity edema. Gastrointestinal: No anorexia, nausea, vomiting or diarrhea. No abdominal pain Skin: No open wounds Endocrine: No cold or heat intolerance. No polyuria Physical exam: Constitutional: Alert, in no distress. Neck: Supple, Full range of motion. No lymphadenopathy. No palpable thyroid masses. Respiratory: Clear to auscultation. Cardiovascular: S1 S2 regular. No murmurs. [facility] Medical History Hyperkalemia 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 Brother Diabetes Sister No problems noted. Daughter No problems noted. Social History Housing: Other Alcohol intake: current Patient Tobacco Use Status: Former Tobacco user Tobacco use type: Cigarette Years Smoked: quit 1979 e-Cigarette/Vaping Use: Never Used Second Hand Smoke Exposure: Yes service: No Current occupational status: retired Cognitive needs: No Hearing needs: No Vision needs: Yes Physical Exam Vital Signs: Last Vital Signs Pulse 100 07/31/25 09:00 BP 140/65 H 07/31/25 09:00 Pulse Ox 60 L 07/31/25 09:00 Oxygen Delivery Method Room Air 07/31/25 09:00 BMI result Body Mass Index 36.2 Office Procedures Glucose Monitoring Details Details: See [facility] [address] - Glucose monitoring, continuous-physician I&R Procedure code (CPT) selection complete Results Reviewed Results Reviewed: Laboratory Last Values Glucose (Clinic) 236 mg/dL (60-115) H 07/31/25 09:10 Laboratory Tests 11/07/24 02/07/25 09:05 12:50 Creatinine 1.78 H Estimated GFR 37 AST 14 ALT 13 Triglycerides 355 H Cholesterol 152 LDL Cholesterol, Calc 54 HDL Cholesterol 27 L Assessment & Plan Assessment & Plan (1) Type 2 diabetes mellitus with hyperglycemia: Comment: [facility] Code(s): E11.65 - Type 2 diabetes mellitus with hyperglycemia Category: Medical Qualifiers: Diabetes mellitus rodent exterminator insulin use: with rodent exterminator use Qualified Code(s): E11.65 - Type 2 diabetes mellitus with hyperglycemia; Z79.4 - predatory animal exterminator (current) use of insulin (2) CKD stage 3b, GFR 30-44 ml/min: Code(s): N18.32 - Chronic kidney disease, stage 3b Category: Medical (3) Proliferative retinopathy due to DM: Code(s): E11.3599 - Type 2 diabetes mellitus with proliferative diabetic retinopathy without macular edema, unspecified eye Category: Medical Qualifiers: Diabetes mellitus type: type 2 Proliferative retinopathy type: stable Laterality: bilateral Qualified Code(s): E11.3553 - Type 2 diabetes mellitus with stable proliferative diabetic retinopathy, bilateral (4) Hypercholesterolemia: Code(s): E78.00 - Pure hypercholesterolemia, unspecified Category: Medical (5) Hypertension: Code(s): I10 - Essential (primary) hypertension Category: Medical Qualifiers: Hypertension type: primary hypertension Qualified Code(s): I10 - Essential (primary) hypertension Plan In summary this is a 80-year-old male with uncontrolled type 2 diabetes with complications and noncompliance in part due to treatment barriers. We reviewed a diabetic diet. Recommended consult with nicker and breaker and dietitian (could explore other options for food security), but he continues to decline this. Continue Tresiba 80 units at bedtime. Recommended switching from Mounjaro to Trulicity to 4.5 mg weekly. Patient declines. He had previously declined SGLT2. We discussed this when GMI was under 10 at his last visit, but his glycemic control has worsened so starting it now may increase the risk of infections. I urged him to be compliant with Novolog. We discussed Actos - patient declined due to potential side effects. Novolog sliding scale: If blood sugar is under 100 no NovoLog 100-149 inject 6 units 150-199 10 units 200-249 16 units 250-299 18 units 300-349 20 units 350-399 22 units >400 call office and administer 24 units We reviewed treatment of hypo and hyperglycemia. He has glucose tablets. Continue statin and antihypertensive regimen. BP elevated today, but he did not take Losartan. Follow up in 4 weeks. Recommended MD consult due to persistently elevated A1C. Orders: Orders AMB Glucose Monitoring Today E11.9 - Type 2 diabetes mellitus without complications Coding Level of Care Code Est Pt Level 4 (74786) Diagnoses Type 2 diabetes mellitus with hyperglycemia, with long-term current use of insulin E11.65; Z79.4 Diabetes mellitus rodent exterminator insulin use: with prison use CKD stage 3b, GFR 30-44 ml/min N18.32 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 associated with type 2 diabetes mellitus E11.3553 Diabetes mellitus type: type 2 Proliferative retinopathy type: stable Laterality: bilateral Hypercholesterolemia E78.00 Primary hypertension I10 Hypertension type: primary hypertension CPT Codes Details - CPT: 07929 - Glucose monitoring, continuous-physician I&R ([id number])
[2025-07-31 09:14] LABS: Glucose, Whole Blood 236 mg/dL (60-115)
== END 2025-07-31 09:40 | disposition home or self-care (01) ==
LOC: HO.ENCR 08:57
PROVIDERS: PCP Internal Medicine; Visit Provider Physician Assistant Medical
DX: E11.65 Type 2 diabetes mellitus with hyperglycemia (principal); Z79.4 Long term (current) use of insulin; N18.32 Chronic kidney disease, stage 3b; E11.3553 Type 2 diabetes mellitus with stable proliferative diabetic retinopathy, bilateral; E78.00 Pure hypercholesterolemia, unspecified; I10 Essential (primary) hypertension